=== PATIENT | male | born 1940 | race Caucasian/White ===

== ENCOUNTER → 2018-07-24 08:29 | Outpatient (CLI) | payer MEDICARE, OTHER, SELFPAY ==
--- NOTE | 2018-07-24 | DI.MRI.S_ITS ---
PROCEDURE: MR CERVICAL SPINE WO CON INDICATIONS: CERVICAL RADICULOPATHY TECHNIQUE: Noncontrast sagittal T1 spin echo and T2 fast spin echo, sagittal STIR, foraminal oblique sagittal T2 fast spin echo, and axial gradient echo or T2 fast spin echo through the cervical spine. COMPARISON: [facility], CR, XR CERVICAL SPINE WITH OBLIQUES, 08/06/2017, 14:21. FINDINGS: Image quality: Excellent. Alignment and Curvature: Postsurgical changes related to C5-C6 ACDF. Minimal anterolisthesis of C7 on T1 Bone Marrow: Scattered degenerative endplate signal changes Spinal Cord: Visualized spinal cord has normal size and signal. No cerebellar tonsillar herniation. Paraspinous Soft Tissues: No paravertebral masses. Prevertebral soft tissues are normal in thickness. T2 hyperintense focus seen involving the left lobe of the thyroid, nonspecific C2-C3: No definite canal stenosis. There is mild right foraminal narrowing. No definite left foraminal stenosis. C3-C4: Bilateral uncovertebral arthropathy and posterior intervening disc osteophyte complex, and bilateral facet disease. No definite canal stenosis. Mild to moderate bilateral foraminal narrowing. C4-C5: Bilateral uncovertebral arthropathy and posterior intervening disc osteophyte complex, and bilateral facet arthropathy. Moderate canal stenosis with effacement of the anterior and posterior thecal sac. Mild right and awqr-hl-bumawulj left foraminal stenosis. C5-C6: No definite canal narrowing is seen. Moderate left and mild right foraminal narrowing C6-C7: Bilateral uncovertebral arthropathy and posterior intervening disc osteophyte complex. Mild canal narrowing. Severe left and kjzl-ep-lsnmrvaq right foraminal narrowing. C7-T1: Normal appearance. IMPRESSION: Status post C5-C6 ACDF. Moderate disc degeneration at the adjacent unfused segments with moderate canal narrowing at C4-C5 and mild canal stenosis at C6-C7. Diffuse bilateral foraminal stenoses as detailed above most pronounced at C4-C5 (left), C5-C6 (left), and C6-C7 (left). Left thyroid lobe signal change, entirely nonspecific. Consider further evaluation with dedicated thyroid ultrasound as clinically warranted. Dictated by: Marcial Doyle M.D. on 07/24/2018 at 10:14 Approved by: Marcial Doyle M.D. on 07/24/2018 at 10:24
== END ==
PROVIDERS: Family Provider Physician Assistant; PCP Physician Assistant; Visit Provider Family Medicine
DX: M50.11 Cervical disc disorder with radiculopathy, high cervical region (principal); M48.02 Spinal stenosis, cervical region; Z98.1 Arthrodesis status
CPT/HCPCS: 72141

== ENCOUNTER 2018-08-07 10:32 | Emergency (ER) | payer MEDICARE, OTHER, SELFPAY ==
[2018-08-07 11:02] VITALS: BP 162/61; PULSE 62; RESP 20; TEMP 36.4; O2SAT 98
--- NOTE | 2018-08-07 11:07 | ED.BACK ---
HPI - Back Pain/Injury General Chief Complaint: Back Pain/Injury Stated Complaint: BURNING ON LEFT SIDE Time Seen by Provider: 08/07/18 10:51 Source: patient Mode of arrival: ambulatory Limitations: no limitations History of Present Illness HPI Narrative: Patient is a 77-year-old male with known lower lumbar spinal stenosis and also cervical spinal stenosis. He also has known lower lumbar arthritis. Here for evaluation because 1 week ago he was sitting in a chair and the cough seat of the chair broke and he fell through landing on his buttocks. He was able to get up and walk afterwards. No hip pain. He states that since then he has had lower abdominal pain and also a burning sensation radiating around to the front of his hips. Has not tried anything for this prior to arrival. Related Data Home Medications Medication Instructions Recorded Confirmed tiotropium bromide [Spiriva with 1 puff INH QDAY #0 ea 08/10/16 08/07/18 HandiHaler] albuterol sulfate 2 puff INHALATION BID 08/07/18 08/07/18 [id number]-vttuzmwudchps-uckf 1 tab PO QID PRN 08/07/18 08/07/18 [Fioricet] gabapentin 600 mg PO BID 08/07/18 08/07/18 losartan [Cozaar] 100 mg PO QPM 08/07/18 08/07/18 Previous Rx's Medication Instructions Recorded fluticasone-salmeterol [Advair 1 puff INH BID #3 pac 08/09/16 Diskus] atorvastatin [Lipitor] 40 mg PO Q DAY #90 tab 07/04/17 hydrochlorothiazide 12.5 mg PO QDAY #90 cap 07/04/17 meloxicam [Mobic] 15 mg PO Q DAY #90 tab 07/04/17 pantoprazole 20 mg PO QDAY #90 tab 10/30/17 Allergies Allergy/AdvReac Type Severity Reaction Status Date / Time Beta-Blockers Allergy Unknown Unverified 02/06/18 12:11 (Beta-Adrenergic Bloc codeine Allergy Unknown Unverified 02/06/18 12:11 Review of Systems Constitutional Denies fatigue, Denies fever(s) and Denies weakness Cardiovascular Denies chest pain and Denies dyspnea Respiratory Denies cough and Denies dyspnea Gastrointestinal Gastrointestinal: Denies abdominal pain, Denies nausea and Denies vomiting Genitourinary Denies dysuria, Denies urinary frequency and Denies urinary hesitancy Musculoskeletal Denies abnormal gait, Reports back pain, Denies myalgias, Denies arthralgias and Denies tingling Integumentary/Breasts Denies lesions and Denies rash Neurologic Denies abnormal gait, Denies sensory deficit, Denies tingling, Denies paresthesias and Denies weakness Endocrine Denies fatigue Hematologic/Lymphatic Denies easy bleeding and Denies easy bruising [facility] Medical History COPD (chronic obstructive pulmonary disease) (Acute) Gastroesophageal reflux disease (Acute) Hyperlipidemia (Acute) Hypertension (Acute) Surgical History Status post appendectomy Exam Initial Vital Signs Initial Vital Signs: Vital Signs Temperature 97.6 F 08/07/18 11:02 Pulse Rate 62 08/07/18 11:02 Respiratory Rate 20 08/07/18 11:02 Blood Pressure 162/61 H 08/07/18 11:02 Pulse Oximetry 98 08/07/18 11:02 Const General: cooperative, healthy appearing, comfortable, well developed, well groomed and No acute distress Orientation: alert, awake and oriented x3 HENMT Head: normal to inspection and normocephalic Resp Effort & Inspection: normal respiratory effort Auscultation: clear to auscultation bilaterally Cardio Rate: regular rate Rhythm: regular rhythm Pulses: radial pulses present GI Inspection: non-distended Palpation: soft, No firm and No tender Back/Spine/Pelvis Back: No CVA tenderness Thoracic/Lumbar Spine: other (Mild tender to palpation left-sided SI joint.) Skin Lesions: lesions noted Rashes: rash noted Neuro General: alert and oriented x3 Sensory Exam: no sensory deficits noted Extrem General: normal to inspection and capillary refill normal Psych Appearance: grossly normal and well kempt Course Orders Ordered: ED Orders 08/07/18 11:24 XR lumbar spine 2-3V Stat Vital Signs - 8 hr 08/07/18 11:02 Temperature 97.6 F Pulse Rate 62 Respiratory Rate 20 Blood Pressure 162/61 H Pulse Oximetry 98 MDM - Back Pain/Injury Imaging Data Lumbar spine x-ray: Radiologist's impression: [address] [address] XRay Report Signed Patient: Flavio Bowen LMR#: [id number] : 2Acct:[id number] Age/Sex: 77 / MDate of Service: 08/07/18 Loc: ED Accession Number: [id number] Procedure: XR lumbar spine 2-3V Ordering Provider: Ivan Renteria D.O. PROCEDURE: XR LUMBAR SPINE 2-3V INDICATIONS: fall and landed while sitting 1 week ago TECHNIQUE: 3 views of the lumbar spine were acquired. COMPARISON: None. FINDINGS: Bones: 5 cdo-ldn-wvypbhn vertebrae are present. There is normal bony alignment except at L2-L3 where mild retrolisthesis of L2 on L3 grade 1 is present, and there is moderately severe degenerative disc disease at L1-2 and L2-3 with associated facet osteoarthritis allowing ligamentous laxity. No definite vertebral body compression fractures. No suspicious bony lesions. Soft tissues: Overlying bowel gas pattern is normal. No suspicious soft tissue calcifications. IMPRESSION: Degenerative disc disease and facet osteoarthritis is moderate to moderately severe best seen at L1-2 and L2-3, where mild retrolisthesis of L2 on L3 is present. A definite compression fracture is not found. Dictated by: Valdez Rey M.D. on 08/07/2018 at 11:49 Approved by: Valdez Rey M.D. on 08/07/2018 at 11:51 MDM Narrative Medical decision making narrative: Not toxic appearing. Skin is normal. No signs of zoster. X-rays negative for fracture. He is neurovascularly intact. Will hold on further x-rays for now. We did discuss the use of anti-inflammatories. He states that he does use Mobic and Advil as needed. He also has gabapentin. Informed him he needed to contact his primary doctor and also his spine doctor to discuss further workup. He was given return precautions. He expressed understanding and agreement plan Discharge Plan Departure Patient Disposition: Home Clinical Impression: Strain of lumbar region Discharge Date/Time: 08/07/18 12:43 Interventions: ED Discharge Assessment Last Done: 08/07/18 12:43 Instructions: DI for Low Back Pain, Activity May Be Better then Rest for Low Back Pain Recovery Activity Restrictions/Additional Instructions: Recommend that you start the Aleve like we discussed. Continue with the ulcer medications. Contact your primary care doctor for a follow-up. Return to the emergency department for any new or worsening symptoms Prescriptions: No Action fluticasone-salmeterol [Advair Diskus] 250 MCG/50 MCG blister with device 1 puff INH BID Qty: 3 RF: 3 tiotropium bromide [Spiriva with HandiHaler] 18 MCG capsule, w/inhalation device 1 puff INH QDAY Qty: 0 RF: 0 atorvastatin [Lipitor] 40 MG tablet 40 mg PO Q DAY Qty: 90 RF: 3 meloxicam [Mobic] 15 MG tablet 15 mg PO Q DAY Qty: 90 RF: 3 hydrochlorothiazide 12.5 MG capsule 12.5 mg PO QDAY Qty: 90 RF: 1 pantoprazole 20 MG tablet,delayed release (DR/EC) 20 mg PO QDAY Qty: 90 RF: 3 albuterol sulfate 90 mcg/actuation Hfa Aerosol Inhaler 2 puff INHALATION BID RF: 0 pnuxqdffed-kqjlrqjdnjaiv-wukz [Fioricet] 50-300-40 mg Capsule 1 tab PO QID PRN (Reason: Migraine Headache) RF: 0 gabapentin 600 mg Tablet Extended Release 24 Hr 600 mg PO BID RF: 0 losartan [Cozaar] 100 MG tablet 100 mg PO QPM RF: 0
--- NOTE | 2018-08-07 11:24 | DI.RAD.S_ITS ---
PROCEDURE: XR LUMBAR SPINE 2-3V INDICATIONS: fall and landed while sitting 1 week ago TECHNIQUE: 3 views of the lumbar spine were acquired. COMPARISON: None. FINDINGS: Bones: 5 zxd-ifw-ptiqvbr vertebrae are present. There is normal bony alignment except at L2-L3 where mild retrolisthesis of L2 on L3 grade 1 is present, and there is moderately severe degenerative disc disease at L1-2 and L2-3 with associated facet osteoarthritis allowing ligamentous laxity. No definite vertebral body compression fractures. No suspicious bony lesions. Soft tissues: Overlying bowel gas pattern is normal. No suspicious soft tissue calcifications. IMPRESSION: Degenerative disc disease and facet osteoarthritis is moderate to moderately severe best seen at L1-2 and L2-3, where mild retrolisthesis of L2 on L3 is present. A definite compression fracture is not found. Dictated by: Valdez Rey M.D. on 08/07/2018 at 11:49 Approved by: Valdez Rey M.D. on 08/07/2018 at 11:51
[2018-08-07 12:00] VITALS: BP 151/68; PULSE 60; RESP 15; O2SAT 96
== END 2018-08-07 12:43 | disposition home or self-care (01) ==
PROVIDERS: Emergency Provider Emergency Medicine; PCP Family Medicine
DX: S39.012A Strain of muscle, fascia and tendon of lower back, initial encounter (principal); W07.XXXA Fall from chair, initial encounter
CPT/HCPCS: 72100; 99282; 99283

== ENCOUNTER 2018-09-10 11:36 | Emergency (ER) | payer MEDICARE, OTHER, SELFPAY ==
[2018-09-10 11:52] VITALS: BP 168/63; PULSE 68; RESP 15; TEMP 36.7; O2SAT 98
[2018-09-10 12:00] VITALS: BP 151/69; PULSE 68; RESP 15; TEMP 36.7; O2SAT 98
--- NOTE | 2018-09-10 12:24 | ED.ABDPAIN ---
HPI - Abdominal Pain General Chief Complaint: Abdominal Pain Stated Complaint: LEFT SIDED PAIN Time Seen by Provider: 09/10/18 11:58 Source: patient Mode of arrival: ambulatory Limitations: no limitations History of Present Illness HPI narrative: Patient is a 77-year-old male who presents with left upper quadrant pain. He fell out of a metal folding chair about 1 month ago at that time he was seen evaluated and had a negative x-ray. He has had progressive worsening pain in his extremely tender to the left upper quadrant. He is not on any anti-platelet or anticoagulation medication. He denies nausea or vomiting. He has not had any fever. MD complaint: abdominal pain Onset (ago): month(s) (1) Pain Consistency: constant Location: LUQ Severity: severe Quality: stabbing Radiation: none Migration to: no migration Relieving factors: nothing Exacerbating factors: nothing Related Data Home Medications Medication Instructions Recorded Confirmed tiotropium bromide [Spiriva with 1 puff INH DAILY #0 ea 08/10/16 09/10/18 HandiHaler] albuterol sulfate 2 puff INHALATION BID 08/07/18 09/10/18 chvdjassxy-jiaurqrjfshch-zkja 1 tab PO QID PRN 08/07/18 09/10/18 [Fioricet] atorvastatin [Lipitor] 40 mg PO DAILY 09/10/18 09/10/18 gabapentin 800 mg PO BID 09/10/18 09/10/18 losartan 100 mg PO QPM 09/10/18 09/10/18 meloxicam [Mobic] 15 mg PO DAILY 09/10/18 09/10/18 pantoprazole 20 mg PO DAILY 09/10/18 09/10/18 Previous Rx's Medication Instructions Recorded fluticasone-salmeterol [Advair 1 puff INH BID #3 pac 08/09/16 Diskus] hydrochlorothiazide 12.5 mg PO QDAY #90 cap 07/04/17 Allergies Allergy/AdvReac Type Severity Reaction Status Date / Time Beta-Blockers Allergy Unknown Verified 09/10/18 10:56 (Beta-Adrenergic Bloc codeine Allergy Unknown Verified 09/10/18 10:56 Review of Systems Review of Systems All systems reviewed & are unremarkable except as noted in HPI and below Constitutional Denies chills, Denies fever(s), Denies lethargy and Denies weakness Eyes Denies change in vision, Denies eye discharge, Denies irritation and Denies loss of vision ENT Ears, Nose, Mouth, and Throat: Denies dysphagia Cardiovascular Denies chest pain, Denies irregular heart rhythm, Denies lightheadedness, Denies palpitations, Denies dyspnea, Denies dyspnea on exertion and Denies orthopnea Respiratory Denies cough, Denies dyspnea, Denies dyspnea on exertion and Denies wheezing Gastrointestinal Gastrointestinal: Reports abdominal pain, Reports cramping, Denies dysphagia, Denies nausea and Denies vomiting Genitourinary Denies hematuria, Reports flank pain (Mild left), Denies urinary frequency, Denies urinary hesitancy and Denies urinary incontinence Musculoskeletal Denies back pain, Denies muscle weakness, Denies numbness and Denies tingling Integumentary/Breasts Denies pruritus, Denies erythema, Denies rash and Denies wounds Neurologic Denies loss of vision, Denies numbness, Denies tingling and Denies weakness Endocrine Denies palpitations Allergic/Immunologic Denies wheezing [facility] Medical History COPD (chronic obstructive pulmonary disease) (Acute) Gastroesophageal reflux disease (Acute) Hyperlipidemia (Acute) Hypertension (Acute) Surgical History Status post appendectomy Social History Smoking Status: Never smoker alcohol intake: never substance use type: does not use Exam Initial Vital Signs Initial Vital Signs: Vital Signs Temperature 98.0 F 09/10/18 11:52 Pulse Rate 68 09/10/18 11:52 Respiratory Rate 15 09/10/18 11:52 Blood Pressure 168/63 H 09/10/18 11:52 Pulse Oximetry 98 09/10/18 11:52 GENERAL: Alert well-appearing elderly male normal body habitus A&O x3 HEENT: Head atraumatic,EOMI, pupils reactive, face symmetric, CARDIOVASCULAR: Regular rate and rhythm without murmurs, rubs or gallops. RESPIRATORY: Breath sounds equal bilaterally, no wheezes rales or rhonchi. ABDOMEN: Soft, left upper quad pain tender to touch. No guarding no rebound no right upper quadrant pain : Mild left CVA tenderness EXTREMITIES: Normal range of motion, no clubbing or edema. Neurovascularly intact NEUROLOGICAL: Alert and oriented x4.Normal gait and speech. Cranial nerves II through XII grossly intact. SKIN: Warm, dry, no laceration, no petechiae, no rashes or lesions. Course Orders Ordered: ED Orders 09/10/18 12:22 Complete Blood Count AUTO DIFF Stat Comprehensive Metabolic Panel Stat Lipase Stat 09/10/18 13:08 CT abdomen pelvis w con Stat Vital Signs - 8 hr 09/10/18 11:52 09/10/18 12:00 09/10/18 13:30 Temperature 98.0 F 98.0 F Pulse Rate 68 68 60 Respiratory Rate 15 15 14 Blood Pressure 151/69 H Blood Pressure [Right Arm] 168/63 H 167/70 H Pulse Oximetry 98 98 97 MDM - Abdominal Pain Lab Data Attestation: I reviewed the patient's lab results. Result diagrams: 09/10/18 12:22 09/10/18 12:22 Lab Results 09/10/18 09/10/18 Range/Units 12:22 12:22 WBC 9.3 (4.5-11.0) X10^3/uL RBC 4.77 (4.5-5.9) X10^6/uL Hgb 14.2 (13.5-17.5) g/dL Hct 41.4 (41-53) % MCV 86.9 (80-100) fL MCH 29.8 (26-34) PG MCHC 34.3 (30-36) % RDW 14.1 (11.6-14.8) % Plt Count 177 (150-400) X10^3/uL Neut % (Auto) 74.1 (50-75) % Lymph % (Auto) 17.2 L (25-40) % Union % (Auto) 6.0 (3-14) % Eos % (Auto) 2.0 (2-4) % Baso % (Auto) 0.7 (0-2) % Neut # (Auto) 6900 H (7711-3735) /uL Sodium 141 (137-145) mmol/L Potassium 4.0 (3.4-5.1) mmol/L Chloride 99 (98-107) mmol/L Carbon Dioxide 31 (22-32) mmol/L BUN 11 (9-20) mg/dL Creatinine 1.00 (0.66-1.25) mg/dL Estimated GFR > 60.0 (>60) mL/min BUN/Creatinine Ratio 11.0 (6-22) Glucose 96 (80-110) mg/dL Calcium 9.9 (8.4-10.2) mg/dL Total Bilirubin 0.6 (0.2-1.3) mg/dL AST 33 (17-59) IU/L ALT 40 (21-72) IU/L Alkaline Phosphatase 72 (38-126) U/L Total Protein 7.3 (6.3-8.2) g/dL Albumin 4.7 (3.5-5.0) g/dL Globulin 2.6 (1.7-4.1) g/dL Albumin/Globulin Ratio 1.8 (1.0-2.8) Lipase 74 (23-300) U/L Imaging Data CT scan - abdomen: Radiologist's impression: PROCEDURE: CT ABDOMEN PELVIS W CON INDICATIONS: left lower quad pain after fall 1month ago getting worse TECHNIQUE: After the administration of intravenous contrast, 5 mm thick sections acquired from the diaphragm to the symphysis. 5 mm coronal and sagittal reformats were acquired. For radiation dose reduction, the following was used: automated exposure control, adjustment of mA and/or kV according to patient size. COMPARISON: [facility], CT, THORAX WITHOUT CONTRAST, 03/20/2014, 9:22. [facility], CT, ABDOMEN/PELVIS WITH CONTRAST, 01/06/2014, 8:53. [facility], CT, ABDOMEN/PELVIS WITH CONTRAST, 01/09/2012, 12:50. FINDINGS: Image quality: Excellent. ABDOMEN: Lung bases: Lung bases are clear except for a band of alveolar scarring inferior medial aspect of the right middle lobe present on prior chest CT scanning in 2013. Heart size is normal. Solid organs: Liver is normal in size and enhancement. Gallbladder appears normal. Biliary system is non dilated. Pancreas enhances normally. Spleen is normal in size and enhancement. No adrenal nodules. Kidneys demonstrate normal size and enhancement, without hydronephrosis. Peritoneum and bowel: Bowel loops demonstrate normal wall thickness and caliber. No free fluid or air. Nodes and vessels: No retroperitoneal or mesenteric adenopathy by size criteria. Aorta and inferior vena cava are normal in size. Miscellaneous: No ventral hernias. PELVIS: Genitourinary: Bladder wall thickness is normal. Miscellaneous: No inguinal hernias or adenopathy. Bones: No suspicious bony lesions. No vertebral body compression fractures. IMPRESSION: No trauma found, source of persistent left lower quadrant pain after fall approximately one month ago. Dictated by: Valdez Rey M.D. on 09/10/2018 at 13:37 MDM Narrative Medical decision making narrative: Patient overall is feeling better. He really just wanted to know if he broke anything. CT is negative no sign of internal bleeding or fractured ribs. He feels he feels ready and able to go home Discharge Plan Departure Patient Disposition: Home Clinical Impression: Abdominal pain Discharge Date/Time: 09/10/18 13:45 Interventions: ED Discharge Assessment Last Done: 09/10/18 13:45 Instructions: DI for Abdominal Muscle Strain Activity Restrictions/Additional Instructions: *You have been diagnosed with abdominal pain left upper quadrant *What to do: Blood working CT scan do not show any sign of trauma. Likely a muscle strain. May try ice or heat whichever works passed. *Continue to take medications as directed Tylenol 650 mg every 4 hr *Follow up with your primary care provider in 2-3 days *Return to ER if you should have any new, worsening or concerning symptoms Prescriptions: No Action fluticasone-salmeterol [Advair Diskus] 250 MCG/50 MCG blister with device 1 puff INH BID Qty: 3 RF: 3 tiotropium bromide [Spiriva with HandiHaler] 18 MCG capsule, w/inhalation device 1 puff INH DAILY Qty: 0 RF: 0 hydrochlorothiazide 12.5 MG capsule 12.5 mg PO QDAY Qty: 90 RF: 1 losartan 50 mg tablet 100 mg PO QPM RF: 0 gabapentin 800 mg tablet 800 mg PO BID RF: 0 atorvastatin [Lipitor] 40 MG tablet 40 mg PO DAILY RF: 0 meloxicam [Mobic] 15 MG tablet 15 mg PO DAILY RF: 0 pantoprazole 20 MG tablet,delayed release (DR/EC) 20 mg PO DAILY RF: 0 albuterol sulfate 90 mcg/actuation Hfa Aerosol Inhaler 2 puff INHALATION BID RF: 0 ueeffarfld-nfudsrayqedzs-aiaj [Fioricet] 50-300-40 mg Capsule 1 tab PO QID PRN (Reason: Migraine Headache) RF: 0 Referrals: Salazar Richards DO [Primary Care Provider] -
[2018-09-10 12:29] LABS: Add Manual Diff / Slide Review NO; Basophils Percent Auto 0.7 % (0-2); Hematocrit 41.4 % (41-53); Hemoglobin 14.2 g/dL (13.5-17.5); Lymphocytes Percent Auto 17.2 % (25-40); Mean Corpuscular HGB Conc 34.3 % (30-36); Mean Corpuscular Hemoglobin 29.8 PG (26-34); Mean Corpuscular Volume 86.9 fL (80-100); Neutrophils Absolute Auto 6900 /uL (3000-5900); Neutrophils Percent Auto 74.1 % (50-75); Platelet Count 177 X10^3/uL (150-400); Red Blood Cell Count 4.77 X10^6/uL (4.5-5.9); Red Cell Distribution Width 14.1 % (11.6-14.8); White Blood Cell Count 9.3 X10^3/uL (4.5-11.0)
--- NOTE | 2018-09-10 12:29 | ED_ITS ---
HPI - Abdominal Pain General Chief Complaint: Abdominal Pain Stated Complaint: LEFT SIDED PAIN Time Seen by Provider: 09/10/18 11:58 Source: patient Mode of arrival: ambulatory Limitations: no limitations History of Present Illness HPI narrative: Patient is a 77-year-old male who presents with left upper quadrant pain. He fell out of a metal folding chair about 1 month ago at that time he was seen evaluated and had a negative x-ray. He has had progressive worsening pain in his extremely tender to the left upper quadrant. He is not on any anti-platelet or anticoagulation medication. He denies nausea or vomiting. He has not had any fever. MD complaint: abdominal pain Onset (ago): month(s) (1) Pain Consistency: constant Location: LUQ Severity: severe Quality: stabbing Radiation: none Migration to: no migration Relieving factors: nothing Exacerbating factors: nothing Related Data Home Medications Medication Instructions Recorded Confirmed tiotropium bromide [Spiriva with 1 puff INH DAILY #0 ea 08/10/16 09/10/18 HandiHaler] albuterol sulfate 2 puff INHALATION BID 08/07/18 09/10/18 [id number]-sptcequswaxti-enmy 1 tab PO QID PRN 08/07/18 09/10/18 [Fioricet] atorvastatin [Lipitor] 40 mg PO DAILY 09/10/18 09/10/18 gabapentin 800 mg PO BID 09/10/18 09/10/18 losartan 100 mg PO QPM 09/10/18 09/10/18 meloxicam [Mobic] 15 mg PO DAILY 09/10/18 09/10/18 pantoprazole 20 mg PO DAILY 09/10/18 09/10/18 Previous Rx's Medication Instructions Recorded fluticasone-salmeterol [Advair 1 puff INH BID #3 pac 08/09/16 Diskus] hydrochlorothiazide 12.5 mg PO QDAY #90 cap 07/04/17 Allergies Allergy/AdvReac Type Severity Reaction Status Date / Time Beta-Blockers Allergy Unknown Verified 09/10/18 10:56 (Beta-Adrenergic Bloc codeine Allergy Unknown Verified 09/10/18 10:56 Review of Systems Review of Systems All systems reviewed & are unremarkable except as noted in HPI and below Constitutional Denies chills, Denies fever(s), Denies lethargy and Denies weakness Eyes Denies change in vision, Denies eye discharge, Denies irritation and Denies loss of vision ENT Ears, Nose, Mouth, and Throat: Denies dysphagia Cardiovascular Denies chest pain, Denies irregular heart rhythm, Denies lightheadedness, Denies palpitations, Denies dyspnea, Denies dyspnea on exertion and Denies orthopnea Respiratory Denies cough, Denies dyspnea, Denies dyspnea on exertion and Denies wheezing Gastrointestinal Gastrointestinal: Reports abdominal pain, Reports cramping, Denies dysphagia, Denies nausea and Denies vomiting Genitourinary Denies hematuria, Reports flank pain (Mild left), Denies urinary frequency, Denies urinary hesitancy and Denies urinary incontinence Musculoskeletal Denies back pain, Denies muscle weakness, Denies numbness and Denies tingling Integumentary/Breasts Denies pruritus, Denies erythema, Denies rash and Denies wounds Neurologic Denies loss of vision, Denies numbness, Denies tingling and Denies weakness Endocrine Denies palpitations Allergic/Immunologic Denies wheezing [facility] Medical History COPD (chronic obstructive pulmonary disease) (Acute) Gastroesophageal reflux disease (Acute) Hyperlipidemia (Acute) Hypertension (Acute) Surgical History Status post appendectomy Social History Smoking Status: Never smoker alcohol intake: never substance use type: does not use Exam Initial Vital Signs Initial Vital Signs: Vital Signs Temperature 98.0 F 09/10/18 11:52 Pulse Rate 68 09/10/18 11:52 Respiratory Rate 15 09/10/18 11:52 Blood Pressure 168/63 H 09/10/18 11:52 Pulse Oximetry 98 09/10/18 11:52 GENERAL: Alert well-appearing elderly male normal body habitus A&O x3 HEENT: Head atraumatic,EOMI, pupils reactive, face symmetric, CARDIOVASCULAR: Regular rate and rhythm without murmurs, rubs or gallops. RESPIRATORY: Breath sounds equal bilaterally, no wheezes rales or rhonchi. ABDOMEN: Soft, left upper quad pain tender to touch. No guarding no rebound no right upper quadrant pain : Mild left CVA tenderness EXTREMITIES: Normal range of motion, no clubbing or edema. Neurovascularly intact NEUROLOGICAL: Alert and oriented x4.Normal gait and speech. Cranial nerves II through XII grossly intact. SKIN: Warm, dry, no laceration, no petechiae, no rashes or lesions. Course Orders Ordered: ED Orders 09/10/18 12:22 Complete Blood Count AUTO DIFF Stat Comprehensive Metabolic Panel Stat Lipase Stat 09/10/18 13:08 CT abdomen pelvis w con Stat Vital Signs - 8 hr 09/10/18 11:52 09/10/18 12:00 09/10/18 13:30 Temperature 98.0 F 98.0 F Pulse Rate 68 68 60 Respiratory Rate 15 15 14 Blood Pressure 151/69 H Blood Pressure [Right Arm] 168/63 H 167/70 H Pulse Oximetry 98 98 97 MDM - Abdominal Pain Lab Data Attestation: I reviewed the patient's lab results. Result diagrams: 09/10/18 12:22 09/10/18 12:22 Lab Results 09/10/18 09/10/18 Range/Units 12:22 12:22 WBC 9.3 (4.5-11.0) X10^3/uL RBC 4.77 (4.5-5.9) X10^6/uL Hgb 14.2 (13.5-17.5) g/dL Hct 41.4 (41-53) % MCV 86.9 (80-100) fL MCH 29.8 (26-34) PG MCHC 34.3 (30-36) % RDW 14.1 (11.6-14.8) % Plt Count 177 (150-400) X10^3/uL Neut % (Auto) 74.1 (50-75) % Lymph % (Auto) 17.2 L (25-40) % Towns % (Auto) 6.0 (3-14) % Eos % (Auto) 2.0 (2-4) % Baso % (Auto) 0.7 (0-2) % Neut # (Auto) 6900 H (8120-6556) /uL Sodium 141 (137-145) mmol/L Potassium 4.0 (3.4-5.1) mmol/L Chloride 99 (98-107) mmol/L Carbon Dioxide 31 (22-32) mmol/L BUN 11 (9-20) mg/dL Creatinine 1.00 (0.66-1.25) mg/dL Estimated GFR > 60.0 (>60) mL/min BUN/Creatinine Ratio 11.0 (6-22) Glucose 96 (80-110) mg/dL Calcium 9.9 (8.4-10.2) mg/dL Total Bilirubin 0.6 (0.2-1.3) mg/dL AST 33 (17-59) IU/L ALT 40 (21-72) IU/L Alkaline Phosphatase 72 (38-126) U/L Total Protein 7.3 (6.3-8.2) g/dL Albumin 4.7 (3.5-5.0) g/dL Globulin 2.6 (1.7-4.1) g/dL Albumin/Globulin Ratio 1.8 (1.0-2.8) Lipase 74 (23-300) U/L Imaging Data CT scan - abdomen: Radiologist's impression: PROCEDURE: CT ABDOMEN PELVIS W CON INDICATIONS: left lower quad pain after fall 1month ago getting worse TECHNIQUE: After the administration of intravenous contrast, 5 mm thick sections acquired from the diaphragm to the symphysis. 5 mm coronal and sagittal reformats were acquired. For radiation dose reduction, the following was used: automated exposure control, adjustment of mA and/or kV according to patient size. COMPARISON: [facility], CT, THORAX WITHOUT CONTRAST, 03/20/2014, 9:22. [facility], CT, ABDOMEN/PELVIS WITH CONTRAST, 01/06/2014, 8:53. [facility], CT, ABDOMEN/PELVIS WITH CONTRAST, 01/09/2012, 12:50. FINDINGS: Image quality: Excellent. ABDOMEN: Lung bases: Lung bases are clear except for a band of alveolar scarring inferior medial aspect of the right middle lobe present on prior chest CT scanning in 2013. Heart size is normal. Solid organs: Liver is normal in size and enhancement. Gallbladder appears normal. Biliary system is non dilated. Pancreas enhances normally. Spleen is normal in size and enhancement. No adrenal nodules. Kidneys demonstrate normal size and enhancement, without hydronephrosis. Peritoneum and bowel: Bowel loops demonstrate normal wall thickness and caliber. No free fluid or air. Nodes and vessels: No retroperitoneal or mesenteric adenopathy by size criteria. Aorta and inferior vena cava are normal in size. Miscellaneous: No ventral hernias. PELVIS: Genitourinary: Bladder wall thickness is normal. Miscellaneous: No inguinal hernias or adenopathy. Bones: No suspicious bony lesions. No vertebral body compression fractures. IMPRESSION: No trauma found, source of persistent left lower quadrant pain after fall approximately one month ago. Dictated by: Valdez Rey M.D. on 09/10/2018 at 13:37 MDM Narrative Medical decision making narrative: Patient overall is feeling better. He really just wanted to know if he broke anything. CT is negative no sign of internal bleeding or fractured ribs. He feels he feels ready and able to go home Discharge Plan Departure Patient Disposition: Home Clinical Impression: Abdominal pain Discharge Date/Time: 09/10/18 13:45 Interventions: ED Discharge Assessment Last Done: 09/10/18 13:45 Instructions: DI for Abdominal Muscle Strain Activity Restrictions/Additional Instructions: *You have been diagnosed with abdominal pain left upper quadrant *What to do: Blood working CT scan do not show any sign of trauma. Likely a muscle strain. May try ice or heat whichever works passed. *Continue to take medications as directed Tylenol 650 mg every 4 hr *Follow up with your primary care provider in 2-3 days *Return to ER if you should have any new, worsening or concerning symptoms Prescriptions: No Action fluticasone-salmeterol [Advair Diskus] 250 MCG/50 MCG blister with device 1 puff INH BID Qty: 3 RF: 3 tiotropium bromide [Spiriva with HandiHaler] 18 MCG capsule, w/inhalation device 1 puff INH DAILY Qty: 0 RF: 0 hydrochlorothiazide 12.5 MG capsule 12.5 mg PO QDAY Qty: 90 RF: 1 losartan 50 mg tablet 100 mg PO QPM RF: 0 gabapentin 800 mg tablet 800 mg PO BID RF: 0 atorvastatin [Lipitor] 40 MG tablet 40 mg PO DAILY RF: 0 meloxicam [Mobic] 15 MG tablet 15 mg PO DAILY RF: 0 pantoprazole 20 MG tablet,delayed release (DR/EC) 20 mg PO DAILY RF: 0 albuterol sulfate 90 mcg/actuation Hfa Aerosol Inhaler 2 puff INHALATION BID RF: 0 hallduhfew-tbuhrbtjdkpbb-ycnv [Fioricet] 50-300-40 mg Capsule 1 tab PO QID PRN (Reason: Migraine Headache) RF: 0 Referrals: Salazar Richards DO [Primary Care Provider] -
[2018-09-10 12:43] LABS: Alanine Aminotransferase 40 IU/L (21-72); Albumin 4.7 g/dL (3.5-5.0); Albumin Globulin Ratio 1.8 (1.0-2.8); Alkaline Phosphatase 72 U/L (38-126); Aspartate Aminotransferase 33 IU/L (17-59); Bilirubin Total 0.6 mg/dL (0.2-1.3); Blood Urea Nitrogen 11 mg/dL (9-20); Calcium 9.9 mg/dL (8.4-10.2); Carbon Dioxide 31 mmol/L (22-32); Chloride 99 mmol/L (98-107); Estimated Glomerular Filt Rate > 60.0 mL/min (>60); Globulin 2.6 g/dL (1.7-4.1); Glucose 96 mg/dL (80-110); HEMOLYSIS < 15 (0-50); Lipase 74 U/L (23-300); Sodium 141 mmol/L (137-145); Total Protein 7.3 g/dL (6.3-8.2)
--- NOTE | 2018-09-10 13:08 | DI.CT.S_ITS ---
PROCEDURE: CT ABDOMEN PELVIS W CON INDICATIONS: left lower quad pain after fall 1month ago getting worse TECHNIQUE: After the administration of intravenous contrast, 5 mm thick sections acquired from the diaphragm to the symphysis. 5 mm coronal and sagittal reformats were acquired. For radiation dose reduction, the following was used: automated exposure control, adjustment of mA and/or kV according to patient size. COMPARISON: [facility], CT, THORAX WITHOUT CONTRAST, 03/20/2014, 9:22. [facility], CT, ABDOMEN/PELVIS WITH CONTRAST, 01/06/2014, 8:53. [facility], CT, ABDOMEN/PELVIS WITH CONTRAST, 01/09/2012, 12:50. FINDINGS: Image quality: Excellent. ABDOMEN: Lung bases: Lung bases are clear except for a band of alveolar scarring inferior medial aspect of the right middle lobe present on prior chest CT scanning in 2013. Heart size is normal. Solid organs: Liver is normal in size and enhancement. Gallbladder appears normal. Biliary system is non dilated. Pancreas enhances normally. Spleen is normal in size and enhancement. No adrenal nodules. Kidneys demonstrate normal size and enhancement, without hydronephrosis. Peritoneum and bowel: Bowel loops demonstrate normal wall thickness and caliber. No free fluid or air. Nodes and vessels: No retroperitoneal or mesenteric adenopathy by size criteria. Aorta and inferior vena cava are normal in size. Miscellaneous: No ventral hernias. PELVIS: Genitourinary: Bladder wall thickness is normal. Miscellaneous: No inguinal hernias or adenopathy. Bones: No suspicious bony lesions. No vertebral body compression fractures. IMPRESSION: No trauma found, source of persistent left lower quadrant pain after fall approximately one month ago. Dictated by: Valdez Rey M.D. on 09/10/2018 at 13:37 Approved by: Valdez Rey M.D. on 09/10/2018 at 13:39
[2018-09-10 13:30] VITALS: BP 167/70; PULSE 60; RESP 14; O2SAT 97
--- NOTE | 2018-09-14 15:15 | PC.NURSE ---
Pt states that he is feelin good,took tylenol and it is helping. Pt followed up with neurologist and has an appt for his back. Pt states that he really appreciated what we did for him.
== END 2018-09-10 13:45 | disposition home or self-care (01) ==
PROVIDERS: Emergency Provider Emergency Medicine; PCP Family Medicine
DX: R10.9 Unspecified abdominal pain (principal)
CPT/HCPCS: 36591; 74177; 80053; 83690; 85025; 99282; 99285; Q9967

== ENCOUNTER 2018-10-19 05:37 | Emergency (ER) | payer MEDICARE, OTHER, SELFPAY ==
[2018-10-19 06:00] VITALS: BP 149/73; PULSE 104; RESP 18; TEMP 36.7; O2SAT 94; BMI 26.6
--- NOTE | 2018-10-19 06:11 | ED.GENADULT ---
HPI - General Adult General Chief complaint: Neck Pain/Injury Stated complaint: recent neck surgery, pain meds not working Time Seen by Provider: 10/19/18 05:49 Source: patient Mode of arrival: ambulatory Limitations: no limitations History of Present Illness HPI narrative: Patient is a 77-year-old male who underwent an anterior cervical surgery at the end of last month. He states that approximately 1 week after the surgery he started noticing increased burning and tingling in his hands. He states that a couple days ago he saw all the physician's greenhouse assistant for his surgeon for the symptoms. He states that he was ?checked out? was given a prescription for cyclobenzaprine and oxycodone/acetaminophen. He states that he took 1 of his pain medications yesterday 0100 hr in the afternoon. He took his next 1 at 0800 hr at night. Has not taken this morning. He states that he has a ?burning sensation in his neck. Radiating down his arms. Cannot get comfortable. Cannot sleep. No fevers. No problems breathing. Related Data Home Medications Medication Instructions Recorded Confirmed tiotropium bromide [Spiriva with 1 puff INH DAILY #0 ea 08/10/16 10/19/18 HandiHaler] albuterol sulfate 2 puff INHALATION BID 08/07/18 10/19/18 [id number]-lgpjaamwiqkil-eixp 1 tab PO QID PRN 08/07/18 10/19/18 [Fioricet] atorvastatin [Lipitor] 40 mg PO DAILY 09/10/18 10/19/18 gabapentin 800 mg PO BID 09/10/18 10/19/18 losartan 100 mg PO QPM 09/10/18 10/19/18 meloxicam [Mobic] 15 mg PO DAILY 09/10/18 10/19/18 pantoprazole 20 mg PO DAILY 09/10/18 10/19/18 cyclobenzaprine 5 mg 10/19/18 oxycodone-acetaminophen 10/19/18 Previous Rx's Medication Instructions Recorded fluticasone-salmeterol [Advair 1 puff INH BID #3 pac 08/09/16 Diskus] hydrochlorothiazide 12.5 mg PO QDAY #90 cap 07/04/17 prednisone 60 mg PO DAILY 7 Days #21 tab 10/19/18 Allergies Allergy/AdvReac Type Severity Reaction Status Date / Time Beta-Blockers Allergy Unknown Verified 10/19/18 06:08 (Beta-Adrenergic Bloc codeine Allergy Unknown Verified 10/19/18 06:08 Review of Systems Constitutional Denies fever(s) and Denies headache(s) ENT Ears, Nose, Mouth, and Throat: Denies headache(s) and Reports neck pain Cardiovascular Denies chest pain and Denies dyspnea Respiratory Denies dyspnea Gastrointestinal Gastrointestinal: Denies abdominal pain, Denies nausea and Denies vomiting Musculoskeletal Reports neck pain, Reports numbness and Reports tingling Integumentary/Breasts Denies rash Neurologic Reports burning sensations, Denies headache(s), Reports numbness, Reports tingling and Reports paresthesias Hematologic/Lymphatic Comments: Not on anticoagulation PFSH Medical History Cervical vertebral fusion (Acute) COPD (chronic obstructive pulmonary disease) (Acute) Gastroesophageal reflux disease (Acute) Hyperlipidemia (Acute) Hypertension (Acute) Surgical History History of cervical discectomy (Acute) S/P cervical spinal fusion (Acute) Status post appendectomy Social History Smoking Status: Former smoker alcohol intake: never substance use type: does not use Exam Initial Vital Signs Initial Vital Signs: Vital Signs Temperature 98.0 F 10/19/18 06:00 Pulse Rate 104 H 10/19/18 06:00 Respiratory Rate 18 10/19/18 06:00 Blood Pressure 149/73 H 10/19/18 06:00 Pulse Oximetry 94 10/19/18 06:00 Const General: cooperative, well developed, well groomed and No acute distress Orientation: alert and oriented x3 HENMT Head: normal to inspection and normocephalic Neck Other: Surgical incision right anterior neck looks well. No surrounding erythema. No drainage. Resp Effort & Inspection: normal respiratory effort Cardio Rate: tachycardic Skin Other: Surgical incision right anterior neck looks well. Neuro General: alert and awake Cognition: normal cognition Gait: normal gait Extrem General: normal to inspection and capillary refill normal Psych Appearance: grossly normal and well kempt Course Orders Ordered: Discontinued Medications Ketorolac Tromethamine (Toradol) 30 mg IM NOW ONE Stop: 10/19/18 06:22 Last Admin: 10/19/18 06:29 Dose: 30 mg Prednisone (Deltasone) 60 mg PO NOW ONE Stop: 10/19/18 06:22 Last Admin: 10/19/18 06:29 Dose: 60 mg Vital Signs - 8 hr 10/19/18 06:00 Temperature 98.0 F Pulse Rate 104 H Respiratory Rate 18 Blood Pressure 149/73 H Pulse Oximetry 94 Medical Decision Making MDM Narrative Medical decision making narrative: Patient was just seen by his surgical office a couple days ago. It does appear that he is not taking his pain medications as often as he should. He is on Mobic. Is also on gabapentin. He was given a shot of Toradol here in the emergency department. Also start him on a short course of steroids. I do not feel that radiologic studies are warranted currently. Will change some of his medications around. He was instructed on how he should be taking his pain medication. He expressed understanding and agreement. Discharge Plan Departure Patient Disposition: Home Clinical Impression: Cervical radiculopathy Instructions: DI for Cervical Radiculopathy Activity Restrictions/Additional Instructions: I recommend that you take the oxycodone/acetaminophen 1 tablet every 4 hr. If this is not working you can increase it to 2 tablets every 6 hr. If this is not working you can do to 2 tablets every 4 hr. This medication can make it drowsy so you need to be careful to avoid falling. I would also recommend that you increase your gabapentin to 600 mg 3 times a day from 2 times a day. I would continue to take the Mobic as directed. Your were given your 1st dose of steroids here in the emergency department. Fill the prescription that you were given and start taking it tomorrow as directed. Call your operative provider for evaluation. Prescriptions: New prednisone 20 mg tablet 60 mg PO DAILY 7 Days Qty: 21 RF: 0 No Action fluticasone-salmeterol [Advair Diskus] 250 MCG/50 MCG blister with device 1 puff INH BID Qty: 3 RF: 3 tiotropium bromide [Spiriva with HandiHaler] 18 MCG capsule, w/inhalation device 1 puff INH DAILY Qty: 0 RF: 0 hydrochlorothiazide 12.5 MG capsule 12.5 mg PO QDAY Qty: 90 RF: 1 losartan 50 mg tablet 100 mg PO QPM RF: 0 gabapentin 800 mg tablet 800 mg PO BID RF: 0 atorvastatin [Lipitor] 40 MG tablet 40 mg PO DAILY RF: 0 meloxicam [Mobic] 15 MG tablet 15 mg PO DAILY RF: 0 pantoprazole 20 MG tablet,delayed release (DR/EC) 20 mg PO DAILY RF: 0 albuterol sulfate 90 mcg/actuation Hfa Aerosol Inhaler 2 puff INHALATION BID RF: 0 swoeydxpna-bxnddlthpuapi-cjth [Fioricet] 50-300-40 mg Capsule 1 tab PO QID PRN (Reason: Migraine Headache) RF: 0 oxycodone-acetaminophen RF: 0 cyclobenzaprine 5 mg RF: 0
[2018-10-19] MEDS: KETOROLAC 60 MG/2 ML VIAL 30 MG IM (06:29)
[2018-10-19] MEDS: predniSONE 20 MG TABLET 60 MG PO (06:29)
== END 2018-10-19 07:17 | disposition home or self-care (01) ==
PROVIDERS: Emergency Provider Emergency Medicine; PCP Family Medicine
DX: M54.2 Cervicalgia (principal)
CPT/HCPCS: 96372; 99282; 99283; J1885

== ENCOUNTER → 2018-10-31 14:09 | Outpatient (CLI) | payer MEDICARE, OTHER, SELFPAY ==
--- NOTE | 2018-10-31 | DI.RAD.S_ITS ---
PROCEDURE: XR CERVICAL SPINE 4V OR 5V INDICATIONS: SPINE PAIN TECHNIQUE: 5 views of the cervical spine were acquired. COMPARISON: [facility], CR, XR CERVICAL SPINE WITH OBLIQUES, 08/06/2017, 14:21. FINDINGS: Bones: No fractures or dislocations to the C7 level. Status post C4-C5 ACDF with interbody graft. Previous C5-C6 ACDF plate and screw removal. Chronic osseous fusion of the C5 and C6 vertebral bodies. Severe C6-C7 disc degeneration and diffuse facet arthropathy. Residual grade 1 retrolisthesis of C4 on C5. No suspicious bony lesions. No evidence of abnormal motion with flexion and extension lateral views. There is levocurvature Soft tissues: Prevertebral soft tissues are normal in thickness. IMPRESSION: Expected postoperative alignment of C4-C5 ACDF and interbody graft. Residual retrolisthesis of C4 on C5 however no definite abnormal motion. Mildly progressed C6-C7 disc degeneration. Levocurvature. Dictated by: Marcial Doyle M.D. on 10/31/2018 at 16:54 Approved by: Marcial Doyle M.D. on 10/31/2018 at 16:58
[2018-10-31 15:07] LABS: Estimated Glomerular Filt Rate > 60.0 mL/min (>60)
== END ==
PROVIDERS: PCP Family Medicine; Visit Provider Neurological Surgery
DX: M50.323 Other cervical disc degeneration at C6-C7 level (principal); M47.12 Other spondylosis with myelopathy, cervical region; Z98.1 Arthrodesis status
CPT/HCPCS: 36415; 72050; 82565

== ENCOUNTER → 2018-11-05 15:25 | Outpatient (CLI) | payer MEDICARE, OTHER, SELFPAY ==
--- NOTE | 2018-11-05 | DI.MRI.S_ITS ---
PROCEDURE: MR CERVICAL SPINE WO CON INDICATIONS: Discitis, unspecified, site unspecified TECHNIQUE: Noncontrast sagittal T1 spin echo and axial T2 sequences of the cervical spine. Patient was unable to complete the examination. COMPARISON: , CR, XR CERVICAL SPINE 4V OR 5V, 10/31/2018, 14:48. , MR, MR CERVICAL SPINE WO CON, 07/24/2018, 8:40. FINDINGS: Image quality: Degraded by metallic artifact. Alignment and Curvature: There is loss of normal cervical lordosis. Mild, grade 1 retrolisthesis of C4 on C5. Bone Marrow: Marrow demonstrates normal overall signal. Anterior fusion of C4-C6 has been performed. Spinal Cord: Visualized spinal cord has normal size and signal. No cerebellar tonsillar herniation. Paraspinous Soft Tissues: No paravertebral masses. Prevertebral soft tissues are normal in thickness. Diffuse congenital canal stenosis. C2-C3: Mild canal stenosis. Mild bilateral foraminal stenosis. No definite change. C3-C4: Moderate canal stenosis. Suboptimal valuation of the neural foramina. C4-C5: Status post fusion. Moderate to severe canal stenosis. Suboptimal valuation of the neural foramina. C5-C6: Status post fusion. Moderate to severe canal stenosis. Suboptimal valuation of the neural foramina. C6-C7: Disc height loss and desiccation. Mild diffuse disc bulge. Moderate to severe canal stenosis. Suboptimal evaluation of the neural foramina. C7-T1: Mild diffuse disc bulge. Mild to moderate canal stenosis. No definite foraminal stenosis. IMPRESSION: 1. Limited examination as described above. 2. 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 3. Multilevel canal stenoses as above. Suboptimal evaluation of the neural foramina. Dictated by: Anupama Gray M.D. on 11/05/2018 at 16:27 Approved by: Anpuama Gray M.D. on 11/05/2018 at 16:35
== END ==
PROVIDERS: PCP Family Medicine; Visit Provider Neurological Surgery
DX: M50.223 Other cervical disc displacement at C6-C7 level (principal); M48.02 Spinal stenosis, cervical region; Z98.1 Arthrodesis status
CPT/HCPCS: 72141

== ENCOUNTER → 2018-11-18 12:43 | Outpatient (CLI) | payer MEDICARE, OTHER, SELFPAY ==
[2018-11-18 13:00] LABS: Add Manual Diff / Slide Review NO; Basophils Absolute Auto 100 /uL (0-100); Basophils Percent Auto 0.8 % (0-2); Eosinophils Absolute Auto 200 /uL (0-450); Hematocrit 36.5 % (41-53); Hemoglobin 12.6 g/dL (13.5-17.5); Lymphocytes Absolute Auto 1400 /uL (1100-4500); Lymphocytes Percent Auto 17.8 % (25-40); Mean Corpuscular HGB Conc 34.4 % (30-36); Mean Corpuscular Hemoglobin 29.1 PG (26-34); Mean Corpuscular Volume 84.5 fL (80-100); Monocytes Absolute Auto 900 /uL (0-900); Monocytes Percent Auto 11.2 % (3-14); Neutrophils Absolute Auto 5300 /uL (1500-7000); Neutrophils Percent Auto 67.2 % (50-75); Platelet Count 332 X10^3/uL (150-400); Red Blood Cell Count 4.32 X10^6/uL (4.5-5.9); Red Cell Distribution Width 13.8 % (11.6-14.8); White Blood Cell Count 7.9 X10^3/uL (4.5-11.0)
== END ==
PROVIDERS: PCP Family Medicine; Visit Provider Neurological Surgery
DX: D72.819 Decreased white blood cell count, unspecified (principal)
CPT/HCPCS: 36415; 85025

== ENCOUNTER → 2019-06-09 11:55 | Outpatient (CLI) | payer MEDICARE, OTHER, SELFPAY ==
[2019-06-09 12:38] LABS: Alanine Aminotransferase 20 IU/L (21-72); Albumin 4.8 g/dL (3.5-5.0); Albumin Globulin Ratio 1.7 (1.0-2.8); Alkaline Phosphatase 97 U/L (38-126); Amylase 87 U/L (30-110); Aspartate Aminotransferase 32 IU/L (17-59); BUN Creatinine Ratio 14.5 (6-22); Bilirubin Total 0.8 mg/dL (0.2-1.3); Blood Urea Nitrogen 16 mg/dL (9-20); Calcium 10.8 mg/dL (8.4-10.2); Carbon Dioxide 29 mmol/L (22-32); Chloride 97 mmol/L (98-107); Estimated Glomerular Filt Rate > 60.0 mL/min (>60); Globulin 2.9 g/dL (1.7-4.1); Glucose 98 mg/dL (80-110); HEMOLYSIS < 15 (0-50); Lipase 89 U/L (23-300); Potassium 4.9 mmol/L (3.4-5.1); Sodium 139 mmol/L (137-145); Total Protein 7.7 g/dL (6.3-8.2)
[2019-06-09 12:47] LABS: Add Manual Diff / Slide Review NO; Basophils Absolute Auto 100 /uL (0-100); Basophils Percent Auto 0.6 % (0-2); Eosinophils Absolute Auto 200 /uL (0-450); Eosinophils Percent Auto 2.3 % (2-4); Hematocrit 41.5 % (41-53); Hemoglobin 14.1 g/dL (13.5-17.5); Lymphocytes Absolute Auto 2200 /uL (1100-4500); Lymphocytes Percent Auto 21.1 % (25-40); Mean Corpuscular HGB Conc 34.1 % (30-36); Mean Corpuscular Hemoglobin 29.9 PG (26-34); Mean Corpuscular Volume 87.9 fL (80-100); Monocytes Absolute Auto 700 /uL (0-900); Monocytes Percent Auto 6.7 % (3-14); Neutrophils Absolute Auto 7200 /uL (1500-7000); Neutrophils Percent Auto 69.3 % (50-75); Red Blood Cell Count 4.72 X10^6/uL (4.5-5.9); Red Cell Distribution Width 14.4 % (11.6-14.8); White Blood Cell Count 10.4 X10^3/uL (4.5-11.0)
== END ==
PROVIDERS: PCP Specialist; Visit Provider Specialist
DX: R10.9 Unspecified abdominal pain (principal)
CPT/HCPCS: 36415; 80053; 82150; 83690; 85025

== ENCOUNTER → 2019-06-13 10:06 | Outpatient (CLI) | payer MEDICARE, OTHER, SELFPAY ==
--- NOTE | 2019-06-13 10:11 | DI.CT.S_ITS ---
PROCEDURE: CT ABDOMEN PELVIS W CON INDICATIONS: ABDOMINAL PAIN TECHNIQUE: After the administration of oral and intravenous contrast, 5 mm thick sections acquired from the diaphragms to the symphysis. 5 mm thick coronal and sagittal reformats were performed. For radiation dose reduction, the following was used: automated exposure control, adjustment of mA and/or kV according to patient size. COMPARISON: [facility], CT, CT ABDOMEN PELVIS W CON, 09/10/2018, 13:00. [facility], CT, ABDOMEN/PELVIS WITH CONTRAST, 01/06/2014, 8:53. FINDINGS: Image quality: Excellent. ABDOMEN: Lung bases: Lung bases are clear. Heart size is normal. Solid organs: Liver is normal in size and enhancement. Gallbladder appears normal. Biliary system is non-dilated. Pancreas enhances normally. Spleen is normal in size and enhancement. No adrenal nodules. Kidneys are normal in size and enhancement, without hydronephrosis. Peritoneum and bowel: Stomach, small bowel, and colon loops are normal in caliber and wall thickness. No free fluid or air. Nodes and vessels: No retroperitoneal or mesenteric adenopathy. Aorta and inferior vena cava are normal in caliber. Miscellaneous: No ventral hernias. PELVIS: Genitourinary: Bladder wall thickness is normal. Miscellaneous: No inguinal hernias or adenopathy. There is a mild to moderate degree of sigmoid colon diverticulosis but no acute diverticulitis. Bones: No suspicious bony lesions. No vertebral body compression fractures. IMPRESSION: No sigmoid colon diverticulosis, no diverticulitis, and a definite source of generalized abdominal pain is not seen. Dictated by: Valdez Rey M.D. on 06/13/2019 at 13:35 Approved by: Valdez Rey M.D. on 06/13/2019 at 13:37
== END ==
PROVIDERS: PCP Specialist; Visit Provider Specialist
DX: R10.9 Unspecified abdominal pain (principal)
CPT/HCPCS: 74177; Q9967

== ENCOUNTER → 2019-12-22 10:11 | Outpatient (CLI) | payer MEDICARE, OTHER, SELFPAY ==
--- NOTE | 2019-12-22 | DI.RAD.S_ITS ---
PROCEDURE: XR THORACIC SPINE 2V INDICATIONS: Low back pain TECHNIQUE: 2 views of the thoracic spine were acquired. COMPARISON: None. FINDINGS: Bones: No fractures or dislocations. No suspicious bony lesions. Multilevel degenerative endplate sclerosis and spurring. Diffuse facet arthropathy. Prominent anterior spinal calcification Soft tissues: No paravertebral stripe thickening. IMPRESSION: No fracture Spondylitic changes as above. Prominent anterior spinal calcification raising possibility of DISH (diffuse idiopathic skeletal hyperostosis) Dictated by: Marcial Doyle M.D. on 12/22/2019 at 13:05 Approved by: Marcial Doyle M.D. on 12/22/2019 at 13:22
--- NOTE | 2019-12-22 | DI.RAD.S_ITS ---
PROCEDURE: XR LUMBAR SPINE 2-3V INDICATIONS: Low back pain TECHNIQUE: 2 views of the lumbar spine were acquired. COMPARISON: [facility], , XR LUMBAR SPINE 2-3V, 08/07/2018, 11:09. FINDINGS: Bones: No fracture or focal osseous destruction. Multilevel degenerative endplate sclerosis and spurring. Diffuse facet arthropathy. Grade I retrolisthesis of L2 on L3 and grade 1 retrolisthesis of L3 on L4. Scattered vascular calcifications seen in the aorta. Severe narrowing of the L2-L3 disc space. Mild-moderate narrowing of the remaining lumbar disc spaces. Partially visualized dextrocurvature of the lower thoracic spine. Soft tissues: Overlying bowel gas pattern is normal. No suspicious soft tissue calcifications. IMPRESSION: Multilevel lumbar spondylosis and spondylolisthesis as above, progressed at the L2-L3 level since the prior study dated 08/07/18. Dictated by: Marcial Doyle M.D. on 12/22/2019 at 13:03 Approved by: Marcial Doyle M.D. on 12/22/2019 at 13:04
== END ==
PROVIDERS: PCP Specialist; Referring Provider Physician Assistant Medical; Visit Provider Physician Assistant Medical
DX: M54.5 Low back pain (principal); M47.816 Spondylosis without myelopathy or radiculopathy, lumbar region; M43.16 Spondylolisthesis, lumbar region; M47.814 Spondylosis without myelopathy or radiculopathy, thoracic region
CPT/HCPCS: 72070; 72100

== ENCOUNTER → 2020-02-04 09:53 | Outpatient (CLI) | payer MEDICARE, OTHER, SELFPAY ==
--- NOTE | 2020-02-04 | DI.RAD.S_ITS ---
PROCEDURE: XR CERVICAL SPINE 2V OR 3V INDICATIONS: Other spondylosis with radiculopathy, cervical region. TECHNIQUE: 3 view(s) of the cervical spine were acquired. COMPARISON: [facility], MR, MR CERVICAL SPINE WO CON, 07/24/2018, 8:40. [facility], MR, MR CERVICAL SPINE WO CON, 11/05/2018, 15:43. [facility], CR, XR CERVICAL SPINE 4V OR 5V, 10/31/2018, 14:48. FINDINGS: Bones: Cervical spine postoperative changes are seen, which have been revised since the prior plain film dated 10/31/18. And anterior fusion plate is seen that spans from the superior aspect of C3 to the superior aspect of C5. Disc spacers are seen. There is vertebral body fusion seen at C5-C6. Moderate to severe disc space narrowing is seen at C6-C7, with associated endplate irregularity and sclerosis. Bridging anterior osteophytes are seen at this level. There is reversal of the normal cervical lordosis, with the apex at the C3-C4 level. No displaced fractures are seen. No suspicious lytic or blastic lesions are seen. Soft tissues: No prevertebral soft tissue swelling. Left-sided neck clips are seen. Atherosclerotic calcification of the aortic arch is noted. The visualized lung apices are unremarkable. IMPRESSION: Cervical spine postoperative changes are seen, which have been revised since the prior plain film. No significant postoperative abnormality is seen. Dictated by: Jon Pantoja M.D. on 02/04/2020 at 9:41 Approved by: Jon Pantoja M.D. on 02/04/2020 at 9:44
== END ==
PROVIDERS: PCP Specialist; Referring Provider Neurological Surgery; Visit Provider Neurological Surgery
DX: M47.22 Other spondylosis with radiculopathy, cervical region (principal); Z98.1 Arthrodesis status
CPT/HCPCS: 72040

== ENCOUNTER → 2020-04-19 10:02 | Outpatient (CLI) | payer MEDICARE, OTHER, SELFPAY ==
[2020-04-19 12:48] LABS: Prostate Specific Antigen 1.15 ng/mL (0.10-4.00)
== END ==
PROVIDERS: PCP Family Medicine; Referring Provider Physician Assistant; Visit Provider Physician Assistant
DX: Z12.5 Encounter for screening for malignant neoplasm of prostate (principal); R97.20 Elevated prostate specific antigen [PSA]
CPT/HCPCS: 36415; 84153

== ENCOUNTER 2020-11-11 08:14 | Observation (INO) | payer MEDICARE, OTHER, SELFPAY ==
[2020-11-11] VITALS (17 sets, daily range): BP systolic 139–188; BP diastolic 65–99; PULSE 61–85; RESP 14–42; TEMP 36–36.6; O2SAT 94–97; BMI 24.2
--- NOTE | 2020-11-11 08:14 | DI.CT.S_ITS ---
PROCEDURE: CT STROKE INDICATIONS: Left-sided weakness TECHNIQUE: Noncontrast 4.5 mm thick angled axial sections acquired from the foramen magnum to the vertex, with coronal reformats. For radiation dose reduction, the following was used: automated exposure control, adjustment of mA and/or kV according to patient size. COMPARISON: None. FINDINGS: Image quality: Excellent. CSF spaces: Basal cisterns are patent. No extra-axial fluid collections. The ventricles are symmetric in size and shape. Brain: No intracranial bleeds or masses. There is cerebral volume loss for age, with resultant ventricular and sulcal prominence. There are periventricular and deep white matter chronic small vessel ischemic changes. There is intracranial internal carotid artery and vertebral artery atherosclerosis. Skull and face: Calvarium and visualized facial bones appear intact, without suspicious lesions. Sinuses: Visualized sinuses and mastoids are clear. IMPRESSION: No acute intracranial disease process. Findings telephoned to Dr. Montano on November 11, 2020 at 8:29 a.m.. This study fulfills neurological imaging criteria for inclusion or exclusion of acute stroke therapies based on available published neurological guidelines. Dictated by: Jaqui Bañuelos MD, PhD on 11/11/2020 at 8:29 Approved by: Jaqui Bañuelos MD, PhD on 11/11/2020 at 8:32
--- NOTE | 2020-11-11 08:19 | DI.CT.S_ITS ---
PROCEDURE: CT ANGIO HEAD AND NECK INDICATIONS: left sided weakness TECHNIQUE: After the administration of intravenous contrast, 1 mm thick sections acquired from the aortic arch through the [place]. Post-contrast 4.5 mm thick sections then re-acquired from the foramen magnum to the vertex. 3-dimensional iyutrqp-uigbhoqpl-zijfxezscb (MIP) and/or volume rendering reformats were acquired of the central intracranial vasculature and neck separately. COMPARISON: [facility], CT, CT STROKE, 11/11/2020, 8:14. FINDINGS: Image quality: Excellent. BRAIN: CSF spaces: Ventricles are normal in size and shape. Basal cisterns are patent. No extra-axial fluid collections. Brain: No midline shift. No intracranial bleeds or masses. Marie-white matter interface appears intact. Skull and face: Calvarium and facial bones appear intact, without suspicious lesions. Orbits appear normal. Sinuses: Sinuses and mastoids are clear. HEAD CT ANGIOGRAPHY: Anterior circulation: Intracranial internal carotid arteries are normal in size and flow. The flow within the paired anterior cerebral arteries is normal and symmetric. The flow within the middle cerebral arteries is normal and symmetric. The anterior communicating artery is seen. No aneurysms are seen. Posterior circulation: Visualized portions of the vertebral arteries demonstrate normal caliber, and join to form a normal appearing basilar artery. Flow within the posterior cerebral arteries is normal and symmetric. No aneurysms are seen. NECK CT ANGIOGRAPHY: Carotid system: Moderate atherosclerotic calcification of the aortic arch. The great vessels demonstrate a conventional anatomy as they arise from the aortic arch. The origins of the common carotid arteries appear patent. The common carotid arteries demonstrate normal caliber and courses. Calcified plaques at carotid bifurcations bilaterally, right greater than left. There is abzybiga-hm-rrba grade stenosis (approximately 70%) of the proximal right internal carotid artery at its origin. The left internal carotid artery demonstrate normal caliber. Calcified plaques are also seen in cavernous internal carotid arteries bilaterally without significant focal grade stenosis. Posterior circulation: Calcified plaques at the origins of the vertebral arteries. The origins of the vertebral arteries both appear widely patent. The more superior extracranial portions of both vertebral arteries also demonstrate normal courses and calibers. They join to form a normal appearing basilar artery. Soft tissues: Visualized neck soft tissues demonstrate no suspicious abnormalities. Severe emphysema. Lung apices are clear. Bilateral thyroid nodules. There is a 0.9 x 1.7 cm left thyroid nodule which may be a cyst. Bones: Degenerative and postsurgical changes are noted in cervical spine. No suspicious bony lesions. Visualized cervical spine appears normally aligned. IMPRESSION: 1. No acute intracranial abnormalities. 2. No high-grade stenosis or occlusion in anterior or posterior circulations. 3. 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 4. No significant stenosis or occlusion in cervical vertebral arteries. Any quantitative measurements of stenosis were performed using NASCET criteria. Dictated by: Keturah Rhodes M.D. on 11/11/2020 at 9:24 Approved by: Keturah Rhodes M.D. on 11/11/2020 at 9:38
--- NOTE | 2020-11-11 08:25 | ED_ITS ---
HPI - Neuro Symptoms/Deficit General Chief Complaint: Neuro Symptoms/Deficit Stated Complaint: Code Stroke Time Seen by Provider: 11/11/20 08:14 Source: family and EMS Mode of arrival: EMS History of Present Illness HPI Narrative: Patient is 80-year-old male with history of hypertension hyperlipidemia presenting as code stroke. Last known well 7:15 a.m.. He was in the kitchen talking to his he walked across the kitchen to the counter recently got weak and was lower to the ground. He was having difficulty speaking and had left-sided weakness. EMS arrived they confirmed left-sided weakness and left facial droop however in route he had improvement in the left side however still remains confused. Timing confirmed by: spouse Location: speech, left face, left arm and left leg Severity: moderate Quality: weak On Anticoagulants: No Associated symptoms: confusion Related Data Home Medications Medication Instructions Recorded Confirmed Spiriva with HandiHaler 1 puff INH DAILY #0 ea 08/10/16 11/11/20 albuterol sulfate 2 puff INHALATION BID 08/07/18 11/11/20 sajqrvndrs-pskpfnplfdiyg-wpbj 1 tab PO QID PRN 08/07/18 11/11/20 [Fioricet] atorvastatin [Lipitor] 40 mg PO DAILY 09/10/18 11/11/20 gabapentin 600 mg PO BID 09/10/18 11/11/20 losartan 100 mg PO QPM 09/10/18 11/11/20 meloxicam [Mobic] 15 mg PO DAILY 09/10/18 11/11/20 pantoprazole 20 mg PO DAILY 09/10/18 11/11/20 cyclobenzaprine 5 mg PO PRN PRN 10/19/18 11/11/20 Previous Rx's Medication Instructions Recorded fluticasone propion-salmeterol 1 puff INH BID #3 pac 08/09/16 [Advair Diskus] hydrochlorothiazide 12.5 mg PO QDAY #90 cap 07/04/17 Allergies Allergy/AdvReac Type Severity Reaction Status Date / Time Beta-Blockers Allergy Unknown Verified 10/19/18 06:08 (Beta-Adrenergic Bloc codeine Allergy Unknown Verified 10/19/18 06:08 Review of Systems Hematologic/Lymphatic On Anticoagulants: No Patient History Medical History (Updated 11/11/20 @ 10:08 by Lucy Montano DO) Cervical vertebral fusion COPD (chronic obstructive pulmonary disease) Gastroesophageal reflux disease Hyperlipidemia Hypertension Surgical History (Updated 10/19/18 @ 06:14 by Case Reddy RN) History of cervical discectomy S/P cervical spinal fusion Status post appendectomy Social History (Updated 09/10/18 @ 12:28 by Lucy Montano DO) household members: spouse Smoking Status: Former smoker alcohol intake: never substance use type: does not use Smoking Status: Former smoker alcohol intake frequency: a few times a week Substance Use Type: does not use Exam Initial Vital Signs Initial Vital Signs: Vital Signs Temperature 97.5 F L 11/11/20 08:27 Pulse Rate 79 11/11/20 08:27 Respiratory Rate 16 11/11/20 08:27 Blood Pressure 183/99 H 11/11/20 08:27 Pulse Oximetry 95 11/11/20 08:27 GENERAL: Alert pleasant 80-year-old male and in no acute distress. HEENT: Head atraumatic,EOMI, pupils reactive, face symmetric, moist mucous membranes CARDIOVASCULAR: Regular rate and rhythm without murmurs, rubs or gallops. RESPIRATORY: Breath sounds equal bilaterally, no wheezes rales or rhonchi. ABDOMEN: Soft, nontender. Normoactive bowel sounds all 4 quadrants. No guarding or rebound. EXTREMITIES: Normal range of motion, no clubbing or edema. Neurovascularly intact NEUROLOGICAL: Alert and oriented to person, confused on year and month.Normal gait and speech. Cranial nerves II through XII grossly intact. Good sbxqtn-xu-apmj, good iczu-xj-agzl, strength equal bilaterally, no dysarthria or aphasia, sensation in tact to soft touch bilaterally, no visual changes, no facial droop, left arm drifts SKIN: Warm, dry, no laceration, no petechiae, no rashes or lesions. Scores NIH Stroke Scale Level of Conciousness: Alert, keenly responsive Ask month/age: Answers neither question correctly, aphasic, stuporous, coma Open/close eyes, close hand: Performs both tasks correctly Best gaze horizontal: Normal Visual keller: No visual loss Facial palsy: Normal symetrical movement Left arm drift: Drifts down, not to bed Right arm drift: No drift for full 10 sec Left leg drift: No drift for full 5 sec Right leg drift: No drift for full 5 sec Limb ataxia: Absent Sensory on face/arms/legs: Normal, no sensory loss Best language: No aphasia, normal Dysarthria: Normal Extinction or inattention: No abnormality Total NIH Stroke scale score: 3 Course Orders Ordered: ED Orders 11/11/20 08:14 CT Stroke Stat 11/11/20 08:19 CT angio head and neck Stat 11/11/20 08:23 Complete Blood Count AUTO DIFF Stat Comprehensive Metabolic Panel Stat Partial Thromboplastin Time Stat Prolactin Stat Prothrombin Time INR Stat Troponin & CK Cardiac Panel Stat 11/11/20 08:41 EKG-12 Lead Stat 11/11/20 09:21 COVID19 Stat 11/11/20 10:07 MR stroke Urgent 11/11/20 13:00 Urinalysis and Microscopic Stat Urine Drug Screen, Rapid Stat Acetaminophen (Acetaminophen 325 Mg Tablet) 650 mg PO Q6HR PRN PRN Reason: Fever/Mild Pain (1-3) Acetaminophen/Butalbital/Caffeine (Butalb/Apap/Caffeine 50/325/40 Tablet) 1 each PO QID PRN PRN Reason: Migraine Headache Albuterol (Albuterol Hfa Mdi 60 Puff/8 Gm Inhaler) 2 puff INH BID [facility] Atorvastatin Calcium (Atorvastatin 20 Mg Tablet) 40 mg PO DAILY [facility] Cyclobenzaprine HCl (Cyclobenzaprine 5 Mg Tablet) 5 mg PO Q8H PRN PRN Reason: Headache Gabapentin (Gabapentin 600 Mg Tablet) 600 mg PO BID [facility] Hydrochlorothiazide (Hydrochlorothiazide 12.5 Mg Capsule) 12.5 mg PO DAILY [facility] Losartan Potassium (Losartan 50 Mg Tablet) 100 mg PO BEDTIME [facility] Magnesium Hydroxide (Magnesium Hydroxide 30 Ml Udc) 30 ml PO DAILY PRN PRN Reason: Constipation Meloxicam (Meloxicam 7.5 Mg Tablet) 15 mg PO DAILY [facility] Naloxone HCl (Naloxone 0.4 Mg/Ml Vial) 0.2 mg IV Q2MIN PRN PRN Reason: Opiate Reversal Ondansetron HCl (Ondansetron 4 Mg/2 Ml Inj) 4 mg IV Q8HR PRN PRN Reason: Nausea And Vomiting Pantoprazole Sodium (Pantoprazole 20 Mg Tablet) 20 mg PO 0600 [facility] Fluticasone/Salmeterol (Fluticasone/Salmeterol 250/50 60 Puff Diskus) 1 puff INH BID [facility] Tiotropium [place] (Tiotropium [place] 18 Mcg Inhaler) 18 mcg INH DAILY [facility] Discontinued Medications Aspirin (Aspirin 81 Mg Chew Tab) 324 mg PO NOW ONE Stop: 11/11/20 09:51 Last Admin: 11/11/20 09:59 Dose: 324 mg Documented by: AVIS Sodium Chloride (Normal Saline 0.9%) 1,000 mls @ 150 mls/hr IV CONT [facility] Last Infusion: 11/11/20 11:29 Dose: 0 mls/hr Documented by: Infusion: 11/11/20 11:17 Dose: 150 mls/hr Documented by: Admin: 11/11/20 08:47 Dose: 150 mls/hr Documented by: SUSAN Vital Signs Vital signs: Vital Signs - 8 hr 11/11/20 08:27 11/11/20 08:35 11/11/20 08:37 Temperature 97.5 F L Pulse Rate 79 74 77 Respiratory Rate 16 16 Blood Pressure 183/99 H 183/99 H Pulse Oximetry 95 96 96 11/11/20 09:00 11/11/20 09:01 11/11/20 09:15 Temperature Pulse Rate 68 70 69 Respiratory Rate 14 17 14 Blood Pressure 158/70 H 158/68 H 158/70 H Pulse Oximetry 95 95 96 11/11/20 09:30 11/11/20 09:31 11/11/20 09:45 Temperature Pulse Rate 85 80 69 Respiratory Rate 42 H 30 H 27 H Blood Pressure 168/82 H 173/78 H Pulse Oximetry 95 94 96 11/11/20 10:00 Temperature Pulse Rate 74 Respiratory Rate 36 H Blood Pressure 188/81 H Pulse Oximetry 96 MDM - Neuro Symptoms/Deficit Lab Data Attestation: I reviewed the patient's lab results. Result diagrams: 11/11/20 08:23 11/11/20 08:23 Labs: Lab Results 11/11/20 11/11/20 11/11/20 Range/Units 08:23 08:23 08:23 WBC 7.2 (4.5-11.0) X10^3/uL RBC 4.63 (4.5-5.9) X10^6/uL Hgb 13.6 (13.5-17.5) g/dL Hct 40.0 L (41-53) % MCV 86.2 (80-100) fL MCH 29.3 (26-34) PG MCHC 33.9 (30-36) % RDW 14.1 (11.6-14.8) % Plt Count 188 (150-400) X10^3/uL Neut % (Auto) 62.1 (50-75) % Lymph % (Auto) 24.6 L (25-40) % [place] % (Auto) 10.4 (3-14) % Eos % (Auto) 2.2 (2-4) % Baso % (Auto) 0.7 (0-2) % Neut # (Auto) 4500 (7387-5236) /uL Lymph # (Auto) 1800 (9115-0934) /uL [place] # (Auto) 800 (0-900) /uL Eos # (Auto) 200 (0-450) /uL Baso # (Auto) 100 (0-100) /uL PT 12.1 (10.1-12.7) SECONDS INR 1.1 (0.9-1.3) APTT 31 (26.4-36.2) SECONDS Sodium 135 L (137-145) mmol/L Potassium 3.4 (3.4-5.1) mmol/L Chloride 101 (98-107) mmol/L Carbon Dioxide 32 (22-32) mmol/L BUN 18 (9-20) mg/dL Creatinine 1.09 (0.66-1.25) mg/dL Estimated GFR > 60.0 (>60) mL/min BUN/Creatinine Ratio 16.5 (6-22) Glucose 112 H (80-110) mg/dL Calcium 9.8 (8.4-10.2) mg/dL Total Bilirubin 0.6 (0.2-1.3) mg/dL AST 31 (17-59) IU/L ALT 20 (<50) IU/L Alkaline Phosphatase 78 (38-126) U/L Total Creatine Kinase 130 (55-170) U/L CK-MB (CK-2) 2.62 H (<2.37) ng/mL CK-MB (CK-2) Rel Index 2.0 (1.5-5.0) % Troponin I < 0.012 (0.01-0.034) ng/mL Total Protein 6.5 (6.3-8.2) g/dL Albumin 4.0 (3.5-5.0) g/dL Globulin 2.5 (1.7-4.1) g/dL Albumin/Globulin Ratio 1.6 (1.0-2.8) Prolactin (3.7-17.9) ng/mL SARS-CoV-2 (PCR) (Negative) 11/11/20 11/11/20 Range/Units 08:23 09:21 WBC (4.5-11.0) X10^3/uL RBC (4.5-5.9) X10^6/uL Hgb (13.5-17.5) g/dL Hct (41-53) % MCV (80-100) fL MCH (26-34) PG MCHC (30-36) % RDW (11.6-14.8) % Plt Count (150-400) X10^3/uL Neut % (Auto) (50-75) % Lymph % (Auto) (25-40) % [place] % (Auto) (3-14) % Eos % (Auto) (2-4) % Baso % (Auto) (0-2) % Neut # (Auto) (2553-5515) /uL Lymph # (Auto) (1174-9707) /uL [place] # (Auto) (0-900) /uL Eos # (Auto) (0-450) /uL Baso # (Auto) (0-100) /uL PT (10.1-12.7) SECONDS INR (0.9-1.3) APTT (26.4-36.2) SECONDS Sodium (137-145) mmol/L Potassium (3.4-5.1) mmol/L Chloride (98-107) mmol/L Carbon Dioxide (22-32) mmol/L BUN (9-20) mg/dL Creatinine (0.66-1.25) mg/dL Estimated GFR (>60) mL/min BUN/Creatinine Ratio (6-22) Glucose (80-110) mg/dL Calcium (8.4-10.2) mg/dL Total Bilirubin (0.2-1.3) mg/dL AST (17-59) IU/L ALT (<50) IU/L Alkaline Phosphatase (38-126) U/L Total Creatine Kinase (55-170) U/L CK-MB (CK-2) (<2.37) ng/mL CK-MB (CK-2) Rel Index (1.5-5.0) % Troponin I (0.01-0.034) ng/mL Total Protein (6.3-8.2) g/dL Albumin (3.5-5.0) g/dL Globulin (1.7-4.1) g/dL Albumin/Globulin Ratio (1.0-2.8) Prolactin 23.1 H (3.7-17.9) ng/mL SARS-CoV-2 (PCR) Negative (Negative) Point of Care Testing Glucose POC [address] scan - head: Radiologist's Impression: PROCEDURE: CT STROKE INDICATIONS: Left-sided weakness TECHNIQUE: Noncontrast 4.5 mm thick angled axial sections acquired from the foramen magnum to the vertex, with coronal reformats. For radiation dose reduction, the following was used: automated exposure control, adjustment of mA and/or kV according to patient size. COMPARISON: None. FINDINGS: Image quality: Excellent. CSF spaces: Basal cisterns are patent. No extra-axial fluid collections. The ventricles are symmetric in size and shape. Brain: No intracranial bleeds or masses. There is cerebral volume loss for age, with resultant ventricular and sulcal prominence. There are periventricular and deep white matter chronic small vessel ischemic changes. There is intracranial internal carotid artery and vertebral artery atherosclerosis. Skull and face: Calvarium and visualized facial bones appear intact, without suspicious lesions. Sinuses: Visualized sinuses and mastoids are clear. IMPRESSION: No acute intracranial disease process. Findings telephoned to Dr. Montano on November 11, 2020 at 8:29 a.m.. This study fulfills neurological imaging criteria for inclusion or exclusion of acute stroke therapies based on available published neurological guidelines. Dictated by: Jaqui Bañuelos MD, PhD on 11/11/2020 at 8:29 CTA - brain/neck: Radiologist's Impression: PROCEDURE: CT ANGIO HEAD AND NECK INDICATIONS: left sided weakness TECHNIQUE: After the administration of intravenous contrast, 1 mm thick sections acquired from the aortic arch through the [place]. Post-contrast 4.5 mm thick sections then re-acquired from the foramen magnum to the vertex. 3-dimensional pxxlvmr-jfofizxvt-tmjwwfvqkm (MIP) and/or volume rendering reformats were acquired of the central intracranial vasculature and neck separately. COMPARISON: [facility], CT, CT STROKE, 11/11/2020, 8:14. FINDINGS: Image quality: Excellent. BRAIN: CSF spaces: Ventricles are normal in size and shape. Basal cisterns are patent. No extra-axial fluid collections. Brain: No midline shift. No intracranial bleeds or masses. Marie-white matter interface appears intact. Skull and face: Calvarium and facial bones appear intact, without suspicious lesions. Orbits appear normal. Sinuses: Sinuses and mastoids are clear. HEAD CT ANGIOGRAPHY: Anterior circulation: Intracranial internal carotid arteries are normal in size and flow. The flow within the paired anterior cerebral arteries is normal and symmetric. The flow within the middle cerebral arteries is normal and symmetric. The anterior communicating artery is seen. No aneurysms are seen. Posterior circulation: Visualized portions of the vertebral arteries d emonstrate normal caliber, and join to form a normal appearing basilar artery. Flow within the posterior cerebral arteries is normal and symmetric. No aneurysms are seen. NECK CT ANGIOGRAPHY: Carotid system: Moderate atherosclerotic calcification of the aortic arch. The great vessels demonstrate a conventional anatomy as they arise from the aortic arch. The origins of the common carotid arteries appear patent. The common carotid arteries demonstrate normal caliber and courses. Calcified plaques at carotid bifurcations bilaterally, right greater than left. There is bezrlefd-xv-bobi grade stenosis (approximately 70%) of the proximal right internal carotid artery at its origin. The left internal carotid artery demonstrate normal caliber. Calcified plaques are also seen in cavernous internal carotid arteries bilaterally without significant focal grade stenosis. Posterior circulation: Calcified plaques at the origins of the vertebral arteries. The origins of the vertebral arteries both appear widely patent. The more superior extracranial portions of both vertebral arteries also demonstrate normal courses and calibers. They join to form a normal appearing basilar artery. Soft tissues: Visualized neck soft tissues demonstrate no suspicious abnormalities. Severe emphysema. Lung apices are clear. Bilateral thyroid nodules. There is a 0.9 x 1.7 cm left thyroid nodule which may be a cyst. Bones: Degenerative and postsurgical changes are noted in cervical spine. No suspicious bony lesions. Visualized cervical spine appears normally aligned. IMPRESSION: 1. No acute intracranial abnormalities. 2. No high-grade stenosis or occlusion in anterior or posterior circulations. 3. 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 4. No significant stenosis or occlusion in cervical vertebral arteries. Any quantitative measurements of stenosis were performed using NASCET criteria. Dictated by: Keturah Rhodes M.D. on 11/11/2020 at 9:24 Approved by: Keturah Rhodes M.D. on 11/11/2020 at 9:38 ECG Data Attestation: I personally reviewed and interpreted this ECG as follows: Prior ECG tracings: available for review Interpretation: Sinus rhythm with PVCs heart rate 70 p.r. interval 189 QRS [address] changes similar to previous EKG MDM Narrative Medical decision making narrative: Patient's symptoms seem to improve and continue to improve while in the emergency department. He therefore is not a candidate for tPA. I spoke with his Jojo on phone she states he would normally know what year it is. He is able to tell me that Trump is leaving office and the Biden will be taking over but thinks it is 2000. stated that he has shaking in both of his legs. And he quite confused. Possible seizure although he was alert the entire time. I doubt seizure prolactin and negative. Symptoms more consistent with TIA. Dr. Hernandez updated patient's symptoms and test results, agrees with observation for TIA Discharge Plan Departure Patient Disposition: Admitted as Observation Clinical Impression: Brain TIA Admit Date/Time: 11/11/20 10:09 Admit Provider: Jean Carlos Hernandez
[2020-11-11 08:40] LABS: Add Manual Diff / Slide Review NO; Basophils Absolute Auto 100 /uL (0-100); Basophils Percent Auto 0.7 % (0-2); Eosinophils Absolute Auto 200 /uL (0-450); Eosinophils Percent Auto 2.2 % (2-4); Hemoglobin 13.6 g/dL (13.5-17.5); Lymphocytes Absolute Auto 1800 /uL (1100-4500); Lymphocytes Percent Auto 24.6 % (25-40); Mean Corpuscular HGB Conc 33.9 % (30-36); Mean Corpuscular Hemoglobin 29.3 PG (26-34); Mean Corpuscular Volume 86.2 fL (80-100); Monocytes Absolute Auto 800 /uL (0-900); Monocytes Percent Auto 10.4 % (3-14); Neutrophils Absolute Auto 4500 /uL (1500-7000); Neutrophils Percent Auto 62.1 % (50-75); Platelet Count 188 X10^3/uL (150-400); Red Blood Cell Count 4.63 X10^6/uL (4.5-5.9); Red Cell Distribution Width 14.1 % (11.6-14.8); White Blood Cell Count 7.2 X10^3/uL (4.5-11.0)
[2020-11-11] MEDS: SODIUM CHLORIDE 0.9% 1,000 ML 150 ML IV (08:47)
[2020-11-11 08:54] LABS: INR 1.1 (0.9-1.3); PTT Partial Thromboplastin Tim 31 SECONDS (26.4-36.2); Prothrombin Time 12.1 SECONDS (10.1-12.7)
[2020-11-11 09:14] LABS: Alanine Aminotransferase 20 IU/L (<50); Albumin Globulin Ratio 1.6 (1.0-2.8); Alkaline Phosphatase 78 U/L (38-126); Aspartate Aminotransferase 31 IU/L (17-59); BUN Creatinine Ratio 16.5 (6-22); Bilirubin Total 0.6 mg/dL (0.2-1.3); Blood Urea Nitrogen 18 mg/dL (9-20); Calcium 9.8 mg/dL (8.4-10.2); Carbon Dioxide 32 mmol/L (22-32); Chloride 101 mmol/L (98-107); Creatine Kinase 130 U/L (55-170); Estimated Glomerular Filt Rate > 60.0 mL/min (>60); Globulin 2.5 g/dL (1.7-4.1); Glucose 112 mg/dL (80-110); HEMOLYSIS < 15 (0-50); Potassium 3.4 mmol/L (3.4-5.1); Sodium 135 mmol/L (137-145); Total Protein 6.5 g/dL (6.3-8.2)
[2020-11-11 09:24] LABS: Troponin I < 0.012 ng/mL (0.01-0.034)
[2020-11-11 09:30] LABS: Creatine Kinase MB 2.62 ng/mL (<2.37)
[2020-11-11 09:46] LABS: COVID19 -Nasal RAPID Negative (Negative)
[2020-11-11 09:57] LABS: Prolactin 23.1 ng/mL (3.7-17.9)
[2020-11-11] MEDS: ASPIRIN 81 MG CHEW TAB 324 MG PO (09:59)
--- NOTE | 2020-11-11 10:07 | DI.MRI.S_ITS ---
PROCEDURE: MR STROKE Pre- and post-contrast brain MRI, non-contrast brain MR angiogram, pre- and postcontrast neck MR angiogram INDICATIONS: tia TECHNIQUE: Brain: Noncontrast axial T1 spin echo, axial T2 fast spin echo, sagittal and axial FLAIR, coronal T2 fast spin echo, axial gradient echo, axial diffusion and ADC through the brain. After the administration of contrast, axial 3D VIBE of the cranial vasculature and brain. Brain MRA: Non-contrast 3-D time of flight MR angiogram, with multiple czyeqsf-jaofzpkjj-drnaqipscb (MIP) reformats performed. Neck MRA: Axial and sagittal TruFISP through the neck. Coronal dynamic MR angiogram during administration of contrast in the arterial and venous phases, with 3-dimenstional dspnlru-fybvuhubl-dbqnzsmtij (MIP) reformats constructed from subtraction images. COMPARISON: [facility], CT, CT ANGIO HEAD AND NECK, 11/11/2020, 8:23. [facility], CT, CT STROKE, 11/11/2020, 8:14. FINDINGS: Image quality: Excellent. BRAIN: CSF spaces: Ventricles are normal in size and shape. Basal cisterns are patent. No extra-axial fluid collections. Brain: No intracranial bleeds or mass effects. There is mild cerebral volume loss. There are multiple foci of periventricular white matter T2 hyperintensity. Diffusion weighted images show no acute ischemic insults. Brainstem appears normal. Normal intravascular flow voids are present. No abnormal intracranial enhancement. Skull and face: Calvarial marrow signal is normal. Orbits appear normal. Sinuses: Sinuses and mastoids are clear. BRAIN MR ANGIOGRAM: Anterior circulation: Intracranial internal carotid arteries are normal in size and enhancement. There is mild irregularity in cavernous segment of the internal carotid arteries bilaterally. The flow within the paired anterior cerebral arteries is normal and symmetric. The flow within the middle cerebral arteries is normal and symmetric. The anterior communicating artery is seen. No stenoses, occlusions, or aneurysms. Posterior circulation: The visualized portions of the vertebral arteries demonstrate normal caliber, and join to form a normal appearing basilar artery. There is origin of the left posterior cerebral artery. The flow within the posterior cerebral arteries is normal and symmetric. No stenoses, occlusions, or aneurysms. NECK MR ANGIOGRAM: Carotids: Great vessels demonstrate a conventional anatomy as they arise from the aortic arch. The origins of the common carotid arteries appear patent. The calibers and courses of both common carotid arteries are normal. There are mild irregularities at carotid bifurcation regions bilaterally but no high-grade stenosis. The internal carotid arteries demonstrate normal course and caliber. Posterior circulation: The origins of the vertebral arteries appear patent. More superior portions of both vertebral arteries demonstrate normal course and caliber, and join to form a normal appearing basilar artery. Miscellaneous: Subclavian arteries appear patent. Pre-contrast images through the neck show no soft tissue abnormalities. There is a 1.2 x 1.7 cm left thyroid nodule. IMPRESSION: BRAIN MRI: 1. No acute intracranial abnormalities. 2. There are multiple foci of T2 hyperintensity in periventricular white matter, most likely secondary to chronic small vessel ischemic changes. The morphology and distribution could also be compatible with multiple sclerosis. Recommend clinical correlation. 3. Mild cerebral volume loss. BRAIN MR ANGIOGRAM: 1. No significant stenosis or occlusion in anterior circulations. 2. No significant stenosis or occlusion in posterior circulations. NECK MR ANGIOGRAM: 1. No high-grade stenosis or occlusion in cervical carotid arteries bilaterally. 2. No high-grade stenosis or occlusion in cervical vertebral arteries bilaterally. 3. A left thyroid nodule, which may be a cyst. Recommend thyroid ultrasound for follow-up. Dictated by: Keturah Rhodes M.D. on 11/11/2020 at 11:10 Approved by: Keturah Rhodes M.D. on 11/11/2020 at 11:31
--- NOTE | 2020-11-11 12:10 | PC.NURSE ---
Pt to room 220 via stretcher from ER - able to pivot transfer to bed. Denies pain, nausea, dizziness, or shortness of breath. Pt oriented x 3. NIH 0. Spouse at the bedside. Pt oriented to room, call light, bed controls, and tv controls. Swallow screen passed while in ER. Bed alarm on for safety. Pt agrees to call for assistance as needed.
[2020-11-11 13:17] LABS: Ur Creatinine Normal (Normal); Ur Specific Gravity Normal (Normal); Urine Tetrahydrocannabinol Negative (Negative); Urine pH Normal (Normal)
[2020-11-11 13:18] LABS: UR Morphine/Opiate cutoff 300 Negative (Negative); Urine Amphetamines Negative (Negative); Urine Barbiturates Negative (Negative); Urine Benzodiazepines Negative (Negative); Urine Cocaine Negative (Negative); Urine MDMA Negative (Negative); Urine Methadone Negative (Negative); Urine Methamphetamines Negative (Negative); Urine Oxycodone Negative (Negative); Urine Phencyclidine Negative (Negative); Urine Tricyclic Antidepressant Negative (Negative)
[2020-11-11 14:06] LABS: Bacteria Urine None Seen; RBC Urine None Seen (0-5/HPF); WBC Urine None Seen (0-5/HPF)
[2020-11-11 14:08] LABS: Appearance Urine UA CLEAR; Bilirubin Urine UA NEGATIVE (NEGATIVE); Color Urine UA YELLOW; Glucose Urine UA NEGATIVE (Negative); Ketones Urine UA NEGATIVE (NEGATIVE); Leukocyte Esterase Urine UA NEGATIVE (NEGATIVE); Occult Blood Urine UA NEGATIVE (Negative); Protein Urine UA NEGATIVE (Negative); Specific Gravity Urine UA <=1.005 (1.000-1.035); Urobilinogen Urine UA 0.2 E.U./dL (0.2)
--- NOTE | 2020-11-11 14:16 | DI.US.S_ITS ---
PROCEDURE: US CAROTID DOPPLER BI INDICATIONS: TRANSIENT ISCHEMIC ATTACK TECHNIQUE: Color and pulse Doppler interrogation was performed of both carotid systems, with image documentation and velocity measurements. COMPARISON: [facility], CT, CT ANGIO HEAD AND NECK, 11/11/2020, 8:23. FINDINGS: Stenosis calculations are based on SRU (Society of Radiologists in Ultrasound) criteria. Right side: Brachial blood pressure: 145/73 mm Hg. Common carotid artery peak systolic velocity: 85 cm/sec. Internal carotid artery peak systolic velocity: 135 cm/sec. Internal carotid artery end diastolic velocity: 25 cm/sec. External carotid artery peak systolic velocity: 192 cm/sec. ICA/CCA peak systolic ratio: 1.6. Marie scale imaging description: Calcified plaque Percent internal carotid artery stenosis: 50-69%. Vertebral artery: Flow direction is antegrade. Left side: Brachial blood pressure: 139/64 mm Hg. Common carotid artery peak systolic velocity: 64 cm/sec. Internal carotid artery peak systolic velocity: 112 cm/sec. Internal carotid artery end diastolic velocity: 23 cm/sec. External carotid artery peak systolic velocity: 90 cm/sec. ICA/CCA peak systolic ratio: 1.8 Marie scale imaging description: Calcified plaque Percent internal carotid artery stenosis: Less than 50%. Vertebral artery: Flow direction is antegrade. IMPRESSION: 1. 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 2. Less than 50% stenosis of the origin left internal carotid artery. 3. 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 4. Hypertension at the time of imaging. Dictated by: Jaqui Bañuelos MD, PhD on 11/11/2020 at 16:25 Approved by: Jaqui Bañuelso MD, PhD on 11/11/2020 at 16:34
[2020-11-11 14:24] LABS: Culture Indicated Urine Cult Not Indicated; Nitrite Urine UA NEGATIVE (Negative); Urine Comments Microscopic Normal
--- NOTE | 2020-11-11 17:04 | PM.HP.1 ---
History of Present Illness History of Present Illness Date Patient Seen: 11/11/20 Time Patient Seen: 15:00 Date of Onset of Symptoms: 11/11/20 Chief complaint: Code Stroke Narrative: Patient is a 80-year-old male with history of hypertension, hyperlipidemia, left carotid end arterectomy who developed acute left-sided weakness and confusion at home this morning. Patient had felt fine when he woke up at 5:00 a.m. and went back to sleep. He woke up again and 7:00 a.m. and was feeling okay but became acutely weak as he was walking to the bathroom. He was able to hang onto the kitchen counter and lower himself to the ground. He appeared confused to his and was having difficulty speaking. When EMS arrived they noted left sided weakness and left facial droop. Patient had improvement in mentation, speech and left-sided weakness while in the ED. His NIHSS score was 3. Head CT negative for acute findings. CTA with 70% RCA stenosis. EKG with sinus rhythm and nonspecific ST changes. He has been compliant with his medications. He has no history of AFib. He had left carotid endarterectomy about 12 years ago which was picked up on exam. He does not have prior history of CAD, TIA or stroke. Patient History Medical History (Updated 11/11/20 @ 10:08 by Lucy Montano DO) Cervical vertebral fusion COPD (chronic obstructive pulmonary disease) Gastroesophageal reflux disease Hyperlipidemia Hypertension Surgical History (Updated 11/11/20 @ 17:11 by Jean Carlos Hernandez MD) History of cervical discectomy History of left-sided carotid endarterectomy S/P cervical spinal fusion Status post appendectomy Family & Social History Social History: household members spouse Prior Living Arrangements House Safety & Behavioral: Feels Safe in Current Yes Environment Been Physically Hurt or No Threatened By a Person Suicidal Ideation Description None Suicide Plan Description No Plan Tobacco & Substance use: Smoking Status Former smoker alcohol intake never alcohol intake frequency a few times a week Substance Use Type does not use Meds Home Medications and Allergies Home Medications Medication Instructions Recorded Confirmed Type fluticasone propion-salmeterol 1 puff INH BID #3 pac 08/09/16 11/11/20 Rx [Advair Diskus] Spiriva with HandiHaler 1 puff INH DAILY #0 ea 08/10/16 11/11/20 History hydrochlorothiazide 12.5 mg PO QDAY #90 cap 07/04/17 11/11/20 Rx albuterol sulfate 2 puff INHALATION BID 08/07/18 11/11/20 History osaatnggqm-snjkrbzobtksv-bxhp 1 tab PO QID PRN 08/07/18 11/11/20 History [Fioricet] atorvastatin [Lipitor] 40 mg PO DAILY 09/10/18 11/11/20 History gabapentin 600 mg PO BID 09/10/18 11/11/20 History losartan 100 mg PO QPM 09/10/18 11/11/20 History meloxicam [Mobic] 15 mg PO DAILY 09/10/18 11/11/20 History pantoprazole 20 mg PO DAILY 09/10/18 11/11/20 History cyclobenzaprine 5 mg PO PRN PRN 10/19/18 11/11/20 History Allergies Allergy/AdvReac Type Severity Reaction Status Date / Time Beta-Blockers Allergy Unknown Verified 10/19/18 06:08 (Beta-Adrenergic Bloc codeine Allergy Unknown Verified 10/19/18 06:08 Review of Systems Review of Systems ROS: Yes All systems reviewed with the patient and are negative except as otherwise documented Exam Vital Signs (past 8 hours): - 11/11/20 09:15 11/11/20 09:30 11/11/20 09:31 Temperature Pulse Rate 69 85 80 Respiratory Rate 14 42 H 30 H Blood Pressure 158/70 H 168/82 H Pulse Oximetry 96 95 94 11/11/20 09:45 11/11/20 10:00 11/11/20 11:23 Temperature 96.8 F L Pulse Rate 69 74 62 Respiratory Rate 27 H 36 H 15 Blood Pressure 173/78 H 188/81 H 165/74 H Pulse Oximetry 96 96 96 11/11/20 12:31 11/11/20 16:15 Temperature 96.8 F L 97.6 F Pulse Rate 62 79 Respiratory Rate 17 18 Blood Pressure 165/74 H 149/73 H Pulse Oximetry 96 96 Oxygen Delivery Method Room Air Oxygen Flow Rate 0 Narrative Exam Narrative: General: Alert and cooperative male in no acute distress HEENT: Nontraumatic, pupils equal 3 mm and reactive, EOMI, face symmetric, tongue midline, lower and upper facial strength intact Neck: Supple without lymphadenopathy, no carotid bruit Lungs: Clear to auscultation Heart: Normal S1 and S2, regular rate and rhythm, no murmur Abdomen: Soft and nontender, no HSM Extremities: Warm, dry without edema Neurologic: Oriented x3, speech fluent, no aphasia, right-sided strength intact, LUE strength 5/5, LLE strength 5/5, finger to nose and heel to scott intact bilaterally, light touch sensation intact throughout Objective Labs Result Diagrams: 11/11/20 08:23 11/11/20 08:23 Labs: Laboratory Results - last 24 hr 11/11/20 11/11/20 11/11/20 08:23 08:23 08:23 WBC 7.2 RBC 4.63 Hgb 13.6 Hct 40.0 L MCV 86.2 MCH 29.3 MCHC 33.9 RDW 14.1 Plt Count 188 Neut % (Auto) 62.1 Lymph % (Auto) 24.6 L [place] % (Auto) 10.4 Eos % (Auto) 2.2 Baso % (Auto) 0.7 Neut # (Auto) 4500 Lymph # (Auto) 1800 [place] # (Auto) 800 Eos # (Auto) 200 Baso # (Auto) 100 PT 12.1 INR 1.1 APTT 31 Sodium 135 L Potassium 3.4 Chloride 101 Carbon Dioxide 32 BUN 18 Creatinine 1.09 Estimated GFR > 60.0 BUN/Creatinine Ratio 16.5 Glucose 112 H Calcium 9.8 Total Bilirubin 0.6 AST 31 ALT 20 Alkaline Phosphatase 78 Total Creatine Kinase 130 CK-MB (CK-2) 2.62 H CK-MB (CK-2) Rel Index 2.0 Troponin I < 0.012 Total Protein 6.5 Albumin 4.0 Globulin 2.5 Albumin/Globulin Ratio 1.6 Prolactin Urine Color Urine Appearance Urine pH Ur Specific [place] Urine Protein Urine Glucose (UA) Urine Ketones Urine Occult Blood Urine Nitrate Urine Bilirubin Urine Urobilinogen Ur Leukocyte Esterase Urine RBC Urine WBC Urine Bacteria Ur Culture Indicated? Micro UA Comment U Opiates 300ng/mL cut Ur Oxycodone Screen Urine Methadone Screen Ur Barbiturates Screen U Tricyclic Antidepress Ur Phencyclidine Scrn Ur Amphetamines Screen U Methamphetamines Scrn Ur MDMA Scrn (Ecstasy) U Benzodiazepines Scrn Urine Cocaine Screen U Marijuana (THC) Screen SARS-CoV-2 (PCR) 01/14/21 01/14/21 01/14/21 08:23 09:21 13:00 WBC RBC Hgb Hct MCV MCH MCHC RDW Plt Count Neut % (Auto) Lymph % (Auto) [place] % (Auto) Eos % (Auto) Baso % (Auto) Neut # (Auto) Lymph # (Auto) [place] # (Auto) Eos # (Auto) Baso # (Auto) PT INR APTT Sodium Potassium Chloride Carbon Dioxide BUN Creatinine Estimated GFR BUN/Creatinine Ratio Glucose Calcium Total Bilirubin AST ALT Alkaline Phosphatase Total Creatine Kinase CK-MB (CK-2) CK-MB (CK-2) Rel Index Troponin I Total Protein Albumin Globulin Albumin/Globulin Ratio Prolactin 23.1 H Urine Color Urine Appearance Urine pH Ur Specific [place] Urine Protein Urine Glucose (UA) Urine Ketones Urine Occult Blood Urine Nitrate Urine Bilirubin Urine Urobilinogen Ur Leukocyte Esterase Urine RBC Urine WBC Urine Bacteria Ur Culture Indicated? Micro UA Comment U Opiates 300ng/mL cut Negative Ur Oxycodone Screen Negative Urine Methadone Screen Negative Ur Barbiturates Screen Negative U Tricyclic Antidepress Negative Ur Phencyclidine Scrn Negative Ur Amphetamines Screen Negative U Methamphetamines Scrn Negative Ur MDMA Scrn (Ecstasy) Negative U Benzodiazepines Scrn Negative Urine Cocaine Screen Negative U Marijuana (THC) Screen Negative SARS-CoV-2 (PCR) Negative 11/11/20 13:00 WBC RBC Hgb Hct MCV MCH MCHC RDW Plt Count Neut % (Auto) Lymph % (Auto) [place] % (Auto) Eos % (Auto) Baso % (Auto) Neut # (Auto) Lymph # (Auto) [place] # (Auto) Eos # (Auto) Baso # (Auto) PT INR APTT Sodium Potassium Chloride Carbon Dioxide BUN Creatinine Estimated GFR BUN/Creatinine Ratio Glucose Calcium Total Bilirubin AST ALT Alkaline Phosphatase Total Creatine Kinase CK-MB (CK-2) CK-MB (CK-2) Rel Index Troponin I Total Protein Albumin Globulin Albumin/Globulin Ratio Prolactin Urine Color Yellow Urine Appearance Clear Urine pH 7.0 Ur Specific [place] <=1.005 Urine Protein Negative Urine Glucose (UA) Negative Urine Ketones Negative Urine Occult Blood Negative Urine Nitrate Negative Urine Bilirubin Negative Urine Urobilinogen 0.2 Ur Leukocyte Esterase Negative Urine RBC None seen Urine WBC None seen Urine Bacteria None seen Ur Culture Indicated? Cult not indicated Micro UA Comment Microscopic normal U Opiates 300ng/mL cut Ur Oxycodone Screen Urine Methadone Screen Ur Barbiturates Screen U Tricyclic Antidepress Ur Phencyclidine Scrn Ur Amphetamines Screen U Methamphetamines Scrn Ur MDMA Scrn (Ecstasy) U Benzodiazepines Scrn Urine Cocaine Screen U Marijuana (THC) Screen SARS-CoV-2 (PCR) Assessment & Plan Assessment & Plan narrative: Patient is a 80-year-old male with history of hypertension, hyperlipidemia, history of left CEA who presents with symptoms of acute CVA. 1. Acute TIA, present on admission, active -ABCD2 score 6 -patient presented with acute confusion, aphasia and left hemiparesis with complete resolution since came in to ED -patient was previously on aspirin which she stopped a couple of years ago per his provider recommendation -head CT negative. CTA with reported 70% stenosis of proximal right internal carotid artery -brain MR: No acute CVA, brain MRA: No significant narrowing. Neck MRA: No significant narrowing. There is discrepancy between CTA and MRA findings. -admit to obs, neuro checks q.4 hours, allow permissive hypertension, received ASA in the ED -aspirin 81 mg q.d., discussed with patient going on three months of dual anti-platelet therapy with aspirin and clopidogrel, but he is concerned about his tendency to severe bruising and skin tears -desk monitor -carotid duplex -echo 2. Essential hypertension, chronic -continue HCTZ 12.5 mg q.d. and losartan 100 mg q.p.m. per home routine 3. Hyperlipidemia -continue atorvastatin 40 mg q.d. -check lipid panel 4. COPD, stable -continue routine inhalers 5. Chronic pain -history of C-spine fusion, continue patient's gabapentin -hold meloxicam in setting of acute cerebrovascular event DVT prophylaxis: SCDs Code status: Full code Surrogate decision maker: Spouse Scores ABCD2 Age >= 60 years: yes Initial BP. Either SBP >= 140 or DBP >= 90.: yes Clinical features of the TIA: unilateral weakness Duration of symptoms: >= 60 minutes History of diabetes: no ABCD2 Score: 6
[2020-11-11 17:24] LABS: Cholesterol 122 mg/dL (140-199); HDL Cholesterol 43 mg/dL (40-60); LDL Cholesterol Calculated 55 mg/dL (<100); Triglycerides 119 mg/dL (35-150)
[2020-11-11] MEDS: FLUTICASONE/SALMETEROL 250/50 60 PUFF DISKUS INH (20:45)
[2020-11-11] MEDS: LOSARTAN 50 MG TABLET 100 MG PO (20:54)
[2020-11-11] MEDS: GABAPENTIN 600 MG TABLET PO (20:54)
[2020-11-11] MEDS: ATORVASTATIN 20 MG TABLET 40 MG PO (20:54)
[2020-11-12 00:30] VITALS: O2SAT 94
[2020-11-12 04:00] VITALS: O2SAT 95
[2020-11-12 05:38] VITALS: BP 151/57; PULSE 57; RESP 14; TEMP 36.4; O2SAT 95
[2020-11-12] MEDS: PANTOPRAZOLE 20 MG TABLET PO (06:00)
[2020-11-12 08:00] VITALS: O2SAT 96
[2020-11-12] MEDS: ASPIRIN EC 81 MG TABLET PO (08:49)
[2020-11-12] MEDS: SODIUM CHLORIDE 0.9% FLUSH 10 ML IV (08:49)
[2020-11-12] MEDS: hydroCHLOROthiazide 12.5 MG CAPSULE PO (08:49)
[2020-11-12] MEDS: ATORVASTATIN 20 MG TABLET 40 MG PO (08:50)
[2020-11-12] MEDS: GABAPENTIN 600 MG TABLET PO (08:51)
[2020-11-12] MEDS: FLUTICASONE/SALMETEROL 250/50 60 PUFF DISKUS INH (08:54)
[2020-11-12 08:55] VITALS: PULSE 72; RESP 16; O2SAT 96
[2020-11-12] MEDS: TIOTROPIUM BROMIDE 18 MCG INHALER INH (08:55)
[2020-11-12 09:53] VITALS: BP 126/74; PULSE 66; RESP 18; TEMP 36.6; O2SAT 96
--- NOTE | 2020-11-12 11:28 | PC.NURSE ---
Addendum entered by Sultana Mathew R.N. 11/12/20 12:58: PATIENT CONFIRMS UNDERSTANDING OF ALL DC HOME INSTRUCTIONS. UNDERSTANDS HE WILL START TAKING AN 81MG ASA TABLET DAILY TO HELP PREVENT STROKE. STATES HE WILL CALL HIS PCP TO SCHEDULE A HOSPITAL FOLLOW UP VISIT. HIS ARRIVED TO TAKE HIM HOME. PATIENT LEFT BY WC WITH DIRECTOR BANKING ESCORT AND ALL BELONGINGS AND PAPERWORK WITHOUT S/SX'S OF DISTRESS. Original Note: PATIENT DENIES ANY DEFICITS, STATES FEELS AT BASELINE. DENIES PAIN. AMBULATED IN HALLS STEADY ON FEET WITH DIRECTOR BANKING SBA, TOLERATED WELL, NO ASSISTIVE DEVICE NEEDED. ECHO HAS NOW RESULTED, NOTIFIED. AWAITING DC HOME ORDERS.
--- NOTE | 2020-11-12 14:16 | DI.ECHO.S_ITS ---
[facility] +---------+ Hospital +---------+ : : [address] : : : : [phone] : : : : Phone: [phone] Echocardiogram Report + + :Name: RAVI JORDAN Study Date: 11/12/2020 Height: 68 in : :[facility] ReadingLocation: Weight: 159 lb : : Gender: Male BSA: 1.9 m2 : :: 1940 Age: 80 yrs BP: 151/57 mmHg: :Reason For Study: TIA : :Ordering Physician: Kathie : :Hospitalist Performed By: Rose Mary Solorio : :Referring: MARISSA BAUTISTA : + + Interpretation Summary The patient was in normal sinus rhythm during the exam. The left ventricle is normal in size. The ejection fraction is estimated to be 60-65%. No obvious LV clot seen. There has been no significant change in LVEF since the previous exam. The right ventricle is grossly normal size. The right ventricular systolic function is normal. The aortic valve is moderately calcified. There is moderately reduced leaflet mobility. The peak aortic velocity is 2.8 m/sec. The aortic valve mean gradient is 18 mmHg. The peak aortic velocity on the previous exam was 2.84 m/sec. The calculated aortic valve area is 1.0 cm2. Overall there is moderate aortic stenosis. The arch measured 5.0 cm on this echo. Aortic arch appears to be significantly enlarged. Please get CT aortogram for true assessment of ascending aorta and aortic arch size and rule out any significant aneurysm. Procedure: A two-dimensional transthoracic echocardiogram with color flow and Doppler was performed. The study quality was technically adequate. Comparison is made with the echocardiogram of 04/02/2020. The patient was in normal sinus rhythm during the exam. The patient had a bundle branch block rhythm during the exam. Left Ventricle: The left ventricle is normal in size. There is mild proximal septal thickening noted. There is no echo evidence for significant left ventricular outflow tract obstruction. There is no thrombus. The ejection fraction is estimated to be 60-65%. There has been no significant change since the previous exam. There are no focal wall motion abnormalities. Diastolic parameters suggest a relaxation abnormality of the left ventricle, consistent with probable normal filling pressures. Right Ventricle: The right ventricle is grossly normal size. The right ventricular systolic function is normal. Atria: Both atria are normal in size. Both atria have remained unchanged in size since the prior echo exam. There is no Doppler evidence for an interatrial shunt. Mitral Valve: There is mild mitral annular calcification. The mitral valve chordae are thickened and/or calcified. No significant mitral valve stenosis. There is trace mitral regurgitation. Aortic Valve: The aortic valve is moderately calcified. The aortic valve is trileaflet. There is moderately reduced leaflet mobility. The peak aortic velocity is 2.8 m/sec. The aortic valve mean gradient is 18 mmHg. The calculated aortic valve area is 1.0 cm2. The peak aortic velocity on the previous exam was 2.84 m/sec. There is moderate aortic stenosis. There is trace aortic regurgitation. Tricuspid Valve: The tricuspid valve is not well visualized, but is grossly normal. Pulmonary artery pressures cannot be estimated because of the lack of a measurable TR jet velocity but the IVC suggests a CVP of around 3 mmHg. Pulmonic Valve: The pulmonic valve is not well visualized. Great Vessels: The aortic root is normal size. The ascending aorta could not be visualized. The IVC is of normal diameter and collapses greater than 50% with a sniff. This suggests a low right atrial pressure of 3 mm Hg. Pericardium/ Pleura There is no pericardial effusion. MMode/2D Measurements & Calculations LVIDd: 4.4 cm LVOT diam: 2.1 cm LVIDs: 3.3 cm Ao root diam: 3.2 cm FS: 24.7 % Aortic Jxn: 2.3 cm IVSd: 1.2 cm LVPWd: 0.73 cm LV hernández. diameter/BSA (cm/m^2): 2.4 LV sys. diameter/BSA (cm/m^2): 1.8 LA A2 area: 18.1 cm2 RA long axis: 4.2 cm LA A4 area: 16.3 cm2 RA area: 12.2 cm2 LA length (vol): 4.5 cm RA vol: 30.3 ml LA vol: 55.3 ml RA : 16.3 ml/m2 LA vol index: 29.8 ml/m2 RVD1 (basal): 3.6 cm RVD2 (mid): 2.4 cm TAPSE: 2.5 cm Doppler Measurements & Calculations Ao V2 max: 281.3 cm/sec LVOT Max Mendoza: 80.6 cm/sec Ao V2 mean: 199.9 cm/sec LV V1 max P.6 mmHg Ao max P.6 mmHg LV V1 VTI: 19.9 cm Ao mean P.9 mmHg GILDA(I,D): 1.00 cm2 Ao V2 VTI: 70.8 cm GILDA(V,D): 1.0 cm2 sev ratio: 0.28 GILDA indexed to BSA (cm^2/m^2): 0.54 MV E max mendoza: 53.7 cm/sec PA V2 max: 79.9 cm/sec MV A max mendoza: 94.2 cm/sec PA V2 mean: 60.0 cm/sec MV E/A: 0.57 PA mean P.5 mmHg Med Peak E' Mendoza: 5.9 cm/sec PA Accel Time: 0.04 sec E/E' med: 9.2 Lat Peak E' Mendoza: 4.5 cm/sec E/E' lat: 11.9 E/e' average: 10.5 MV dec time: 0.24 sec MV P1/2t: 70.4 msec MV P1/2t max mendoza: 54.1 cm/sec SV(LVOT): 70.6 ml MVA(P1/2t): 3.1 cm2 Reading Physician:11:05 AM
--- NOTE | 2020-11-12 15:48 | CM.IDA ---
Initial Assessment / DC Note Patient is a 80 yo male, resident of [place]. Patient presented w/ left facial droop, left sided weakness, MRI and CT negative for stroke, echo done, according to Dr Salgado, new dx of right carotid narrowing PCP: Abdulkadir Mckenna Payer: [facility]/ [email or web address] Patient indp at baseline, lives w/spouse Jojo. DC order placed by Dr Salgado this morning, recommend close outpatient f/u... and patient very eager to return home. This BUCK SWAMPER saw very briefly, patient denies needs and states will place call to spouse for transport home. Plan: DC back home w/spouse to transport, indp. walking in hallway, close outpatient recommended JW
--- NOTE | 2020-11-15 17:49 | P.DS_ITS ---
History of Present Illness History of Present Illness Date Patient Seen: 11/15/20 Chief complaint: Code Stroke Narrative: Patient is a 80-year-old male with history of hypertension, hyperlip idemia, left carotid end arterectomy who developed acute left-sided weakness and confusion at home this morning. Patient had felt fine when he woke up at 5:00 a.m. and went back to sleep. He woke up again and 7:00 a.m. and was feeling okay but became acutely weak as he was walking to the bathroom. He was able to hang onto the kitchen counter and lower himself to the ground. He appeared confused to his and was having difficulty speaking. When EMS arrived they noted left sided weakness and left facial droop. Patient had improvement in mentation, speech and left-sided weakness while in the ED. His NIHSS score was 3. Head CT negative for acute findings. CTA with 70% RCA stenosis. EKG with sinus rhythm and nonspecific ST changes. He has been compliant with his medications. He has no history of AFib. He had left carotid endarterectomy about 12 years ago which was picked up on exam. He does not have prior history of CAD, TIA or stroke. Discharge Providers Provider Date of admission: 11/11/20 10:09 Discharge Date: 11/12/20 Primary care physician: Abdulkadir Mckenna MD Discharge provider: Elyse Salgado MD Summary Hospital Course Discharge Diagnosis: 1. Transient ischemic attack 2. History of left carotid endarterectomy 3. 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 Hyperlipidemia 5 hypertension 6. COPD 7. GERD Hospital Course: Patient is a pleasant 80-year-old male who was admitted to the hospital for probable stroke versus TIA. The patient underwent head MRI which showed no intracranial lesions. There was high-grade stenosis noted on the MR angio of the right external carotid, as well as a 50-69% stenosis involving the right internal carotid artery on carotid Dopplers. As this was on the contralateral side it was unlikely to be related to his left hand weakness. The patient also had a cardiac echo. His EF was 60 65%, there was no clot seen, the right ventricle was normal, and moderate aortic stenosis was noted. The patient had improvement in his left hand weakness. He had no further confusion. He was deemed to be back to his baseline. Given his underlying carotid disease the patient was referred back to his primary care provider for follow-up with vascular surgery determine if additional intervention is needed. Patient was deemed appropriate for discharge and discharged home. Status at Discharge Cognitive/behavioral status at discharge: oriented Functional status at discharge: independent ambulation Overall status at discharge: patient is back to baseline Time Spent with Patient Time spent: Less than 30 minutes Exam Vital Signs (past 8 hours): Oxygen Delivery Method Room Air Oxygen Flow Rate 0 Narrative Exam Narrative: Pleasant male in no acute distress Lungs: Clear to auscultation Cardiac exam: Regular rate and rhythm normal S1-S2 with a 2/6 systolic ejection murmur Abdomen: Soft and nontender Neuro exam: Nonfocal Objective Labs Result Diagrams: 11/11/20 08:23 11/11/20 08:23 [facility] Medical History (Updated 11/11/20 @ 10:08 by Lucy Montano DO) Cervical vertebral fusion COPD (chronic obstructive pulmonary disease) Gastroesophageal reflux disease Hyperlipidemia Hypertension Surgical History (Updated 11/11/20 @ 17:11 by Jean Carlos Hernandez MD) History of cervical discectomy History of left-sided carotid endarterectomy S/P cervical spinal fusion Status post appendectomy Social History (Updated 09/10/18 @ 12:28 by Lucy Montano DO) household members: spouse Smoking Status: Former smoker alcohol intake: never substance use type: does not use Discharge Assessment & Plan Assessment and Plan Assessment: 1. Transient ischemic attack 2. High-grade stenosis involving the right external carotid moderate to severe stenosis involving the right internal carotid artery 3. Hypertension 4. Hyperlipidemia 5. COPD Plan of Treatment: Discharge home on medications as prescribed Follow-up with PCP next week Discharge Plan Discharge Plan Patient Disposition: Home Discharge orders & Medications Prescriptions: New aspirin 81 mg Tablet,Delayed Release (Dr/Ec) 81 mg PO DAILY Qty: 90 RF: 0 Continued fluticasone propion-salmeterol [Advair Diskus] 250 MCG/50 MCG blister with device 1 puff INH BID Qty: 3 RF: 3 Spiriva with HandiHaler 18 MCG capsule, w/inhalation device 1 puff INH DAILY Qty: 0 RF: 0 hydrochlorothiazide 12.5 MG capsule 12.5 mg PO QDAY Qty: 90 RF: 1 losartan 50 mg tablet 100 mg PO QPM RF: 0 gabapentin 800 mg tablet 600 mg PO BID RF: 0 atorvastatin [Lipitor] 40 MG tablet 40 mg PO DAILY RF: 0 meloxicam [Mobic] 15 MG tablet 15 mg PO DAILY RF: 0 pantoprazole 20 MG tablet,delayed release (DR/EC) 20 mg PO DAILY RF: 0 albuterol sulfate 90 mcg/actuation Hfa Aerosol Inhaler 2 puff INHALATION BID RF: 0 nrnrafqiyp-pldbpbrqxmsld-xyly [Fioricet] 50-300-40 mg Capsule 1 tab PO QID PRN (Reason: Migraine Headache) RF: 0 cyclobenzaprine 5 mg PO PRN PRN (Reason: Headache) RF: 0 Follow up/Referrals: Abdulkadir Mckenna MD [Primary Care Provider] - (PLEASE CALL YOUR PRIMARY CARE DOCTOR TO SCHEDULE A HOSPITAL FOLLOW UP APPOINTMENT.) Discharge Health Status Multidrug resistant organism: No MDRO Diet/Activity/Treatments Diet: Diet as Tolerated, Low-fat and Low-sodium Visit Report/Discharge Packet Instructions: DI for Transient Ischemic Attack, How to Prevent Falls Discharge Data Primary Care Provider: Abdulkadir Mkcenna Attending Provider: Jean Carlos Hernandez
== END 2020-11-12 12:40 | disposition home or self-care (01) ==
LOC: ED 10:08 → AC 10:09
PROVIDERS: Admitting Provider Internal Medicine; Emergency Provider Emergency Medicine; PCP Family Medicine; Referring Provider Emergency Medicine; Visit Provider Internal Medicine
DX: G45.9 Transient cerebral ischemic attack, unspecified (principal); R41.0 Disorientation, unspecified; R53.1 Weakness; R29.810 Facial weakness; I10 Essential (primary) hypertension; E78.5 Hyperlipidemia, unspecified; J44.9 Chronic obstructive pulmonary disease, unspecified; K21.9 Gastro-esophageal reflux disease without esophagitis; G89.29 Other chronic pain; Z20.822 Contact with and (suspected) exposure to COVID-19
CPT/HCPCS: 36415; 70450; 70496; 70498; 70548; 70553; 80053; 80061; 80305; 81001; 82550; 82553; 82962; 84146; 84484; 85025; 85610; 85730; 87635; 93005; 93010; 93306; 93880; 94640; 94760; 96360; 96361; 99284; C9803; G0378; A9270; Q9967

== ENCOUNTER 2021-05-25 10:05 | Emergency (ER) | payer MEDICARE, OTHER, SELFPAY ==
[2020-11-11 11:53] VITALS: BMI 24.2
[2021-05-25 10:14] VITALS: BP 146/61; PULSE 80; RESP 18; TEMP 36.7; O2SAT 95; BMI 23.6
--- NOTE | 2021-05-25 12:27 | ED.SKABFB ---
HPI - Skin/Abscess/Foreign Bdy General Chief complaint: Skin/Abscess/Foreign Body Stated complaint: fever/itchy/rash on left shoulder x7 days Time Seen by Provider: 05/25/21 12:07 Source: patient Mode of arrival: Ambulatory Limitations: no limitations History of Present Illness HPI narrative: The patient is a 80-year-old male who presents with left shoulder rash that has been there for 7 days. He said initially started off with what looks like bug bites he did have some pruritus but it has since spread. It is over the left half of his chest and his left back. It is quite painful now. He was putting some cream on it which he said it burned maybe made it worse. It does not cross midline. He is has overall just intense. Related Data Home Medications Medication Instructions Recorded Confirmed tiotropium bromide 18 mcg capsule 1 puff INH DAILY #0 ea 08/10/16 11/11/20 with inhalation device (Spiriva with HandiHaler) albuterol sulfate 90 mcg/actuation 2 puff INHALATION BID 08/07/18 11/11/20 aerosol inhaler [id number]-vwpwrwvpbqqjb-tuxhsqzu 1 tab PO QID PRN 08/07/18 11/11/20 50 mg-300 mg-40 mg capsule (Fioricet) atorvastatin 40 mg tablet (Lipitor) 40 mg PO DAILY 09/10/18 11/11/20 gabapentin 800 mg tablet 600 mg PO BID 09/10/18 11/11/20 losartan 50 mg tablet 100 mg PO QPM 09/10/18 11/11/20 meloxicam 15 mg tablet (Mobic) 15 mg PO DAILY 09/10/18 11/11/20 pantoprazole 20 mg tablet,delayed 20 mg PO DAILY 09/10/18 11/11/20 release cyclobenzaprine 5 mg PO PRN PRN 10/19/18 11/11/20 Previous Rx's Medication Instructions Recorded fluticasone 250 mcg-salmeterol 50 1 puff INH BID #3 pac 08/09/16 mcg/dose blistr powdr for inhalation (Advair Diskus) hydrochlorothiazide 12.5 mg capsule 12.5 mg PO QDAY #90 cap 07/04/17 aspirin 81 mg tablet,delayed 81 mg PO DAILY #90 tab 11/12/20 release cephalexin 500 mg capsule 500 mg PO BID 7 Days #14 cap 05/25/21 hydrocodone 5 mg-acetaminophen 325 1 tab PO Q6H PRN #10 tab 05/25/21 mg tablet valacyclovir 1 gram tablet 1,000 mg PO Q8H #21 tab 05/25/21 Allergies Allergy/AdvReac Type Severity Reaction Status Date / Time Beta-Blockers Allergy Unknown Verified 05/25/21 10:14 (Beta-Adrenergic Bloc codeine Allergy Unknown Verified 05/25/21 10:14 Review of Systems Review of Systems Narrative: GENERAL: Denies chills, fatigue, malaise, fever, sweats, travel HEENT: Denies sinus pain, ear pain, sore throat, difficulty swallowing, neck pain RESPIRATORY: Denies dyspnea, cough, wheezing, hemoptysis, sputum. CARDIOVASCULAR: Denies chest pain, palpitations, orthopnea, edema GASTROINTESTINAL: Denies nausea, vomiting, abdominal pain, diarrhea, constipation, melena. : Denies dysuria, frequency, incontinence, hematuria, urinary retention, flank pain. MUSCULOSKELETAL: Denies weakness, joint pain, or bony pain SKIN: See HPI NEUROLOGIC: Denies weakness, dizziness, headache, numbness, change in speech, confusion PSYCHIATRIC: No concerning psychosocial issues. 12 point review of systems is negative except for those stated above and HPI Patient History Medical History (Updated 05/25/21 @ 12:32 by Lucy Montano DO) Cervical vertebral fusion COPD (chronic obstructive pulmonary disease) Gastroesophageal reflux disease Hyperlipidemia Hypertension Surgical History (Updated 11/11/20 @ 17:11 by Jean Carlos Hernandez MD) History of cervical discectomy History of left-sided carotid endarterectomy S/P cervical spinal fusion Status post appendectomy Social History (Updated 09/10/18 @ 12:28 by Lucy Montano DO) household members: spouse Smoking Status: Former smoker alcohol intake: never substance use type: does not use Smoking Status: Former smoker alcohol intake frequency: a few times a week Substance Use Type: does not use Exam Initial Vital Signs Initial Vital Signs: Vital Signs Temperature 98.1 F 05/25/21 10:14 Pulse Rate 80 05/25/21 10:14 Respiratory Rate 18 05/25/21 10:14 Blood Pressure 146/61 H 05/25/21 10:14 Pulse Oximetry 95 05/25/21 10:14 GENERAL: Alert 80-year-old male appears uncomfortable CARDIOVASCULAR: peripheral pulses in tact, cap refill <2 sec RESPIRATORY: No respiratory distress, speaks in full sentences without difficulty EXTREMITIES: Normal range of motion, no clubbing or edema. Neurovascularly intact NEUROLOGICAL: Cranial nerves II through XII grossly intact. Normal gait and speech. SKIN: Rash on left side of chest. It does not cross midline. Looks more like blisters certainly some have ruptured. It is diffusely red blanchable. Course Vital Signs Vital signs: Vital Signs - 8 hr 05/25/21 12:47 Pulse Rate 79 Respiratory Rate 16 Blood Pressure 140/76 Pulse Oximetry 96 MDM - Skin/Abscess/Foreign Bdy MDM Narrative Medical decision making narrative: Initially thought this was shingles it certainly does not cross midline and has not been spreading or getting worse over the last 7 days. However it does not follow the history of pain and then rash. He also complains of it being pruritic initially as well. Possible cellulitis although he has not had fever. I am actually going to treat him for both. Discharge Plan Departure Patient Disposition: Home Clinical Impression: Shingles rash Qualifiers: Herpes zoster complications: without complications Qualified Code(s): B02.9 - Zoster without complications Instructions: Shingles Activity Restrictions/Additional Instructions: *You have been diagnosed with shingles *What to do: At this time I do believe you have shingles. However I am treating you with antibiotics as well. *Continue to take medications as directed--> SENT TO [facility] Valacyclovir 1000 mg 3 times a day for 7 days Keflex 500 mg 3 times a day for 7 [place] 1 tablet every 6 hours if needed for severe pain *Follow up with your primary care provider in 2-3 days *Return to ER if you should have worsening rash, increased pain, or any new, worsening or concerning symptoms CONTROLLED SUBSTANCE DISCHARGE (Narcotoic/benzodiazepine/Flexeril/Phenergan) 1. You have been prescribed narcotic medications, it does have acetaminophen/Tylenol/paracetamol in it, DO NOT TAKE MORE THAN 4,00mg in 24 hours of Tylenol. TRAMADOL DOES NOT CONTAIN TYLENOL 2. Please understand that we cannot provide further refills of narcotics, benzodiazepines or controlled substances through the ED and her pain management will need to be through your provider. 3. While on these medications you cannot drive or operate heavy machinery. 4. You cannot sign legal documents or perform any duties such as this. 5. As long as you're taking opiate pain medications he should also be taking a stool softener such as Colace, Dulcolax, MiraLAX or prune juice, to help avoid constipation. Prescriptions: New hydrocodone-acetaminophen 5-325 mg tablet 1 tab PO Q6H PRN (Reason: pain) Qty: 10 RF: 0 cephalexin 500 mg capsule 500 mg PO BID 7 Days Qty: 14 RF: 0 valacyclovir 1 gram tablet 1,000 mg PO Q8H Qty: 21 RF: 0 No Action fluticasone propion-salmeterol [Advair Diskus] 250 MCG/50 MCG blister with device 1 puff INH BID Qty: 3 RF: 3 Spiriva with HandiHaler 18 MCG capsule, w/inhalation device 1 puff INH DAILY Qty: 0 RF: 0 hydrochlorothiazide 12.5 MG capsule 12.5 mg PO QDAY Qty: 90 RF: 1 losartan 50 mg tablet 100 mg PO QPM RF: 0 gabapentin 800 mg tablet 600 mg PO BID RF: 0 atorvastatin [Lipitor] 40 MG tablet 40 mg PO DAILY RF: 0 meloxicam [Mobic] 15 MG tablet 15 mg PO DAILY RF: 0 pantoprazole 20 MG tablet,delayed release (DR/EC) 20 mg PO DAILY RF: 0 aspirin 81 mg Tablet,Delayed Release (Dr/Ec) 81 mg PO DAILY Qty: 90 RF: 0 albuterol sulfate 90 mcg/actuation Hfa Aerosol Inhaler 2 puff INHALATION BID RF: 0 udoyriamnu-yulabaludsoct-kbmt [Fioricet] 50-300-40 mg Capsule 1 tab PO QID PRN (Reason: Migraine Headache) RF: 0 cyclobenzaprine 5 mg PO PRN PRN (Reason: Headache) RF: 0 Referrals: Glynn Stallworth MD [Primary Care Provider] -
[2021-05-25 12:47] VITALS: BP 140/76; PULSE 79; RESP 16; O2SAT 96
== END 2021-05-25 12:48 | disposition home or self-care (01) ==
PROVIDERS: Emergency Provider Emergency Medicine; PCP Internal Medicine
DX: B02.9 Zoster without complications (principal)
CPT/HCPCS: 99281

== ENCOUNTER 2021-09-10 00:50 | Inpatient (IN) | payer MEDICARE, OTHER, SELFPAY ==
[2020-11-11 11:53] VITALS: BMI 24.2
[2021-09-10] VITALS (58 sets, daily range): BP systolic 76–135; BP diastolic 51–88; PULSE 76–145; RESP 10–33; TEMP 30–36.5; O2SAT 86–98; BMI 28.1; BMI 25.0
--- NOTE | 2021-09-10 00:58 | ED_ITS ---
HPI - General Adult General Chief complaint: Chest Pain Stated complaint: Diff breathing/Irr HR /New onset Afib Time Seen by Provider: 09/10/21 00:51 History of Present Illness HPI narrative: 80-year-old gentleman with a history of hypertension, COPD, hyperlipidemia and chronic back pain called 911 after 2 days of difficulty breathing, describes a productive cough. When medics arrived on scene they found him to be at 78% on room air and came up nicely with 4 L of nasal cannula oxygen. He is vaccinated against COVID. He was found to be in atrial fibrillation with rates ranging from 140-180 which is seemingly a new diagnosis for him. Medics initially gave him 14 mg of diltiazem and had his right come down into the 120s as they drifted back up again he was given another 20 mg of diltiazem. Blood pressure is had started at 144/80 dip to to 90/64 and after the 20 mg of diltiazem or at 88 systolic. He describes left-sided chest pain and apparently is getting over a zoster outbreak in the left upper chest wall. (suspect initial outbreak was in April knee is having some post herpetic neuralgia issues to explain the gabapentin meloxicam he currently is taking) there is some mild scarring/skin changes but certainly not dramatic and no current vesicles or scabs. He describes orthopnea but no lower extremity edema. He states that he has cough is been more productive over the last 2 days. He does not notice any palpitations describes no nausea, vomiting, headaches, abd ominal pain. Related Data Home Medications Medication Instructions Recorded Confirmed tiotropium bromide 18 mcg capsule 1 puff INH DAILY #0 ea 08/10/16 11/11/20 with inhalation device (Spiriva with HandiHaler) albuterol sulfate 90 mcg/actuation 2 puff INHALATION BID 08/07/18 11/11/20 aerosol inhaler [id number] 1 tab PO QID PRN 08/07/18 11/11/20 50 mg-300 mg-40 mg capsule (Fioricet) atorvastatin 40 mg tablet (Lipitor) 40 mg PO DAILY 09/10/18 11/11/20 gabapentin 800 mg tablet 600 mg PO BID 09/10/18 11/11/20 losartan 50 mg tablet 100 mg PO QPM 09/10/18 11/11/20 meloxicam 15 mg tablet (Mobic) 15 mg PO DAILY 09/10/18 11/11/20 pantoprazole 20 mg tablet,delayed 20 mg PO DAILY 09/10/18 11/11/20 release cyclobenzaprine 5 mg PO PRN PRN 10/19/18 11/11/20 Previous Rx's Medication Instructions Recorded fluticasone 250 mcg-salmeterol 50 1 puff INH BID #3 pac 08/09/16 mcg/dose blistr powdr for inhalation (Advair Diskus) hydrochlorothiazide 12.5 mg capsule 12.5 mg PO QDAY #90 cap 07/04/17 aspirin 81 mg tablet,delayed 81 mg PO DAILY #90 tab 11/12/20 release hydrocodone 5 mg-acetaminophen 325 1 tab PO Q6H PRN #10 tab 05/25/21 mg tablet valacyclovir 1 gram tablet 1,000 mg PO Q8H #21 tab 05/25/21 Allergies Allergy/AdvReac Type Severity Reaction Status Date / Time Beta-Blockers Allergy Unknown Verified 05/25/21 10:14 (Beta-Adrenergic Bloc codeine Allergy Unknown Verified 05/25/21 10:14 Review of Systems Review of Systems Narrative: Remainder of complete review of systems is otherwise unremarkable except for that included in the HPI. Patient History Medical History Cervical vertebral fusion COPD (chronic obstructive pulmonary disease) Gastroesophageal reflux disease Hyperlipidemia Hypertension Surgical History History of cervical discectomy History of left-sided carotid endarterectomy S/P cervical spinal fusion Status post appendectomy Social History household members: spouse Smoking Status: Former smoker alcohol intake: never substance use type: does not use Smoking Status: Former smoker alcohol intake frequency: a few times a week Substance Use Type: does not use Exam Narrative Exam Narrative: General: Acutely ill-appearing, pale, using abdominal muscles to assist with respiratory rate, 3-4 words at a time HEENT: Dry mucous membranes, normal sclera with reactive pupils, Neck: No JVD, supple Respiratory: Lungs with crackles to mid lung keller, rhonchi in both bases scattered wheezes in all lung keller Cardiac: Tachycardic but otherwise Regular rate and rhythm no murmurs no bruits Abdomen: Soft, nontender, good bowel tones, no flank pain Skin: Pale but Warm and dry, no rashes Neurologic: Globally weak butGrossly neurologically intact with no obvious asymmetries or abnormalities Extremities: No trauma, well perfused, no lower extremity edema Psych: Cooperative, fluent speech patterns Initial Vital Signs Initial Vital Signs: Vital Signs Temperature 97.2 F L 09/10/21 00:55 Pulse Rate 118 H 09/10/21 00:55 Respiratory Rate 22 09/10/21 00:55 Blood Pressure 93/51 L 09/10/21 00:55 Pulse Oximetry 86 L 09/10/21 00:55 Course Orders Ordered: ED Orders 09/10/21 EKG-12 Lead Stat EKG-12 Lead Stat 09/10/21 01:00 COVID19 -Nasal swab/Pre-Proc Stat 09/10/21 01:07 XR chest 1V Stat 09/10/21 01:10 Complete Blood Count AUTO DIFF Stat Comprehensive Metabolic Panel Stat D Dimer Stat Lactate (Lactic Acid) Stat Lipase Stat Magnesium Stat NT-proBNP (BNP-Adult 18+) Stat Partial Thromboplastin Time Stat Troponin I Stat 09/10/21 01:40 Blood Culture Stat 09/10/21 01:47 BiPAP Ventilatory Support RT PROTOCOL 09/10/21 02:00 Ictotest Urine Stat Urinalysis and Microscopic Stat Urine Culture Stat 09/10/21 04:19 COVID19 - ADMIT (ETCHER MACHINE swab/PCR) Stat 09/10/21 05:00 Hemoglobin and Hematocrit DAILY 09/10/21 09:00 PTT [Partial Thromboplastin Time] Q6H 09/10/21 15:00 PTT [Partial Thromboplastin Time] Q6H 09/10/21 21:00 PTT [Partial Thromboplastin Time] Q6H 09/11/21 03:00 PTT [Partial Thromboplastin Time] Q6H 09/11/21 05:00 Hemoglobin and Hematocrit DAILY Acetaminophen (Acetaminophen 325 Mg Tablet) 650 mg PO Q6HR PRN PRN Reason: Fever Albuterol/Ipratropium (Albuterol/Ipratropium 3 Ml Ampul) 3 ml INH [id number] JUAN FRANCISCO Aspirin (Aspirin Ec 81 Mg Tablet) 81 mg PO DAILY JUAN FRANCISCO Atorvastatin Calcium (Atorvastatin 20 Mg Tablet) 40 mg PO BEDTIME JUAN FRANCISCO Bisacodyl (Bisacodyl 10 Mg Supp) 10 mg [place] DAILY PRN PRN Reason: Constipation Docusate Sodium (Docusate 100 Mg Capsule) 100 mg PO BID [facility] Gabapentin (Gabapentin 600 Mg Tablet) 600 mg PO BID JUAN FRANCISCO Norepinephrine Bitartrate 4 mg (/ Dextrose) 254 mls @ 30.48 mls/hr IV TITRATE JUAN FRANCISCO; Protocol Last Titration: 09/10/21 05:05 Dose: 4 mcg/min, 15.24 mls/hr Documented by: Titration: 09/10/21 03:47 Dose: 4 mcg/min, 15.24 mls/hr Documented by: Admin: 09/10/21 02:02 Dose: 8 mcg/min, 30.48 mls/hr Documented by: ELMO Heparin Sodium/Dextrose (Heparin Drip) 25,000 unit in 500 mls @ 19.595 mls/hr IV CONT JUAN FRANCISCO; Protocol Last Titration: 09/10/21 05:03 Dose: 12 units/kg/hr, 19.595 mls/hr Documented by: Admin: 09/10/21 03:48 Dose: 12 units/kg/hr, 19.595 mls/hr Documented by: SAEED Metoclopramide HCl (Metoclopramide 10 Mg/2 Ml Inj) 10 mg IV Q6HR PRN PRN Reason: Nausea And Vomiting Morphine Sulfate (Morphine 4 Mg/Ml Inj) 4 mg IV Q4HR PRN PRN Reason: Pain, Severe (7-10) Naloxone HCl (Naloxone 0.4 Mg/Ml Vial) 0.2 mg IV Q2MIN PRN PRN Reason: Opiate Reversal Non-Formulary Medication (Advair) 1 puff INH BID [facility] Non-Formulary Medication (Spiriva) 1 puff INH DAILY [facility] Pantoprazole Sodium (Pantoprazole 40 Mg Packet) 20 mg PO DAILY@0700 [facility] Discontinued Medications Digoxin (Digoxin 500 Mcg/2 Ml Ampul) 250 mcg IV NOW ONE Stop: 09/10/21 01:10 Last Admin: 09/10/21 01:24 Dose: 250 mcg Documented by: SAEED Heparin Sodium (Porcine) (Heparin 5,000 Unit/Ml Vial) 4,000 unit IV NOW ONE Stop: 09/10/21 02:59 Last Admin: 09/10/21 03:37 Dose: 4,000 unit Documented by: SAEED Sodium Chloride (Normal Saline 0.9%) 500 mls @ 1,000 mls/hr IV BOLUS ONE Stop: 09/10/21 02:21 Last Infusion: 09/10/21 02:42 Dose: 0 mls/hr Documented by: Admin: 09/10/21 02:05 Dose: 1,000 mls/hr Documented by: SAEED Piperacillin Sod/Tazobactam (Sod 4.5 gm/ Sodium Chloride) 100 mls @ 200 mls/hr IV NOW ONE Stop: 09/10/21 01:53 Last Infusion: 09/10/21 02:41 Dose: 0 mls/hr Documented by: Admin: 09/10/21 02:03 Dose: 200 mls/hr Documented by: ELMO Sodium Chloride (Normal Saline 0.9%) 1,983 mls @ 661 mls/hr 30 ml/kg infuse over 3 hr (1983 ml) IV NOW ONE Stop: 09/10/21 05:00 Last Infusion: 09/10/21 05:03 Dose: 661 mls/hr Documented by: Admin: 09/10/21 02:25 Dose: 661 mls/hr Documented by: SAEED Vital Signs Vital signs: Vital Signs - 8 hr 09/10/21 00:55 09/10/21 01:15 09/10/21 01:24 Temperature 97.2 F L Pulse Rate 118 H 132 H 145 H Respiratory Rate 22 30 H Blood Pressure 93/51 L 93/51 L Pulse Oximetry 86 L 95 09/10/21 01:30 09/10/21 01:35 09/10/21 01:40 Temperature Pulse Rate 136 H 139 H 138 H Respiratory Rate 20 20 24 Blood Pressure 100/58 L 95/52 L 82/56 L Pulse Oximetry 97 93 93 09/10/21 01:41 09/10/21 01:45 09/10/21 01:50 Temperature Pulse Rate 137 H 134 H Respiratory Rate 16 19 Blood Pressure 82/56 L 87/55 L 83/51 L Pulse Oximetry 96 95 09/10/21 01:55 09/10/21 02:00 09/10/21 02:05 Temperature Pulse Rate 131 H 136 H 134 H Respiratory Rate 17 19 17 Blood Pressure 76/57 L 83/56 L 81/60 L Pulse Oximetry 95 96 96 09/10/21 02:10 09/10/21 02:15 09/10/21 02:20 Temperature Pulse Rate 124 H 116 H 116 H Respiratory Rate 15 14 15 Blood Pressure 108/67 111/57 L 109/62 Pulse Oximetry 97 97 98 09/10/21 02:25 09/10/21 02:30 09/10/21 02:35 Temperature Pulse Rate 123 H 114 H 109 H Respiratory Rate 13 15 15 Blood Pressure 124/59 L 122/59 L 124/59 L Pulse Oximetry 98 98 98 09/10/21 02:40 09/10/21 02:45 09/10/21 02:50 Temperature Pulse Rate 112 H 110 H 113 H Respiratory Rate 17 23 17 Blood Pressure 108/53 L 117/55 L 110/51 L Pulse Oximetry 98 97 97 09/10/21 02:55 09/10/21 03:00 09/10/21 03:06 Temperature Pulse Rate 76 78 79 Respiratory Rate 17 16 16 Blood Pressure 115/56 L 113/55 L 111/55 L Pulse Oximetry 97 97 97 09/10/21 03:10 09/10/21 03:15 09/10/21 03:20 Temperature Pulse Rate 79 79 80 Respiratory Rate 21 23 15 Blood Pressure 110/55 L 111/57 L 116/55 L Pulse Oximetry 97 97 97 09/10/21 03:25 09/10/21 03:30 09/10/21 03:35 Temperature Pulse Rate 79 81 80 Respiratory Rate 22 19 17 Blood Pressure 114/59 L 122/59 L 119/56 L Pulse Oximetry 94 94 09/10/21 03:40 09/10/21 03:45 09/10/21 03:50 Temperature Pulse Rate 80 83 80 Respiratory Rate 16 17 19 Blood Pressure 111/57 L 135/60 102/52 L Pulse Oximetry 94 95 94 09/10/21 03:56 09/10/21 04:00 09/10/21 04:05 Temperature Pulse Rate 80 80 83 Respiratory Rate 29 H 26 H 23 Blood Pressure 110/53 L 114/56 L 101/55 L Pulse Oximetry 93 94 93 09/10/21 04:10 09/10/21 04:15 09/10/21 04:20 Temperature Pulse Rate 81 80 80 Respiratory Rate 16 21 17 Blood Pressure 103/55 L 108/55 L 116/56 L Pulse Oximetry 94 94 95 09/10/21 04:25 09/10/21 04:30 09/10/21 04:35 Temperature Pulse Rate 79 80 79 Respiratory Rate 15 16 16 Blood Pressure 109/55 L 117/56 L 116/59 L Pulse Oximetry 95 95 95 Medical Decision Making Lab Data Result diagrams: 09/10/21 01:10 09/10/21 01:10 Labs: Lab Results 09/10/21 09/10/21 09/10/21 Range/Units 01:00 01:10 01:10 WBC 11.2 H (4.5-11.0) X10^3/uL RBC 4.90 (4.5-5.9) X10^6/uL Hgb 14.1 (13.5-17.5) g/dL Hct 42.9 (41-53) % MCV 87.6 (80-100) fL MCH 28.9 (26-34) PG MCHC 33.0 (30-36) % RDW 14.2 (11.6-14.8) % Plt Count 253 (150-400) X10^3/uL Neut % (Auto) 89.0 H (50-75) % Lymph % (Auto) 6.6 L (25-40) % [place] % (Auto) 4.0 (3-14) % Eos % (Auto) 0.1 L (2-4) % Baso % (Auto) 0.3 (0-2) % Neut # (Auto) 56507 H (6067-3702) /uL Lymph # (Auto) 700 L (8910-4509) /uL [place] # (Auto) 400 (0-900) /uL Eos # (Auto) 0 (0-450) /uL Baso # (Auto) 0 (0-100) /uL APTT (26.4-36.2) SECONDS D-Dimer (<230) ng/mL Sodium 138 (137-145) mmol/L Potassium 3.7 (3.4-5.1) mmol/L Chloride 99 (98-107) mmol/L Carbon Dioxide 25 (22-32) mmol/L BUN 45 H (9-20) mg/dL Creatinine 2.07 H (0.66-1.25) mg/dL Estimated GFR 31.1 L (>60) mL/min BUN/Creatinine Ratio 21.7 (6-22) Glucose 140 H (80-110) mg/dL Lactate (0.7-2.1) mmol/L Calcium 10.3 H (8.4-10.2) mg/dL Magnesium 1.7 (1.6-2.3) mg/dL Total Bilirubin 1.4 H (0.2-1.3) mg/dL AST 40 (17-59) IU/L ALT 19 (<50) IU/L Alkaline Phosphatase 77 (38-126) U/L Troponin I 2.650 H* (0.01-0.034) ng/mL NT-Pro-B Natriuret Pep 2540 H (<450) pg/mL Total Protein 8.0 (6.3-8.2) g/dL Albumin 4.7 (3.5-5.0) g/dL Globulin 3.3 (1.7-4.1) g/dL Albumin/Globulin Ratio 1.4 (1.0-2.8) Lipase 29 (23-300) U/L Urine Color Urine Appearance Urine pH (4.5-8.0) Ur Specific [place] (1.000-1.035) Urine Protein (Negative) Urine Glucose (UA) (Negative) g/dL Urine Ketones (NEGATIVE) Urine Occult Blood (Negative) Urine Nitrate (Negative) Urine Bilirubin (NEGATIVE) Ur Bilirubin Confirm (Negative) Urine Urobilinogen (0.2) E.U./dL Ur Leukocyte Esterase (NEGATIVE) Urine RBC (0-5/HPF) Urine WBC (0-5/HPF) Ur Squamous Epith Cells (0-5/HPF) Ur Transition Epith Cell (0-5/HPF) Urine Bacteria (None) Hyaline Casts (None) Urine Sperm Ur Culture Indicated? SARS-CoV-2 (PCR) Negative (Negative) 09/10/21 09/10/21 09/10/21 Range/Units 01:10 01:10 01:10 WBC (4.5-11.0) X10^3/uL RBC (4.5-5.9) X10^6/uL Hgb (13.5-17.5) g/dL Hct (41-53) % MCV (80-100) fL MCH (26-34) PG MCHC (30-36) % RDW (11.6-14.8) % Plt Count (150-400) X10^3/uL Neut % (Auto) (50-75) % Lymph % (Auto) (25-40) % [place] % (Auto) (3-14) % Eos % (Auto) (2-4) % Baso % (Auto) (0-2) % Neut # (Auto) (5989-4637) /uL Lymph # (Auto) (1860-1059) /uL [place] # (Auto) (0-900) /uL Eos # (Auto) (0-450) /uL Baso # (Auto) (0-100) /uL APTT 32 (26.4-36.2) SECONDS D-Dimer 752 H (<230) ng/mL Sodium (137-145) mmol/L Potassium (3.4-5.1) mmol/L Chloride (98-107) mmol/L Carbon Dioxide (22-32) mmol/L BUN (9-20) mg/dL Creatinine (0.66-1.25) mg/dL Estimated GFR (>60) mL/min BUN/Creatinine Ratio (6-22) Glucose (80-110) mg/dL Lactate 3.2 H (0.7-2.1) mmol/L Calcium (8.4-10.2) mg/dL Magnesium (1.6-2.3) mg/dL Total Bilirubin (0.2-1.3) mg/dL AST (17-59) IU/L ALT (<50) IU/L Alkaline Phosphatase (38-126) U/L Troponin I (0.01-0.034) ng/mL NT-Pro-B Natriuret Pep (<450) pg/mL Total Protein (6.3-8.2) g/dL Albumin (3.5-5.0) g/dL Globulin (1.7-4.1) g/dL Albumin/Globulin Ratio (1.0-2.8) Lipase (23-300) U/L Urine Color Urine Appearance Urine pH (4.5-8.0) Ur Specific Barre (1.000-1.035) Urine Protein (Negative) Urine Glucose (UA) (Negative) g/dL Urine Ketones (NEGATIVE) Urine Occult Blood (Negative) Urine Nitrate (Negative) Urine Bilirubin (NEGATIVE) Ur Bilirubin Confirm (Negative) Urine Urobilinogen (0.2) E.U./dL Ur Leukocyte Esterase (NEGATIVE) Urine RBC (0-5/HPF) Urine WBC (0-5/HPF) Ur Squamous Epith Cells (0-5/HPF) Ur Transition Epith Cell (0-5/HPF) Urine Bacteria (None) Hyaline Casts (None) Urine Sperm Ur Culture Indicated? SARS-CoV-2 (PCR) (Negative) 09/10/21 09/10/21 09/10/21 Range/Units 02:00 03:23 04:19 WBC (4.5-11.0) X10^3/uL RBC (4.5-5.9) X10^6/uL Hgb (13.5-17.5) g/dL Hct (41-53) % MCV (80-100) fL MCH (26-34) PG MCHC (30-36) % RDW (11.6-14.8) % Plt Count (150-400) X10^3/uL Neut % (Auto) (50-75) % Lymph % (Auto) (25-40) % [place] % (Auto) (3-14) % Eos % (Auto) (2-4) % Baso % (Auto) (0-2) % Neut # (Auto) (4691-5526) /uL Lymph # (Auto) (4608-6202) /uL [place] # (Auto) (0-900) /uL Eos # (Auto) (0-450) /uL Baso # (Auto) (0-100) /uL APTT (26.4-36.2) SECONDS D-Dimer (<230) ng/mL Sodium (137-145) mmol/L Potassium (3.4-5.1) mmol/L Chloride (98-107) mmol/L Carbon Dioxide (22-32) mmol/L BUN (9-20) mg/dL Creatinine (0.66-1.25) mg/dL Estimated GFR (>60) mL/min BUN/Creatinine Ratio (6-22) Glucose (80-110) mg/dL Lactate 1.6 (0.7-2.1) mmol/L Calcium (8.4-10.2) mg/dL Magnesium (1.6-2.3) mg/dL Total Bilirubin (0.2-1.3) mg/dL AST (17-59) IU/L ALT (<50) IU/L Alkaline Phosphatase (38-126) U/L Troponin I (0.01-0.034) ng/mL NT-Pro-B Natriuret Pep (<450) pg/mL Total Protein (6.3-8.2) g/dL Albumin (3.5-5.0) g/dL Globulin (1.7-4.1) g/dL Albumin/Globulin Ratio (1.0-2.8) Lipase (23-300) U/L Urine Color [place] Urine Appearance Clear Urine pH 5.0 (4.5-8.0) Ur Specific Barre 1.025 (1.000-1.035) Urine Protein 2+ H (Negative) Urine Glucose (UA) Trace H (Negative) g/dL Urine Ketones Trace H (NEGATIVE) Urine Occult Blood Negative (Negative) Urine Nitrate Negative (Negative) Urine Bilirubin 1+ H (NEGATIVE) Ur Bilirubin Confirm Positive H (Negative) Urine Urobilinogen 1.0 (0.2) E.U./dL Ur Leukocyte Esterase Trace H (NEGATIVE) Urine RBC 0-1/hpf (0-5/HPF) Urine WBC 0-1/hpf (0-5/HPF) Ur Squamous Epith Cells 0-1 /hpf (0-5/HPF) Ur Transition Epith Cell 0-1/hpf (0-5/HPF) Urine Bacteria Moderate (10-30) H (None) Hyaline Casts 1-5/lpf (None) Urine Sperm 0-1/hpf Ur Culture Indicated? Specimen cultured SARS-CoV-2 (PCR) Negative (Negative) Imaging Data Chest x-ray: Radiologist's Impression: FINDINGS:? ? Surgical changes and devices:? Clips in the neck. ? Lungs and pleura:? Lungs appear clear.? No pleural effusions or pneumothorax.? ? Mediastinum:? Mediastinal contours is unchanged.? Heart size is normal.? ? Bones and chest wall:? No suspicious bony lesions.? Overlying soft tissues appear unremarkable.? ? IMPRESSION:? No acute cardiopulmonary abnormality. ? ? ? Dictated by: Onofre White M.D. on 09/10/2021 at 1:32 ? ? ECG Data Interpretation: Atrial fibrillation with rapid ventricular response at 120 beats per minute No acute ischemic changes Spontaneous conversion at 2:56 a.m. For sinus rhythm At a rate of 80 occasional premature ventricular complexes No acute ST T wave elevation MDM Narrative Medical decision making narrative: 80-year-old gentleman with 2 days of worsening respiratory symptoms and chest pain. Multiple issues on arrival, decreasing oxygen saturations, clinical congestive heart failure, atrial fibrillation with rapid ventricular response that seems to be new, relative hypotension that may be a result of IV diltiazem given diabetics. He is afebrile but does report productive cough I suspect that this is probably more congestive heart failure related. Rapid COVID test returns negative and he started on BiPAP with improved c rackles. Oxygenation is improved as well. Remains in atrial fibrillation at a rate in the 120s, with his blood pressure slightly low he is initially given IV diltiazem possibility of needing cardiov ersion is considered but will wait until remainder of blood work returns, he is adequately perfusing at this time. It is unclear how long he has been in atrial fibrillation and he does have a history of stroke, TIA and internal carotid artery stenosis. Possibility of sepsis is entertained given the complaints of productive cough. Lactic acid returns elevated at 3.2 with slightly elevated white blood cell count. Urine has not yet been obtained and Pressley catheter is currently being placed. He states that he has had significant decrease in urine output over the last couple of days. Antibiotics in the form of Zosyn with presumption for pulmonary or urinary source for infection. With BiPAP in place, will begin 30 per kilos ideal body weight bolus and closely evaluate. With initial reassessment regarding BiPAP, he is tolerating this well had been at 50% FiO2 and within 30 minutes is down to 40% FiO2 with oxygen saturations in the upper 90s. 2:19am Trop returns + 2.650 Will need central line access and begin heparin. Review of records and recent hospitalizations show no POLST form and no discussion of advanced directives. Discussion at bedside indicates that he would like to at least try CPR and proceed with intubation if required but would clearly prefer to not get so sick that interventions such as those are required. 2:56 spontaneous conversion to sinus rhythm 345 Bipap 12/5 30% FIO2 with sats 94%. tolerating this nicely and feeling better. Improved overall color. Levophed at 8mcg 135/60, will begin to wean lactic acid is coming down. Urine may still be infected, Zosyn was started. In piecing this entire clinical picture together I suspect that this gentleman went into atrial fibrillation 2 days ago has been developing heart failure related to elevated rate, elevated troponin again secondary to the atrial fibrillation and rate(there is no evidence of STEMI), with a high rate he was perfusing poorly causing decreased urine output and exacerbating his heart failure. The of overall poor perfusion explains the elevated lactic acid. He is clinically intravascularly dry with interstitial lung fluid. He responded beautifully to BiPAP and oxygen saturations are beginning to be able to wean down. Beginning to wean down pressors as volume status improves. Suspect that his acute kidney injury is secondary to overall poor perfusion as well. E verything is improving nicely is he has converted back to sinus rhythm. Unclear if infection truly is part of the underlying etiology, will add procalcitonin to blood work. [address] Salgado. Will admit to the ICU service. As he has spontaneously converted and all of his issues do seem to be rapidly improving will hold off on central line placement for the time being. We are continuing to wean down oxygen as well as Levophed. Critical Care Time Critical Care Time Critical Care Time: Yes Total Critical Care Time: 36 Attestation: Critical care time is separate from other billable procedures. There is a high probability of a significant, sudden or life-threatening deterioration that requires my full and direct attention, intervention and personal management. This critical care time includes consultation with family and other consulting doctors, review of records, and interpretation of data from labs, EKGs and imaging as well as managements of heart failure, hypoxic respiratory failure concerns for sepsis, NSTEMI and acute kidney injury. Discharge Plan Departure Patient Disposition: Admitted As Inpatient Clinical Impression: Atrial fibrillation with rapid ventricular response, Non-STEMI (non-ST elevated myocardial infarction), Acute kidney injury Congestive heart failure Qualifiers: Heart failure type: unspecified Heart failure chronicity: acute Qualified Code(s): I50.9 - Heart failure, unspecified Urinary tract infection Qualifiers: Urinary tract infection type: acute cystitis Hematuria presence: without hematuria Qualified Code(s): N30.00 - Acute cystitis without hematuria Admit Date/Time: 09/10/21 04:35 Admit Provider: Elyse Salgado
--- NOTE | 2021-09-10 01:07 | DI.RAD.S_ITS ---
PROCEDURE: XR CHEST 1V INDICATIONS: cough TECHNIQUE: One view of the chest was acquired. COMPARISON: [facility], CHEST 2 VIEW, 12/14/2015, 11:26. [facility], CHEST 2 VIEW, 10/12/2014, 12:37. FINDINGS: Surgical changes and devices: Clips in the neck. Lungs and pleura: Lungs appear clear. No pleural effusions or pneumothorax. Mediastinum: Mediastinal contours is unchanged. Heart size is normal. Bones and chest wall: No suspicious bony lesions. Overlying soft tissues appear unremarkable. IMPRESSION: No acute cardiopulmonary abnormality. Dictated by: Onofre White M.D. on 09/10/2021 at 1:32 Approved by: Onofre White M.D. on 09/10/2021 at 1:32
[2021-09-10 01:19] LABS: Add Manual Diff / Slide Review NO; Basophils Absolute Auto 0 /uL (0-100); Basophils Percent Auto 0.3 % (0-2); Eosinophils Absolute Auto 0 /uL (0-450); Eosinophils Percent Auto 0.1 % (2-4); Hematocrit 42.9 % (41-53); Hemoglobin 14.1 g/dL (13.5-17.5); Lymphocytes Absolute Auto 700 /uL (1100-4500); Lymphocytes Percent Auto 6.6 % (25-40); Mean Corpuscular Hemoglobin 28.9 PG (26-34); Mean Corpuscular Volume 87.6 fL (80-100); Monocytes Absolute Auto 400 /uL (0-900); Neutrophils Absolute Auto 10000 /uL (1500-7000); Platelet Count 253 X10^3/uL (150-400); Red Cell Distribution Width 14.2 % (11.6-14.8); White Blood Cell Count 11.2 X10^3/uL (4.5-11.0)
[2021-09-10 01:24] LABS: COVID19 -Nasal RAPID Negative (Negative)
[2021-09-10] MEDS: DIGOXIN 500 MCG/2 ML AMPUL 250 MCG IV (01:24)
[2021-09-10 01:28] LABS: D Dimer 752 ng/mL (<230)
[2021-09-10 01:29] LABS: Alanine Aminotransferase 19 IU/L (<50); Albumin 4.7 g/dL (3.5-5.0); Albumin Globulin Ratio 1.4 (1.0-2.8); Alkaline Phosphatase 77 U/L (38-126); Aspartate Aminotransferase 40 IU/L (17-59); BUN Creatinine Ratio 21.7 (6-22); Bilirubin Total 1.4 mg/dL (0.2-1.3); Blood Urea Nitrogen 45 mg/dL (9-20); Calcium 10.3 mg/dL (8.4-10.2); Carbon Dioxide 25 mmol/L (22-32); Chloride 99 mmol/L (98-107); Estimated Glomerular Filt Rate 31.1 mL/min (>60); Globulin 3.3 g/dL (1.7-4.1); Glucose 140 mg/dL (80-110); HEMOLYSIS < 15 (0-50); Lipase 29 U/L (23-300); Magnesium 1.7 mg/dL (1.6-2.3); Potassium 3.7 mmol/L (3.4-5.1); Sodium 138 mmol/L (137-145)
[2021-09-10 01:30] LABS: Lactate (Lactic Acid) 3.2 mmol/L (0.7-2.1)
[2021-09-10 01:41] LABS: NT-proBNP (BNP-Adult 18+) 2540 pg/mL (<450)
--- NOTE | 2021-09-10 01:48 | PC.NURSE ---
Patient presents with new onset afib with chest pain and rhonchi, shortness of breath. Patient's labs were sent; Covid negative, bipap initiated, soft blood pressures.
--- NOTE | 2021-09-10 01:50 | RT ---
Pt presents with SOB, RR 25, coarse BS, 4 LPM NC with SpO2 in low 90s. Placed pt on BiPAP at 0141. BiPAP settings 12/5, RR 10, 50% FiO2. Pt's WOB decreased significantly, BS improved to clear with diminished RUL, SpO2 93%. Pt has hx of COPD and takes Advair BID, albuterol MDI daily, and Spiriva daily. RN and MD aware of BiPAP settings and pt's tolerance of it.
[2021-09-10] MEDS: NOREPINEPHRINE 4 MG in DEXTROSE 5% IN WATER 250 ML 30.48 ML IV (02:02)
[2021-09-10] MEDS: PIPERACILLIN/TAZO 4.5 GM in SODIUM CHLORIDE 0.9% 100 ML 200 ML IV (02:03)
[2021-09-10] MEDS: SODIUM CHLORIDE 0.9% 500 ML 1000 ML IV (02:05)
[2021-09-10 02:17] LABS: Appearance Urine UA CLEAR; Bilirubin Urine UA 1+ (NEGATIVE); Glucose Urine UA TRACE g/dL (Negative); Ketones Urine UA TRACE (NEGATIVE); Leukocyte Esterase Urine UA TRACE (NEGATIVE); Nitrite Urine UA NEGATIVE (Negative); Occult Blood Urine UA NEGATIVE (Negative); Protein Urine UA 2+ (Negative); Specific Gravity Urine UA 1.025 (1.000-1.035)
[2021-09-10 02:22] LABS: Color Urine UA Orange
[2021-09-10 02:24] LABS: Ictotest Urine Positive (Negative); RBC Urine 0-1/HPF (0-5/HPF); WBC Urine 0-1/HPF (0-5/HPF)
[2021-09-10 02:25] LABS: Bacteria Urine Moderate (10-30); Hyaline Casts Urine 1-5/LPF; Squamous Epithelial Cell Urine 0-1 /HPF (0-5/HPF); Transitional Epi Cells Urine 0-1/HPF (0-5/HPF)
[2021-09-10] MEDS: SODIUM CHLORIDE 0.9% 1,983 ML 661 ML IV (02:25)
[2021-09-10 02:27] LABS: Sperm Urine 0-1/HPF
[2021-09-10 02:28] LABS: Culture Indicated Urine Specimen Cultured
[2021-09-10 03:14] LABS: Reflexed Lactate in 2 Hours Y
[2021-09-10 03:22] LABS: PTT Partial Thromboplastin Tim 32 SECONDS (26.4-36.2)
[2021-09-10] MEDS: HEPARIN 5,000 UNIT/ML VIAL 4000 UNIT IV (03:37)
--- NOTE | 2021-09-10 03:42 | RT ---
Addendum entered by Jennifer Boyce, RT 09/10/21 03:43: Titrated to 40% at 0202. Original Note: Titrated FiO2 to 40% per SpO2 of 97%. RN and Dr. Lara aware.
[2021-09-10 03:43] LABS: Lactate 2HR (Lactic Acid Rflx) 1.6 mmol/L (0.7-2.1)
--- NOTE | 2021-09-10 03:43 | RT ---
Titrated FiO2 to 30% at 0325. SpO2 94%. RN and Dr. Lara aware.
[2021-09-10] MEDS: HEPARIN DRIP 25,000 UNIT/500 ML IV.SOLN 19.595 UNIT IV (03:48)
[2021-09-10 05:25] LABS: COVID19 - ADMIT (NP swab/PCR) Negative (Negative)
--- NOTE | 2021-09-10 05:37 | RT ---
Addendum entered by Jennifer Boyce, RT 09/10/21 05:38: BiPAP on standby in room. Original Note: At 0531, transitioned pt to 6 LPM HFNC, SpO2 97%. Pt tolerating well.
--- NOTE | 2021-09-10 05:57 | P.TELICUCN_ITS ---
History of Present Illness Consult details Chief complaint: Diff breathing/Irr HR /New onset Afib :: This patient was seen via real time interactive two-way audiovisual telecommunication. Narrative: Patient is a 80 year old male with history of HTM, COPD, chronic back pain, and hyperlipidemia presents with shortness of breath and cough. His symptoms started two days ago. No reported fever/chills. Per ER report, EMS found patient to be in A fib w HR ~14-s which he was given diltiazem 14 mg follow by 20 mg. He then became hypotensive which he was started on levophed. On arrival to ER he was placed on BiPAP and transitioned to 6 liters. Labs notable for BUN 45, 2.07, troponin 2.65, and NT-BNP 2540. CXR showed no dense consolidation. Tele- pv design and installation technician consulted for further management. [facility] Medical History Cervical vertebral fusion COPD (chronic obstructive pulmonary disease) Gastroesophageal reflux disease Hyperlipidemia Hypertension Surgical History History of cervical discectomy History of left-sided carotid endarterectomy S/P cervical spinal fusion Status post appendectomy Social History household members: spouse Smoking Status: Former smoker alcohol intake: never substance use type: does not use Current Medications Current Medications Medications: Home Medications fluticasone 250 mcg-salmeterol 50 mcg/dose blistr powdr for inhalation (Advair Diskus) 1 puff INH BID #3 pac 08/09/16 [Rx Confirmed 11/11/20] tiotropium bromide 18 mcg capsule with inhalation device (Spiriva with HandiHale r) 1 puff INH DAILY #0 ea 08/10/16 [History Confirmed 11/11/20] hydrochlorothiazide 12.5 mg capsule 12.5 mg PO QDAY #90 cap 07/04/17 [Rx Confirmed 11/11/20] albuterol sulfate 90 mcg/actuation aerosol inhaler 2 puff INHALATION BID 08/07/18 [History Confirmed 11/11/20] ayvcwkilln-rkrjqjvnflqna-rjfbyhce 50 mg-300 mg-40 mg capsule (Fioricet) 1 tab PO QID PRN 08/07/18 [History Confirmed 11/11/20] atorvastatin 40 mg tablet (Lipitor) 40 mg PO DAILY 09/10/18 [History Confirmed 11/11/20] gabapentin 800 mg tablet 600 mg PO BID 09/10/18 [History Confirmed 11/11/20] losartan 50 mg tablet 100 mg PO QPM 09/10/18 [History Confirmed 11/11/20] meloxicam 15 mg tablet (Mobic) 15 mg PO DAILY 09/10/18 [History Confirmed 11/11/20] pantoprazole 20 mg tablet,delayed release 20 mg PO DAILY 09/10/18 [History Confirmed 11/11/20] cyclobenzaprine 5 mg PO PRN PRN 10/19/18 [History Confirmed 11/11/20] aspirin 81 mg tablet,delayed release 81 mg PO DAILY #90 tab 11/12/20 [Rx] hydrocodone 5 mg-acetaminophen 325 mg tablet 1 tab PO Q6H PRN #10 tab 05/25/21 [Rx] valacyclovir 1 gram tablet 1,000 mg PO Q8H #21 tab 05/25/21 [Rx] Visit Medications (administered) Generic Name Dose Route Start Last Admin Trade Name Freq PRN Reason Stop Dose Admin Norepinephrine Bitartrate 4 mg 254 mls @ 30.48 mls/hr 09/10/21 02:00 09/10/21 05:05 / Dextrose IV 4 mcg/min TITRATE JUAN FRANCISCO 15.24 mls/hr Titration Protocol 8 MCG/MIN Heparin Sodium/Dextrose 25,000 unit in 500 mls @ 19.595 mls/hr 09/10/21 03:00 09/10/21 05:03 Heparin Drip IV 12 units/kg/hr CONT JUAN FRANCISCO 19.595 mls/hr Titration Protocol 12 UNITS/KG/HR Exam Vital Signs (past 8 hours): - 09/10/21 00:55 09/10/21 01:15 09/10/21 01:24 Temperature 97.2 F L Pulse Rate 118 H 132 H 145 H Respiratory Rate 22 30 H Blood Pressure 93/51 L 93/51 L Pulse Oximetry 86 L 95 09/10/21 01:30 09/10/21 01:35 09/10/21 01:40 Temperature Pulse Rate 136 H 139 H 138 H Respiratory Rate 20 20 24 Blood Pressure 100/58 L 95/52 L 82/56 L Pulse Oximetry 97 93 93 09/10/21 01:41 09/10/21 01:45 09/10/21 01:50 Temperature Pulse Rate 137 H 134 H Respiratory Rate 16 19 Blood Pressure 82/56 L 87/55 L 83/51 L Pulse Oximetry 96 95 09/10/21 01:55 09/10/21 02:00 09/10/21 02:05 Temperature Pulse Rate 131 H 136 H 134 H Respiratory Rate 17 19 17 Blood Pressure 76/57 L 83/56 L 81/60 L Pulse Oximetry 95 96 96 09/10/21 02:10 09/10/21 02:15 09/10/21 02:20 Temperature Pulse Rate 124 H 116 H 116 H Respiratory Rate 15 14 15 Blood Pressure 108/67 111/57 L 109/62 Pulse Oximetry 97 97 98 09/10/21 02:25 09/10/21 02:30 09/10/21 02:35 Temperature Pulse Rate 123 H 114 H 109 H Respiratory Rate 13 15 15 Blood Pressure 124/59 L 122/59 L 124/59 L Pulse Oximetry 98 98 98 09/10/21 02:40 09/10/21 02:45 09/10/21 02:50 Temperature Pulse Rate 112 H 110 H 113 H Respiratory Rate 17 23 17 Blood Pressure 108/53 L 117/55 L 110/51 L Pulse Oximetry 98 97 97 09/10/21 02:55 09/10/21 03:00 09/10/21 03:06 Temperature Pulse Rate 76 78 79 Respiratory Rate 17 16 16 Blood Pressure 115/56 L 113/55 L 111/55 L Pulse Oximetry 97 97 97 09/10/21 03:10 09/10/21 03:15 09/10/21 03:20 Temperature Pulse Rate 79 79 80 Respiratory Rate 21 23 15 Blood Pressure 110/55 L 111/57 L 116/55 L Pulse Oximetry 97 97 97 09/10/21 03:25 09/10/21 03:30 09/10/21 03:35 Temperature Pulse Rate 79 81 80 Respiratory Rate 22 19 17 Blood Pressure 114/59 L 122/59 L 119/56 L Pulse Oximetry 94 94 09/10/21 03:40 09/10/21 03:45 09/10/21 03:50 Temperature Pulse Rate 80 83 80 Respiratory Rate 16 17 19 Blood Pressure 111/57 L 135/60 102/52 L Pulse Oximetry 94 95 94 09/10/21 03:56 09/10/21 04:00 09/10/21 04:05 Temperature Pulse Rate 80 80 83 Respiratory Rate 29 H 26 H 23 Blood Pressure 110/53 L 114/56 L 101/55 L Pulse Oximetry 93 94 93 09/10/21 04:10 09/10/21 04:15 09/10/21 04:20 Temperature Pulse Rate 81 80 80 Respiratory Rate 16 21 17 Blood Pressure 103/55 L 108/55 L 116/56 L Pulse Oximetry 94 94 95 09/10/21 04:25 09/10/21 04:30 09/10/21 04:35 Temperature Pulse Rate 79 80 79 Respiratory Rate 15 16 16 Blood Pressure 109/55 L 117/56 L 116/59 L Pulse Oximetry 95 95 95 09/10/21 04:40 09/10/21 04:45 09/10/21 04:50 Temperature Pulse Rate 78 79 79 Respiratory Rate 17 23 18 Blood Pressure 111/58 L 102/51 L 108/57 L Pulse Oximetry 95 95 94 09/10/21 05:31 Temperature Pulse Rate Respiratory Rate Blood Pressure Pulse Oximetry 97 Fraction of Inspired Oxygen 30 Oxygen Delivery Method High Flow Nasal Cannula Oxygen Flow Rate 6 Objective Labs Result Diagrams: 09/10/21 01:10 09/10/21 01:10 Labs: Laboratory Results - last 24 hr 09/10/21 09/10/21 09/10/21 01:00 01:10 01:10 WBC 11.2 H RBC 4.90 Hgb 14.1 Hct 42.9 MCV 87.6 MCH 28.9 MCHC 33.0 RDW 14.2 Plt Count 253 Neut % (Auto) 89.0 H Lymph % (Auto) 6.6 L Mcpherson % (Auto) 4.0 Eos % (Auto) 0.1 L Baso % (Auto) 0.3 Neut # (Auto) 57206 H Lymph # (Auto) 700 L Mcpherson # (Auto) 400 Eos # (Auto) 0 Baso # (Auto) 0 APTT D-Dimer Sodium 138 Potassium 3.7 Chloride 99 Carbon Dioxide 25 BUN 45 H Creatinine 2.07 H Estimated GFR 31.1 L BUN/Creatinine Ratio 21.7 Glucose 140 H Lactate Calcium 10.3 H Magnesium 1.7 Total Bilirubin 1.4 H AST 40 ALT 19 Alkaline Phosphatase 77 Troponin I 2.650 H* NT-Pro-B Natriuret Pep 2540 H Total Protein 8.0 Albumin 4.7 Globulin 3.3 Albumin/Globulin Ratio 1.4 Lipase 29 Urine Color Urine Appearance Urine pH Ur Specific [place] Urine Protein Urine Glucose (UA) Urine Ketones Urine Occult Blood Urine Nitrate Urine Bilirubin Ur Bilirubin Confirm Urine Urobilinogen Ur Leukocyte Esterase Urine RBC Urine WBC Ur Squamous Epith Cells Ur Transition Epith Cell Urine Bacteria Hyaline Casts Urine Sperm Ur Culture Indicated? SARS-CoV-2 (PCR) Negative 09/10/21 09/10/21 09/10/21 01:10 01:10 01:10 WBC RBC Hgb Hct MCV MCH MCHC RDW Plt Count Neut % (Auto) Lymph % (Auto) Mcpherson % (Auto) Eos % (Auto) Baso % (Auto) Neut # (Auto) Lymph # (Auto) Mcpherson # (Auto) Eos # (Auto) Baso # (Auto) APTT 32 D-Dimer 752 H Sodium Potassium Chloride Carbon Dioxide BUN Creatinine Estimated GFR BUN/Creatinine Ratio Glucose Lactate 3.2 H Calcium Magnesium Total Bilirubin AST ALT Alkaline Phosphatase Troponin I NT-Pro-B Natriuret Pep Total Protein Albumin Globulin Albumin/Globulin Ratio Lipase Urine Color Urine Appearance Urine pH Ur Specific [place] Urine Protein Urine Glucose (UA) Urine Ketones Urine Occult Blood Urine Nitrate Urine Bilirubin Ur Bilirubin Confirm Urine Urobilinogen Ur Leukocyte Esterase Urine RBC Urine WBC Ur Squamous Epith Cells Ur Transition Epith Cell Urine Bacteria Hyaline Casts Urine Sperm Ur Culture Indicated? SARS-CoV-2 (PCR) 09/10/21 09/10/21 09/10/21 02:00 03:23 04:19 WBC RBC Hgb Hct MCV MCH MCHC RDW Plt Count Neut % (Auto) Lymph % (Auto) Mcpherson % (Auto) Eos % (Auto) Baso % (Auto) Neut # (Auto) Lymph # (Auto) Mcpherson # (Auto) Eos # (Auto) Baso # (Auto) APTT D-Dimer Sodium Potassium Chloride Carbon Dioxide BUN Creatinine Estimated GFR BUN/Creatinine Ratio Glucose Lactate 1.6 Calcium Magnesium Total Bilirubin AST ALT Alkaline Phosphatase Troponin I NT-Pro-B Natriuret Pep Total Protein Albumin Globulin Albumin/Globulin Ratio Lipase Urine Color [place] Urine Appearance Clear Urine pH 5.0 Ur Specific [place] 1.025 Urine Protein 2+ H Urine Glucose (UA) Trace H Urine Ketones Trace H Urine Occult Blood Negative Urine Nitrate Negative Urine Bilirubin 1+ H Ur Bilirubin Confirm Positive H Urine Urobilinogen 1.0 Ur Leukocyte Esterase Trace H Urine RBC 0-1/hpf Urine WBC 0-1/hpf Ur Squamous Epith Cells 0-1 /hpf Ur Transition Epith Cell 0-1/hpf Urine Bacteria Moderate (10-30) H Hyaline Casts 1-5/lpf Urine Sperm 0-1/hpf Ur Culture Indicated? Specimen cultured SARS-CoV-2 (PCR) Negative Assessment & Plan Assessment & Plan narrative: NEURO: -- PT/OT consultation -- OOB as tolerated RESP: # Acute on chronic hypoxemia respiratory failure -- Ddx includes pulmonary edema vs pulmonary vascular disorder -- CXR showed mild cephalization and BNP elevated -- Recommend gentel diuresis -- Check TTE, V/Q scan, and venous duplex -- HOB elevation -- ASpiration precaution -- Goal SpO2 > 88% CVS: # A fib w/ RVR -- Secondary to pulmonary embolism vs volume overload -- Check TTE, V/Q scan, and venous duplex LE -- Currently in SR -- Patient is allergic to beta trev with a soft BP; may consider digoxin vs amidoarone if goes back into rapid A fib -- Cardiology consultation -- HIgh lytes goal (K>4, Mg >2, and Phos>3) # NSTEMI -- Concern for plaque rupture vs demand ischemia -- Cont trending troponin -- Check TTE -- Start ASA, lipitor -- Not a candidate for beta trev due to allergy -- Cardiology consultation -- May benefit from transferring to facility with coronary angiogram capability # Shock -- SEcondary to diltiazem -- Currently off of levophed -- Monitor closely to seek MAP goal > 65 : # MOLLY vs CKD -- Secondary to renal venous congestion -- Start gentle diuresis -- Avoid nephrotoxin agents -- Daily BMP ENDO: -- Goal BS < 180 Time Spent With Patient Critical Care time: I spent a total of [] minutes of critical care time on this patient's care today; this time is exclusive of procedural time.
--- NOTE | 2021-09-10 06:05 | P.HP_ITS ---
History of Present Illness History of Present Illness Date Patient Seen: 09/10/21 Time Patient Seen: 06:06 Chief complaint: Diff breathing/Irr HR /New onset Afib Narrative: The patient is a 80-year-old male with a history of COPD, hypertension, hyperlipidemia, GERD, who reports he was in his usual state of health until 2-3 days prior to admission. Patient states at that time he became short of breath. He was so short of breath that he became weak and was unable to stand. He had no associated chest pain. He had no associated palpitations. The patient denies a history of prior cardiac disease, or prior palpitations. Patient request reports a productive cough, but no fever chills. He is vaccinated against COVID. The patient was brought in by medics and he was found to have O2 sat of 70% on room air. He was placed on 4 L nasal cannula with improvement of his oxygenation. Upon admission the patient was in atrial fibrillation with a heart rate of 141 80. He was given 14 mg of diltiazem by medics, subsequently he was given an additional 20 mg. His blood pressure initially was 144/80, he became hypotensive with a blood pressure of 88 systolic. The patient is currently recovering for an outbreak of herpes zoster and has some chest pain associated with that. He is chronically on meloxicam, and losartan for hypertension. The patient reports shortness of breath with lying flat. He also notes occasional lower extremity edema. He denies any nausea vomiting or diarrhea. He has had no hematemesis melena or bright red blood per rectum. He denies any dysuria urinary symptoms, headache blurred vision or double vision. In the emergency department the patient became more hypoxic. He was placed on BiPAP with improvement of his oxygenation. In addition he became significantly hypotensive and required Levophed up to 8 mics. He converted from atrial fibrillation to sinus rhythm. He ultimately was able to have his Levophed tapered down to 4 micrograms/kilogram. In addition he was able to come off BiPAP and was placed on high-flow oxygen. Chest x-ray was negative for infiltrate. His white count was elevated at 11.2, hemoglobin 14.1, hematocrit 42.9 in addition the patient had an elevated D-dimer 752, sodium 138, potassium 3.7, BUN of 45 with a creatinine of 2.07, glucose is elevated at 140. Calcium was elevated at 10.3, and total bili 1.4. His initial troponin was 2.650, proBNP was elevated at 2 540. Urinalysis showed 2+ protein trace glucose negative ketones positive bilirubin trace leukocyte esterase with moderate b acteria. As the patient was hypotensive and tachycardic he initially was treated for possible sepsis with 30 cc/kilogram, in addition to antibiotics to include Zosyn. Given his elevated troponin the patient was also started on a heparin drip. He was given 1 dose of digoxin in the emergency department as well. Upon arrival to the ICU the patient was tapered off the Levophed, he remains on IV heparin, he was taken off BiPAP and placed on 6 L high-flow oxygen. He currently denies any chest pain. Patient is admitted to the hospital for further evaluation. Patient History Medical History Cervical vertebral fusion COPD (chronic obstructive pulmonary disease) Gastroesophageal reflux disease Hyperlipidemia Hypertension Surgical History History of cervical discectomy History of left-sided carotid endarterectomy S/P cervical spinal fusion Status post appendectomy Family & Social History Family History (Updated 09/10/21 @ 06:18 by Elyse Salgado MD) Father Gunshot injury Social History: household members spouse Safety & Behavioral: Feels Safe in Current Yes Environment Tobacco & Substance use: Smoking Status Former smoker alcohol intake never alcohol intake frequency a few times a week Substance Use Type does not use Meds Home Medications and Allergies Home Medications Medication Instructions Recorded Confirmed Type fluticasone 250 mcg-salmeterol 50 1 puff INH BID #3 pac 08/09/16 11/11/20 Rx mcg/dose blistr powdr for inhalation (Advair Diskus) tiotropium bromide 18 mcg capsule 1 puff INH DAILY #0 ea 08/10/16 11/11/20 History with inhalation device (Spiriva with HandiHaler) hydrochlorothiazide 12.5 mg capsule 12.5 mg PO QDAY #90 cap 07/04/17 11/11/20 Rx albuterol sulfate 90 mcg/actuation 2 puff INHALATION BID 08/07/18 11/11/20 History aerosol inhaler [id number] 1 tab PO QID PRN 08/07/18 11/11/20 History 50 mg-300 mg-40 mg capsule (Fioricet) atorvastatin 40 mg tablet (Lipitor) 40 mg PO DAILY 09/10/18 11/11/20 History gabapentin 800 mg tablet 600 mg PO BID 09/10/18 11/11/20 History losartan 50 mg tablet 100 mg PO QPM 09/10/18 11/11/20 History meloxicam 15 mg tablet (Mobic) 15 mg PO DAILY 09/10/18 11/11/20 History pantoprazole 20 mg tablet,delayed 20 mg PO DAILY 09/10/18 11/11/20 History release cyclobenzaprine 5 mg PO PRN PRN 10/19/18 11/11/20 History aspirin 81 mg tablet,delayed 81 mg PO DAILY #90 tab 11/12/20 Rx release hydrocodone 5 mg-acetaminophen 325 1 tab PO Q6H PRN #10 tab 05/25/21 Rx mg tablet valacyclovir 1 gram tablet 1,000 mg PO Q8H #21 tab 05/25/21 Rx Allergies Allergy/AdvReac Type Severity Reaction Status Date / Time Beta-Blockers Allergy Unknown Verified 05/25/21 10:14 (Beta-Adrenergic Bloc codeine Allergy Unknown Verified 05/25/21 10:14 Review of Systems Review of Systems Narrative: Ten point review of system negative except as above Exam Vital Signs (past 8 hours): - 09/10/21 00:55 09/10/21 01:15 09/10/21 01:24 Temperature 97.2 F L Pulse Rate 118 H 132 H 145 H Respiratory Rate 22 30 H Blood Pressure 93/51 L 93/51 L Pulse Oximetry 86 L 95 09/10/21 01:30 09/10/21 01:35 09/10/21 01:40 Temperature Pulse Rate 136 H 139 H 138 H Respiratory Rate 20 20 24 Blood Pressure 100/58 L 95/52 L 82/56 L Pulse Oximetry 97 93 93 09/10/21 01:41 09/10/21 01:45 09/10/21 01:50 Temperature Pulse Rate 137 H 134 H Respiratory Rate 16 19 Blood Pressure 82/56 L 87/55 L 83/51 L Pulse Oximetry 96 95 09/10/21 01:55 09/10/21 02:00 09/10/21 02:05 Temperature Pulse Rate 131 H 136 H 134 H Respiratory Rate 17 19 17 Blood Pressure 76/57 L 83/56 L 81/60 L Pulse Oximetry 95 96 96 09/10/21 02:10 09/10/21 02:15 09/10/21 02:20 Temperature Pulse Rate 124 H 116 H 116 H Respiratory Rate 15 14 15 Blood Pressure 108/67 111/57 L 109/62 Pulse Oximetry 97 97 98 09/10/21 02:25 09/10/21 02:30 09/10/21 02:35 Temperature Pulse Rate 123 H 114 H 109 H Respiratory Rate 13 15 15 Blood Pressure 124/59 L 122/59 L 124/59 L Pulse Oximetry 98 98 98 09/10/21 02:40 09/10/21 02:45 09/10/21 02:50 Temperature Pulse Rate 112 H 110 H 113 H Respiratory Rate 17 23 17 Blood Pressure 108/53 L 117/55 L 110/51 L Pulse Oximetry 98 97 97 09/10/21 02:55 09/10/21 03:00 09/10/21 03:06 Temperature Pulse Rate 76 78 79 Respiratory Rate 17 16 16 Blood Pressure 115/56 L 113/55 L 111/55 L Pulse Oximetry 97 97 97 09/10/21 03:10 09/10/21 03:15 09/10/21 03:20 Temperature Pulse Rate 79 79 80 Respiratory Rate 21 23 15 Blood Pressure 110/55 L 111/57 L 116/55 L Pulse Oximetry 97 97 97 09/10/21 03:25 09/10/21 03:30 09/10/21 03:35 Temperature Pulse Rate 79 81 80 Respiratory Rate 22 19 17 Blood Pressure 114/59 L 122/59 L 119/56 L Pulse Oximetry 94 94 09/10/21 03:40 09/10/21 03:45 09/10/21 03:50 Temperature Pulse Rate 80 83 80 Respiratory Rate 16 17 19 Blood Pressure 111/57 L 135/60 102/52 L Pulse Oximetry 94 95 94 09/10/21 03:56 09/10/21 04:00 09/10/21 04:05 Temperature Pulse Rate 80 80 83 Respiratory Rate 29 H 26 H 23 Blood Pressure 110/53 L 114/56 L 101/55 L Pulse Oximetry 93 94 93 09/10/21 04:10 09/10/21 04:15 09/10/21 04:20 Temperature Pulse Rate 81 80 80 Respiratory Rate 16 21 17 Blood Pressure 103/55 L 108/55 L 116/56 L Pulse Oximetry 94 94 95 09/10/21 04:25 09/10/21 04:30 09/10/21 04:35 Temperature Pulse Rate 79 80 79 Respiratory Rate 15 16 16 Blood Pressure 109/55 L 117/56 L 116/59 L Pulse Oximetry 95 95 95 09/10/21 04:40 09/10/21 04:45 09/10/21 04:50 Temperature Pulse Rate 78 79 79 Respiratory Rate 17 23 18 Blood Pressure 111/58 L 102/51 L 108/57 L Pulse Oximetry 95 95 94 09/10/21 05:31 Temperature Pulse Rate Respiratory Rate Blood Pressure Pulse Oximetry 97 Fraction of Inspired Oxygen 30 Oxygen Delivery Method High Flow Nasal Cannula Oxygen Flow Rate 6 Narrative Exam Narrative: Ill-appearing elderly male lying in bed HENNM Other: Normocephalic atraumatic, Eyes Other: Extraocular muscles are intact, sclerae anicteric, oropharynx reveals dry mucous membranes Neck Other: Neck is supple without adenopathy or thyromegaly no appreciable JVD Chest Other: Chest no vesicular eruption or lesion Resp Other: Lungs: Diffuse scattered rhonchi bilaterally Cardio Other: Cardiac exam: Regular rate and rhythm normal S1-S2 GI Other: Abdomen: Soft nontender nondistended no appreciable hepatosplenomegaly Other: Pressley catheter in place Skin Other: Spider angiomata of the chest Neuro Other: Cranial nerves 2-12 are intact, strength is symmetric and equal, reflexes are equal, gait is not assessed Extrem Other: No edema Psych Other: Patient is awake alert answers questions appropriately, his normal mentation, normal mood and affect, no hallucinations, normal judgment Objective ECG Impression: EKG reveals sinus rhythm, nonspecific ST T wave abnormalities, no ST elevations, no T-wave inversion Labs Result Diagrams: 09/10/21 01:10 09/10/21 01:10 Labs: Laboratory Results - last 24 hr 09/10/21 09/10/21 09/10/21 01:00 01:10 01:10 WBC 11.2 H RBC 4.90 Hgb 14.1 Hct 42.9 MCV 87.6 MCH 28.9 MCHC 33.0 RDW 14.2 Plt Count 253 Neut % (Auto) 89.0 H Lymph % (Auto) 6.6 L [place] % (Auto) 4.0 Eos % (Auto) 0.1 L Baso % (Auto) 0.3 Neut # (Auto) 44407 H Lymph # (Auto) 700 L [place] # (Auto) 400 Eos # (Auto) 0 Baso # (Auto) 0 APTT D-Dimer Sodium 138 Potassium 3.7 Chloride 99 Carbon Dioxide 25 BUN 45 H Creatinine 2.07 H Estimated GFR 31.1 L BUN/Creatinine Ratio 21.7 Glucose 140 H Lactate Calcium 10.3 H Magnesium 1.7 Total Bilirubin 1.4 H AST 40 ALT 19 Alkaline Phosphatase 77 Troponin I 2.650 H* NT-Pro-B Natriuret Pep 2540 H Total Protein 8.0 Albumin 4.7 Globulin 3.3 Albumin/Globulin Ratio 1.4 Lipase 29 Urine Color Urine Appearance Urine pH Ur Specific [place] Urine Protein Urine Glucose (UA) Urine Ketones Urine Occult Blood Urine Nitrate Urine Bilirubin Ur Bilirubin Confirm Urine Urobilinogen Ur Leukocyte Esterase Urine RBC Urine WBC Ur Squamous Epith Cells Ur Transition Epith Cell Urine Bacteria Hyaline Casts Urine Sperm Ur Culture Indicated? SARS-CoV-2 (PCR) Negative 09/10/21 09/10/21 09/10/21 01:10 01:10 01:10 WBC RBC Hgb Hct MCV MCH MCHC RDW Plt Count Neut % (Auto) Lymph % (Auto) [place] % (Auto) Eos % (Auto) Baso % (Auto) Neut # (Auto) Lymph # (Auto) [place] # (Auto) Eos # (Auto) Baso # (Auto) APTT 32 D-Dimer 752 H Sodium Potassium Chloride Carbon Dioxide BUN Creatinine Estimated GFR BUN/Creatinine Ratio Glucose Lactate 3.2 H Calcium Magnesium Total Bilirubin AST ALT Alkaline Phosphatase Troponin I NT-Pro-B Natriuret Pep Total Protein Albumin Globulin Albumin/Globulin Ratio Lipase Urine Color Urine Appearance Urine pH Ur Specific [place] Urine Protein Urine Glucose (UA) Urine Ketones Urine Occult Blood Urine Nitrate Urine Bilirubin Ur Bilirubin Confirm Urine Urobilinogen Ur Leukocyte Esterase Urine RBC Urine WBC Ur Squamous Epith Cells Ur Transition Epith Cell Urine Bacteria Hyaline Casts Urine Sperm Ur Culture Indicated? SARS-CoV-2 (PCR) 09/10/21 09/10/21 09/10/21 02:00 03:23 04:19 WBC RBC Hgb Hct MCV MCH MCHC RDW Plt Count Neut % (Auto) Lymph % (Auto) [place] % (Auto) Eos % (Auto) Baso % (Auto) Neut # (Auto) Lymph # (Auto) [place] # (Auto) Eos # (Auto) Baso # (Auto) APTT D-Dimer Sodium Potassium Chloride Carbon Dioxide BUN Creatinine Estimated GFR BUN/Creatinine Ratio Glucose Lactate 1.6 Calcium Magnesium Total Bilirubin AST ALT Alkaline Phosphatase Troponin I NT-Pro-B Natriuret Pep Total Protein Albumin Globulin Albumin/Globulin Ratio Lipase Urine Color [place] Urine Appearance Clear Urine pH 5.0 Ur Specific [place] 1.025 Urine Protein 2+ H Urine Glucose (UA) Trace H Urine Ketones Trace H Urine Occult Blood Negative Urine Nitrate Negative Urine Bilirubin 1+ H Ur Bilirubin Confirm Positive H Urine Urobilinogen 1.0 Ur Leukocyte Esterase Trace H Urine RBC 0-1/hpf Urine WBC 0-1/hpf Ur Squamous Epith Cells 0-1 /hpf Ur Transition Epith Cell 0-1/hpf Urine Bacteria Moderate (10-30) H Hyaline Casts 1-5/lpf Urine Sperm 0-1/hpf Ur Culture Indicated? Specimen cultured SARS-CoV-2 (PCR) Negative Assessment & Plan Assessment & Plan narrative: 80-year-old male with a history of COPD, hypertension, hyperlipidemia, admitted to the hospital with shortness of breath and cough, patient was found to be in rapid atrial fibrillation. Treatment resulted in hypotension, there was concern initially regarding the severe sepsis and the patient was started on sepsis protocol including 30 cc/kilogram of IV fluids in addition to Zosyn, patient converted to sinus rhythm, is found to have an elevated troponin of 2.65, he is also found to be in acute renal failure with a creatinine of 2.0. * Acute hypoxic respiratory failure * Likely multifactorial, suspect secondary to atrial fibrillation, acute pulmonary edema, and baseline COPD * Will discontinue IV hydration, continue albuterol Atrovent nebulizers, continue oxygen to maintain O2 sat of 92% * Agree with plan to start gentle diuresis as blood pressure has improved * Elevated troponin suggest possible acute coronary event, NSTEMI * Will obtain cardiac echo to evaluate LV function * Patient with elevated D-dimer, will rule out pulmonary embolus, will attempt V/Q scan, NSTEMI * Patient denies any chest pain, however with rapid atrial fibrillation and elevated troponin of 2.650 and history of COPD ongoing concern regarding underlying ischemia * Prior Echo revealed EF 60-65%, Moderate Aortic Stenosis * Continue IV heparin, aspirin, and statin * No beta-blockers the patient is allergic * Will repeat EKG and trend troponin * Cardiac echo to evaluate LV function * Cardiology consultation regarding need for left heart catheterization * Recommend transfer to [facility] for Left heart Cath Atrial Fibrillation with RVR * Patient converted in the ED * He recieved Cardizem, digoxin * no longer hypotensive * On IV heparin Moderate Aortic Stenosis * Likely worse, precipitating symptoms above * Repeat Echo * Transfer for Left heart Cath and evaluation of aortic valve Hypovolemic shock * Likely secondary to diltiazem * The Levophed discontinued * Discontinue IV hydration * No evidence of septic shock * However patient may have urinary tract infection * Will trend lactate, procalcitonin, and continue antibiotic Acute kidney injury * Suspect ATN secondary to hypotension * Baseline creatinine 1.0 * Current creatinine 2.0 * Will avoid nephrotoxic agent * Will hold losartan and meloxicam at this time GERD * Continue PPI Post herpetic neuralgia * Continue gabapentin Patient reports he is a full code will note that his record accordingly I have utilized all available resources to review update and confirm the patient's current medications Patient will be admitted as an inpatient, 60 minutes critical care time has been spent with this patient, given probable NSTEMI patient will be transferred to an outside facility for left heart catheterization COVID-19 COVID-19 status: Negative Result date/Date tested (Pos, Neg/Pending): 09/10/21 Time Spent With Patient Critical Care time: I spent a total of [] minutes of critical care time on this patient's care today; this time is exclusive of procedural time.
[2021-09-10 06:43] LABS: Hematocrit 33.6 % (41-53); Hemoglobin 11.4 g/dL (13.5-17.5)
[2021-09-10] MEDS: cefTRIAXone 1,000 MG in SODIUM CHLORIDE 0.9% 100 ML 200 ML IV (07:33)
[2021-09-10] MEDS: PANTOPRAZOLE DR 20 MG TABLET PO (07:34)
[2021-09-10] MEDS: ALBUTEROL/IPRATROPIUM 3 ML AMPUL INH (07:38)
[2021-09-10] MEDS: FUROSEMIDE 20 MG/2 ML VIAL IV (07:50)
[2021-09-10] MEDS: BUDESONIDE 0.5 MG/2 ML NEB INH (07:51)
--- NOTE | 2021-09-10 09:16 | PC.NURSE ---
Addendum entered by Cathy Gayle R.N. 09/10/21 10:04: calculations plugged into IV pump; ending units/kg/hr is 13,4 which is 19.5ml/hr. PTT 48; Heparin gtt increased to 14.4units/kg/hr. Addendum entered by Cathy Gayle R.N. 09/10/21 09:53: Rounds with Dr. Solano in pt's room. pt report left chest pressure 1-2. Dr. Solano ordered Troponin and EKG now. [facility] calling hospitals for open bed to transfer pt. Dr. Melgoza stopped now Troponin since last resulted about 0900. EKG done. Plans for transfer explained to pt. HOB elevated. Original Note: 0800 pt alert and oriented; forgetful. audible coarse crackles. EKG done. lasix 20mg IV given early. called and will be bringing in pt's glasses. Troponin 8.9; Dr. Melgoza notifed of increasing level. Heparin at 19.5ml/hr
--- NOTE | 2021-09-10 09:39 | P.TELICUPN_ITS ---
Subjective Subjective :: This patient was seen via real time interactive two-way audiovisual telecommunication. Current Medications Current Medications Medications: Home Medications fluticasone 250 mcg-salmeterol 50 mcg/dose blistr powdr for inhalation (Advair Diskus) 1 puff INH BID #3 pac 08/09/16 [Rx Confirmed 11/11/20] tiotropium bromide 18 mcg capsule with inhalation device (Spiriva with Hand iHaler) 1 puff INH DAILY #0 ea 08/10/16 [History Confirmed 11/11/20] hydrochlorothiazide 12.5 mg capsule 12.5 mg PO QDAY #90 cap 07/04/17 [Rx Confirmed 09/10/21] albuterol sulfate 90 mcg/actuation aerosol inhaler 2 puff INHALATION BID 08/07/18 [History Confirmed 11/11/20] rdtnflqyod-nyjumebxglqkv-tfyymrlx 50 mg-300 mg-40 mg capsule (Fioricet) 1 tab PO QID PRN 08/07/18 [History Confirmed 11/11/20] atorvastatin 40 mg tablet (Lipitor) 40 mg PO DAILY 09/10/18 [History Confirmed 09/10/21] gabapentin 800 mg tablet 600 mg PO TID 09/10/18 [History Confirmed 09/10/21] losartan 50 mg tablet 100 mg PO QPM 09/10/18 [History Confirmed 09/10/21] meloxicam 15 mg tablet (Mobic) 15 mg PO DAILY 09/10/18 [History Confirmed 09/10/21] pantoprazole 20 mg tablet,delayed release 20 mg PO DAILY 09/10/18 [History C onfirmed 09/10/21] cyclobenzaprine 5 mg PO PRN PRN 10/19/18 [History Confirmed 11/11/20] aspirin 81 mg tablet,delayed release 81 mg PO DAILY #90 tab 11/12/20 [Rx] hydrocodone 5 mg-acetaminophen 325 mg tablet 1 tab PO Q6H PRN #10 tab 05/25/21 [Rx] valacyclovir 1 gram tablet 1,000 mg PO Q8H #21 tab 05/25/21 [Rx] Visit Medications (administered) Generic Name Dose Route Start Last Admin Trade Name Freq PRN Reason Stop Dose Admin Albuterol/Ipratropium 3 ml 09/10/21 07:00 09/10/21 07:38 Albuterol/Ipratropium 3 Ml Ampul INH 3 ml [id number] JUAN FRANCISCO Administration Budesonide 0.5 mg 09/10/21 08:00 09/10/21 07:51 Budesonide 0.5 Mg/2 Ml Neb INH 0.5 mg RTBID JUAN FRANCISCO Administration Furosemide 20 mg 09/10/21 08:00 09/10/21 09:22 Furosemide 20 Mg/2 Ml Vial IV Not Given DAILY [facility] Norepinephrine Bitartrate 4 mg 254 mls @ 30.48 mls/hr 09/10/21 02:00 09/10/21 05:05 / Dextrose IV 4 mcg/min TITRATE JUAN FRANCISCO 15.24 mls/hr Titration Protocol 8 MCG/MIN Heparin Sodium/Dextrose 25,000 unit in 500 mls @ 19.595 mls/hr 09/10/21 03:00 09/10/21 05:03 Heparin Drip IV 12 units/kg/hr CONT JUAN FRANCISCO 19.595 mls/hr Titration Protocol 12 UNITS/KG/HR Ceftriaxone Sodium 1,000 mg/ 100 mls @ 200 mls/hr 09/10/21 06:45 09/10/21 07:33 Sodium Chloride IV 200 mls/hr Q24H JUAN FRANCISCO Administration Pantoprazole Sodium 20 mg 09/10/21 07:00 09/10/21 07:[address] 20 Mg Tablet PO 20 mg DAILY@0700 JUAN FRANCISCO Administration Objective Labs Result Diagrams: 09/10/21 06:25 09/10/21 01:10 Labs: Laboratory Results - last 24 hr 09/10/21 09/10/21 09/10/21 01:00 01:10 01:10 WBC 11.2 H RBC 4.90 Hgb 14.1 Hct 42.9 MCV 87.6 MCH 28.9 MCHC 33.0 RDW 14.2 Plt Count 253 Neut % (Auto) 89.0 H Lymph % (Auto) 6.6 L [place] % (Auto) 4.0 Eos % (Auto) 0.1 L Baso % (Auto) 0.3 Neut # (Auto) 57569 H Lymph # (Auto) 700 L [place] # (Auto) 400 Eos # (Auto) 0 Baso # (Auto) 0 APTT D-Dimer Sodium 138 Potassium 3.7 Chloride 99 Carbon Dioxide 25 BUN 45 H Creatinine 2.07 H Estimated GFR 31.1 L BUN/Creatinine Ratio 21.7 Glucose 140 H Lactate Calcium 10.3 H Magnesium 1.7 Total Bilirubin 1.4 H AST 40 ALT 19 Alkaline Phosphatase 77 Troponin I 2.650 H* NT-Pro-B Natriuret Pep 2540 H Total Protein 8.0 Albumin 4.7 Globulin 3.3 Albumin/Globulin Ratio 1.4 Lipase 29 Urine Color Urine Appearance Urine pH Ur Specific [place] Urine Protein Urine Glucose (UA) Urine Ketones Urine Occult Blood Urine Nitrate Urine Bilirubin Ur Bilirubin Confirm Urine Urobilinogen Ur Leukocyte Esterase Urine RBC Urine WBC Ur Squamous Epith Cells Ur Transition Epith Cell Urine Bacteria Hyaline Casts Urine Sperm Ur Culture Indicated? Nasal Screen MRSA (PCR) SARS-CoV-2 (PCR) Negative 09/10/21 09/10/21 09/10/21 01:10 01:10 01:10 WBC RBC Hgb Hct MCV MCH MCHC RDW Plt Count Neut % (Auto) Lymph % (Auto) [place] % (Auto) Eos % (Auto) Baso % (Auto) Neut # (Auto) Lymph # (Auto) [place] # (Auto) Eos # (Auto) Baso # (Auto) APTT 32 D-Dimer 752 H Sodium Potassium Chloride Carbon Dioxide BUN Creatinine Estimated GFR BUN/Creatinine Ratio Glucose Lactate 3.2 H Calcium Magnesium Total Bilirubin AST ALT Alkaline Phosphatase Troponin I NT-Pro-B Natriuret Pep Total Protein Albumin Globulin Albumin/Globulin Ratio Lipase Urine Color Urine Appearance Urine pH Ur Specific [place] Urine Protein Urine Glucose (UA) Urine Ketones Urine Occult Blood Urine Nitrate Urine Bilirubin Ur Bilirubin Confirm Urine Urobilinogen Ur Leukocyte Esterase Urine RBC Urine WBC Ur Squamous Epith Cells Ur Transition Epith Cell Urine Bacteria Hyaline Casts Urine Sperm Ur Culture Indicated? Nasal Screen MRSA (PCR) SARS-CoV-2 (PCR) 09/10/21 09/10/21 09/10/21 02:00 03:23 04:19 WBC RBC Hgb Hct MCV MCH MCHC RDW Plt Count Neut % (Auto) Lymph % (Auto) [place] % (Auto) Eos % (Auto) Baso % (Auto) Neut # (Auto) Lymph # (Auto) [place] # (Auto) Eos # (Auto) Baso # (Auto) APTT D-Dimer Sodium Potassium Chloride Carbon Dioxide BUN Creatinine Estimated GFR BUN/Creatinine Ratio Glucose Lactate 1.6 Calcium Magnesium Total Bilirubin AST ALT Alkaline Phosphatase Troponin I NT-Pro-B Natriuret Pep Total Protein Albumin Globulin Albumin/Globulin Ratio Lipase Urine Color [place] Urine Appearance Clear Urine pH 5.0 Ur Specific [place] 1.025 Urine Protein 2+ H Urine Glucose (UA) Trace H Urine Ketones Trace H Urine Occult Blood Negative Urine Nitrate Negative Urine Bilirubin 1+ H Ur Bilirubin Confirm Positive H Urine Urobilinogen 1.0 Ur Leukocyte Esterase Trace H Urine RBC 0-1/hpf Urine WBC 0-1/hpf Ur Squamous Epith Cells 0-1 /hpf Ur Transition Epith Cell 0-1/hpf Urine Bacteria Moderate (10-30) H Hyaline Casts 1-5/lpf Urine Sperm 0-1/hpf Ur Culture Indicated? Specimen cultured Nasal Screen MRSA (PCR) SARS-CoV-2 (PCR) Negative 09/10/21 09/10/21 09/10/21 05:40 06:25 06:25 WBC RBC Hgb 11.4 L Hct 33.6 L MCV MCH MCHC RDW Plt Count Neut % (Auto) Lymph % (Auto) [place] % (Auto) Eos % (Auto) Baso % (Auto) Neut # (Auto) Lymph # (Auto) [place] # (Auto) Eos # (Auto) Baso # (Auto) APTT D-Dimer Sodium Potassium Chloride Carbon Dioxide BUN Creatinine Estimated GFR BUN/Creatinine Ratio Glucose Lactate Calcium Magnesium Total Bilirubin AST ALT Alkaline Phosphatase Troponin I 8.910 H* NT-Pro-B Natriuret Pep Total Protein Albumin Globulin Albumin/Globulin Ratio Lipase Urine Color Urine Appearance Urine pH Ur Specific [place] Urine Protein Urine Glucose (UA) Urine Ketones Urine Occult Blood Urine Nitrate Urine Bilirubin Ur Bilirubin Confirm Urine Urobilinogen Ur Leukocyte Esterase Urine RBC Urine WBC Ur Squamous Epith Cells Ur Transition Epith Cell Urine Bacteria Hyaline Casts Urine Sperm Ur Culture Indicated? Nasal Screen MRSA (PCR) Negative for mrsa SARS-CoV-2 (PCR) Exam Vital Signs (past 8 hours): - 09/10/21 01:40 09/10/21 01:41 09/10/21 01:45 Temperature Pulse Rate 138 H 137 H Respiratory Rate 24 16 Blood Pressure 82/56 L 82/56 L 87/55 L Pulse Oximetry 93 96 09/10/21 01:50 09/10/21 01:55 09/10/21 02:00 Temperature Pulse Rate 134 H 131 H 136 H Respiratory Rate 19 17 19 Blood Pressure 83/51 L 76/57 L 83/56 L Pulse Oximetry 95 95 96 09/10/21 02:05 09/10/21 02:10 09/10/21 02:15 Temperature Pulse Rate 134 H 124 H 116 H Respiratory Rate 17 15 14 Blood Pressure 81/60 L 108/67 111/57 L Pulse Oximetry 96 97 97 09/10/21 02:20 09/10/21 02:25 09/10/21 02:30 Temperature Pulse Rate 116 H 123 H 114 H Respiratory Rate 15 13 15 Blood Pressure 109/62 124/59 L 122/59 L Pulse Oximetry 98 98 98 09/10/21 02:35 09/10/21 02:40 09/10/21 02:45 Temperature Pulse Rate 109 H 112 H 110 H Respiratory Rate 15 17 23 Blood Pressure 124/59 L 108/53 L 117/55 L Pulse Oximetry 98 98 97 09/10/21 02:50 09/10/21 02:55 09/10/21 03:00 Temperature Pulse Rate 113 H 76 78 Respiratory Rate 17 17 16 Blood Pressure 110/51 L 115/56 L 113/55 L Pulse Oximetry 97 97 97 09/10/21 03:06 09/10/21 03:10 09/10/21 03:15 Temperature Pulse Rate 79 79 79 Respiratory Rate 16 21 23 Blood Pressure 111/55 L 110/55 L 111/57 L Pulse Oximetry 97 97 97 09/10/21 03:20 09/10/21 03:25 09/10/21 03:30 Temperature Pulse Rate 80 79 81 Respiratory Rate 15 22 19 Blood Pressure 116/55 L 114/59 L 122/59 L Pulse Oximetry 97 94 09/10/21 03:35 09/10/21 03:40 09/10/21 03:45 Temperature Pulse Rate 80 80 83 Respiratory Rate 17 16 17 Blood Pressure 119/56 L 111/57 L 135/60 Pulse Oximetry 94 94 95 09/10/21 03:50 09/10/21 03:56 09/10/21 04:00 Temperature Pulse Rate 80 80 80 Respiratory Rate 19 29 H 26 H Blood Pressure 102/52 L 110/53 L 114/56 L Pulse Oximetry 94 93 94 09/10/21 04:05 09/10/21 04:10 09/10/21 04:15 Temperature Pulse Rate 83 81 80 Respiratory Rate 23 16 21 Blood Pressure 101/55 L 103/55 L 108/55 L Pulse Oximetry 93 94 94 09/10/21 04:20 09/10/21 04:25 09/10/21 04:30 Temperature Pulse Rate 80 79 80 Respiratory Rate 17 15 16 Blood Pressure 116/56 L 109/55 L 117/56 L Pulse Oximetry 95 95 95 09/10/21 04:35 09/10/21 04:40 09/10/21 04:45 Temperature Pulse Rate 79 78 79 Respiratory Rate 16 17 23 Blood Pressure 116/59 L 111/58 L 102/51 L Pulse Oximetry 95 95 95 09/10/21 04:50 09/10/21 05:00 09/10/21 05:19 Temperature Pulse Rate 79 80 81 Respiratory Rate 18 19 26 H Blood Pressure 108/57 L 123/60 Pulse Oximetry 94 95 98 09/10/21 05:29 09/10/21 05:30 09/10/21 05:31 Temperature Pulse Rate 84 83 Respiratory Rate 25 H 27 H Blood Pressure 124/58 L Pulse Oximetry 97 97 97 09/10/21 05:39 09/10/21 06:00 09/10/21 06:30 Temperature Pulse Rate 85 84 82 Respiratory Rate 26 H 24 33 H Blood Pressure 121/59 L Pulse Oximetry 96 96 97 09/10/21 07:00 09/10/21 07:39 09/10/21 07:51 Temperature Pulse Rate 80 92 H 89 Respiratory Rate 27 H 28 H 24 Blood Pressure Pulse Oximetry 97 95 96 09/10/21 07:57 09/10/21 09:14 Temperature 97.7 F Pulse Rate 86 85 Respiratory Rate 19 20 Blood Pressure 124/58 L 124/88 Pulse Oximetry 94 95 Fraction of Inspired Oxygen 30 Oxygen Delivery Method High Flow Nasal Cannula Oxygen Flow Rate 6 Assessment & Plan Assessment & Plan narrative: Assessment & Plan narrative: patient seen via video an examined with nursing staff and bedside provider chart/labs/imaging reviewed acute respiratory failure 2/2 to pulmonary edema NSTEMI acute hear failure 2/2 to volume overload shock plan -avoid any more ivf -diuretics prn -pt off pressors, keep map above 65 -check trop/ekg now -echo/venoux duplex pending -asa/statin/hep drip, suggest DAPT with brilinta or plavix -cardio eval pending, pending transfer for cath -amio or dig if afib returns -check urine lytes, check renal sono -repeat bmp, monitor ins/outs -keep glucose 140-180 -please call Tele ICU prn if condition changes Time Spent With Patient Critical Care time: I spent a total of [] minutes of critical care time on this patient's care today; this time is exclusive of procedural time.
[2021-09-10] MEDS: ASPIRIN EC 81 MG TABLET PO (09:47)
[2021-09-10] MEDS: GABAPENTIN 600 MG TABLET PO (09:47)
[2021-09-10] MEDS: DOCUSATE 100 MG CAPSULE PO (09:47)
[2021-09-10 09:50] LABS: PTT Partial Thromboplastin Tim 48 SECONDS (26.4-36.2)
--- NOTE | 2021-09-10 10:45 | PM.DS.1 ---
History of Present Illness History of Present Illness Date Patient Seen: 09/10/21 Time Patient Seen: 10:45 Chief complaint: Diff breathing/Irr HR /New onset Afib Narrative: Per Dr. Salgado, The patient is a 80-year-old male with a history of COPD, hypertension, hyperlipidemia, GERD, who reports he was in his usual state of health until 2-3 days prior to admission.? Patient states at that time he became short of breath.? He was so short of breath that he became weak and was unable to stand.? He had no associated chest pain.? He had no associated palpitations.? The patient denies a history of prior cardiac disease, or prior palpitations.? Patient request reports a productive cough, but no fever chills.? He is vaccinated against COVID.? The patient was brought in by medics and he was found to have O2 sat of 70% on room air.? He was placed on 4 L nasal cannula with improvement of his oxygenation.? Upon admission the patient was in atrial fibrillation with a heart rate of 141 80.? He was given 14 mg of diltiazem by medics, subsequently he was given an additional 20 mg.? His blood pressure initially was 144/80, he became hypotensive with a blood pressure of 88 systolic.? The patient is currently recovering for an outbreak of herpes zoster and has some chest pain associated with that.? He is chronically on meloxicam, and losartan for hypertension.? The patient reports shortness of breath with lying flat.? He also notes occasional lower extremity edema.? He denies any nausea vomiting or diarrhea.? He has had no hematemesis melena or bright red blood per rectum.? He denies any dysuria urinary symptoms, headache blurred vision or double vision.? In the emergency department the patient became more hypoxic.? He was placed on BiPAP with improvement of his oxygenation.? In addition he became significantly hypotensive and required Levophed up to 8 mics.? He converted from atrial fibrillation to sinus rhythm.? He ultimately was able to have his Levophed tapered down to 4 micrograms/kilogram.? In addition he was able to come off BiPAP and was placed on high-flow oxygen.? Chest x-ray was negative for infiltrate.? His white count was elevated at 11.2, hemoglobin 14.1, hematocrit 42.9 in addition the patient had an elevated D-dimer 752, sodium 138, potassium 3.7, BUN of 45 with a creatinine of 2.07, glucose is elevated at 140.? Calcium was elevated at 10.3, and total bili 1.4.? His initial troponin was 2.650, proBNP was elevated at 2 540.? Urinalysis showed 2+ protein trace glucose negative ketones positive bilirubin trace leukocyte esterase with moderate bacteria.? As the patient was hypotensive and tachycardic he initially was treated for possible sepsis with 30 cc/kilogram, in addition to antibiotics to include Zosyn.? Given his elevated troponin the patient was also started on a heparin drip.? He was given 1 dose of digoxin in the emergency department as well.? Upon arrival to the ICU the patient was tapered off the Levophed, he remains on IV heparin, he was taken off BiPAP and placed on 6 L high-flow oxygen.? He currently denies any chest pain.? Patient is admitted to the hospital for further evaluation. Discharge Providers Provider Date of admission: 09/10/21 04:35 Discharge Date: 09/10/21 Primary care physician: Glynn Stallworth MD Consults: 09/10/21 05:57 Consult to Tele-fashion patternmaker Routine Comment: Consulting Provider: [employer] Reason for consultation: [employer] Set Up Operator services Has provider been notified: Yes Discharge provider: Gokul Melgoza DO Summary Hospital Course Discharge Diagnosis: Acute hypoxic respiratory failure, resolved NSTEMI Hypovolemic shock, resolved Moderate Aortic Stenosis Acute kidney injury Paroxysmal atrial fibrillation. GERD Post herpetic neuralgia COPD without acute exacerbation Acute cystitis. Hospital Course: 80-year-old male with a history of COPD, hypertension, hyperlipidemia, admitted to the hospital with shortness of breath and cough, patient was found to be in rapid atrial fibrillation.? Treatment resulted in hypotension, there was concern initially regarding the severe sepsis and the patient was started on sepsis protocol including 30 cc/kilogram of IV fluids in addition to Zosyn, patient converted to sinus rhythm, is found to have an elevated troponin of 2.65, he is also found to be in acute renal failure with a creatinine of 2.0 and acute respiratory failure with hypoxia requiring BiPAP therapy. He was admitted to the ICU for further evaluation. Upon arrival, he had been given a single dose of digoxin by the ER and he had coverted to sinus rhythm as previously mentioned. He required levophed infusion for a short period of time due to hypotension (likely from hypovolemia and diltiazem) but this is now stopped. Tele-fashion patternmaker service also recommended V/Q scan to rule out PE but this is unavailable on the weekends at [facility]. CT angio not recommended currently given his acute MOLLY, and he is on a heparin infusion so management would not likely change acutely. EKG revealed borderline minimal ST depressions in V3 through V5, but there were no over changes over 3 studies performed while he was here. Telemetry had no acute events during his short stay. Repeat troponin went from 2.65 on admission to 8.9 early this morning. He also started to develop some chest pressure (different than his herpetic neuralgia which has been unchanged). The patient has been on a heparin drip since arrival. He received enteric coated 81 mg dose of aspirin and 243 mg of chewable aspirin during admission. Dr. Broussard of [facility] recommended transfer for [facility] initially. [facility] did not have any beds available. Now accepted to [facility] by Dr. Duran for further management of his NSTEMI. Prior Echo in 2020 revealed EF 60-65%, Moderate Aortic Stenosis. Repeat study ordered but unable to be performed prior to transfer. UA showed trace LE, but 0-1 WBC and 0-1 RBC, but moderate bacteria. A single dose of ceftriaxone was given. Consider stopping antibiotics at accepting facility but urine culture is pending. Time Spent with Patient Time spent: Greater than 30 minutes Exam Vital Signs (past 8 hours): - 09/10/21 02:50 09/10/21 02:55 09/10/21 03:00 Temperature Pulse Rate 113 H 76 78 Respiratory Rate 17 17 16 Blood Pressure 110/51 L 115/56 L 113/55 L Pulse Oximetry 97 97 97 09/10/21 03:06 09/10/21 03:10 09/10/21 03:15 Temperature Pulse Rate 79 79 79 Respiratory Rate 16 21 23 Blood Pressure 111/55 L 110/55 L 111/57 L Pulse Oximetry 97 97 97 09/10/21 03:20 09/10/21 03:25 09/10/21 03:30 Temperature Pulse Rate 80 79 81 Respiratory Rate 15 22 19 Blood Pressure 116/55 L 114/59 L 122/59 L Pulse Oximetry 97 94 09/10/21 03:35 09/10/21 03:40 09/10/21 03:45 Temperature Pulse Rate 80 80 83 Respiratory Rate 17 16 17 Blood Pressure 119/56 L 111/57 L 135/60 Pulse Oximetry 94 94 95 09/10/21 03:50 09/10/21 03:56 09/10/21 04:00 Temperature Pulse Rate 80 80 80 Respiratory Rate 19 29 H 26 H Blood Pressure 102/52 L 110/53 L 114/56 L Pulse Oximetry 94 93 94 09/10/21 04:05 09/10/21 04:10 09/10/21 04:15 Temperature Pulse Rate 83 81 80 Respiratory Rate 23 16 21 Blood Pressure 101/55 L 103/55 L 108/55 L Pulse Oximetry 93 94 94 09/10/21 04:20 09/10/21 04:25 09/10/21 04:30 Temperature Pulse Rate 80 79 80 Respiratory Rate 17 15 16 Blood Pressure 116/56 L 109/55 L 117/56 L Pulse Oximetry 95 95 95 09/10/21 04:35 09/10/21 04:40 09/10/21 04:45 Temperature Pulse Rate 79 78 79 Respiratory Rate 16 17 23 Blood Pressure 116/59 L 111/58 L 102/51 L Pulse Oximetry 95 95 95 09/10/21 04:50 09/10/21 05:00 09/10/21 05:19 Temperature Pulse Rate 79 80 81 Respiratory Rate 18 19 26 H Blood Pressure 108/57 L 123/60 Pulse Oximetry 94 95 98 09/10/21 05:29 09/10/21 05:30 09/10/21 05:31 Temperature Pulse Rate 84 83 Respiratory Rate 25 H 27 H Blood Pressure 124/58 L Pulse Oximetry 97 97 97 09/10/21 05:39 09/10/21 06:00 09/10/21 06:30 Temperature Pulse Rate 85 84 82 Respiratory Rate 26 H 24 33 H Blood Pressure 121/59 L Pulse Oximetry 96 96 97 09/10/21 07:00 09/10/21 07:39 09/10/21 07:51 Temperature Pulse Rate 80 92 H 89 Respiratory Rate 27 H 28 H 24 Blood Pressure Pulse Oximetry 97 95 96 09/10/21 07:57 09/10/21 09:14 Temperature 97.7 F Pulse Rate 86 85 Respiratory Rate 19 20 Blood Pressure 124/58 L 124/88 Pulse Oximetry 94 95 Fraction of Inspired Oxygen 30 Oxygen Delivery Method High Flow Nasal Cannula Oxygen Flow Rate 6 Narrative Exam Narrative: Gen: Ill-appearing elderly male lying in bed, hoarse sounding voice HENND Other:?Normocephalic atraumatic, no JVD Eyes Other:?Extraocular muscles are intact, sclerae anicteric, oropharynx reveals dry mucous membranes Neck Other:?Neck is supple without adenopathy or thyromegaly no appreciable JVD Chest Other:?Chest no vesicular eruption or lesion, mildly tender Resp Other:?Lungs:? mild bibasilar rhonchi, slight wheezing bilaterally, Cardio Other:?Cardiac exam:? Regular rate and rhythm normal S1-S2 GI Other:?Abdomen:? Soft nontender nondistended no appreciable hepatosplenomegaly Other:?Pressley catheter in place Skin Other:?Spider angiomata of the chest Neuro Other:?Cranial nerves 2-12 are intact, strength is symmetric and equal, reflexes are equal, gait is not assessed Extrem Other:?No edema Psych Other:?Patient is awake alert answers questions appropriately, his normal mentation, normal mood and affect, no hallucinations, normal judgment Objective Labs Result Diagrams: 09/10/21 06:25 09/10/21 01:10 Labs: Laboratory Results - last 24 hr 09/10/21 09/10/21 09/10/21 01:00 01:10 01:10 WBC 11.2 H RBC 4.90 Hgb 14.1 Hct 42.9 MCV 87.6 MCH 28.9 MCHC 33.0 RDW 14.2 Plt Count 253 Neut % (Auto) 89.0 H Lymph % (Auto) 6.6 L [place] % (Auto) 4.0 Eos % (Auto) 0.1 L Baso % (Auto) 0.3 Neut # (Auto) 09324 H Lymph # (Auto) 700 L [place] # (Auto) 400 Eos # (Auto) 0 Baso # (Auto) 0 APTT D-Dimer Sodium 138 Potassium 3.7 Chloride 99 Carbon Dioxide 25 BUN 45 H Creatinine 2.07 H Estimated GFR 31.1 L BUN/Creatinine Ratio 21.7 Glucose 140 H Lactate Calcium 10.3 H Magnesium 1.7 Total Bilirubin 1.4 H AST 40 ALT 19 Alkaline Phosphatase 77 Troponin I 2.650 H* NT-Pro-B Natriuret Pep 2540 H Total Protein 8.0 Albumin 4.7 Globulin 3.3 Albumin/Globulin Ratio 1.4 Lipase 29 Urine Color Urine Appearance Urine pH Ur Specific [place] Urine Protein Urine Glucose (UA) Urine Ketones Urine Occult Blood Urine Nitrate Urine Bilirubin Ur Bilirubin Confirm Urine Urobilinogen Ur Leukocyte Esterase Urine RBC Urine WBC Ur Squamous Epith Cells Ur Transition Epith Cell Urine Bacteria Hyaline Casts Urine Sperm Ur Culture Indicated? Nasal Screen MRSA (PCR) SARS-CoV-2 (PCR) Negative 09/10/21 09/10/21 09/10/21 01:10 01:10 01:10 WBC RBC Hgb Hct MCV MCH MCHC RDW Plt Count Neut % (Auto) Lymph % (Auto) [place] % (Auto) Eos % (Auto) Baso % (Auto) Neut # (Auto) Lymph # (Auto) [place] # (Auto) Eos # (Auto) Baso # (Auto) APTT 32 D-Dimer 752 H Sodium Potassium Chloride Carbon Dioxide BUN Creatinine Estimated GFR BUN/Creatinine Ratio Glucose Lactate 3.2 H Calcium Magnesium Total Bilirubin AST ALT Alkaline Phosphatase Troponin I NT-Pro-B Natriuret Pep Total Protein Albumin Globulin Albumin/Globulin Ratio Lipase Urine Color Urine Appearance Urine pH Ur Specific [place] Urine Protein Urine Glucose (UA) Urine Ketones Urine Occult Blood Urine Nitrate Urine Bilirubin Ur Bilirubin Confirm Urine Urobilinogen Ur Leukocyte Esterase Urine RBC Urine WBC Ur Squamous Epith Cells Ur Transition Epith Cell Urine Bacteria Hyaline Casts Urine Sperm Ur Culture Indicated? Nasal Screen MRSA (PCR) SARS-CoV-2 (PCR) 09/10/21 09/10/21 09/10/21 02:00 03:23 04:19 WBC RBC Hgb Hct MCV MCH MCHC RDW Plt Count Neut % (Auto) Lymph % (Auto) [place] % (Auto) Eos % (Auto) Baso % (Auto) Neut # (Auto) Lymph # (Auto) [place] # (Auto) Eos # (Auto) Baso # (Auto) APTT D-Dimer Sodium Potassium Chloride Carbon Dioxide BUN Creatinine Estimated GFR BUN/Creatinine Ratio Glucose Lactate 1.6 Calcium Magnesium Total Bilirubin AST ALT Alkaline Phosphatase Troponin I NT-Pro-B Natriuret Pep Total Protein Albumin Globulin Albumin/Globulin Ratio Lipase Urine Color [place] Urine Appearance Clear Urine pH 5.0 Ur Specific [place] 1.025 Urine Protein 2+ H Urine Glucose (UA) Trace H Urine Ketones Trace H Urine Occult Blood Negative Urine Nitrate Negative Urine Bilirubin 1+ H Ur Bilirubin Confirm Positive H Urine Urobilinogen 1.0 Ur Leukocyte Esterase Trace H Urine RBC 0-1/hpf Urine WBC 0-1/hpf Ur Squamous Epith Cells 0-1 /hpf Ur Transition Epith Cell 0-1/hpf Urine Bacteria Moderate (10-30) H Hyaline Casts 1-5/lpf Urine Sperm 0-1/hpf Ur Culture Indicated? Specimen cultured Nasal Screen MRSA (PCR) SARS-CoV-2 (PCR) Negative 09/10/21 09/10/21 09/10/21 05:40 06:25 06:25 WBC RBC Hgb 11.4 L Hct 33.6 L MCV MCH MCHC RDW Plt Count Neut % (Auto) Lymph % (Auto) [place] % (Auto) Eos % (Auto) Baso % (Auto) Neut # (Auto) Lymph # (Auto) [place] # (Auto) Eos # (Auto) Baso # (Auto) APTT D-Dimer Sodium Potassium Chloride Carbon Dioxide BUN Creatinine Estimated GFR BUN/Creatinine Ratio Glucose Lactate Calcium Magnesium Total Bilirubin AST ALT Alkaline Phosphatase Troponin I 8.910 H* NT-Pro-B Natriuret Pep Total Protein Albumin Globulin Albumin/Globulin Ratio Lipase Urine Color Urine Appearance Urine pH Ur Specific [place] Urine Protein Urine Glucose (UA) Urine Ketones Urine Occult Blood Urine Nitrate Urine Bilirubin Ur Bilirubin Confirm Urine Urobilinogen Ur Leukocyte Esterase Urine RBC Urine WBC Ur Squamous Epith Cells Ur Transition Epith Cell Urine Bacteria Hyaline Casts Urine Sperm Ur Culture Indicated? Nasal Screen MRSA (PCR) Negative for mrsa SARS-CoV-2 (PCR) 09/10/21 09:25 WBC RBC Hgb Hct MCV MCH MCHC RDW Plt Count Neut % (Auto) Lymph % (Auto) [place] % (Auto) Eos % (Auto) Baso % (Auto) Neut # (Auto) Lymph # (Auto) [place] # (Auto) Eos # (Auto) Baso # (Auto) APTT 48 H D D-Dimer Sodium Potassium Chloride Carbon Dioxide BUN Creatinine Estimated GFR BUN/Creatinine Ratio Glucose Lactate Calcium Magnesium Total Bilirubin AST ALT Alkaline Phosphatase Troponin I NT-Pro-B Natriuret Pep Total Protein Albumin Globulin Albumin/Globulin Ratio Lipase Urine Color Urine Appearance Urine pH Ur Specific [place] Urine Protein Urine Glucose (UA) Urine Ketones Urine Occult Blood Urine Nitrate Urine Bilirubin Ur Bilirubin Confirm Urine Urobilinogen Ur Leukocyte Esterase Urine RBC Urine WBC Ur Squamous Epith Cells Ur Transition Epith Cell Urine Bacteria Hyaline Casts Urine Sperm Ur Culture Indicated? Nasal Screen MRSA (PCR) SARS-CoV-2 (PCR) PFSH Medical History Cervical vertebral fusion COPD (chronic obstructive pulmonary disease) Gastroesophageal reflux disease Hyperlipidemia Hypertension Surgical History History of cervical discectomy History of left-sided carotid endarterectomy S/P cervical spinal fusion Status post appendectomy Family History (Updated 09/10/21 @ 06:18 by Elyse Salgado MD) Father Gunshot injury Social History household members: spouse Smoking Status: Former smoker alcohol intake: current substance use type: does not use Discharge Plan Discharge Plan Disposition: Xfer Acute Care Hospital Discharge orders & Medications Follow up/Referrals: Glynn Stallworth MD [Primary Care Provider] - Discharge Data Primary Care Provider: Glynn Stallworth
[2021-09-10] MEDS: ASPIRIN 81 MG CHEW TAB 243 MG PO (11:14)
--- NOTE | 2021-09-10 11:46 | PC.NURSE ---
Addendum entered by Cathy Gayle R.N. 09/10/21 12:27: [facility] staff here for transfer. Heparin gtt continues. ETA given to Adrian SOARES at [facility]. Original Note: Pt will be transfered to [facility]. Report given to Adrian SOARES at E4. pt's here at bedside. ASA 243mg given to pt to naz.
== END 2021-09-10 12:34 | disposition short-term general hospital (02) | DRG 280 ==
LOC: ED 03:31 → AC 04:36 → ICU 11:04
PROVIDERS: Internal Medicine; Admitting Provider Internal Medicine; Emergency Provider Emergency Medicine; PCP Internal Medicine; Referring Provider Emergency Medicine; Visit Provider Internal Medicine
DX: I21.4 Non-ST elevation (NSTEMI) myocardial infarction (principal); R57.1 Hypovolemic shock; J96.01 Acute respiratory failure with hypoxia; N17.9 Acute kidney failure, unspecified; N30.00 Acute cystitis without hematuria; B02.29 Other postherpetic nervous system involvement; I48.0 Paroxysmal atrial fibrillation; K21.9 Gastro-esophageal reflux disease without esophagitis; I35.0 Nonrheumatic aortic (valve) stenosis; J44.9 Chronic obstructive pulmonary disease, unspecified; I10 Essential (primary) hypertension; Z20.822 Contact with and (suspected) exposure to COVID-19; Z87.891 Personal history of nicotine dependence
CPT/HCPCS: 36415; 71045; 80053; 81001; 83605; 83690; 83735; 83880; 84484; 85014; 85018; 85025; 85379; 85730; 87040; 87086; 87635; 87797; 93005; 93010; 94640; 94660; 96365; 96366; 96367; 96368; 96375; 99284; 99291; C9803; J0696; J1160; J1644; J1940; J2543

== ENCOUNTER 2021-10-23 08:39 | Inpatient (IN) | payer MEDICARE, OTHER, SELFPAY ==
[2021-09-10 03:25] VITALS: PULSE 79; RESP 15; O2SAT 94
[2021-09-10 07:01] VITALS: BMI 25.0
[2021-10-23] VITALS (32 sets, daily range): BP systolic 92–153; BP diastolic 38–82; PULSE 88–125; RESP 12–32; TEMP 35.6–37.9; O2SAT 91–100; BMI 24.1
--- NOTE | 2021-10-23 08:44 | DI.CT.S_ITS ---
PROCEDURE: CT HEAD/BRAIN WO CON INDICATIONS: fall, syncope, head/neck injury TECHNIQUE: Noncontrast 4.5 mm thick angled axial sections acquired from the foramen magnum to the vertex, with coronal and sagittal reformats. For radiation dose reduction, the following was used: automated exposure control, adjustment of mA and/or kV according to patient size. COMPARISON: None. FINDINGS: Image quality: Excellent. CSF spaces: Basal cisterns are patent. No extra-axial fluid collections. Ventricles are normal in size and shape. Brain: No midline shift. No intracranial masses or hemorrhage. Marie-white matter interface is normal. Subcortical and periventricular white matter hypodensities are consistent with microvascular ischemic disease. Skull and face: Calvarium and visualized facial bones are intact, without suspicious lesions. Sinuses: Visualized sinuses and mastoids are clear. IMPRESSION: No acute intracranial abnormality. Dictated by: Levon Mae M.D. on 10/23/2021 at 8:53 Approved by: Levon Mae M.D. on 10/23/2021 at 8:55
--- NOTE | 2021-10-23 08:44 | DI.CT.S_ITS ---
PROCEDURE: CT CHEST ABD PEL W CON INDICATIONS: fall, trauma, on thinners TECHNIQUE: After the administration of intravenous contrast, 5 mm thick sections acquired from the lung apices to the symphysis. 2.5 mm thick coronal and sagittal reformats were acquired. Additional 7 mm thick coronal maximum intensity projection (MIP) reformats acquired through the lungs. Optional 10-minute delayed imaging may be performed from the kidneys to the bladder. For radiation dose reduction, the following was used: automated exposure control, adjustment of mA and/or kV according to patient size. COMPARISON: [facility], , XR CHEST 1V, 09/10/2021, 1:23. FINDINGS: Image quality: Excellent. CHEST: Lungs: N the lungs have centrilobular emphysematous changes. There are patchy opacities in the posterior lung bases which appear similar to a prior x-ray on 09/10/2021. No pulmonary contusions or lacerations. No acute airspace opacities. No pneumothorax or hemothorax. Central and peripheral airways appear patent and normal in caliber. Mediastinum: No mediastinal hematomas. Heart size is normal. No pericardial effusion. Thoracic aorta and pulmonary arteries demonstrate normal size and enhancement. No mediastinal or hilar adenopathy. Esophagus is normal in caliber. No hiatal hernia. Chest wall: No rib fractures. No subcutaneous emphysema. No axillary or supraclavicular adenopathy. Thyroid gland is normal. ABDOMEN: Solid organs: Liver is normal in size and enhancement, without lacerations. Gallbladder is normal. Biliary system is non-dilated. Pancreas enhances normally, without transection. Spleen is normal in size and enhancement, without lacerations. No adrenal hematomas. Both kidneys enhance normally, without hydronephrosis or lacerations. Peritoneum and bowel: No free fluid or air. Unenhanced bowel loops demonstrate normal wall thickness and caliber. Nodes and vessels: No retroperitoneal or mesenteric adenopathy. Aorta and inferior vena cava are normal in size and enhancement. Miscellaneous: No ventral hernias. PELVIS: Genitourinary: Bladder wall thickness is normal. Miscellaneous: No inguinal hernias or adenopathy. Bones: Multilevel degenerative changes. Pelvic ring and hip joints appear intact. No vertebral compression fractures. IMPRESSION: 1. No acute traumatic abnormality of the chest, abdomen, or pelvis. 2. Patchy peripheral opacities in the posterior lung bases, similar to prior x-ray on 09/10/2021, possibly chronic versus a diffuse infectious pneumonia. Dictated by: Levon Mae M.D. on 10/23/2021 at 8:59 Approved by: Levon Mae M.D. on 10/23/2021 at 9:08
--- NOTE | 2021-10-23 08:44 | DI.CT.S_ITS ---
PROCEDURE: CT CERVICAL SPINE WO CON INDICATIONS: fall with head/neck/back pain TECHNIQUE: Noncontrast 3 mm thick sections acquired from the skull base to the T4 level. Sagittal and coronal reformats were then constructed. For radiation dose reduction, the following was used: automated exposure control, adjustment of mA and/or kV according to patient size. COMPARISON: None. FINDINGS: Image quality: Excellent. Bones: There are postoperative changes of ACDF at C3, C4, and C5. Severe degenerative changes are noted. C5 and 6 are also fused. Severe disc disease at C6-7. Soft tissues: Prevertebral soft tissues are normal in thickness. No paravertebral hematomas. No apical pneumothoraces. IMPRESSION: 1. No acute abnormality of the cervical spine. 2. Multilevel postoperative changes and multilevel degenerative changes. Dictated by: Levon Mae M.D. on 10/23/2021 at 8:56 Approved by: Levon Mae M.D. on 10/23/2021 at 8:58
--- NOTE | 2021-10-23 08:44 | ED.GIBLEED ---
HPI - GI Bleed General Chief complaint: Trauma Stated complaint: Dizzy/GLF Time Seen by Provider: 10/23/21 08:47 History of Present Illness HPI Narrative: 80M with a history of COPD, hypertension, hyperlipidemia, AFib on eliquis presents by EMS for evaluation of a syncopal episode this morning with injury. It sounds like he had been in his normal state of health until this morning when he was sitting on the toilet and passed bright red blood into the toilet. Upon standing he reports being dizzy and lightheaded and collapsed to the floor. In doing so he may have struck his head, it is unclear, but definitely has neck and back pain. He is profoundly weak and EMS was activated. On their arrival they found him to be dizzy, weak and lightheaded complaining of pain as noted. They state they saw about 500 cc of bright red blood in the toilet. Blood pressures have been in the 90s prior to his arrival. He denies any chest pain or shortness of breath. He denies any history of GI bleed. He was admitted here about a month ago with AFib/RVR, NSTEMI, and acute kidney injury, he was eventually transferred to [facility]. We are working on records. Related Data Home Medications Medication Instructions Recorded Confirmed albuterol sulfate 90 mcg/actuation 2 puff INHALATION BID PRN 08/07/18 10/23/21 aerosol inhaler [id number] 1 tab PO QID PRN 08/07/18 10/23/21 50 mg-300 mg-40 mg capsule (Fioricet) atorvastatin 40 mg tablet (Lipitor) 40 mg PO DAILY 09/10/18 10/23/21 meloxicam 15 mg tablet (Mobic) 15 mg PO DAILY 09/10/18 10/23/21 pantoprazole 20 mg tablet,delayed 20 mg PO DAILY 09/10/18 10/23/21 release apixaban 5 mg tablet (Eliquis) 5 mg PO BID 10/23/21 10/23/21 azithromycin 250 mg tablet See Rx Instructions .ROUTE .COMPLEX 10/23/21 10/23/21 cholecalciferol (vitamin D3) 25 1,000 unit PO DAILY 10/23/21 10/23/21 mcg (1,000 unit) capsule (Vitamin D3) diltiazem HCl 120 mg 120 mg PO DAILY 10/23/21 10/23/21 capsule,extended release 24 hr fluticasone 250 mcg-salmeterol 50 1 inh INHALATION BID 10/23/21 10/23/21 mcg/dose blistr powdr for inhalation gabapentin 600 mg tablet 600 mg PO TID 10/23/21 10/23/21 lisinopril 20 mg tablet 20 mg PO BID 10/23/21 10/23/21 losartan 100 mg tablet 100 mg PO DAILY 10/23/21 10/23/21 ticagrelor 90 mg tablet (Brilinta) 90 mg PO BID 10/23/21 10/23/21 Previous Rx's Medication Instructions Recorded hydrochlorothiazide 12.5 mg capsule 12.5 mg PO QDAY #90 cap 07/04/17 Allergies Allergy/AdvReac Type Severity Reaction Status Date / Time Beta-Blockers Allergy Unknown Verified 10/23/21 10:41 (Beta-Adrenergic Bloc codeine Allergy Unknown Verified 10/23/21 10:41 Review of Systems Review of Systems Narrative: GENERAL: See HPI HEENT: Denies sinus pain, ear pain, sore throat, difficulty swallowing, dizziness. RESPIRATORY: Denies dyspnea, cough, wheezing, hemoptysis, sputum. CARDIOVASCULAR: Denies chest pain, palpitations, orthopnea, edema, GASTROINTESTINAL: See HPI : Denies dysuria, frequency, incontinence, hematuria, urinary retention. MUSCULOSKELETAL: See HPI SKIN: Denies rash, skin lesions, or other NEUROLOGIC: Denies weakness, headache, numbness, change in speech, confusion, seizures, incoordination. PSYCHIATRIC: No concerning psychosocial issues. 12 point review of systems is negative except for those stated above Patient History Medical History Cervical vertebral fusion COPD (chronic obstructive pulmonary disease) Gastroesophageal reflux disease Hyperlipidemia Hypertension Surgical History History of cervical discectomy History of left-sided carotid endarterectomy S/P cervical spinal fusion Status post appendectomy Family History Father Gunshot injury Social History household members: spouse Smoking Status: Former smoker alcohol intake: current substance use type: does not use Smoking Status: Former smoker alcohol intake frequency: a few times a month Substance Use Type: does not use Exam Narrative Exam Narrative: GENERAL: [80] year old patient appears stated age. Ill-appearing, pale, GCS 15. HEAD: Atraumatic. Normocephalic. EYES: Pale conjunctiva Pupils equal round and reactive. Extraocular motions intact. No scleral icterus. No injection or drainage. ENT: Dry mucous membrane Nose without bleeding, purulent drainage. Throat without erythema, tonsillar hypertrophy or exudate. Airway patent. NECK: Tender in the midline of lower cervical spine, no step-offs or crepitance CARDIOVASCULAR: Regular rate and rhythm without murmurs, gallops, or rubs. RESPIRATORY: Clear to auscultation. Breath sounds equal bilaterally. No wheezes, rales, or rhonchi. GASTROINTESTINAL: Abdomen soft, non-tender, nondistended. RECTAL: Heme +, painful EXTREMITIES: No edema or joint tenderness. Sueerficial skin tears on each elbow BACK: Nontender without deformity or crepitance. No flank tenderness. NEURO: AOx3. SKIN: No rash or erythema of visible areas Initial Vital Signs Initial Vital Signs: Vital Signs Temperature 96.3 F L 10/23/21 08:48 Pulse Rate 97 H 10/23/21 08:48 Respiratory Rate 18 10/23/21 08:48 Blood Pressure 115/55 L 10/23/21 08:48 Pulse Oximetry 100 10/23/21 08:48 Course Orders Ordered: ED Orders 10/23/21 08:44 CT cervical spine wo con Stat CT chest abd pel w con Stat CT head/brain wo con Stat 10/23/21 08:45 EKG-12 Lead Stat 10/23/21 09:35 COVID19 - ADMIT ([employer] swab/PCR) Stat 10/23/21 10:00 BNP [NT-proBNP (BNP-Adult 18+)] Stat Blood Culture Stat Complete Blood Count AUTO DIFF Stat Comprehensive Metabolic Panel Stat Lactate (Lactic Acid) Stat Lipase Stat Magnesium Stat Packed Cells Stat Troponin & CK Cardiac Panel Stat Type and Screen Stat 10/23/21 10:36 Urinalysis and Microscopic Stat Magnesium Sulfate (Magnesium Sulfate) 2 gm in 50 mls @ 25 mls/hr IV NOW ONE Stop: 10/23/21 14:07 Ondansetron HCl (Ondansetron 4 Mg/2 Ml Inj) 4 mg IV Q8HR PRN PRN Reason: Nausea And Vomiting Pantoprazole Sodium (Pantoprazole 40 Mg Vial) 40 mg IV BID JUAN FRANCISCO Discontinued Medications Lidocaine HCl (Lidocaine 2% (Glydo) 6 Ml Gel) 6 ml TOP NOW ONE Stop: 10/23/21 10:17 Last Admin: 10/23/21 10:19 Dose: 6 ml Documented by: MINI Pantoprazole Sodium (Pantoprazole 40 Mg Vial) 40 mg IV NOW ONE Stop: 10/23/21 08:45 Last Admin: 10/23/21 10:12 Dose: 40 mg Documented by: MINI Vital Signs Vital signs: Vital Signs - 8 hr 10/23/21 08:48 10/23/21 09:00 10/23/21 09:20 Temperature 96.3 F L Pulse Rate 97 H 102 H 94 H Respiratory Rate 18 32 H 17 Blood Pressure 115/55 L 92/60 107/55 L Pulse Oximetry 100 95 100 10/23/21 09:34 10/23/21 09:37 10/23/21 09:45 Temperature Pulse Rate 96 H 93 H 95 H Respiratory Rate 18 24 Blood Pressure 115/54 L Pulse Oximetry 91 95 92 10/23/21 10:00 10/23/21 10:15 10/23/21 10:30 Temperature 96.1 F L Pulse Rate 93 H 125 H 94 H Respiratory Rate 17 24 21 Blood Pressure 104/62 102/62 Pulse Oximetry 96 92 93 10/23/21 10:45 10/23/21 11:00 10/23/21 11:15 Temperature 96.6 F L 96.8 F L 97.0 F L Pulse Rate 93 H 96 H 109 H Respiratory Rate 19 20 22 Blood Pressure 101/68 Pulse Oximetry 94 93 94 10/23/21 11:30 10/23/21 11:31 Temperature 97.2 F L 97.2 F L Pulse Rate 93 H 93 H Respiratory Rate 22 24 Blood Pressure 130/53 L Pulse Oximetry 94 94 MDM - GI Bleed Lab Data Result diagrams: 10/23/21 10:00 10/23/21 10:00 Labs: Lab Results 10/23/21 10/23/21 10/23/21 Range/Units 09:35 10:00 10:00 WBC 13.4 H (4.5-11.0) X10^3/uL RBC 2.43 L (4.5-5.9) X10^6/uL Hgb 6.7 L* (13.5-17.5) g/dL Hct 20.6 L* (41-53) % MCV 84.6 (80-100) fL MCH 27.7 (26-34) PG MCHC 32.8 (30-36) % RDW 15.7 H (11.6-14.8) % Plt Count 397 (150-400) X10^3/uL Neut % (Auto) 84.8 H (50-75) % Lymph % (Auto) 8.1 L (25-40) % [place] % (Auto) 6.3 (3-14) % Eos % (Auto) 0.1 L (2-4) % Baso % (Auto) 0.7 (0-2) % Neut # (Auto) 21352 H (0414-5032) /uL Lymph # (Auto) 1100 (3985-5937) /uL [place] # (Auto) 800 (0-900) /uL Eos # (Auto) 0 (0-450) /uL Baso # (Auto) 100 (0-100) /uL RBC Morphology See below Polychromasia 2+ H Poikilocytosis 1+ H Anisocytosis 3+ H Ovalocytes 1+ H PT (10.1-12.7) SECONDS INR (0.9-1.3) APTT (26.4-36.2) SECONDS Sodium 142 (137-145) mmol/L Potassium 3.6 (3.4-5.1) mmol/L Chloride 111 H (98-107) mmol/L Carbon Dioxide 23 (22-32) mmol/L BUN 32 H (9-20) mg/dL Creatinine 1.82 H (0.66-1.25) mg/dL Estimated GFR 36.1 L (>60) mL/min BUN/Creatinine Ratio 17.6 (6-22) Glucose 96 (80-110) mg/dL Lactate (0.7-2.1) mmol/L Calcium 9.0 (8.4-10.2) mg/dL Magnesium 1.5 L (1.6-2.3) mg/dL Total Bilirubin 0.6 (0.2-1.3) mg/dL AST 24 (17-59) IU/L ALT 11 (<50) IU/L Alkaline Phosphatase 74 (38-126) U/L Total Creatine Kinase (55-170) U/L CK-MB (CK-2) CK-MB (CK-2) Rel Index Troponin I (0.01-0.034) ng/mL NT-Pro-B Natriuret Pep (<450) pg/mL Total Protein 5.5 L (6.3-8.2) g/dL Albumin 2.9 L (3.5-5.0) g/dL Globulin 2.6 (1.7-4.1) g/dL Albumin/Globulin Ratio 1.1 (1.0-2.8) Lipase (23-300) U/L Urine Color Urine Appearance Urine pH (4.5-8.0) Ur Specific [place] (1.000-1.035) Urine Protein (Negative) Urine Glucose (UA) (Negative) g/dL Urine Ketones (NEGATIVE) Urine Occult Blood (Negative) Urine Nitrate (Negative) Urine Bilirubin (NEGATIVE) Urine Urobilinogen (0.2) E.U./dL Ur Leukocyte Esterase (NEGATIVE) Urine RBC (0-5/HPF) Urine WBC (0-5/HPF) Ur Squamous Epith Cells (0-5/HPF) Urine Bacteria (None) Ur Culture Indicated? SARS-CoV-2 (PCR) Negative (Negative) Blood Type Antibody Screen Crossmatch 10/23/21 10/23/21 10/23/21 Range/Units 10:00 10:00 10:00 WBC (4.5-11.0) X10^3/uL RBC (4.5-5.9) X10^6/uL Hgb (13.5-17.5) g/dL Hct (41-53) % MCV (80-100) fL MCH (26-34) PG MCHC (30-36) % RDW (11.6-14.8) % Plt Count (150-400) X10^3/uL Neut % (Auto) (50-75) % Lymph % (Auto) (25-40) % [place] % (Auto) (3-14) % Eos % (Auto) (2-4) % Baso % (Auto) (0-2) % Neut # (Auto) (0907-6842) /uL Lymph # (Auto) (3716-6250) /uL [place] # (Auto) (0-900) /uL Eos # (Auto) (0-450) /uL Baso # (Auto) (0-100) /uL RBC Morphology Polychromasia Poikilocytosis Anisocytosis Ovalocytes PT (10.1-12.7) SECONDS INR (0.9-1.3) APTT (26.4-36.2) SECONDS Sodium (137-145) mmol/L Potassium (3.4-5.1) mmol/L Chloride (98-107) mmol/L Carbon Dioxide (22-32) mmol/L BUN (9-20) mg/dL Creatinine (0.66-1.25) mg/dL Estimated GFR (>60) mL/min BUN/Creatinine Ratio (6-22) Glucose (80-110) mg/dL Lactate 0.9 (0.7-2.1) mmol/L Calcium (8.4-10.2) mg/dL Magnesium (1.6-2.3) mg/dL Total Bilirubin (0.2-1.3) mg/dL AST (17-59) IU/L ALT (<50) IU/L Alkaline Phosphatase (38-126) U/L Total Creatine Kinase 44 L (55-170) U/L CK-MB (CK-2) TNP CK-MB (CK-2) Rel Index TNP Troponin I 0.034 (0.01-0.034) ng/mL NT-Pro-B Natriuret Pep (<450) pg/mL Total Protein (6.3-8.2) g/dL Albumin (3.5-5.0) g/dL Globulin (1.7-4.1) g/dL Albumin/Globulin Ratio (1.0-2.8) Lipase 135 (23-300) U/L Urine Color Urine Appearance Urine pH (4.5-8.0) Ur Specific [place] (1.000-1.035) Urine Protein (Negative) Urine Glucose (UA) (Negative) g/dL Urine Ketones (NEGATIVE) Urine Occult Blood (Negative) Urine Nitrate (Negative) Urine Bilirubin (NEGATIVE) Urine Urobilinogen (0.2) E.U./dL Ur Leukocyte Esterase (NEGATIVE) Urine RBC (0-5/HPF) Urine WBC (0-5/HPF) Ur Squamous Epith Cells (0-5/HPF) Urine Bacteria (None) Ur Culture Indicated? SARS-CoV-2 (PCR) (Negative) Blood Type O Positive Antibody Screen Negative Crossmatch See Detail 10/23/21 10/23/21 10/23/21 Range/Units 10:00 10:00 10:36 WBC (4.5-11.0) X10^3/uL RBC (4.5-5.9) X10^6/uL Hgb (13.5-17.5) g/dL Hct (41-53) % MCV (80-100) fL MCH (26-34) PG MCHC (30-36) % RDW (11.6-14.8) % Plt Count (150-400) X10^3/uL Neut % (Auto) (50-75) % Lymph % (Auto) (25-40) % [place] % (Auto) (3-14) % Eos % (Auto) (2-4) % Baso % (Auto) (0-2) % Neut # (Auto) (6978-0073) /uL Lymph # (Auto) (0401-3176) /uL [place] # (Auto) (0-900) /uL Eos # (Auto) (0-450) /uL Baso # (Auto) (0-100) /uL RBC Morphology Polychromasia Poikilocytosis Anisocytosis Ovalocytes PT 22.0 H (10.1-12.7) SECONDS INR 1.9 H (0.9-1.3) APTT 35 D (26.4-36.2) SECONDS Sodium (137-145) mmol/L Potassium (3.4-5.1) mmol/L Chloride (98-107) mmol/L Carbon Dioxide (22-32) mmol/L BUN (9-20) mg/dL Creatinine (0.66-1.25) mg/dL Estimated GFR (>60) mL/min BUN/Creatinine Ratio (6-22) Glucose (80-110) mg/dL Lactate (0.7-2.1) mmol/L Calcium (8.4-10.2) mg/dL Magnesium (1.6-2.3) mg/dL Total Bilirubin (0.2-1.3) mg/dL AST (17-59) IU/L ALT (<50) IU/L Alkaline Phosphatase (38-126) U/L Total Creatine Kinase (55-170) U/L CK-MB (CK-2) CK-MB (CK-2) Rel Index Troponin I (0.01-0.034) ng/mL NT-Pro-B Natriuret Pep 1310 H (<450) pg/mL Total Protein (6.3-8.2) g/dL Albumin (3.5-5.0) g/dL Globulin (1.7-4.1) g/dL Albumin/Globulin Ratio (1.0-2.8) Lipase (23-300) U/L Urine Color Yellow Urine Appearance Clear Urine pH 5.0 (4.5-8.0) Ur Specific [place] 1.015 (1.000-1.035) Urine Protein Negative (Negative) Urine Glucose (UA) Negative (Negative) g/dL Urine Ketones Negative (NEGATIVE) Urine Occult Blood Negative (Negative) Urine Nitrate Negative (Negative) Urine Bilirubin Negative (NEGATIVE) Urine Urobilinogen 0.2 (0.2) E.U./dL Ur Leukocyte Esterase Negative (NEGATIVE) Urine RBC None seen (0-5/HPF) Urine WBC 0-1/hpf (0-5/HPF) Ur Squamous Epith Cells 0-1 /hpf (0-5/HPF) Urine Bacteria Occasional (0-1) D (None) Ur Culture Indicated? Cult not indicated SARS-CoV-2 (PCR) (Negative) Blood Type Antibody Screen Crossmatch Discharge Plan Departure Patient Disposition: Admitted As Inpatient Clinical Impression: Acute GI bleeding, Acute blood loss anemia Admit Date/Time: 10/23/21 11:39 Admit Provider: Merritt Armenta
[2021-10-23] MEDS: PANTOPRAZOLE 40 MG VIAL IV ×2 (10:12→20:05)
[2021-10-23 10:18] LABS: Basophils Absolute Auto 100 /uL (0-100); Basophils Percent Auto 0.7 % (0-2); Eosinophils Absolute Auto 0 /uL (0-450); Eosinophils Percent Auto 0.1 % (2-4); Lymphocytes Absolute Auto 1100 /uL (1100-4500); Lymphocytes Percent Auto 8.1 % (25-40); Mean Corpuscular HGB Conc 32.8 % (30-36); Mean Corpuscular Hemoglobin 27.7 PG (26-34); Mean Corpuscular Volume 84.6 fL (80-100); Monocytes Absolute Auto 800 /uL (0-900); Monocytes Percent Auto 6.3 % (3-14); Neutrophils Absolute Auto 11400 /uL (1500-7000); Neutrophils Percent Auto 84.8 % (50-75); Platelet Count 397 X10^3/uL (150-400); Red Blood Cell Count 2.43 X10^6/uL (4.5-5.9); Red Cell Distribution Width 15.7 % (11.6-14.8); White Blood Cell Count 13.4 X10^3/uL (4.5-11.0)
[2021-10-23] MEDS: LIDOCAINE 2% (GLYDO) 6 ML GEL TOP (10:19)
[2021-10-23 10:21] LABS: Hematocrit 20.6 % (41-53); Hemoglobin 6.7 g/dL (13.5-17.5)
[2021-10-23 10:27] LABS: Alanine Aminotransferase 11 IU/L (<50); Albumin 2.9 g/dL (3.5-5.0); Albumin Globulin Ratio 1.1 (1.0-2.8); Alkaline Phosphatase 74 U/L (38-126); Aspartate Aminotransferase 24 IU/L (17-59); BUN Creatinine Ratio 17.6 (6-22); Bilirubin Total 0.6 mg/dL (0.2-1.3); Blood Urea Nitrogen 32 mg/dL (9-20); Carbon Dioxide 23 mmol/L (22-32); Chloride 111 mmol/L (98-107); Creatine Kinase 44 U/L (55-170); Estimated Glomerular Filt Rate 36.1 mL/min (>60); Globulin 2.6 g/dL (1.7-4.1); Glucose 96 mg/dL (80-110); HEMOLYSIS < 15 (0-50); Lipase 135 U/L (23-300); Magnesium 1.5 mg/dL (1.6-2.3); Potassium 3.6 mmol/L (3.4-5.1); Sodium 142 mmol/L (137-145); Total Protein 5.5 g/dL (6.3-8.2)
[2021-10-23 10:28] LABS: Lactate (Lactic Acid) 0.9 mmol/L (0.7-2.1)
--- NOTE | 2021-10-23 10:29 | PC.NURSE ---
temp sensing kramer placed.
[2021-10-23 10:38] LABS: Troponin I 0.034 ng/mL (0.01-0.034)
[2021-10-23 10:41] LABS: COVID19 - ADMIT (NP swab/PCR) Negative (Negative)
[2021-10-23 10:46] LABS: Add Manual Diff / Slide Review SLIDE REVIEW
[2021-10-23 10:47] LABS: Anisocytosis 3+
[2021-10-23 10:49] LABS: Ovalocytes 1+; Polychromasia 2+
[2021-10-23 10:50] LABS: Poikilocytosis 1+
[2021-10-23 10:56] LABS: Appearance Urine UA CLEAR; Bilirubin Urine UA NEGATIVE (NEGATIVE); Color Urine UA YELLOW; Glucose Urine UA NEGATIVE (Negative); Ketones Urine UA NEGATIVE (NEGATIVE); Leukocyte Esterase Urine UA NEGATIVE (NEGATIVE); Nitrite Urine UA NEGATIVE (Negative); Occult Blood Urine UA NEGATIVE (Negative); Protein Urine UA NEGATIVE (Negative); Specific Gravity Urine UA 1.015 (1.000-1.035); Urobilinogen Urine UA 0.2 E.U./dL (0.2)
[2021-10-23 10:59] LABS: NT-proBNP (BNP-Adult 18+) 1310 pg/mL (<450)
[2021-10-23 11:08] LABS: Bacteria Urine Occasional (0-1); RBC Urine None Seen (0-5/HPF); Squamous Epithelial Cell Urine 0-1 /HPF (0-5/HPF); WBC Urine 0-1/HPF (0-5/HPF)
[2021-10-23 11:09] LABS: Culture Indicated Urine Cult Not Indicated
--- NOTE | 2021-10-23 11:32 | PC.NURSE ---
updated by phone, she reinforced to me that pt is a full code we want every breath that God is going to give us.
[2021-10-23 12:35] LABS: INR 1.9 (0.9-1.3)
[2021-10-23 12:38] LABS: PTT Partial Thromboplastin Tim 35 SECONDS (26.4-36.2)
--- NOTE | 2021-10-23 13:01 | PC.NURSE ---
Moved to acute care w/ Blood infusing.
--- NOTE | 2021-10-23 13:15 | PC.NURSE ---
Summary note: Pt arrived to ED via EMS after fall in bathroom. + hit head but no open wounds on head. Noted at scene was large amount of edmundo blood per rectum and loose black stool. No current active bleeding from rectum. Pt is confused, aware of place but not time (could not tell year) nor situation. Poor historian to events. Skin turger is poor and tenting. Cap refill at start of care @ 4 sec. Upon transfer 3 sec. Moving all extremities equally well but c/o generalized discomfort w/o focal pain. Dr. Lim attempted central access but failed. Pt has single 20 g iv right ac that flushes well but unable to draw blood. updated by phone frequently, gave verbal consent for blood administration.
[2021-10-23] MEDS: MAGNESIUM SULFATE 2 GM/50 ML PIGGYBACK IV (14:29)
--- NOTE | 2021-10-23 18:15 | PM.HP.1 ---
History of Present Illness History of Present Illness Date Patient Seen: 10/23/21 Time Patient Seen: 12:00 Chief complaint: Dizzy/GLF Narrative: Mr. Gutierrez is a 80M with PMH CAD, COPD, aortic stenosis, afib on eliquis who presents to the hospital with bright red blood per rectum. He arrives confused. He is unable to give a detailed story. However, he has appaently been in his normal state of health until this morning when he went to the toilet and passed bright red blood. Afterwards he was dizzy upon standing and lost consciousness and fell to the floor. Unclear if he had head strike. Afterwards he had neck and back pain. He was very weak. When EMS arrived they noted a significant amount ~500cc of bright red blood in the toilet. His blood pressure was initially in the 90s systolic. In the ED workup was done, vitals noted he was afebrile, mildly tachycardic in the 90s-100s, blood pressure in the 90s systolic, O2 100% on room air. Labs notable for WBC 13.4, hgb 6.7, plts 397, BUN 32, creatinine 1.82, mag 1.5. Lactate 0.9. Trop 0.034, INR 1.9, BNP 1310. CT C-spine showed no acute process. Head CT showed no acute process. CT torso showed bilateral pulmonary infiltrates. He was given protonix, he was ordered for blood transfusion and admitted for further treatment. Patient History Medical History Cervical vertebral fusion COPD (chronic obstructive pulmonary disease) Gastroesophageal reflux disease Hyperlipidemia Hypertension Surgical History History of cervical discectomy History of left-sided carotid endarterectomy S/P cervical spinal fusion Status post appendectomy Family & Social History Family History Father Gunshot injury Social History: household members spouse Prior Living Arrangements House Safety & Behavioral: Feels Safe in Current Yes Environment Been Physically Hurt or No Threatened By a Person Suicidal Ideation Description None Tobacco & Substance use: Smoking Status Former smoker alcohol intake current alcohol intake frequency holiday/special occasion Substance Use Type does not use Meds Home Medications and Allergies Home Medications Medication Instructions Recorded Confirmed Type hydrochlorothiazide 12.5 mg capsule 12.5 mg PO QDAY #90 cap 07/04/17 10/23/21 Rx albuterol sulfate 90 mcg/actuation 2 puff INHALATION BID PRN 08/07/18 10/23/21 History aerosol inhaler [id number] 1 tab PO QID PRN 08/07/18 10/23/21 History 50 mg-300 mg-40 mg capsule (Fioricet) atorvastatin 40 mg tablet (Lipitor) 40 mg PO DAILY 09/10/18 10/23/21 History meloxicam 15 mg tablet (Mobic) 15 mg PO DAILY 09/10/18 10/23/21 History pantoprazole 20 mg tablet,delayed 20 mg PO DAILY 09/10/18 10/23/21 History release apixaban 5 mg tablet (Eliquis) 5 mg PO BID 10/23/21 10/23/21 History azithromycin 250 mg tablet See Rx Instructions .ROUTE .COMPLEX 10/23/21 10/23/21 History cholecalciferol (vitamin D3) 25 1,000 unit PO DAILY 10/23/21 10/23/21 History mcg (1,000 unit) capsule (Vitamin D3) diltiazem HCl 120 mg 120 mg PO DAILY 10/23/21 10/23/21 History capsule,extended release 24 hr fluticasone 250 mcg-salmeterol 50 1 inh INHALATION BID 10/23/21 10/23/21 History mcg/dose blistr powdr for inhalation gabapentin 600 mg tablet 600 mg PO TID 10/23/21 10/23/21 History lisinopril 20 mg tablet 20 mg PO BID 10/23/21 10/23/21 History losartan 100 mg tablet 100 mg PO DAILY 10/23/21 10/23/21 History ticagrelor 90 mg tablet (Brilinta) 90 mg PO BID 10/23/21 10/23/21 History Allergies Allergy/AdvReac Type Severity Reaction Status Date / Time Beta-Blockers Allergy Unknown Verified 10/23/21 10:41 (Beta-Adrenergic Bloc codeine Allergy Unknown Verified 10/23/21 10:41 Review of Systems Review of Systems Narrative: 14 systems reviewed and negative aside from what is noted in HPI Exam Vital Signs (past 8 hours): - 10/23/21 10:30 10/23/21 10:45 10/23/21 11:00 Temperature 96.1 F L 96.6 F L 96.8 F L Pulse Rate 94 H 93 H 96 H Respiratory Rate 21 19 20 Blood Pressure 102/62 101/68 Pulse Oximetry 93 94 93 10/23/21 11:15 10/23/21 11:30 10/23/21 11:31 Temperature 97.0 F L 97.2 F L 97.2 F L Pulse Rate 109 H 93 H 93 H Respiratory Rate 22 22 24 Blood Pressure 130/53 L Pulse Oximetry 94 94 94 10/23/21 11:45 10/23/21 12:00 10/23/21 12:07 Temperature 97.5 F L 97.7 F 97.9 F Pulse Rate 95 H 100 H 100 H Respiratory Rate 24 24 24 Blood Pressure 103/54 L Pulse Oximetry 96 95 96 10/23/21 12:10 10/23/21 12:15 10/23/21 12:19 Temperature 98.0 F 98.1 F 98.1 F Pulse Rate 98 H 96 H 100 H Respiratory Rate 13 24 22 Blood Pressure 137/59 L 103/54 L Pulse Oximetry 99 96 10/23/21 12:30 10/23/21 12:35 10/23/21 12:45 Temperature 98.1 F 98.2 F 98.2 F Pulse Rate 93 H 96 H Respiratory Rate 23 26 H Blood Pressure 97/50 L 97/50 L Pulse Oximetry 96 10/23/21 14:16 10/23/21 15:05 10/23/21 15:40 Temperature 97.5 F L 97.4 F L Pulse Rate 94 H 93 H Respiratory Rate 12 12 Blood Pressure 122/46 L 123/42 L Pulse Oximetry 99 96 10/23/21 15:56 Temperature 97.2 F L Pulse Rate 90 Respiratory Rate 20 Blood Pressure 110/82 Pulse Oximetry Oxygen Delivery Method Room Air Oxygen Flow Rate 0 Narrative Exam Narrative: GEN: ill appearing, pale HEENT:? Dry mucous membrane, pale conjunctiva NECK:?trachea midline, no jvd CARDIOVASCULAR: Regular rate and rhythm without murmurs RESPIRATORY: Clear bilaterally GASTROINTESTINAL: Abdomen soft, non-tender, nondistended, no organomegaly, normal bowel sounds EXTREMITIES: No edema, moving all extremities SKIN: superficial skin tears and bruising noted BACK: Nontender without deformity, no cva tenderness NEURO: awake and alert, but mumbling and slightly confused Objective Labs Result Diagrams: 10/23/21 10:00 10/23/21 10:00 Labs: Laboratory Results - last 24 hr 10/23/21 10/23/21 10/23/21 09:35 10:00 10:00 WBC 13.4 H RBC 2.43 L Hgb 6.7 L* Hct 20.6 L* MCV 84.6 MCH 27.7 MCHC 32.8 RDW 15.7 H Plt Count 397 Neut % (Auto) 84.8 H Lymph % (Auto) 8.1 L [place] % (Auto) 6.3 Eos % (Auto) 0.1 L Baso % (Auto) 0.7 Neut # (Auto) 93068 H Lymph # (Auto) 1100 [place] # (Auto) 800 Eos # (Auto) 0 Baso # (Auto) 100 RBC Morphology See below Polychromasia 2+ H Poikilocytosis 1+ H Anisocytosis 3+ H Ovalocytes 1+ H PT INR APTT Sodium 142 Potassium 3.6 Chloride 111 H Carbon Dioxide 23 BUN 32 H Creatinine 1.82 H Estimated GFR 36.1 L BUN/Creatinine Ratio 17.6 Glucose 96 Lactate Calcium 9.0 Magnesium 1.5 L Total Bilirubin 0.6 AST 24 ALT 11 Alkaline Phosphatase 74 Total Creatine Kinase CK-MB (CK-2) CK-MB (CK-2) Rel Index Troponin I NT-Pro-B Natriuret Pep Total Protein 5.5 L Albumin 2.9 L Globulin 2.6 Albumin/Globulin Ratio 1.1 Lipase Urine Color Urine Appearance Urine pH Ur Specific [place] Urine Protein Urine Glucose (UA) Urine Ketones Urine Occult Blood Urine Nitrate Urine Bilirubin Urine Urobilinogen Ur Leukocyte Esterase Urine RBC Urine WBC Ur Squamous Epith Cells Urine Bacteria Ur Culture Indicated? SARS-CoV-2 (PCR) Negative Blood Type Antibody Screen Crossmatch 10/23/21 10/23/21 10/23/21 10:00 10:00 10:00 WBC RBC Hgb Hct MCV MCH MCHC RDW Plt Count Neut % (Auto) Lymph % (Auto) [place] % (Auto) Eos % (Auto) Baso % (Auto) Neut # (Auto) Lymph # (Auto) [place] # (Auto) Eos # (Auto) Baso # (Auto) RBC Morphology Polychromasia Poikilocytosis Anisocytosis Ovalocytes PT INR APTT Sodium Potassium Chloride Carbon Dioxide BUN Creatinine Estimated GFR BUN/Creatinine Ratio Glucose Lactate 0.9 Calcium Magnesium Total Bilirubin AST ALT Alkaline Phosphatase Total Creatine Kinase 44 L CK-MB (CK-2) TNP CK-MB (CK-2) Rel Index TNP Troponin I 0.034 NT-Pro-B Natriuret Pep Total Protein Albumin Globulin Albumin/Globulin Ratio Lipase 135 Urine Color Urine Appearance Urine pH Ur Specific [place] Urine Protein Urine Glucose (UA) Urine Ketones Urine Occult Blood Urine Nitrate Urine Bilirubin Urine Urobilinogen Ur Leukocyte Esterase Urine RBC Urine WBC Ur Squamous Epith Cells Urine Bacteria Ur Culture Indicated? SARS-CoV-2 (PCR) Blood Type O Positive Antibody Screen Negative Crossmatch See Detail 10/23/21 10/23/21 10/23/21 10:00 10:00 10:36 WBC RBC Hgb Hct MCV MCH MCHC RDW Plt Count Neut % (Auto) Lymph % (Auto) [place] % (Auto) Eos % (Auto) Baso % (Auto) Neut # (Auto) Lymph # (Auto) [place] # (Auto) Eos # (Auto) Baso # (Auto) RBC Morphology Polychromasia Poikilocytosis Anisocytosis Ovalocytes PT 22.0 H INR 1.9 H APTT 35 D Sodium Potassium Chloride Carbon Dioxide BUN Creatinine Estimated GFR BUN/Creatinine Ratio Glucose Lactate Calcium Magnesium Total Bilirubin AST ALT Alkaline Phosphatase Total Creatine Kinase CK-MB (CK-2) CK-MB (CK-2) Rel Index Troponin I NT-Pro-B Natriuret Pep 1310 H Total Protein Albumin Globulin Albumin/Globulin Ratio Lipase Urine Color Yellow Urine Appearance Clear Urine pH 5.0 Ur Specific [place] 1.015 Urine Protein Negative Urine Glucose (UA) Negative Urine Ketones Negative Urine Occult Blood Negative Urine Nitrate Negative Urine Bilirubin Negative Urine Urobilinogen 0.2 Ur Leukocyte Esterase Negative Urine RBC None seen Urine WBC 0-1/hpf Ur Squamous Epith Cells 0-1 /hpf Urine Bacteria Occasional (0-1) D Ur Culture Indicated? Cult not indicated SARS-CoV-2 (PCR) Blood Type Antibody Screen Crossmatch Assessment & Plan Assessment & Plan narrative: Mr. Bowen is a 80M with PMH CAD, afib, aortic stenosis who presents with bright red blood per rectum. 1. Acute GI bleed -symptomatic with syncope and bright red blood per rectum -initial hemoglobin low in the 6s -blood pressure low in the 90s initially -no history of previous GI bleed -ordered for 2U PRBC -one IV placed, hard stick so ordered for PICC -continue IV PPI BID -npo after midnight -general surgery consult 2. MOLLY -etiology is hypovolemia due to GI bleed -ordered for PRBCs as above -monitor urine output -careful with diuretics -recheck kidney function in the morning 3. Leukocytosis, possible pneumonia -possibly stress response from GI bleed -no infectious symptoms currently -monitor for infection -CT shows patchy infiltrates in lungs -patient was on azithromycin planned through 10/25, presumed zpak for pneumonia, can continue azithro, and add ceftriaxone 4. Hypomagnesemia -replete with mag riders -recheck in AM 5. Aortic stenosis -careful with IV fluid resuscitation -transfuse blood slowly 6. Paroxysmal atrial fibrillation -hold diltiazem -hold apixaban 7. CAD -hold ticagrelor -hol blood pressure medications (losartan, lisinopril) for now given hypotension, 8. COPD without exacerbation -prn albuterol 9. GERD -PPI as above CODE: Full Proxy: Jojo Bowen, I have utilized all available resources to reconcile the patient's home medications. Time Spent With Patient Critical Care time: I spent a total of [] minutes of critical care time on this patient's care today; this time is exclusive of procedural time. Quality MIPS - Admit I confirm the patient?s Advance Care Plan is present, Code status is documented, Surrogate decision maker is in patient?s record [If Yes, STOP here]: Yes
[2021-10-23] MEDS: cefTRIAXone 1,000 MG in SODIUM CHLORIDE 0.9% 100 ML 200 ML IV (19:46)
[2021-10-23] MEDS: AZITHROMYCIN 500 MG in DEXTROSE 5% IN WATER 250 ML IV (19:59)
[2021-10-23 23:18] LABS: Hemoglobin 8.6 g/dL (13.5-17.5)
[2021-10-23 23:39] LABS: Hematocrit 25.5 % (41-53)
[2021-10-24] VITALS (12 sets, daily range): BP systolic 117–157; BP diastolic 58–73; PULSE 80–95; RESP 16–20; TEMP 36.4–37.1; O2SAT 93–98
[2021-10-24 05:26] LABS: Hemoglobin 8.9 g/dL (13.5-17.5); INR 1.6 (0.9-1.3); Mean Corpuscular HGB Conc 34.4 % (30-36); Mean Corpuscular Hemoglobin 29.3 PG (26-34); Mean Corpuscular Volume 85.2 fL (80-100); Platelet Count 347 X10^3/uL (150-400); Prothrombin Time 17.8 SECONDS (10.1-12.7); Red Blood Cell Count 3.05 X10^6/uL (4.5-5.9); Red Cell Distribution Width 16.2 % (11.6-14.8); White Blood Cell Count 10.5 X10^3/uL (4.5-11.0)
[2021-10-24 05:31] LABS: BUN Creatinine Ratio 17.9 (6-22); Blood Urea Nitrogen 27 mg/dL (9-20); Calcium 8.8 mg/dL (8.4-10.2); Carbon Dioxide 27 mmol/L (22-32); Chloride 111 mmol/L (98-107); Estimated Glomerular Filt Rate 44.8 mL/min (>60); Glucose 95 mg/dL (80-110); HEMOLYSIS < 15 (0-50); Magnesium 1.9 mg/dL (1.6-2.3); Potassium 3.5 mmol/L (3.4-5.1); Sodium 143 mmol/L (137-145)
[2021-10-24 05:41] LABS: Add Manual Diff / Slide Review YES
[2021-10-24 05:53] LABS: Neutrophils Absolute Manual 7665 /uL (3000-5900); Total Cells Counted 100
[2021-10-24 05:54] LABS: Anisocytosis 2+
--- NOTE | 2021-10-24 09:28 | P.PN_ITS ---
Subjective Subjective Date Patient Seen: 10/24/21 Time Patient Seen: 08:00 Interval history: This morning he is much less confused. Per staff he did have a bloody bowel movement this morning. He denies adominal pain. No nausea/vomiting. No chest pain, shortness of breath. No dizziness. Exam Vital Signs (past 8 hours): - 10/24/21 02:00 10/24/21 05:24 10/24/21 06:00 Temperature 98 F Pulse Rate 80 Respiratory Rate 16 Blood Pressure 141/62 H Pulse Oximetry 96 95 96 10/24/21 07:08 10/24/21 07:30 Temperature 98.4 F Pulse Rate 90 Respiratory Rate 18 Blood Pressure 157/68 H Pulse Oximetry 96 93 Oxygen Delivery Method Room Air Oxygen Flow Rate 0 Narrative Exam Narrative: GEN: pale HEENT:? Dry mucous membrane, pale conjunctiva CARDIOVASCULAR: Regular rate and rhythm without murmurs RESPIRATORY: Clear bilaterally GASTROINTESTINAL: Abdomen soft, non-tender, nondistended, no organomegaly, normal bowel sounds EXTREMITIES: No edema, moving all extremities SKIN: superficial skin tears and bruising noted BACK: Nontender without deformity, no cva tenderness NEURO: awake and alert Objective Labs Result Diagrams: 10/24/21 05:11 10/24/21 05:11 Labs: Laboratory Results - last 24 hr 10/23/21 10/23/21 10/23/21 09:35 10:00 10:00 WBC 13.4 H RBC 2.43 L Hgb 6.7 L* Hct 20.6 L* MCV 84.6 MCH 27.7 MCHC 32.8 RDW 15.7 H Plt Count 397 Neut % (Auto) 84.8 H Lymph % (Auto) 8.1 L [place] % (Auto) 6.3 Eos % (Auto) 0.1 L Baso % (Auto) 0.7 Neut # (Auto) 32389 H Lymph # (Auto) 1100 [place] # (Auto) 800 Eos # (Auto) 0 Baso # (Auto) 100 Total Counted Seg Neutrophils % Band Neutrophils % Lymphocytes % (Manual) Monocytes % (Manual) Basophils % (Manual) Neutrophils # (Manual) RBC Morphology See below Polychromasia 2+ H Poikilocytosis 1+ H Anisocytosis 3+ H Ovalocytes 1+ H PT INR APTT Sodium 142 Potassium 3.6 Chloride 111 H Carbon Dioxide 23 BUN 32 H Creatinine 1.82 H Estimated GFR 36.1 L BUN/Creatinine Ratio 17.6 Glucose 96 Lactate Calcium 9.0 Magnesium 1.5 L Total Bilirubin 0.6 AST 24 ALT 11 Alkaline Phosphatase 74 Total Creatine Kinase CK-MB (CK-2) CK-MB (CK-2) Rel Index Troponin I NT-Pro-B Natriuret Pep Total Protein 5.5 L Albumin 2.9 L Globulin 2.6 Albumin/Globulin Ratio 1.1 Lipase Urine Color Urine Appearance Urine pH Ur Specific [place] Urine Protein Urine Glucose (UA) Urine Ketones Urine Occult Blood Urine Nitrate Urine Bilirubin Urine Urobilinogen Ur Leukocyte Esterase Urine RBC Urine WBC Ur Squamous Epith Cells Urine Bacteria Ur Culture Indicated? SARS-CoV-2 (PCR) Negative Blood Type Antibody Screen Crossmatch 10/23/21 10/23/21 10/23/21 10:00 10:00 10:00 WBC RBC Hgb Hct MCV MCH MCHC RDW Plt Count Neut % (Auto) Lymph % (Auto) [place] % (Auto) Eos % (Auto) Baso % (Auto) Neut # (Auto) Lymph # (Auto) [place] # (Auto) Eos # (Auto) Baso # (Auto) Total Counted Seg Neutrophils % Band Neutrophils % Lymphocytes % (Manual) Monocytes % (Manual) Basophils % (Manual) Neutrophils # (Manual) RBC Morphology Polychromasia Poikilocytosis Anisocytosis Ovalocytes PT INR APTT Sodium Potassium Chloride Carbon Dioxide BUN Creatinine Estimated GFR BUN/Creatinine Ratio Glucose Lactate 0.9 Calcium Magnesium Total Bilirubin AST ALT Alkaline Phosphatase Total Creatine Kinase 44 L CK-MB (CK-2) TNP CK-MB (CK-2) Rel Index TNP Troponin I 0.034 NT-Pro-B Natriuret Pep Total Protein Albumin Globulin Albumin/Globulin Ratio Lipase 135 Urine Color Urine Appearance Urine pH Ur Specific [place] Urine Protein Urine Glucose (UA) Urine Ketones Urine Occult Blood Urine Nitrate Urine Bilirubin Urine Urobilinogen Ur Leukocyte Esterase Urine RBC Urine WBC Ur Squamous Epith Cells Urine Bacteria Ur Culture Indicated? SARS-CoV-2 (PCR) Blood Type O Positive Antibody Screen Negative Crossmatch See Detail 10/23/21 10/23/21 10/23/21 10:00 10:00 10:36 WBC RBC Hgb Hct MCV MCH MCHC RDW Plt Count Neut % (Auto) Lymph % (Auto) [place] % (Auto) Eos % (Auto) Baso % (Auto) Neut # (Auto) Lymph # (Auto) [place] # (Auto) Eos # (Auto) Baso # (Auto) Total Counted Seg Neutrophils % Band Neutrophils % Lymphocytes % (Manual) Monocytes % (Manual) Basophils % (Manual) Neutrophils # (Manual) RBC Morphology Polychromasia Poikilocytosis Anisocytosis Ovalocytes PT 22.0 H INR 1.9 H APTT 35 D Sodium Potassium Chloride Carbon Dioxide BUN Creatinine Estimated GFR BUN/Creatinine Ratio Glucose Lactate Calcium Magnesium Total Bilirubin AST ALT Alkaline Phosphatase Total Creatine Kinase CK-MB (CK-2) CK-MB (CK-2) Rel Index Troponin I NT-Pro-B Natriuret Pep 1310 H Total Protein Albumin Globulin Albumin/Globulin Ratio Lipase Urine Color Yellow Urine Appearance Clear Urine pH 5.0 Ur Specific [place] 1.015 Urine Protein Negative Urine Glucose (UA) Negative Urine Ketones Negative Urine Occult Blood Negative Urine Nitrate Negative Urine Bilirubin Negative Urine Urobilinogen 0.2 Ur Leukocyte Esterase Negative Urine RBC None seen Urine WBC 0-1/hpf Ur Squamous Epith Cells 0-1 /hpf Urine Bacteria Occasional (0-1) D Ur Culture Indicated? Cult not indicated SARS-CoV-2 (PCR) Blood Type Antibody Screen Crossmatch 10/23/21 10/23/21 10/24/21 23:00 23:00 05:11 WBC 10.5 RBC 3.05 L Hgb 8.6 L 8.9 L Hct 25.5 L 26.0 L MCV 85.2 MCH 29.3 MCHC 34.4 RDW 16.2 H Plt Count 347 Neut % (Auto) Not Reportable Lymph % (Auto) Not Reportable [place] % (Auto) Not Reportable Eos % (Auto) Not Reportable Baso % (Auto) Not Reportable Neut # (Auto) Lymph # (Auto) Not Reportable [place] # (Auto) Not Reportable Eos # (Auto) Baso # (Auto) Not Reportable Total Counted 100 Seg Neutrophils % 71.0 H Band Neutrophils % 2.0 L Lymphocytes % (Manual) 21.0 L Monocytes % (Manual) 5.0 Basophils % (Manual) 1.0 Neutrophils # (Manual) 7665 H RBC Morphology See below Polychromasia Poikilocytosis Anisocytosis 2+ H Ovalocytes PT INR APTT Sodium Potassium Chloride Carbon Dioxide BUN Creatinine Estimated GFR BUN/Creatinine Ratio Glucose Lactate Calcium Magnesium Total Bilirubin AST ALT Alkaline Phosphatase Total Creatine Kinase CK-MB (CK-2) CK-MB (CK-2) Rel Index Troponin I NT-Pro-B Natriuret Pep Total Protein Albumin Globulin Albumin/Globulin Ratio Lipase Urine Color Urine Appearance Urine pH Ur Specific [place] Urine Protein Urine Glucose (UA) Urine Ketones Urine Occult Blood Urine Nitrate Urine Bilirubin Urine Urobilinogen Ur Leukocyte Esterase Urine RBC Urine WBC Ur Squamous Epith Cells Urine Bacteria Ur Culture Indicated? SARS-CoV-2 (PCR) Blood Type Antibody Screen Crossmatch 10/24/21 10/24/21 05:11 05:11 WBC RBC Hgb Hct MCV MCH MCHC RDW Plt Count Neut % (Auto) Lymph % (Auto) [place] % (Auto) Eos % (Auto) Baso % (Auto) Neut # (Auto) Lymph # (Auto) [place] # (Auto) Eos # (Auto) Baso # (Auto) Total Counted Seg Neutrophils % Band Neutrophils % Lymphocytes % (Manual) Monocytes % (Manual) Basophils % (Manual) Neutrophils # (Manual) RBC Morphology Polychromasia Poikilocytosis Anisocytosis Ovalocytes PT 17.8 H INR 1.6 H APTT Sodium 143 Potassium 3.5 Chloride 111 H Carbon Dioxide 27 BUN 27 H Creatinine 1.51 H Estimated GFR 44.8 L BUN/Creatinine Ratio 17.9 Glucose 95 Lactate Calcium 8.8 Magnesium 1.9 Total Bilirubin AST ALT Alkaline Phosphatase Total Creatine Kinase CK-MB (CK-2) CK-MB (CK-2) Rel Index Troponin I NT-Pro-B Natriuret Pep Total Protein Albumin Globulin Albumin/Globulin Ratio Lipase Urine Color Urine Appearance Urine pH Ur Specific [place] Urine Protein Urine Glucose (UA) Urine Ketones Urine Occult Blood Urine Nitrate Urine Bilirubin Urine Urobilinogen Ur Leukocyte Esterase Urine RBC Urine WBC Ur Squamous Epith Cells Urine Bacteria Ur Culture Indicated? SARS-CoV-2 (PCR) Blood Type Antibody Screen Crossmatch [facility] Medical History Cervical vertebral fusion COPD (chronic obstructive pulmonary disease) Gastroesophageal reflux disease Hyperlipidemia Hypertension Surgical History History of cervical discectomy History of left-sided carotid endarterectomy S/P cervical spinal fusion Status post appendectomy Family History Father Gunshot injury Social History household members: spouse Smoking Status: Former smoker alcohol intake: current substance use type: does not use Assessment & Plan Assessment & Plan narrative: 1. Acute GI bleed -symptomatic with syncope and bright red blood per rectum -initial hemoglobin low at 6.7, improved to 8.9 after 2U probc -blood pressure low in the 90s initially, improved to the 150s -no history of previous GI bleed -one IV placed, hard stick so ordered for PICC -continue IV PPI BID -general surgery consult 2. MOLLY -admission creatinine 1.82, improved to 1.51 after transfusion -etiology is hypovolemia due to GI bleed -ordered for PRBCs as above -monitor urine output -careful with diuretics -recheck kidney function in the morning 3. Leukocytosis, possible pneumonia -initially 13.4, improved to 10.5 -possibly stress response from GI bleed -no infectious symptoms currently -monitor for infection -CT shows patchy infiltrates in lungs -patient was on azithromycin planned through 10/25, presumed zpak for pneumonia, can continue azithro, and add ceftriaxone 4. Hypomagnesemia -replete with mag riders -recheck in AM, improved to 1.9 5. Aortic stenosis -careful with IV fluid resuscitation -transfuse blood slowly 6. Paroxysmal atrial fibrillation -hold diltiazem -hold apixaban 7. CAD -hold ticagrelor -hol blood pressure medications (losartan, lisinopril) for now given hypotension, 8. COPD without exacerbation -prn albuterol 9. GERD -PPI as above Time Spent With Patient Critical Care time: I spent a total of [] minutes of critical care time on this patient's care today; this time is exclusive of procedural time.
[2021-10-24] MEDS: POTASSIUM CHLORIDE IN WATER 10 MEQ/100 ML PIGGYBACK 100 MEQ IV ×2 (09:53→12:07)
[2021-10-24] MEDS: PANTOPRAZOLE 40 MG VIAL IV ×2 (09:54→21:03)
--- NOTE | 2021-10-24 10:05 | PT-IP ANOTE ---
Addendum entered and electronically signed by Galina Jensen, PT 10/24/21 14:12: Attempted to meet with pt again in the PM, but pt continued to refuse assessment. Original Note: Met with pt who was confused and stated I won't be here longer than a month anyway. He was a challenging historian and then refused all mobility. When asked if PT could check on him later, pt stated, You probably shouldn't bother.
--- NOTE | 2021-10-24 11:17 | CM.DANOTE ---
Addendum entered by Kate Keane R.N. 10/24/21 15:07: Aliza from [facility] indicated, she may be able to accept patient, but want to know about GI bleed, and if patient has been vaccinated. There was no record of vaccination on state web site. Called patient's spouse, Jojo. She indicated that patient did have his COVID shots, both, not the booster and this was last [place] the [place]. She indicated, she has this information on her phone, can email it. Went ahead and took her email, so hospital can email her back with the details. is hopeful that her will go to skilled. Let her know that he did not work with P.T. today due to pain, and will need to do so before discharge. So far, [facility] is seeing if they may potentially accept patient, and Aliza at [facility] stated, she should be able to accept. Aliza is hoping that his confusion will decrease as well. Addendum entered by Kate Keane R.N. 10/24/21 13:51: It is noted that patient refused P.T, and O.T, as well. He did get up with DESIGN CONSULTANT and ambulated to the bathroom. He is currently on clear liquids, currently sleeping in his room. Patient will need to work with the therapy team if skilled is needed, but unclear that patient will consent to go. Will continue to follow closely. Original Note: DCP: Case received, EMR reviewed. Checked on patient. Was given permission to contact patient's , Jojo Bowen for additional information about patient. Introduced self and role over the phone to spouse. Was able to obtain information regarding patient's baseline activity status at home prior to discharge, as well as some health information. DCP assessment completed with information currently available. Patient is a 80 year old male who admitted to the care of the hospitalist team. PCP: Dr. Stallworth. Payer: confirmed: Medicare/[employer]. Patient came to the hospital via ambulance secondary to a ground level fall. Patient had fallen in the bathroom, blood was noted in the toilet according to notes. Patient does hold current diagnosis of GI bleed. He may be getting a surgical consult for a possible scope. Patient has history of a-fib, he was recently here and transferred to a higher level hospital for cardiac issues. He did go to [facility] after this. Confirmed this with patient's spouse, Jojo. Attempted to meet with patient, he had been sleeping, but spouse had called. Spoke to patient's spouse, Jojo Bowen. Confirmed that patient resides with his spouse in [place]. At his baseline, he uses a FWW. Spouse also has a walker. She indicated, he was just at [facility] last , he was weak, and they gave him some fluids. She indicated, he was doing ok until Sunday, he was tired, was in the bathroom, and then fell. EMS was then called. Discussed possibility of patient going to custodial. Spouse and patient have no children, she would be his primary caregiver upon discharge. She indicated: He has been to [facility], but he didn't like it, not private rooms. Spoke to Tabitha at [facility], confirmed that he had been there. Also confirmed that he has 88 days with his Medicare, he had used 12. March stated, they have a broken pipe because of the cold weather, but should be able to know by tomorrow if they can take patients. Asking assistant surveyor, Nissa, if she can send referrals to both [facility] and [facility], which she will do. Patient will also need to work with the therapy team. P: DCP to continue to follow. Plan is either home with home health, or custodial. He is confirmed inpatient status as of 10/23. Kate Keane RN/Styrene Dehydration Reactor Operator Discharge Planning/Care Management CM Discharge Assessment Start: 10/24/21 10:46 Freq: Status: Active Protocol: Document 10/24/21 10:46 (Rec: 10/24/21 11:03 [id number]) Discharge Planning Assessment Assigned Certified Diabetes Educator Kate Keane RN/Styrene Dehydration Reactor Operator Advance Directives? No History Provided By Patient,Significant Other, Medical Record Prior Living Arrangements House Household Members spouse Type of transporation used prior to Relies on Others admit Independent with ADL's Yes Is patient alert and oriented? Have not yet spoken to patient Needs Assistance With Bathing,Meal Prep,Managing Medications,Home Chores / Shopping Caregiver for Another No DME Already Rented / Owned FWW / Walker Patient/Family Preference [facility] Facility,Home with Home Health Barriers to Discharge Yes Comment also uses FWW, will have to see how patient does with P .T. Discharge Plan Home with Home Health Transportation Arrangement Family or facility Referrals Initiated Other Additional Comment Patient has not yet worked with P.T. will have to look at recommendations and if patient makes inpatient status . Whiteboard Updated in Patient Room with Yes name and ext. # of Certified Diabetes Educator Review Status In Process Next Review Type Continued Stay Review
--- NOTE | 2021-10-24 12:16 | OT.IPNOTE ---
Able to get prior level of care from pt , pt refusing to get up of bed due to pain. NO charge.
--- NOTE | 2021-10-24 12:55 | CM.DPNOTE ---
Sent referral packet to [facility]; [place] [facility] [place] [phone] and emailed Aliza at . Received confirmations on all. Nissa Mukherjee CM Asst.
[2021-10-24] MEDS: cefTRIAXone 1,000 MG in SODIUM CHLORIDE 0.9% 100 ML 200 ML IV (17:45)
[2021-10-24] MEDS: AZITHROMYCIN 500 MG in DEXTROSE 5% IN WATER 250 ML IV (18:28)
[2021-10-25] VITALS (16 sets, daily range): BP systolic 93–151; BP diastolic 34–85; PULSE 82–106; RESP 15–18; TEMP 36.6–37.1; O2SAT 93–96
[2021-10-25 06:59] LABS: Hematocrit 25.9 % (41-53); Hemoglobin 8.6 g/dL (13.5-17.5); Mean Corpuscular HGB Conc 33.1 % (30-36); Mean Corpuscular Hemoglobin 28.8 PG (26-34); Mean Corpuscular Volume 86.9 fL (80-100); Platelet Count 355 X10^3/uL (150-400); Red Blood Cell Count 2.98 X10^6/uL (4.5-5.9); Red Cell Distribution Width 16.7 % (11.6-14.8); White Blood Cell Count 10.2 X10^3/uL (4.5-11.0)
[2021-10-25 07:10] LABS: BUN Creatinine Ratio 16.8 (6-22); Blood Urea Nitrogen 22 mg/dL (9-20); Calcium 8.8 mg/dL (8.4-10.2); Carbon Dioxide 29 mmol/L (22-32); Chloride 110 mmol/L (98-107); Estimated Glomerular Filt Rate 52.8 mL/min (>60); Glucose 107 mg/dL (80-110); HEMOLYSIS < 15 (0-50); Potassium 3.2 mmol/L (3.4-5.1); Sodium 142 mmol/L (137-145)
--- NOTE | 2021-10-25 09:39 | OT.IP.EVAL ---
Current Diagnoses Gastrointestinal hemorrhage, unspecified (10/23/21) Past Medical History (Last Reviewed 10/23/21 @ 18:23 by Merritt Armenta MD) Cervical vertebral fusion COPD (chronic obstructive pulmonary disease) Gastroesophageal reflux disease History of cervical discectomy History of left-sided carotid endarterectomy Hyperlipidemia Hypertension S/P cervical spinal fusion Surgical History (Last Reviewed 10/23/21 @ 18:23 by Merritt Armenta MD) History of cervical discectomy History of left-sided carotid endarterectomy S/P cervical spinal fusion Status post appendectomy Occupational Therapy Inpatient Evaluation/Re-Eval M1 PT/OT-IP Prior Functional Status Start: 10/24/21 09:16 Freq: NEEDED Status: Active Protocol: Document 10/25/21 09:39 [facility] (Rec: 10/25/21 11:59 [facility] [id number]) Medical Review Prior Functional Status Communication Pt states currently having more word finding difficulties . Mobility and Gait Pt states lately since not feeling well has used his FWW. Activities of Daily Living and IADL's Pt states this past week his has had to assist for all his needs due to weakness and not feeling well. Social History Household Members spouse Living Arrangements House Number of Floors (Floors) One Floor Number of Stairs To Enter/Railing? Pt states 2 steps with wide rails to get into his house but then states also has a ramp. Home Environment High Toilet,Walk in Shower Home Equipment Front Wheel Walker,Shower Seat with Backrest,Hand Held Shower Additional Social History Comment Pt states has walking sticks. Pt is an unreliable historian as a bit confused will have to clarify information with his . M2 OT-IP Current Condition Start: 10/25/21 11:38 Freq: Status: Active Protocol: Document 10/25/21 09:39 [facility] (Rec: 10/25/21 11:59 [facility] [id number]) Occupational Therapy Current Condition Current Condition Evaluation Date 10/25/21 Treatment Diagnosis GLF/GI bleed Diagnosis Onset Date 10/25/21 M3 OT- IP Subjective and Pain Start: 10/25/21 11:38 Freq: Status: Active Protocol: Document 10/25/21 09:39 [facility] (Rec: 10/25/21 11:59 [facility] [id number]) OT- Subjective Occupational Therapy Visit Type Type Initial Evaluation Visit Start Time 09:10 Visit Stop Time 09:39 Total Visit Minutes 29 Notes Per nursing aid best to do BP on his legs. Pt states having difficulty to control his phelm in his mouth, nursing notified. Occupational Therapy Visit Comments Patient Comments Pt in with nursing aid doing BP. Patient/Caregiver Goals Pt wanting to get stronger. OT Pain Assessment Pain When Pain Assessed At Rest Pain Present Pain Present Pain Reported Location Sacrum Pain Behaviors Facial Grimacing,Guarding M4 OT- IP ADL's Start: 10/25/21 11:38 Freq: Status: Active Protocol: Document 10/25/21 09:39 [facility] (Rec: 10/25/21 11:59 [facility] [id number]) OT [id number] Comments OT Self-Feeding Comments NOt at meal time. OT ADL-Grooming General Evaluation Grooming Ability Standby Assistance Areas Needing Assistance Retrieving/Set-up of Grooming Items OT ADL-Oral Care General Eval Oral Care Ability Standby Assistance Areas of Assistance Retrieving/Set-Up of Items Comments Oral Care Comments While seated in the recliner. OT ADL-Dressing General Eval Lower Body Dressing Ability Maximum Assistance Comments OT Dressing Comments Pt unable to reach down to vicente/doff his socks at this time and needing assist. OT ADL-Toileting Comments OT Toileting Comments Pt not having to go at this time. OT ADL-Bathing Comments OT Bathing Comments NOt performed. M5 OT- IP IADL's Start: 10/25/21 11:38 Freq: Status: Active Protocol: Document 10/25/21 09:39 [facility] (Rec: 10/25/21 11:59 [facility] [id number]) OT-Instrumental Activities of Daily Living Home Safety Awareness Home Safety Comments Pt is a bit confused and having trouble getting his words out and if going home would benefit from 24/7 assist for all needs. Pt not able to state what to do in case of a fire or if the toilet floods. M6 OT- IP Functional Cognition Start: 10/25/21 11:38 Freq: Status: Active Protocol: Document 10/25/21 09:39 [facility] (Rec: 10/25/21 11:59 [facility] [id number]) Cognitive Factors Limiting Selfcare Function Cognitive Ability Level of Alertness Alert,Confusional State Patient Orientation Name,Month,Situation Attention Span Ability Capable of Focused Attention, Capable of Sustained Attention Ability to Follow Commands Able to Follow One Step Commands with Increased Time, Able to Follow One Step Commands with Repetition Memory Description Short Term Impaired Problem Solving Ability Unable to Identify Errors, Needs Assist to Identify Solutions Cognitive Comments Cognitive Assessment Comments Pt having difficulty to get his words out and having difficulty to understand directions for [facility] at this time. Pt did not know the year or what states we are in. OT- Vision and Hearing OT- Vision Assessment Vision Assessment Comments Pt states suppose to have glasses. M7 OT- IP Mobility and Balance Start: 10/25/21 11:38 Freq: Status: Active Protocol: Document 10/25/21 09:39 [facility] (Rec: 10/25/21 11:59 [facility] [id number]) OT- Bed Mobility Assessment Sit to Supine Sit to Supine Assist Minimal Assistance,1 Person Assistance OT-Transfer Assessment Sit to and From Stand Sit to and from Stand Contact Guard Assistance Transfers Transfer Ability Contact Guard Assistance Technique Transfer Destination Bed,Chair Transfer Technique Stand Step Pivot Devices Transfer Assistive Devices Gait Belt,Front Wheeled Walker Comments Mobility Comments CGA to stand and transfer with CGA and use of FWW. JUAN to assist to get his legs back into bed. Pt tends to tremor and shake after standing for a period of time. pt fatigues very quickly. OT- Gait Assessment Gait Gait Assistance Required: Contact Guard Assist OT- Balance Assessment Sitting Balance and Reactions Static Sitting Balance Ability Good Dynamic Sitting Balance Ability Fair Standing Balance and Reactions Static Standing Balance Ability Fair M8 OT- IP Objective Assessments Start: 10/25/21 11:38 Freq: Status: Active Protocol: Document 10/25/21 09:39 [facility] (Rec: 10/25/21 11:59 [facility] [id number]) OT Strength Comments Strength Comments NOt formally tested as pt bruises easily and IV site in BUE. Pt's at least 3-/5 throughout for BUE strength OT- Coordination Assessment Upper Extremity Finger to Nose Test Within Functional Limits OT-Muscle Tone Assessment Comments Muscle Tone Comments Pt tremors when standing for a peior of time. M9 OT- IP Assessment and Plan Start: 10/25/21 11:38 Freq: Status: Active Protocol: Document 10/25/21 09:39 [facility] (Rec: 10/25/21 11:59 [facility] [id number]) OT Summary Assessment and Plan Potential Rehabilitation Potential Good Analytic Complexity at Evaluation Moderate Summary OT Impairments Pain,Balance,Functional Cognition,Functional Mobility, Grooming,Dressing,Toileting, Bathing,Toilet Transfers Progress Towards Goals Slow Progress due to Pain,Slow Progress due to Medical Issues,Slow Progress due to Activity Tolerance,Slow Progress due to Cognition Assessment Summary Pt MOD complexity and man barriers are decreased activity tolerance, now needing one person assist for all ADL and mobility needs, having difficulty with word finding and problem solving. Pt would benefit from skilled rehab prior to going home. Goals Self-Feeding Goal Independent Grooming Goal Independent Dressing Goal Independent Toileting Goal Standby Assistance Bathing Goal Standby Assistance Toilet Transfer Goal Independent Shower Transfer Goal Independent Days to Meet Goals 20 Frequency of Treatment Frequency Of Treatment Once a Day Treatment Plan OT Treatment Plan ADL Training,Functional Cognition Training,Functional Mobility Discharge Recommendations OT Discharge Recommendations SNF Rehab Transportation Needs at Discharge Wheelchair/Cabulance
[2021-10-25] MEDS: PANTOPRAZOLE 40 MG VIAL IV ×2 (09:45→21:04)
[2021-10-25] MEDS: SODIUM CHLORIDE 0.9% FLUSH 10 ML IV ×2 (09:45→21:04)
[2021-10-25] MEDS: POTASSIUM CHLORIDE 20 MEQ TAB 40 MEQ PO (09:45)
--- NOTE | 2021-10-25 10:09 | PM.PN.1 ---
Subjective Subjective Date Patient Seen: 10/25/21 Time Patient Seen: 08:00 Interval history: Today he had no complaints. He had one brown stool since yesterday, and one stool that looked dark red. He has no abdominal pain, nausea, vomiting. No shortness of breath. No dizziness. Exam Vital Signs (past 8 hours): - 10/25/21 03:36 10/25/21 03:42 10/25/21 06:00 Temperature 98.0 F Pulse Rate 91 H Pulse Rate [Orthostatic Lying] 91 H Pulse Rate [Orthostatic Sitting] 91 H Respiratory Rate 15 Blood Pressure 116/59 L Blood Pressure [Orthostatic Lying] 116/59 L Blood Pressure [Orthostatic Sitting] 93/34 L Pulse Oximetry 95 95 10/25/21 07:50 10/25/21 09:14 Temperature 97.9 F Pulse Rate 91 H Pulse Rate [Orthostatic Lying] 93 H Pulse Rate [Orthostatic Sitting] 106 H Respiratory Rate 18 Blood Pressure 116/69 Blood Pressure [Orthostatic Lying] 131/60 Blood Pressure [Orthostatic Sitting] 151/85 H Pulse Oximetry 95 Oxygen Delivery Method Room Air Oxygen Flow Rate 0 Narrative Exam Narrative: GEN: no acute distress CARDIOVASCULAR: Regular rate and rhythm RESPIRATORY: Clear bilaterally GASTROINTESTINAL: Abdomen soft, non-tender, nondistended, no organomegaly, normal bowel sounds EXTREMITIES: No edema, moving all extremities SKIN: superficial skin tears and bruising noted NEURO: awake and alert Objective Labs Result Diagrams: 10/25/21 06:50 10/25/21 06:50 Labs: Laboratory Results - last 24 hr 10/24/21 10/25/21 10/25/21 13:30 06:50 06:50 WBC 10.2 RBC 2.98 L Hgb 9.0 L 8.6 L Hct 25.9 L MCV 86.9 MCH 28.8 MCHC 33.1 RDW 16.7 H Plt Count 355 Sodium 142 Potassium 3.2 L Chloride 110 H Carbon Dioxide 29 BUN 22 H Creatinine 1.31 H Estimated GFR 52.8 L BUN/Creatinine Ratio 16.8 Glucose 107 Calcium 8.8 PFSH Medical History Cervical vertebral fusion COPD (chronic obstructive pulmonary disease) Gastroesophageal reflux disease Hyperlipidemia Hypertension Surgical History History of cervical discectomy History of left-sided carotid endarterectomy S/P cervical spinal fusion Status post appendectomy Family History Father Gunshot injury Social History household members: spouse Smoking Status: Former smoker alcohol intake: current substance use type: does not use Assessment & Plan Assessment & Plan narrative: 1. Acute GI bleed -symptomatic with syncope and bright red blood per rectum -initial hemoglobin low at 6.7, improved to 8.9 after 2U probc -blood pressure low in the 90s initially, improved to the 150s -no history of previous GI bleed -one IV placed, hard stick so ordered for PICC -continue IV PPI BID -general surgery consult 2. MOLLY -admission creatinine 1.82, improved to 1.31 after transfusion -etiology is hypovolemia due to GI bleed -ordered for PRBCs as above -monitor urine output -careful with diuretics -recheck kidney function in the morning 3. Leukocytosis, possible pneumonia -initially 13.4, improved to 10.5 -possibly stress response from GI bleed -no infectious symptoms currently -monitor for infection -CT shows patchy infiltrates in lungs -patient was on azithromycin planned through 10/25, presumed zpak for pneumonia, can continue azithro, and add ceftriaxone 4. Hypomagnesemia -replete with mag riders -recheck in AM, improved to 1.9 5. Aortic stenosis -careful with IV fluid resuscitation -transfuse blood slowly 6. Paroxysmal atrial fibrillation -hold diltiazem -hold apixaban 7. CAD -hold ticagrelor -hol blood pressure medications (losartan, lisinopril) for now given hypotension, 8. COPD without exacerbation -prn albuterol 9. GERD -PPI as above Time Spent With Patient Critical Care time: I spent a total of [] minutes of critical care time on this patient's care today; this time is exclusive of procedural time.
[2021-10-25] MEDS: dilTIAZem CD 120 MG CAP PO (10:37)
--- NOTE | 2021-10-25 11:53 | PT.IIE ---
Current Diagnoses Gastrointestinal hemorrhage, unspecified (10/23/21) Surgical History (Last Reviewed 10/25/21 @ 15:21 by Jane Gonzales MD) Status post appendectomy Medical History (Last Reviewed 10/25/21 @ 15:21 by Jane Gonzales MD) Cervical vertebral fusion COPD (chronic obstructive pulmonary disease) Gastroesophageal reflux disease Hyperlipidemia Hypertension Physical Therapy Inpatient Evaluation/Re-Eval M1 PT/OT-IP Prior Functional Status Start: 10/24/21 09:16 Freq: NEEDED Status: Active Protocol: Document 10/25/21 11:53 AW (Rec: 10/25/21 13:48 AW [id number]) Medical Review Prior Functional Status Medical History Reviewed Yes Communication Pt responds to questions but nonsensically ~25% of the time . Mobility and Gait Pt reports he ambulated with FWW lately. Activities of Daily Living and IADL's Per OT: Pt states this past week his has had to assist for all his needs due to weakness and not feeling well. Social History Household Members spouse Living Arrangements House Number of Floors (Floors) One Floor Number of Stairs To Enter/Railing? Pt states 2 steps with wide rail to get into his house but then states also has a ramp. Home Environment High Toilet,Walk in Shower Home Equipment Front Wheel Walker,Shower Seat with Backrest,Hand Held Shower Additional Social History Comment Per OT: Pt states has walking sticks. Pt is unrealiable historian as a bit confused will have to clarify infromation with his . M2 PT-IP Current Condition Start: 10/24/21 09:16 Freq: NEEDED Status: Active Protocol: Document 10/25/21 11:53 AW (Rec: 10/25/21 13:48 AW [id number]) Physical Therapy Current Condition Current Condition Evaluation Date 10/25/21 Treatment Diagnosis acute GI bleed, impaired mobility and gait Onset Date 10/23/21 M3 PT-IP Subjective Start: 10/24/21 09:16 Freq: NEEDED Status: Active Protocol: Document 10/25/21 11:53 AW (Rec: 10/25/21 13:48 AW [id number]) Subjective Physical Therapy Visit Type Type Initial Evaluation Visit Start Time 11:37 Visit Stop Time 11:53 Total Visit Minutes 16 Notes Pt got out of bed earlier today for orthostatic BPs. Physical Therapy Visit Comments Patient Comments I'm not getting up again. Patient Goals Pt unable to verbalize goals. Therapy Pain Assessment Pain When Pain Assessed At Rest Pain Present Pain Present Pain Reported Location Sacrum Scale Used not quantified Pain Behaviors Facial Grimacing M4 PT-IP Mobility and Gait Start: 10/24/21 09:16 Freq: NEEDED Status: Active Protocol: Document 10/25/21 11:53 AW (Rec: 10/25/21 13:48 AW [id number]) PT-Bed Mobility Assessment Supine to Sit Supine to Sit Minimal Assistance,1 Person Assistance,Bedrails Sit to Supine Sit to Supine Minimal Assistance,1 Person Assistance PT-Transfer Assessment Comments Mobility Comments Pt was lying in bed as PT arrived. VICE PRESIDENT OF CUSTOMER SERVICE took vitals. BP was 118/50 HR 97 SpO2 96% on room air. He was wary and stated preference to remain in bed but agreed to sit up EOB. With use of bed rails and min assist, pt sat up but was unable to scoot himself forward. He repeatedly refused to get up, perseverating on his experience standing earlier. He described feeling shaky and unable to support himself during the last attempt. PT reassured pt that it would be safe to stand at bedside with assist but pt continued to refuse. He was able to sit long enough to participate in strength and sensation assessment. With min assist, he returned to supine and promptly fell asleep. Bed alarm was armed for safety and call light was left within reach. Gait Assessment Comments Gait Comments Unwilling or unable at this time. PT-Balance Assessment Sitting Balance and Reactions Static Sitting Balance Ability Good Dynamic Sitting Balance Ability Fair M5 PT-IP Objective Assessments Start: 10/24/21 09:16 Freq: NEEDED Status: Active Protocol: Document 10/25/21 11:53 AW (Rec: 10/25/21 14:02 AW [id number]) Orientation Orientation/Cognition Level of Alertness Confusional State Orientation Name,Month,Situation Safety Awareness Decreased Safety Awareness Memory Description Short Term Impaired Comments Pt can not seem to communicate where he is and repeats that he doesn't think he will be here more than 10 minutes. Gross Range of Motion Lower Extremity ROM Assessment Within Functional Limits Strength Lower Extremity Strength Assessment Bilaterally Impaired Hip 3+/5 Knee 4-/5 Ankle 4-/5 Sensation Assessment Comments Sensation Comments Difficult to assess due to pt confusion but pt appears to have intact light touch sensation in BLE. M6 PT-IP Treatment Start: 10/24/21 09:16 Freq: NEEDED Status: Active Protocol: Document 10/25/21 11:53 AW (Rec: 10/25/21 14:02 AW [id number]) Physical Therapy Treatment Education Education Provided Safety M7 PT-IP Assessment and Plan Start: 10/24/21 09:16 Freq: NEEDED Status: Active Protocol: Document 10/25/21 11:53 AW (Rec: 10/25/21 14:02 AW [id number]) PT Summary Assessment and Plan Potential Rehabilitation Potential Fair Status of Condition at Evaluation Evolving Summary Impairments Pain,Strength,Balance,Bed Mobility,Transfers,Gait Assessment Summary Edkristyn is a 80 yo man admitted with acute GI bleed. His H&H as 6.7/20.6 on admission, sandra after transfusion, and is 8.6 /25.9 today. Pt is a difficult historian but per CM notes, pt uses a FWW at baseline and lives with his who is unable to provide meaningful physical assist at home. No other source of social support has been identified. This evaluation was limited due to pt's refusal to get out of bed . Fear of falling appears to animate this refusal. Pt presents with impaired strength and low self-efficacy as well as confusion which are affecting his safe mobility. Pt would benefit from SNF rehab but may ultimately require alternative placement. Goals Bed Mobility Goal Standby Assistance Transfer Goal Standby Assistance,Front Wheeled Walker Gait Goal Standby Assistance,Front Wheel Walker Gait Distance 100 Days to Meet Goals 10 Frequency of Treatment Frequency Of Treatment Once a Day Treatment Plan Physical Therapy Treatment Plan Bed Mobility Training,Transfer Training,Gait Training, Therapeutic Exercise,Balance Retraining,Discharge Planning, Hot or Cold Pack,Neuromuscular Re-ed Other Recommendations and Next Treatment sitting and standing tolerance Focus ; transfers Precautions Other Precautions falls; check orthostatic BP if able Recommendations To Nursing Amount of Assist Needed 1 Person Assist Discharge Recommendations PT Discharge Recommendations SNF Rehab Transportation Needs at Discharge Wheelchair/Cabulance
--- NOTE | 2021-10-25 11:53 | PT.IIE ---
Current Diagnoses Gastrointestinal hemorrhage, unspecified (10/23/21) Surgical History (Last Reviewed 10/23/21 @ 18:23 by Merritt Armenta MD) Status post appendectomy Medical History (Last Reviewed 10/23/21 @ 18:23 by Merritt Armenta MD) Cervical vertebral fusion COPD (chronic obstructive pulmonary disease) Gastroesophageal reflux disease Hyperlipidemia Hypertension Physical Therapy Inpatient Evaluation/Re-Eval M1 PT/OT-IP Prior Functional Status Start: 10/24/21 09:16 Freq: NEEDED Status: Active Protocol: Document 10/25/21 11:53 AW (Rec: 10/25/21 13:48 AW [id number]) Medical Review Prior Functional Status Medical History Reviewed Yes Communication Pt responds to questions but nonsensically ~25% of the time . Mobility and Gait Pt reports he ambulated with FWW lately. Activities of Daily Living and IADL's Per OT: Pt states this past week his has had to assist for all his needs due to weakness and not feeling well. Social History Household Members spouse Living Arrangements House Number of Floors (Floors) One Floor Number of Stairs To Enter/Railing? Pt states 2 steps with wide rail to get into his house but then states also has a ramp. Home Environment High Toilet,Walk in Shower Home Equipment Front Wheel Walker,Shower Seat with Backrest,Hand Held Shower Additional Social History Comment Per OT: Pt states has walking sticks. Pt is unrealiable historian as a bit confused will have to clarify infromation with his . M2 PT-IP Current Condition Start: 10/24/21 09:16 Freq: NEEDED Status: Active Protocol: Document 10/25/21 11:53 AW (Rec: 10/25/21 13:48 AW [id number]) Physical Therapy Current Condition Current Condition Evaluation Date 10/25/21 M3 PT-IP Subjective Start: 10/24/21 09:16 Freq: NEEDED Status: Active Protocol: Document 10/25/21 11:53 AW (Rec: 10/25/21 13:48 AW [id number]) Subjective Physical Therapy Visit Type Type Initial Evaluation Visit Start Time 11:37 Visit Stop Time 11:53 Total Visit Minutes 16 Notes Pt got out of bed earlier today for orthostatic BPs. Physical Therapy Visit Comments Patient Comments I'm not getting up again. Patient Goals Pt unable to verbalize goals. Therapy Pain Assessment Pain When Pain Assessed At Rest Pain Present Pain Present Pain Reported Location Sacrum Scale Used not quantified Pain Behaviors Facial Grimacing M4 PT-IP Mobility and Gait Start: 10/24/21 09:16 Freq: NEEDED Status: Active Protocol: Document 10/25/21 11:53 AW (Rec: 10/25/21 13:48 AW [id number]) PT-Bed Mobility Assessment Supine to Sit Supine to Sit Minimal Assistance,1 Person Assistance,Bedrails Sit to Supine Sit to Supine Minimal Assistance,1 Person Assistance PT-Transfer Assessment Comments Mobility Comments Pt was lying in bed as PT arrived. SAND CONDITIONER took vitals. BP was 118/50 HR 97 SpO2 96% on room air. He was wary and stated preference to remain in bed but agreed to sit up EOB. With use of bed rails and min assist, pt sat up but was unable to scoot himself forward. He repeatedly refused to get up, perseverating on his experience standing earlier. He described feeling shaky and unable to support himself during the last attempt. PT reassured pt that it would be safe to stand at bedside with assist but pt continued to refuse. He was able to sit long enough to participate in strength and sensation assessment. With min assist, he returned to supine and promptly fell asleep. Bed alarm was armed for safety and call light was left within reach. Gait Assessment Comments Gait Comments Unwilling or unable at this time. PT-Balance Assessment Sitting Balance and Reactions Static Sitting Balance Ability Good Dynamic Sitting Balance Ability Fair M5 PT-IP Objective Assessments Start: 10/24/21 09:16 Freq: NEEDED Status: Active Protocol: Document 10/25/21 11:53 AW (Rec: 10/25/21 14:02 AW [id number]) Orientation Orientation/Cognition Level of Alertness Confusional State Orientation Name,Month,Situation Safety Awareness Decreased Safety Awareness Memory Description Short Term Impaired Comments Pt can not seem to communicate where he is and repeats that he doesn't think he will be here more than 10 minutes. Gross Range of Motion Lower Extremity ROM Assessment Within Functional Limits Strength Lower Extremity Strength Assessment Bilaterally Impaired Hip 3+/5 Knee 4-/5 Ankle 4-/5 Sensation Assessment Comments Sensation Comments Difficult to assess due to pt confusion but pt appears to have intact light touch sensation in BLE. M6 PT-IP Treatment Start: 10/24/21 09:16 Freq: NEEDED Status: Active Protocol: Document 10/25/21 11:53 AW (Rec: 10/25/21 14:02 AW [id number]) Physical Therapy Treatment Education Education Provided Safety M7 PT-IP Assessment and Plan Start: 10/24/21 09:16 Freq: NEEDED Status: Active Protocol: Document 10/25/21 11:53 AW (Rec: 10/25/21 14:02 AW [id number]) PT Summary Assessment and Plan Potential Rehabilitation Potential Fair Status of Condition at Evaluation Evolving Summary Impairments Pain,Strength,Balance,Bed Mobility,Transfers,Gait Assessment Summary Edkristyn is a 80 yo man admitted with acute GI bleed. His H&H as 6.7/20.6 on admission, sandra after transfusion, and is 8.6 /25.9 today. Pt is a difficult historian but per CM notes, pt uses a FWW at baseline and lives with his who is unable to provide meaningful physical assist at home. No other source of social support has been identified. This evaluation was limited due to pt's refusal to get out of bed . Fear of falling appears to animate this refusal. Pt presents with impaired strength and low self-efficacy as well as confusion which are affecting his safe mobility. Pt would benefit from SNF rehab but may ultimately require alternative placement. Goals Bed Mobility Goal Standby Assistance Transfer Goal Standby Assistance,Front Wheeled Walker Gait Goal Standby Assistance,Front Wheel Walker Gait Distance 100 Days to Meet Goals 10 Frequency of Treatment Frequency Of Treatment Once a Day Treatment Plan Physical Therapy Treatment Plan Bed Mobility Training,Transfer Training,Gait Training, Therapeutic Exercise,Balance Retraining,Discharge Planning, Hot or Cold Pack,Neuromuscular Re-ed Other Recommendations and Next Treatment sitting and standing tolerance Focus ; transfers Precautions Other Precautions falls; check orthostatic BP if able Recommendations To Nursing Amount of Assist Needed 1 Person Assist Discharge Recommendations PT Discharge Recommendations SNF Rehab Transportation Needs at Discharge Wheelchair/Cabulance
--- NOTE | 2021-10-25 12:05 | PC.NURSE ---
ems Erik from [facility] called requesting pt contact info, he was the medic who brought them in.
--- NOTE | 2021-10-25 13:09 | CM.DPC ---
Addendum entered by Kate Keane R.N. 10/25/21 15:33: Aliza from [facility] called back and confirmed product picker time for tomorrow at 1330. Addendum entered by Kate Keane R.N. 10/25/21 14:40: Patient's labs were drawn today. According to nurse, Olena. results are in, hgb was 8.6.. Called Massiel at [facility] about referral, and her concerns are some of his confusion, and him refusing therapy. Let her know that patient did work with therapy today. Had Nissa fax over nursing notes and recent therapy notes. Spoke to Aliza at [facility]. She was able to speak to patient's , Jojo. She was able to instruct her over the phone how to send a copy of patient's vaccination information from her phone. Aliza indicated, she now has it. Aliza indicated, she should be able to accept patient tomorrow, and will set up transportation today for early afternoon, and will call back with a time. Asked nursing if they can get a COVID swab. PASSR completed. P: DCP to continue to follow. Referrals were sent to [facility], [facility], and [facility]. [facility] can accept tomorrow, and Aliza already has copy of vaccination. She will set up transportation. Original Note: DCP Cont: Discussed patient during team rounds. Hospitalist indicated, patient may not qualify for a scope due to his medical co-morbidities. Patient had been on blood thinners prior, which could have contributed to his bleed. Let hospitalist know, patient would qualify for mcfp by tomorrow, third Medicare midnight. Spoke to Aliza at [facility]. She will contact patient's spouse to see if she can text her the vaccine information. Patient will need this to secure a bed, otherwise, would need to go in isolation. She stated, she could consider patient for tomorrow. As a back up, called Rona at [facility]. Let her also know that patient should be ready for discharge tomorrow. The concern with both facilities is ensuring that he will not need another transfusion. Confirmed with nurse, Olena, that he will have another lab draw at 1300 today. Left a message with Aliza at [facility] about patient having another lab draw today. Asked her in the message if she was able to contact patient's spouse for getting a copy of patient's vaccine information texted to her. Will await response. Will also follow up with [facility] as well. [facility] can't accept patient until possibly to to maintenance issues. P: DCP to continue to work on getting a skilled facility for patient. At this time, [facility] and [facility] is considering. Kate Keane RN/Ceo & Co Founder
[2021-10-25 14:23] LABS: Hemoglobin 8.6 g/dL (13.5-17.5)
--- NOTE | 2021-10-25 15:17 | PM.CN ---
History of Present Illness Consult details Date Patient Seen: 10/25/21 Time Patient Seen: 15:17 Chief complaint: Dizzy/GLF Reason for consult: GI bleeding Requesting provider: Merritt Armenta Narrative: One episode of bright red blood in toilet at home, associated with dizziness and fall. Transfused here with single unit and now stable w/o further bleeding. Chronic anticoagulation for cardiac issues. Moderate aortic stenosis and resolving bilateral pneumonia. Meds Home Medications and Allergies Home Medications Medication Instructions Recorded Confirmed Type hydrochlorothiazide 12.5 mg capsule 12.5 mg PO QDAY #90 cap 07/04/17 10/23/21 Rx albuterol sulfate 90 mcg/actuation 2 puff INHALATION BID PRN 08/07/18 10/23/21 History aerosol inhaler onnhzqlitq-vaiuvlqswwwdc-dlheiiom 1 tab PO QID PRN 08/07/18 10/23/21 History 50 mg-300 mg-40 mg capsule (Fioricet) atorvastatin 40 mg tablet (Lipitor) 40 mg PO DAILY 09/10/18 10/23/21 History meloxicam 15 mg tablet (Mobic) 15 mg PO DAILY 09/10/18 10/23/21 History pantoprazole 20 mg tablet,delayed 20 mg PO DAILY 09/10/18 10/23/21 History release apixaban 5 mg tablet (Eliquis) 5 mg PO BID 10/23/21 10/23/21 History azithromycin 250 mg tablet See Rx Instructions .ROUTE .COMPLEX 10/23/21 10/23/21 History cholecalciferol (vitamin D3) 25 1,000 unit PO DAILY 10/23/21 10/23/21 History mcg (1,000 unit) capsule (Vitamin D3) diltiazem HCl 120 mg 120 mg PO DAILY 10/23/21 10/23/21 History capsule,extended release 24 hr fluticasone 250 mcg-salmeterol 50 1 inh INHALATION BID 10/23/21 10/23/21 History mcg/dose blistr powdr for inhalation gabapentin 600 mg tablet 600 mg PO TID 10/23/21 10/23/21 History lisinopril 20 mg tablet 20 mg PO BID 10/23/21 10/23/21 History losartan 100 mg tablet 100 mg PO DAILY 10/23/21 10/23/21 History ticagrelor 90 mg tablet (Brilinta) 90 mg PO BID 10/23/21 10/23/21 History Allergies Allergy/AdvReac Type Severity Reaction Status Date / Time Beta-Blockers Allergy Unknown Verified 10/23/21 10:41 (Beta-Adrenergic Bloc codeine Allergy Unknown Verified 10/23/21 10:41 Review of Systems Review of Systems Narrative: one small blood tinged stool. No abdominal pain. Exam Vital Signs (past 8 hours): - 10/25/21 07:50 10/25/21 09:00 10/25/21 09:14 Temperature 97.9 F Pulse Rate 91 H Pulse Rate [Orthostatic Lying] 93 H Pulse Rate [Orthostatic Sitting] 106 H Respiratory Rate 18 Blood Pressure 116/69 Blood Pressure [Orthostatic Lying] 131/60 Blood Pressure [Orthostatic Sitting] 151/85 H Pulse Oximetry 95 95 10/25/21 11:54 10/25/21 14:00 10/25/21 14:20 Temperature 97.8 F Pulse Rate 97 H 87 Pulse Rate [Orthostatic Lying] Pulse Rate [Orthostatic Sitting] Respiratory Rate 18 16 Blood Pressure 118/50 L Blood Pressure [Orthostatic Lying] Blood Pressure [Orthostatic Sitting] Pulse Oximetry 96 95 93 10/25/21 15:12 Temperature 97.8 F Pulse Rate 87 Pulse Rate [Orthostatic Lying] Pulse Rate [Orthostatic Sitting] Respiratory Rate 16 Blood Pressure 117/58 L Blood Pressure [Orthostatic Lying] Blood Pressure [Orthostatic Sitting] Pulse Oximetry 95 Oxygen Delivery Method Room Air Oxygen Flow Rate 0 Const General: cooperative, comfortable and frail appearing [facility] Head: normocephalic and atraumatic Mouth: oral mucosae normal Eyes Sclera: sclerae normal Neck Neck: trachea midline Chest Chest: normal inspection of the chest Resp Effort & Inspection: normal respiratory effort and able to speak in complete sentences Cardio Rate: tachycardic Rhythm: abnormal rhythm GI Inspection: normal to inspection Palpation: soft Skin General: atrophy Neuro General: patient alert and patient awake Psych Appearance: grossly normal Judgment: fair Objective Labs Result Diagrams: 10/25/21 13:51 10/25/21 06:50 Labs: Laboratory Results - last 24 hr 10/23/21 10/25/21 10/25/21 10:00 06:50 06:50 WBC 10.2 RBC 2.98 L Hgb 8.6 L Hct 25.9 L MCV 86.9 MCH 28.8 MCHC 33.1 RDW 16.7 H Plt Count 355 Sodium 142 Potassium 3.2 L Chloride 110 H Carbon Dioxide 29 BUN 22 H Creatinine 1.31 H Estimated GFR 52.8 L BUN/Creatinine Ratio 16.8 Glucose 107 Calcium 8.8 Crossmatch See Detail 10/25/21 13:51 WBC RBC Hgb 8.6 L Hct MCV MCH MCHC RDW Plt Count Sodium Potassium Chloride Carbon Dioxide BUN Creatinine Estimated GFR BUN/Creatinine Ratio Glucose Calcium Crossmatch PFSH Medical History Cervical vertebral fusion COPD (chronic obstructive pulmonary disease) Gastroesophageal reflux disease Hyperlipidemia Hypertension Surgical History History of cervical discectomy History of left-sided carotid endarterectomy S/P cervical spinal fusion Status post appendectomy Family History Father Gunshot injury Social History household members: spouse Tobacco & Substance Use Smoking Status: Former smoker alcohol intake: current substance use type: does not use Assessment & Plan Assessment & Plan narrative: Anemia and one episode of bright red blood per rectum. On chronic anticoagulation. High risk for sedation, bowel prep and colonoscopy/EGD. CT scan shows no evidence of mass or PUD. No ischemic enteritis or colitis. Bleeding could be diverticular. Plan: H2 trev or PPI for 6 weeks, get further out from pneumonia and have cardiology clear for procedure. Outpatient EGD and Colonoscopy. If he bleeds again, we may have to be more aggressive. COVID-19 COVID-19 status: Negative Time Spent With Patient Critical Care time: I spent a total of [] minutes of critical care time on this patient's care today; this time is exclusive of procedural time.
--- NOTE | 2021-10-25 16:54 | PC.NURSE ---
Addendum entered by Gloria Alonso R.N. 10/25/21 18:25: SBA to bathroom patient urinated and had stool mixed. Amounts unmeasured. Original Note: Pressley removed at 1030, attempted to void at 1700 and stood at bedside, unable to void. Bladder scanned for 137cc. Encouraged po fluids. Bed alarm on.
[2021-10-26] VITALS (14 sets, daily range): BP systolic 112–148; BP diastolic 40–70; PULSE 52–98; RESP 15–18; TEMP 34.4–37; O2SAT 94–97
[2021-10-26 06:10] LABS: Hematocrit 25.9 % (41-53); Hemoglobin 8.6 g/dL (13.5-17.5); Mean Corpuscular HGB Conc 33.3 % (30-36); Mean Corpuscular Volume 87.2 fL (80-100); Platelet Count 356 X10^3/uL (150-400); Red Blood Cell Count 2.98 X10^6/uL (4.5-5.9); Red Cell Distribution Width 17.2 % (11.6-14.8); White Blood Cell Count 9.7 X10^3/uL (4.5-11.0)
[2021-10-26 06:19] LABS: BUN Creatinine Ratio 13.4 (6-22); Blood Urea Nitrogen 19 mg/dL (9-20); Carbon Dioxide 28 mmol/L (22-32); Chloride 111 mmol/L (98-107); Estimated Glomerular Filt Rate 48.1 mL/min (>60); Glucose 99 mg/dL (80-110); HEMOLYSIS < 15 (0-50); Potassium 3.5 mmol/L (3.4-5.1); Sodium 143 mmol/L (137-145)
[2021-10-26] MEDS: dilTIAZem CD 120 MG CAP PO (09:05)
[2021-10-26] MEDS: PANTOPRAZOLE 40 MG VIAL IV (09:05)
[2021-10-26] MEDS: SODIUM CHLORIDE 0.9% FLUSH 10 ML IV ×2 (09:06)
--- NOTE | 2021-10-26 09:43 | OT.IP.TRT ---
Current Diagnoses Gastrointestinal hemorrhage, unspecified (10/23/21) Occupational Therapy Treatment Note M2 OT-IP Current Condition Start: 10/25/21 11:38 Freq: Status: Active Protocol: Document 10/25/21 09:39 [facility] (Rec: 10/25/21 11:59 [facility] [id number]) Occupational Therapy Current Condition Current Condition Evaluation Date 10/25/21 Treatment Diagnosis GLF/GI bleed Diagnosis Onset Date 10/25/21 M3 OT- IP Subjective and Pain Start: 10/25/21 11:38 Freq: Status: Active Protocol: Document 10/26/21 12:07 [facility] (Rec: 10/26/21 12:21 [facility] [id number]) OT- Subjective Occupational Therapy Visit Type Type Treatment Note Visit Start Time 09:20 Visit Stop Time 09:43 Total Visit Minutes 23 Occupational Therapy Visit Comments Patient Comments Pt wanting to get up to use the bathroom. Patient/Caregiver Goals TO get better. OT Pain Assessment Pain When Pain Assessed At Rest Pain Present Pain Present Pain Reported Location Sacrum Pain Behaviors Holding Area M4 OT- IP ADL's Start: 10/25/21 11:38 Freq: Status: Active Protocol: Document 10/26/21 12:07 [facility] (Rec: 10/26/21 12:21 [facility] [id number]) OT ADL-Grooming Comments OT Grooming Comments NOt performed OT ADL-Oral Care Comments Oral Care Comments Pt refused OT ADL-Dressing General Eval Lower Body Dressing Ability Maximum Assistance Areas Needing Assistance Socks OT ADL-Toileting General Evaluation Toileting Ability Standby Assistance,Moderate Assistance Comments OT Toileting Comments Pt would need assist for brief but not wearing on at this time. Pt able to wipe on his own. OT ADL-Bathing Comments OT Bathing Comments NOt performed. M5 OT- IP IADL's Start: 10/25/21 11:38 Freq: Status: Active Protocol: Document 10/25/21 09:39 [facility] (Rec: 10/25/21 11:59 [facility] [id number]) OT-Instrumental Activities of Daily Living Home Safety Awareness Home Safety Comments Pt is a bit confused and having trouble getting his words out and if going hom3 would benefit from 24/7 asisst for all needs. Pt not able to state what to do in case of a fire or if the toilet floods. M6 OT- IP Functional Cognition Start: 10/25/21 11:38 Freq: Status: Active Protocol: Document 10/26/21 12:07 [facility] (Rec: 10/26/21 12:21 [facility] [id number]) Cognitive Factors Limiting Selfcare Function Cognitive Ability Level of Alertness Alert,Confusional State Patient Orientation Name,Month,Situation Attention Span Ability Capable of Focused Attention, Capable of Sustained Attention Ability to Follow Commands Able to Follow One Step Commands with Increased Time, Able to Follow One Step Commands with Repetition Memory Description Short Term Impaired Problem Solving Ability Unable to Identify Errors, Needs Assist to Identify Solutions Cognitive Comments Cognitive Assessment Comments Pt states last played golf in July however questionable historian. Pt not able to state where he is at and did not know or recognize the golfing terms of par,birdhaseeb, or jamul. Pt is insistent that he is going home. HOwever his also uses a FWW. M7 OT- IP Mobility and Balance Start: 10/25/21 11:38 Freq: Status: Active Protocol: Document 10/26/21 12:07 [facility] (Rec: 10/26/21 12:21 [facility] [id number]) OT- Bed Mobility Assessment Sit to Supine Sit to Supine Assist Standby Assistance OT-Transfer Assessment Sit to and From Stand Sit to and from Stand Contact Guard Assistance Transfers Transfer Ability Contact Guard Assistance Technique Transfer Destination Bed,Toilet Transfer Technique Stand Step Pivot Devices Transfer Assistive Devices Gait Belt,Front Wheeled Walker Comments Mobility Comments Pt a little unsteady on his feet and needing CGA for balance with use of FWW. OT- Balance Assessment Sitting Balance and Reactions Static Sitting Balance Ability Good Dynamic Sitting Balance Ability Fair Standing Balance and Reactions Static Standing Balance Ability Fair M9 OT- IP Assessment and Plan Start: 10/25/21 11:38 Freq: Status: Active Protocol: Document 10/26/21 12:07 [facility] (Rec: 10/26/21 12:21 [facility] [id number]) OT Summary Assessment and Plan Potential Rehabilitation Potential Good Analytic Complexity at Evaluation Moderate Summary OT Impairments Pain,Balance,Functional Cognition,Functional Mobility, Grooming,Dressing,Toileting, Bathing,Toilet Transfers Progress Towards Goals Progressing Toward Goals,Slow Progress due to Activity Tolerance,Slow Progress due to Cognition Assessment Summary Pt still having difficulty with orientation, word finding and problem solving. Pt noted slight improvement with mobility needs and mainly CGA with FWW. Pt will greatly benefit from skilled rehab prior to going home. Goals Self-Feeding Goal Independent Grooming Goal Independent Dressing Goal Independent Toileting Goal Standby Assistance Bathing Goal Standby Assistance Toilet Transfer Goal Independent Shower Transfer Goal Independent Days to Meet Goals 23 Frequency of Treatment Frequency Of Treatment Once a Day Treatment Plan OT Treatment Plan ADL Training,Functional Cognition Training,Functional Mobility Discharge Recommendations OT Discharge Recommendations SNF Rehab Transportation Needs at Discharge Wheelchair/Cabulance
[2021-10-26 10:38] LABS: COVID19 -Nasal RAPID Negative (Negative)
--- NOTE | 2021-10-26 10:44 | CM.DPC ---
Addendum entered by SHRUTHI Lamas 10/26/21 15:52: ADD: Transport arrived about 1430 to transport pt to [facility] and pt now refusing SNF and somewhat confused and KRISTAL, RN, pre sales network engineer all attempt to reason with pt but he states he wants to go home. Pt then agreeable to SNF but call from [facility] admissions Aliza stating she is now not comfortable accepting pt who is not very agreeable to SNF and would have to do bedside assessment but anticipates they would decline pt and Aliza also spoke to Milled Rubber Tender Jessie GIRALDO. Transport left. KRISTAL called pt's spouse and discussed above and spouse was hopeful we could sedate pt prior to transport but now aware that is not an option. SW discussed viewing pt's ability to mobilize independently with ambulation (didn't even need a walker, but a fall risk) and independent bed mobility and spouse agreeable to call her neighbors now to help with shoveling the driveway and entrance to the house and neighbor couple to help transport pt home tomorrow and assist getting him inside. KRISTAL discussed HH and spouse is agreeable but states pt always refuses. KRISTAL discussed PP CG and spouse states he also refuses and SW discussed possible ways to help pt be more agreeable to in-home assist. KRISTAL made initial Sig HH referral based on [facility] Calendar but F2F not completed yet as unclear if pt will be agreeable. KRISTAL updated RN, MD, pre sales network engineer. Plan: SW to follow for plan of d/c to home via spouse and neighbor POV and assist and possible Sig HH. SHRUTHI Lamas Original Note: DCP Discharge SNF Per Surgeon and Hospitalist, pt is medically stable to d/c to SNF today and outpt f/u for colonoscopy and EGD. SW called [facility] admissions and confirmed they can still accept today and have transport set for 1330 and confirmed they do need updated COVID swab. RN agreeable to getting COVID swab this morning and aware of transport time and pt has been somewhat confused today and thinks he is going home. Per [facility] admissions, rehab resident just tested positive for COVID and need confirmation that pt/spouse still agreeable to be accepted at their facility but pt also will have a room to himself after today as his roommate will be discharging. KRISTAL called pt's spouse Jojo and updated on pt being medically stable to d/c to SNF today to [facility] and time of transport and also discussed COVID + resident and spouse still agreeable with d/c to [facility] and provided her with the address and phone number. Spouse states she is still snowed in at their house and will not be able to visit pt prior to d/c but will visit at SNF once snow removed. SW met bedside with pt and updated him on above and he was pleasant and agreeable and aware that he will d/c for rehab prior to safe return home and that spouse is still snowed in. HYUN Azar kindly faxing d/c packet to [facility] for review. KRISTAL updated AUTOMOTIVE WORKER, pre sales network engineer and MD. Plan: Patient to d/c to [facility] SNF today via w/c van at 1330 prior to safe return home with spouse. SHRUTHI Lamas
--- NOTE | 2021-10-26 12:14 | PT.IPTN ---
Current Diagnoses Gastrointestinal hemorrhage, unspecified (10/23/21) Physical Therapy Treatment Note M2 PT-IP Current Condition Start: 10/24/21 09:16 Freq: NEEDED Status: Active Protocol: Document 10/25/21 11:53 AW (Rec: 10/25/21 13:48 AW [id number]) Physical Therapy Current Condition Current Condition Evaluation Date 10/25/21 Treatment Diagnosis acute GI bleed, impaired mobility and gait Onset Date 10/23/21 M3 PT-IP Subjective Start: 10/24/21 09:16 Freq: NEEDED Status: Active Protocol: Document 10/26/21 12:14 DLM (Rec: 10/26/21 12:30 DLM [id number]) Subjective Physical Therapy Visit Type Type Treatment Note Visit Start Time 11:45 Visit Stop Time 12:14 Total Visit Minutes 29 Number of LOGISTICS TECH Visits 0 Physical Therapy Visit Comments Patient Comments He reports he is going home today; waiting for his to arrive, he refuses to get up in the chair Patient Goals go home Therapy Pain Assessment Pain Present Pain Present Denied Pain M4 PT-IP Mobility and Gait Start: 10/24/21 09:16 Freq: NEEDED Status: Active Protocol: Document 10/26/21 12:14 DLM (Rec: 10/26/21 12:30 DLM [id number]) PT-Bed Mobility Assessment Supine to Sit Supine to Sit Minimal Assistance,Moderate Assistance Sit to Supine Sit to Supine Standby Assistance Scooting Scooting to Edge of Bed Maximum Assistance PT-Transfer Assessment Sit to and From Stand Sit to and from Stand Contact Guard Assistance, Minimal Assistance,Use of Upper Extremities Equipment Transfer Assistive Device Gait Belt,Front Wheeled Walker Comments Mobility Comments he stood with the FWW and took a couple of steps but refused to get into the recliner, unable to reason with him, pt returned to bed after sitting up on the edge of the bed. Coordinated with nursing to get orthostatics during this visit. Gait Assessment Gait Gait Assistance Required: Contact Guard Assist Distance (Feet) 2 Assistive Devices Assistive Device Gait Belt,Front Wheeled Walker Comments Gait Comments he refused to ambulate more and got angry when encouraged to do more PT-Balance Assessment Sitting Balance and Reactions Static Sitting Balance Ability Good Dynamic Sitting Balance Ability Good Standing Balance and Reactions Static Standing Balance Ability Good Dynamic Standing Balance Ability Fair Device Used FWW M5 PT-IP Objective Assessments Start: 10/24/21 09:16 Freq: NEEDED Status: Active Protocol: Document 10/26/21 12:14 DLM (Rec: 10/26/21 12:30 DLM [id number]) Orientation Orientation/Cognition Level of Alertness Confusional State Orientation Name Safety Awareness Decreased Safety Awareness Memory Description Short Term Impaired Comments he is very confused, can not tell me where he lives, very focused on his coming in Coordination Assessment Assessment Coordination Comments mild tremors noted sitting edge of bed Muscle Tone Muscle Tone WNL Yes M6 PT-IP Treatment Start: 10/24/21 09:16 Freq: NEEDED Status: Active Protocol: Document 10/26/21 12:14 DLM (Rec: 10/26/21 12:30 DLM [id number]) Physical Therapy Treatment Education Education Provided Safety Other Treatments Other Treatment Performed Sitting up edge of bed M7 PT-IP Assessment and Plan Start: 10/24/21 09:16 Freq: NEEDED Status: Active Protocol: Document 10/26/21 12:14 DLM (Rec: 10/26/21 12:30 DLM [id number]) PT Summary Assessment and Plan Summary Impairments Pain,Strength,Balance, Coordination,Bed Mobility, Transfers,Gait,Activity Tolerance Progress Towards Goals Slow Progress due to Activity Tolerance Assessment Summary Mr Bowen is alert but very confused. Unable to re-orient him at this time. No light- headedness reported this visit . He continues to show a drop in BP from supine to standing (see nursing noted for orthostatic vitals signs this visit). He agreed to sitting edge of bed and standing with the fWW but refused to get up to the recliner for lunch and refused gait. He is perseverating on his coming to take him home. He appears to be moving better than last treatment. His confusion is a barrier to his mobility and therapy participation. Goals Bed Mobility Goal Standby Assistance Transfer Goal Standby Assistance,Front Wheeled Walker Gait Goal Standby Assistance,Front Wheel Walker Gait Distance 100 Days to Meet Goals 10 Frequency of Treatment Frequency Of Treatment Once a Day Treatment Plan Physical Therapy Treatment Plan Bed Mobility Training,Transfer Training,Gait Training, Therapeutic Exercise,Balance Retraining,Discharge Planning, Hot or Cold Pack,Neuromuscular Re-ed Other Recommendations and Next Treatment sitting and standing tolerance Focus ; transfers Precautions Other Precautions falls, check orthostatic BP if able Recommendations To Nursing Amount of Assist Needed 1 Person Assist Discharge Recommendations PT Discharge Recommendations SNF Rehab Transportation Needs at Discharge Wheelchair/Cabulance
--- NOTE | 2021-10-26 13:40 | PC.NURSE ---
MIdline removed. Pt belongings packed up. Reminded Pt again that he was going to rehab. Dr. Armenta and CM also notified Pt he was going to rehab and spouse Jojo has talked with him several times today about him going to rehab. Pt forgetful and states he is going home. Called report to [facility] receiving RODGER Garcia and answered all questions. Pt home meds to be sent with Pt to [facility] and Radha RN is aware they are coming.
--- NOTE | 2021-10-26 15:51 | PM.PN.1 ---
Subjective Subjective Date Patient Seen: 10/26/21 Time Patient Seen: 08:00 Interval history: He has no complaints. No further bleeding. Exam Vital Signs (past 8 hours): - 10/26/21 08:00 10/26/21 08:25 10/26/21 12:00 Temperature 97 F L 94 F L Pulse Rate 84 72 Respiratory Rate 16 16 Blood Pressure 128/65 148/55 H Pulse Oximetry 94 97 94 10/26/21 14:17 Temperature Pulse Rate Respiratory Rate Blood Pressure Pulse Oximetry 95 Oxygen Delivery Method Room Air Oxygen Flow Rate 0 Narrative Exam Narrative: GEN: no acute distress CARDIOVASCULAR: Regular rate and rhythm RESPIRATORY: Clear bilaterally GASTROINTESTINAL: Abdomen soft, non-tender, nondistended, no organomegaly, normal bowel sounds EXTREMITIES: No edema, moving all extremities SKIN: superficial skin tears and bruising noted NEURO: awake and alert Objective Labs Result Diagrams: 10/26/21 05:50 10/26/21 05:50 Labs: Laboratory Results - last 24 hr 10/26/21 10/26/21 10/26/21 05:50 05:50 09:50 WBC 9.7 RBC 2.98 L Hgb 8.6 L Hct 25.9 L MCV 87.2 MCH 29.0 MCHC 33.3 RDW 17.2 H Plt Count 356 Sodium 143 Potassium 3.5 Chloride 111 H Carbon Dioxide 28 BUN 19 Creatinine 1.42 H Estimated GFR 48.1 L BUN/Creatinine Ratio 13.4 Glucose 99 Calcium 9.0 SARS-CoV-2 (PCR) Negative PFSH Medical History Cervical vertebral fusion COPD (chronic obstructive pulmonary disease) Gastroesophageal reflux disease Hyperlipidemia Hypertension Surgical History History of cervical discectomy History of left-sided carotid endarterectomy S/P cervical spinal fusion Status post appendectomy Family History Father Gunshot injury Social History household members: spouse Smoking Status: Former smoker alcohol intake: current substance use type: does not use Assessment & Plan Assessment & Plan narrative: 1. Acute GI bleed -symptomatic with syncope and bright red blood per rectum -initial hemoglobin low at 6.7, improved to 8.9 after 2U probc -blood pressure low in the 90s initially, improved to the 150s -no history of previous GI bleed -one IV placed, hard stick so ordered for PICC -continue IV PPI BID -general surgery consult 2. MOLLY -admission creatinine 1.82, improved to 1.31 after transfusion -etiology is hypovolemia due to GI bleed -ordered for PRBCs as above -monitor urine output -careful with diuretics -recheck kidney function in the morning 3. Leukocytosis, possible pneumonia -initially 13.4, improved to 10.5 -possibly stress response from GI bleed -no infectious symptoms currently -monitor for infection -CT shows patchy infiltrates in lungs -patient was on azithromycin planned through 10/25, presumed zpak for pneumonia, can continue azithro, and add ceftriaxone 4. Hypomagnesemia -replete with mag riders -recheck in AM, improved to 1.9 5. Aortic stenosis -careful with IV fluid resuscitation -transfuse blood slowly 6. Paroxysmal atrial fibrillation -hold diltiazem -hold apixaban 7. CAD -hold ticagrelor -hol blood pressure medications (losartan, lisinopril) for now given hypotension, 8. COPD without exacerbation -prn albuterol 9. GERD -PPI as above Patient is medically stable for discharge today. He has been recommended SNF and is refusing. His declines to pick him up today. Time Spent With Patient Critical Care time: I spent a total of [] minutes of critical care time on this patient's care today; this time is exclusive of procedural time.
[2021-10-27] VITALS: BP 126/60; PULSE 83; RESP 18; TEMP 36.8; O2SAT 94
[2021-10-27 02:00] VITALS: O2SAT 94
[2021-10-27 04:00] VITALS: BP 152/72; PULSE 86; RESP 16; TEMP 36.8; O2SAT 94
[2021-10-27 06:00] VITALS: O2SAT 94
[2021-10-27 08:00] VITALS: BP 143/62; PULSE 94; RESP 14; TEMP 36.4; O2SAT 96
[2021-10-27] MEDS: dilTIAZem CD 120 MG CAP PO (08:30)
--- NOTE | 2021-10-27 10:27 | PC.NURSE ---
Addendum entered by Lakisha Solis R.N. 10/27/21 10:29: Pt's Spouse Jojo has Pt's own home meds with belongings. Original Note: Pt is dressed and ready for discharge home with Spouse. No IV's. Went over d/c instructions with Pt and Spouse, discussed d/c meds, time of last dose, reviewed stroke education. Discussed restart of home meds that had been held per Dr. Armenta instructions and follow up. Both denied further questions and were taken out via w/c by SPORTS ATTORNEY to POV with all belongings.
--- NOTE | 2021-10-27 10:59 | CM.DPC ---
DCP Cont: Original plan was for patient to go to [facility], but he refused. He wants to go home. Met with patient and confirmed this, he stated, my is supposed to come and get me today. P.T. indicated, patient has improved as far as his mobility. Spoke to patient's spouse, Carmen. She stated, she had just picked up patient, and is on her way home. Asked her if she was interested in home health, for hospitalist signed face to face, and she indicated, she's not sure at this, time, would think about it. Patient has refused home health before. If no response from spouse about home health later today, she will have to obtain a new face to face with her primary care provider. P: Patient went home today with spouse. Home Health was not ordered, since spouse wanted to think about it. Kate Keane RN/Charge Preparation Technician
--- NOTE | 2021-10-29 18:41 | P.DS_ITS ---
History of Present Illness History of Present Illness Chief complaint: Dizzy/GLF Narrative: Mr. Gutierrez is a 80M with PMH CAD, COPD, aortic stenosis, afib on eliquis who presents to the hospital with bright red blood per rectum. He arrives confused. He is unable to give a detailed story. However, he has appaently been in his normal state of health until this morning when he went to the toilet and passed bright red blood. Afterwards he was dizzy upon standing and lost consciousness and fell to the floor. Unclear if he had head strike. Afterwards he had neck and back pain. He was very weak. When EMS arrived they noted a significant amount ~500cc of bright red blood in the toilet. His blood pressure was initially in the 90s systolic. In the ED workup was done, vitals noted he was afebrile, mildly tachycardic in the 90s-100s, blood pressure in the 90s systolic, O2 100% on room air. Labs notable for WBC 13.4, hgb 6.7, plts 397, BUN 32, creatinine 1.82, mag 1.5. Lactate 0.9. Trop 0.034, INR 1.9, BNP 1310. CT C-spine showed no acute process. Head CT showed no acute process. CT torso showed bilateral pulmonary infiltrates. He was given protonix, he was ordered for blood transfusion and admitted for further treatment. Discharge Providers Provider Date of admission: 10/23/21 11:39 Discharge Date: 10/27/21 Primary care physician: Glynn Stallworth MD Consults: 10/23/21 18:40 Consult to General Surgery Routine Comment: Consulting Provider: Jane Gonzales Reason for consultation: gi bleed Has provider been notified: Yes 10/23/21 18:46 Consult to Occupational Therapy Evaluate & Treat Comment: Physician Instructions: Evaluate and treat Consult to Physical Therapy Evaluate & Treat Comment: Physician Instructions: Evaluate and Treat 10/24/21 17:51 Consult to General Surgery Routine Comment: Consulting Provider: Jane Gonzales Reason for consultation: gi bleed Has provider been notified: Yes Discharge provider: Merritt Armenta MD Summary Hospital Course Discharge Diagnosis: 1. Acute GI bleed with blood loss anemia 2. MOLLY 3. Pneumonia 4. Aortic stenosis 5. Paroxysmal atrial fibrillation 6. COPD 7. CAD 8. GERD Hospital Course: Mr. Bowen was admitted with a significant GI bleed with red blood per rectum. He was initially hemoglobin of 6.7, and he was transfused with appropriate response in his hemoglobin. His blood pressure was initially low in the systolic 90s and improved to normal. He was ordered for IV PPI BID. He had MOLLY with creatinine 1.82, improved to 1.4 on discharge. He had been treated for a pneumonia prior to coming, and he completed his antibiotic course in the hospital and was asymptomatic. Surgery was consulted. However given his multiple medical comorbidities he was a clear risk to undergo scope and anesthesia. As his bleeding had stopped, surgery advised outpatient scope and to get cardiology clearance prior. He was discharged with six weeks of PPI. He had his eliquis and brillinta held in the hospital. His brillinta was restarted on discharged, and his eliquis should be started in a few days. If he were to bleed again he may need more urgent scope. He was recommended SNF but he declined. His hctz, farhana/arb were held on discharge due to episodes of hypotension and his MOLLY. He should follow closely with his PCP and recheck these labs and restart his medications as indicated. Discharge time: 35 minutes Exam Vital Signs (past 8 hours): Oxygen Delivery Method Room Air Oxygen Flow Rate 0 Narrative Exam Narrative: GEN: no acute distress CARDIOVASCULAR: Regular rate and rhythm RESPIRATORY: Clear bilaterally GASTROINTESTINAL: Abdomen soft, non-tender, nondistended, no organomegaly, normal bowel sounds EXTREMITIES: No edema, moving all extremities SKIN: superficial skin tears and bruising noted NEURO: awake and alert Objective Labs Result Diagrams: 10/26/21 05:50 10/26/21 05:50 [facility] Medical History Cervical vertebral fusion COPD (chronic obstructive pulmonary disease) Gastroesophageal reflux disease Hyperlipidemia Hypertension Surgical History History of cervical discectomy History of left-sided carotid endarterectomy S/P cervical spinal fusion Status post appendectomy Family History Father Gunshot injury Social History household members: spouse Smoking Status: Former smoker alcohol intake: current substance use type: does not use Discharge Plan Discharge Plan Patient Disposition: Home Provider Discharge Comment: Mr. Bowen came to the hospital with GI bleeding. This stopped with holding his blood thinners. He did not get a colonoscopy or endoscopy due to risk of anesthesia with his multiple medical conditions. He can start back on his ticagrelor at discharge. He can start back on his apixaban in 2 days. He had slight kidney dysfunction and low blood pressure which improved with holding his blood pressure medicine. These should be restarted over the next few days if his blood pressure remains stable. He should have his kidney function checked with his PCP within one week. He completed a course of antibiotics for pneumonia. He was recommended to go to [facility] which he declined. He will need outpatient follow up with Dr. Gonzales for an EGD or colonoscopy, but needs referral to cardiology first for clearance due to his cardiac problems. Discharge orders & Medications Prescriptions: New pantoprazole [Protonix] 40 mg tablet,delayed release (DR/EC) 40 mg PO BID Qty: 84 0RF Continued atorvastatin [Lipitor] 40 MG tablet 40 mg PO DAILY 0RF meloxicam [Mobic] 15 MG tablet 15 mg PO DAILY 0RF pantoprazole 20 MG tablet,delayed release (DR/EC) 20 mg PO DAILY 0RF albuterol sulfate 90 mcg/actuation Hfa Aerosol Inhaler 2 puff INHALATION BID PRN (Reason: Wheezing) 0RF Label Comments: bid and prn---patient states uses as rescue inhaler [id number]-[id number] [Fioricet] 50-300-40 mg Capsule 1 tab PO QID PRN (Reason: Migraine Headache) 0RF fluticasone propion-salmeterol 250-50 mcg/dose blister with device 1 inh INHALATION BID 0RF gabapentin 600 mg Tablet 600 mg PO TID 0RF diltiazem HCl 120 mg capsule,extended release 24hr 120 mg PO DAILY 0RF cholecalciferol (vitamin D3) [Vitamin D3] 25 mcg (1,000 unit) Capsule 1,000 unit PO DAILY 0RF Brilinta 90 mg Tablet 90 mg PO BID 0RF Discontinued hydrochlorothiazide 12.5 MG capsule 12.5 mg PO QDAY Qty: 90 1RF azithromycin 250 mg tablet See Rx Instructions .ROUTE .COMPLEX 0RF Label Comments: take 2 tablets by mouth TODAY then take 1 tablet DAILY FOR 4 DAYS Rx Instructions: take two tablets 10/21 then one tablet daily 25, 26, 27,28 lisinopril 20 mg tablet 20 mg PO BID 0RF Label Comments: take 1 tablet by mouth twice a day losartan 100 mg tablet 100 mg PO DAILY 0RF Eliquis 5 mg Tablet 5 mg PO BID 0RF Follow up/Referrals: [facility] Cardiology [Provider Group] (clearance for EGC/colo, has history of aortic stenosis, chf) Glynn Stallworth MD [Primary Care Provider] - Jane Gonzales MD [Physician] - (outpatient EGD/colonoscopy 2-4 weeks) Discharge Health Status Multidrug resistant organism: No MDRO Diet/Activity/Treatments Diet: Diet as Tolerated Visit Report/Discharge Packet Instructions: Gastrointestinal Bleeding Discharge Data Primary Care Provider: Glynn Stlalworth
== END 2021-10-27 10:30 | disposition home or self-care (01) | DRG 377 ==
LOC: ED 11:35 → AC 11:41
PROVIDERS: Nurse Practitioner Family; Admitting Provider Internal Medicine; Emergency Provider Emergency Medicine; PCP Internal Medicine; Referring Provider Emergency Medicine; Visit Provider Internal Medicine
DX: K92.2 Gastrointestinal hemorrhage, unspecified (principal); J18.9 Pneumonia, unspecified organism; D62 Acute posthemorrhagic anemia; N17.9 Acute kidney failure, unspecified; E86.1 Hypovolemia; E83.42 Hypomagnesemia; R41.0 Disorientation, unspecified; I25.10 Atherosclerotic heart disease of native coronary artery without angina pectoris; J44.9 Chronic obstructive pulmonary disease, unspecified; I35.0 Nonrheumatic aortic (valve) stenosis; I48.0 Paroxysmal atrial fibrillation; Z79.01 Long term (current) use of anticoagulants; K21.9 Gastro-esophageal reflux disease without esophagitis; I10 Essential (primary) hypertension; E78.5 Hyperlipidemia, unspecified; I95.9 Hypotension, unspecified; Z87.891 Personal history of nicotine dependence; Z20.822 Contact with and (suspected) exposure to COVID-19
CPT/HCPCS: 36415; 36430; 36569; 36592; 70450; 71260; 72125; 74177; 80048; 80053; 81001; 82550; 83605; 83690; 83735; 83880; 84484; 85007; 85014; 85018; 85025; 85027; 85610; 85730; 86850; 86900; 86901; 87040; 87635; 93005; 94760; 96374; 97162; 97166; 97530; 97535; 99232; 99285; 99291; C9803; P9016; C9113; J0696; J1642; J3475; Q9967

== ENCOUNTER 2021-11-06 08:27 | Emergency (ER) | payer MEDICARE, OTHER, SELFPAY ==
[2021-09-10 03:25] VITALS: PULSE 79; RESP 15; O2SAT 94
[2021-10-23 14:06] VITALS: BMI 24.1
[2021-11-06] VITALS (9 sets, daily range): BP systolic 121–141; BP diastolic 60–65; PULSE 72–85; RESP 18–22; TEMP 36.9; O2SAT 94–97; BMI 22.8
--- NOTE | 2021-11-06 08:32 | ED_ITS ---
HPI - Extremity Problem General Chief complaint: Extremity Injury, Upper Stated complaint: lt. hand/arm swelling Time Seen by Provider: 11/06/21 08:32 Source: patient and old records reviewed Mode of arrival: Ambulatory Limitations: no limitations History of Present Illness HPI Narrative: This is a pleasant 80-year-old male who comes to the emergency department with complaint of swelling of his left upper extremity. Patient states he did notice any changes until this morning. He has swelling of the forearm and into the hand. He does not appreciate swelling on the opposite side. He has some pain the midforearm with movement. He does not recall any specific trauma. Patient did have recent hospitalizations in August resulting in cardiac catheterization and stents placed as well as in September for GI bleed and transfusion. His states he did have a skin tear of the left elbow which appears healed. And there is lesion on his left forearm where he scraped the area and it blood for 3 days and was finally stopped with Band-Aid over it. There is some slight erythema at that site. Patient states it is not painful. He mentions a dog bite but that was in the right hand and his tetanus was upd ated for this several days ago. He has not had any fevers or chills. He denies any chest pain pressure. No shortness of breath. Patient has not appreciate any other rectal bleeding. No nausea or vomiting. Other GI or urinary symptoms. He states he has full range of motion he does not appreciate any weakness. Patient does not recall any additional trauma. He is on Brilinta but no other daily anticoagulants. He has a history of AFib, CHF, and Marly, fairly recent GI bleed a month ago and TIA. He denies any allergies except to codeine and does not tolerate beta-blockers well. Related Data Home Medications Medication Instructions Recorded Confirmed albuterol sulfate 90 mcg/actuation 2 puff INHALATION BID PRN 08/07/18 10/23/21 aerosol inhaler [id number] 1 tab PO QID PRN 08/07/18 10/23/21 50 mg-300 mg-40 mg capsule (Fioricet) atorvastatin 40 mg tablet (Lipitor) 40 mg PO DAILY 09/10/18 10/23/21 meloxicam 15 mg tablet (Mobic) 15 mg PO DAILY 09/10/18 10/23/21 pantoprazole 20 mg tablet,delayed 20 mg PO DAILY 09/10/18 10/23/21 release cholecalciferol (vitamin D3) 25 1,000 unit PO DAILY 10/23/21 10/23/21 mcg (1,000 unit) capsule (Vitamin D3) diltiazem HCl 120 mg 120 mg PO DAILY 10/23/21 10/23/21 capsule,extended release 24 hr fluticasone 250 mcg-salmeterol 50 1 inh INHALATION BID 10/23/21 10/23/21 mcg/dose blistr powdr for inhalation gabapentin 600 mg tablet 600 mg PO TID 10/23/21 10/23/21 ticagrelor 90 mg tablet (Brilinta) 90 mg PO BID 10/23/21 10/23/21 Previous Rx's Medication Instructions Recorded pantoprazole 40 mg tablet,delayed 40 mg PO BID #84 tab 10/27/21 release (Protonix) clindamycin HCl 300 mg capsule 300 mg PO Q6H 10 Days #40 cap 11/06/21 Allergies Allergy/AdvReac Type Severity Reaction Status Date / Time Beta-Blockers Allergy Unknown Verified 10/23/21 10:41 (Beta-Adrenergic Bloc codeine Allergy Unknown Verified 10/23/21 10:41 Review of Systems Review of Systems ROS Unobtainable: All systems reviewed & are unremarkable except as noted in HPI and below Patient History Medical History Cervical vertebral fusion COPD (chronic obstructive pulmonary disease) Gastroesophageal reflux disease Hyperlipidemia Hypertension Surgical History History of cervical discectomy History of left-sided carotid endarterectomy S/P cervical spinal fusion Status post appendectomy Family History Father Gunshot injury Social History household members: spouse Smoking Status: Former smoker alcohol intake: current substance use type: does not use Smoking Status: Former smoker alcohol intake frequency: holidays/special occasions only Substance Use Type: does not use Exam Narrative Exam Narrative: GENERAL: Alert and oriented x three, male in mild distress. HEENT: Head normocephalic, atraumatic, EOMI, pupils reactive, face symmetric, moist mucous membranes NECK: Supple, full range of motion CARDIOVASCULAR: Regular rate and rhythm without murmurs, rubs or gallops. RESPIRATORY: Breath sounds equal bilaterally, no wheezes rales or rhonchi. ABDOMEN: Soft, nontender. Normoactive bowel sounds all 4 quadrants. No guarding or rebound, rigidity, no mass : No CVA tenderness EXTREMITIES: Normal range of motion, no clubbing. Patient does have some mild to moderate edema of the left hand as well as forearm. I do not appreciate significant warmth left in comparison to right but there is an area that is scabbed mid forearm on the posterior that has some slight erythema and darkened pigmentation. Patient has full range of motion. 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 2+ radial pulse. Neurovascularly intact with cap refill less than 2 seconds in all 5 fingers. Patient has several Band-Aids on both arms which were removed. His skin tears appear to be healed over the left elbow do not appear to have any warmth, erythema or drainage. Patient's right elbow does have what appears to be a skin tear after the bandage any the healing but not a cm in size with some pink granulation tissue. NEUROLOGICAL: Cranial nerves II through XII grossly intact. Moving all extremities SKIN: Warm, dry, no petechiae, no rashes or lesions noted other than above. Initial Vital Signs Initial Vital Signs: Vital Signs Temperature 98.4 F 11/06/21 08:47 Pulse Rate 85 11/06/21 08:47 Respiratory Rate 18 11/06/21 08:47 Blood Pressure 141/65 H 11/06/21 08:47 Pulse Oximetry 95 11/06/21 08:47 Course Orders Ordered: Discontinued Medications Bacitracin (Bacitracin Oint 0.9 Gm Pckt) 1 applic TOP NOW ONE Stop: 11/06/21 11:28 Last Admin: 11/06/21 11:34 Dose: 1 applic Documented by: CARA Clindamycin Phosphate (Cleocin) 900 mg in 50 mls @ 50 mls/hr IV NOW ONE Stop: 11/06/21 09:50 Last Infusion: 11/06/21 10:48 Dose: 0 mls/hr Documented by: Admin: 11/06/21 09:18 Dose: 50 mls/hr Documented by: AAMIR Vital Signs Vital signs: Vital Signs - 8 hr 11/06/21 11:13 11/06/21 11:30 Pulse Rate 75 73 Respiratory Rate 20 20 Blood Pressure 134/62 140/64 Pulse Oximetry 96 97 MDM - Extremity (Nontraumatic) Lab Data Result diagrams: 11/06/21 06:06 11/06/21 06:06 Labs: Lab Results 11/06/21 11/06/21 Range/Units 06:06 06:06 WBC 8.5 (4.5-11.0) X10^3/uL RBC 3.28 L (4.5-5.9) X10^6/uL Hgb 9.4 L (13.5-17.5) g/dL Hct 28.6 L (41-53) % MCV 87.2 (80-100) fL MCH 28.7 (26-34) PG MCHC 32.9 (30-36) % RDW 17.0 H (11.6-14.8) % Plt Count 244 (150-400) X10^3/uL Neut % (Auto) 76.3 H (50-75) % Lymph % (Auto) 7.9 L (25-40) % Cotton % (Auto) 7.1 (3-14) % Eos % (Auto) 5.5 H (2-4) % Baso % (Auto) 3.2 H (0-2) % Neut # (Auto) 6500 (1934-3632) /uL Lymph # (Auto) 700 L (0614-5981) /uL Cotton # (Auto) 600 (0-900) /uL Eos # (Auto) 500 H (0-450) /uL Baso # (Auto) 300 H (0-100) /uL Sodium 140 (137-145) mmol/L Potassium 3.4 (3.4-5.1) mmol/L Chloride 110 H (98-107) mmol/L Carbon Dioxide 26 (22-32) mmol/L BUN 13 (9-20) mg/dL Creatinine 1.38 H (0.66-1.25) mg/dL Estimated GFR 49.7 L (>60) mL/min BUN/Creatinine Ratio 9.4 (6-22) Glucose 106 (80-110) mg/dL Calcium 9.2 (8.4-10.2) mg/dL Imaging Data US - DVT: Radiologist's Impression: [address] [address] Ultrasound Report Signed Patient: Flavio Bowen MR#: [id number] : 1940 Acct:[id number] Age/Sex: 80 / M Date of Service: 11/06/21 Loc: ED Accession Number: [id number] ?? Procedure: US periph venous up extrem lt Ordering Provider: Giselle Forte D.O. PROCEDURE:? US PERIPH VENOUS UP EXTREM LT ? INDICATIONS:? SWELLING. ? TECHNIQUE:? Real-time imaging, as well as color and pulse Doppler interrogation, was performed of the left upper extremity deep veins from the inferior neck to the antecubital fossa.? ? COMPARISON:? None. ? FINDINGS:? The internal jugular vein, visualized portions of the subclavian vein, axillary, and brachial veins are free of intraluminal thrombus.? Where physically possible, the veins are normally compressible.? Color and pulse Doppler demonstrate normal intraluminal flow, with expected phasicity and pulsatility.? Additional scanning of the cephalic and basilic veins of the superficial system demonstrate normal compressibility, without thrombus.? Mild nonspecific edema noted within the region of concern within the left wrist and hand.? ? IMPRESSION:? ? No evidence of right upper extremity deep venous thrombosis. ? Mild nonspecific soft tissue edema of the wrist and hand. ? ? Dictated by: David Davey D.O. on 11/06/2021 at 9:26 ? ? Approved by: David Davey D.O. on 11/06/2021 at 9:29?? MDM Narrative Medical decision making narrative: This is a 80-year-old male comes emergency department with complaint of left upper extremity swelling. Labs are reassuring. He appears to have some cellulitis but has a recent hospitalization so did DVT ultrasound of the upper extremity was included. This is DVT ultrasound is negative. Patient was given a dose of IV clindamycin. Labs reviewed with patient. He feels comfortable returning home on p.o. antibiotics with return precautions. His wounds on his left arm or healing appropriately. He has a small wound on his right elbow bandage was changed and wound care directions were discussed. Discharge Plan Departure Patient Disposition: Home Clinical Impression: Cellulitis of arm, left Instructions: DI for Cellulitis -- Adult Activity Restrictions/Additional Instructions: Follow-up in the next week for recheck. You appear to have an infection in your left upper extremity. Take antibiotics until completely gone. Prescription sent to [facility] in [place] For the wound on her right elbow. Wound Care: Keep wound(s) clean and dry. Wash daily with soap and water only. Do not use over the counter products (alcohol or peroxide)on the wounds unless instructed by a physician. You may use a little topical triple antibiotic ointment to the affected area twice daily. If wound condition worsens (increased/expanding redness, developing fluid blisters, or worsening pain), either contact your doctor for an urgent re- assessment , or return to the Emergency Department. Please return for fevers increasing swelling, redness or warmth, new pain, weakness, difficulty with movement or other new or concerning symptoms. Prescriptions: New clindamycin HCl 300 mg capsule 300 mg PO Q6H 10 Days Qty: 40 0RF No Action atorvastatin [Lipitor] 40 MG tablet 40 mg PO DAILY 0RF meloxicam [Mobic] 15 MG tablet 15 mg PO DAILY 0RF pantoprazole 20 MG tablet,delayed release (DR/EC) 20 mg PO DAILY 0RF albuterol sulfate 90 mcg/actuation Hfa Aerosol Inhaler 2 puff INHALATION BID PRN (Reason: Wheezing) 0RF Label Comments: bid and prn---patient states uses as rescue inhaler [id number] [Fioricet] 50-300-40 mg Capsule 1 tab PO QID PRN (Reason: Migraine Headache) 0RF fluticasone propion-salmeterol 250-50 mcg/dose blister with device 1 inh INHALATION BID 0RF gabapentin 600 mg Tablet 600 mg PO TID 0RF diltiazem HCl 120 mg capsule,extended release 24hr 120 mg PO DAILY 0RF cholecalciferol (vitamin D3) [Vitamin D3] 25 mcg (1,000 unit) Capsule 1,000 unit PO DAILY 0RF Brilinta 90 mg Tablet 90 mg PO BID 0RF pantoprazole [Protonix] 40 mg tablet,delayed release (DR/EC) 40 mg PO BID Qty: 84 0RF Referrals: Glynn Stallworth MD [Primary Care Provider] -
--- NOTE | 2021-11-06 08:49 | DI.US.S_ITS ---
PROCEDURE: US PERIPH VENOUS UP EXTREM LT INDICATIONS: SWELLING. TECHNIQUE: Real-time imaging, as well as color and pulse Doppler interrogation, was performed of the left upper extremity deep veins from the inferior neck to the antecubital fossa. COMPARISON: None. FINDINGS: The internal jugular vein, visualized portions of the subclavian vein, axillary, and brachial veins are free of intraluminal thrombus. Where physically possible, the veins are normally compressible. Color and pulse Doppler demonstrate normal intraluminal flow, with expected phasicity and pulsatility. Additional scanning of the cephalic and basilic veins of the superficial system demonstrate normal compressibility, without thrombus. Mild nonspecific edema noted within the region of concern within the left wrist and hand. IMPRESSION: No evidence of right upper extremity deep venous thrombosis. Mild nonspecific soft tissue edema of the wrist and hand. Dictated by: David Davey D.O. on 11/06/2021 at 9:26 Approved by: David Davey D.O. on 11/06/2021 at 9:29
[2021-11-06 09:16] LABS: Add Manual Diff / Slide Review NO; Basophils Absolute Auto 300 /uL (0-100); Basophils Percent Auto 3.2 % (0-2); Eosinophils Absolute Auto 500 /uL (0-450); Eosinophils Percent Auto 5.5 % (2-4); Hematocrit 28.6 % (41-53); Hemoglobin 9.4 g/dL (13.5-17.5); Lymphocytes Absolute Auto 700 /uL (1100-4500); Lymphocytes Percent Auto 7.9 % (25-40); Mean Corpuscular HGB Conc 32.9 % (30-36); Mean Corpuscular Hemoglobin 28.7 PG (26-34); Mean Corpuscular Volume 87.2 fL (80-100); Monocytes Absolute Auto 600 /uL (0-900); Monocytes Percent Auto 7.1 % (3-14); Neutrophils Absolute Auto 6500 /uL (1500-7000); Neutrophils Percent Auto 76.3 % (50-75); Platelet Count 244 X10^3/uL (150-400); Red Blood Cell Count 3.28 X10^6/uL (4.5-5.9); White Blood Cell Count 8.5 X10^3/uL (4.5-11.0)
[2021-11-06] MEDS: CLINDAMYCIN 900 MG/50 ML PIGGYBACK 50 MG IV (09:18)
[2021-11-06 09:37] LABS: BUN Creatinine Ratio 9.4 (6-22); Blood Urea Nitrogen 13 mg/dL (9-20); Calcium 9.2 mg/dL (8.4-10.2); Carbon Dioxide 26 mmol/L (22-32); Chloride 110 mmol/L (98-107); Estimated Glomerular Filt Rate 49.7 mL/min (>60); Glucose 106 mg/dL (80-110); HEMOLYSIS 18 (0-50); Potassium 3.4 mmol/L (3.4-5.1); Sodium 140 mmol/L (137-145)
[2021-11-06] MEDS: BACITRACIN OINT 0.9 GM PCKT 1 APPLIC TOP (11:34)
== END 2021-11-06 12:13 | disposition home or self-care (01) ==
PROVIDERS: Emergency Provider Emergency Medicine; PCP Internal Medicine
DX: L03.114 Cellulitis of left upper limb (principal)
CPT/HCPCS: 36415; 80048; 85025; 87040; 93971; 96365; 99284

== ENCOUNTER → 2021-11-16 12:23 | Outpatient (CLI) | payer MEDICARE, OTHER, SELFPAY ==
[2021-09-10 03:25] VITALS: PULSE 79; RESP 15; O2SAT 94
[2021-10-23 14:06] VITALS: BMI 24.1
[2021-11-16 13:41] LABS: Add Manual Diff / Slide Review NO; Basophils Absolute Auto 200 /uL (0-100); Eosinophils Absolute Auto 500 /uL (0-450); Eosinophils Percent Auto 7.3 % (2-4); Hematocrit 29.9 % (41-53); Hemoglobin 9.6 g/dL (13.5-17.5); Lymphocytes Absolute Auto 1000 /uL (1100-4500); Lymphocytes Percent Auto 13.6 % (25-40); Mean Corpuscular HGB Conc 32.1 % (30-36); Mean Corpuscular Volume 87.4 fL (80-100); Monocytes Absolute Auto 500 /uL (0-900); Neutrophils Absolute Auto 5300 /uL (1500-7000); Neutrophils Percent Auto 70.1 % (50-75); Platelet Count 212 X10^3/uL (150-400); Red Blood Cell Count 3.42 X10^6/uL (4.5-5.9); Red Cell Distribution Width 16.6 % (11.6-14.8); White Blood Cell Count 7.5 X10^3/uL (4.5-11.0)
[2021-11-16 14:05] LABS: INR 1.1 (0.9-1.3); Prothrombin Time 12.1 SECONDS (10.1-12.7)
== END ==
PROVIDERS: PCP Internal Medicine; Referring Provider Internal Medicine Gastroenterology; Visit Provider Internal Medicine Gastroenterology
DX: K62.5 Hemorrhage of anus and rectum (principal); D50.0 Iron deficiency anemia secondary to blood loss (chronic)
CPT/HCPCS: 36415; 85025; 85610

== ENCOUNTER 2021-11-28 21:42 | Inpatient (IN) | payer MEDICARE, OTHER, SELFPAY ==
[2021-09-10 03:25] VITALS: PULSE 79; RESP 15; O2SAT 94
[2021-10-23 14:06] VITALS: BMI 24.1
[2021-11-28] VITALS (7 sets, daily range): BP systolic 114–172; BP diastolic 60–73; PULSE 74–90; RESP 17–25; TEMP 36.3; O2SAT 95–98; BMI 23.1
[2021-11-28 22:53] LABS: Add Manual Diff / Slide Review NO; Basophils Absolute Auto 200 /uL (0-100); Basophils Percent Auto 1.9 % (0-2); Eosinophils Absolute Auto 300 /uL (0-450); Eosinophils Percent Auto 3.2 % (2-4); Hematocrit 26.2 % (41-53); Hemoglobin 8.6 g/dL (13.5-17.5); Lymphocytes Absolute Auto 1100 /uL (1100-4500); Lymphocytes Percent Auto 13.1 % (25-40); Mean Corpuscular HGB Conc 32.9 % (30-36); Mean Corpuscular Hemoglobin 27.6 PG (26-34); Monocytes Absolute Auto 600 /uL (0-900); Monocytes Percent Auto 7.6 % (3-14); Neutrophils Absolute Auto 6000 /uL (1500-7000); Neutrophils Percent Auto 74.2 % (50-75); Platelet Count 289 X10^3/uL (150-400); Red Blood Cell Count 3.12 X10^6/uL (4.5-5.9); White Blood Cell Count 8.1 X10^3/uL (4.5-11.0)
[2021-11-28 22:55] LABS: INR 1.2 (0.9-1.3); Prothrombin Time 13.3 SECONDS (10.1-12.7)
[2021-11-28 23:02] LABS: Alanine Aminotransferase 11 IU/L (<50); Albumin 3.8 g/dL (3.5-5.0); Albumin Globulin Ratio 1.3 (1.0-2.8); Alkaline Phosphatase 88 U/L (38-126); Aspartate Aminotransferase 24 IU/L (17-59); BUN Creatinine Ratio 13.4 (6-22); Bilirubin Total 0.5 mg/dL (0.2-1.3); Blood Urea Nitrogen 20 mg/dL (9-20); Calcium 9.7 mg/dL (8.4-10.2); Carbon Dioxide 28 mmol/L (22-32); Chloride 105 mmol/L (98-107); Estimated Glomerular Filt Rate 45.4 mL/min (>60); Globulin 2.9 g/dL (1.7-4.1); Glucose 119 mg/dL (80-110); HEMOLYSIS < 15 (0-50); Potassium 3.5 mmol/L (3.4-5.1); Sodium 139 mmol/L (137-145); Total Protein 6.7 g/dL (6.3-8.2)
--- NOTE | 2021-11-28 23:22 | DI.CT.S_ITS ---
PROCEDURE: CT ABDOMEN PELVIS W CON INDICATIONS: lower abdomen pain and bleeding after recent colonoscopy TECHNIQUE: After the administration of IV contrast, axial sections were acquired from the lung bases to the pubic symphysis. Coronal and sagittal reformats were performed. For radiation dose reduction, the following was used: automated exposure control, adjustment of mA and/or kV according to patient size. COMPARISON: [facility], CT, CT ABDOMEN PELVIS W CON, 06/13/2019, 11:05. [facility], CT, CT CHEST ABD PEL W CON, 10/23/2021, 8:59. FINDINGS: Image quality: Excellent. Lung bases: Patchy nodular opacities are present within the bases the largest in the left base measuring 2.1 cm. This was present on 10/23/2021 and although persistent, has improved. Heart: No significant findings. ABDOMEN: Liver: Hepatic steatosis is present. Gallbladder: Dependent stones are noted within the gallbladder lumen. No wall thickening. Biliary ducts: Unremarkable. Pancreas: Unremarkable. Spleen: Unremarkable. Adrenal Glands: Unremarkable. Kidneys and Ureters: Kidneys are atrophic without obstruction. Stomach and Bowel: Stomach, small bowel loops, and colon are unremarkable. Colonic diverticular present. Peritoneum: No abnormal intraperitoneal fluid. No free air. Ventral Wall: No hernia. Abdominal Nodes: No retroperitoneal or mesenteric adenopathy by size criteria. Vessels: Aorta demonstrates prominent atherosclerotic change within the abdomen and pelvis, extending into the iliac arteries. PELVIS: Pelvic Organs: Prostate gland is enlarged. Bladder: Unremarkable. Pelvic Nodes: No enlarged lymph nodes. Miscellaneous: Fat containing inguinal hernias are present. Bones: Unremarkable. IMPRESSION: No acute intra-abdominal or pelvic process. Diverticulosis. Improved although persistent appearance bibasilar pulmonary opacities. Recommend continued interval follow-up to document resolution. These likely represent infectious/inflammatory sequela. However, follow-up is recommended to exclude presence of underlying mass. Dictated by: Shraddha Burns M.D. on 11/28/2021 at 23:59 Approved by: Shraddha Burns M.D. on 11/29/2021 at 0:04
--- NOTE | 2021-11-28 23:54 | ED.GIBLEED ---
HPI - GI Bleed General Chief complaint: GI Bleed Stated complaint: bloody stool Time Seen by Provider: 11/28/21 21:44 Source: patient and family Mode of arrival: Ambulatory History of Present Illness HPI Narrative: 81-year-old male with history of AFib, coronary artery disease, CHF, kidney injury and GI bleeding presents with his in the chief complaint of painless bright red bleeding per rectum over the course of the day. He is not dizzy nor weak or lightheaded. He takes no anticoagulants. He denies any fever or chills. He recently had a colonoscopy at an outside hospital. He denies any recent antibiotics. He denies any trauma or injury. Related Data Home Medications Medication Instructions Recorded Confirmed albuterol sulfate 90 mcg/actuation 2 puff INHALATION BID PRN 08/07/18 10/23/21 aerosol inhaler olxyhsxfhl-tpvvkuqjuxevc-jwcidfxn 1 tab PO QID PRN 08/07/18 10/23/21 50 mg-300 mg-40 mg capsule (Fioricet) atorvastatin 40 mg tablet (Lipitor) 40 mg PO DAILY 09/10/18 10/23/21 meloxicam 15 mg tablet (Mobic) 15 mg PO DAILY 09/10/18 10/23/21 pantoprazole 20 mg tablet,delayed 20 mg PO DAILY 09/10/18 10/23/21 release cholecalciferol (vitamin D3) 25 1,000 unit PO DAILY 10/23/21 10/23/21 mcg (1,000 unit) capsule (Vitamin D3) diltiazem HCl 120 mg 120 mg PO DAILY 10/23/21 10/23/21 capsule,extended release 24 hr fluticasone 250 mcg-salmeterol 50 1 inh INHALATION BID 10/23/21 10/23/21 mcg/dose blistr powdr for inhalation gabapentin 600 mg tablet 600 mg PO TID 10/23/21 10/23/21 ticagrelor 90 mg tablet (Brilinta) 90 mg PO BID 10/23/21 10/23/21 Previous Rx's Medication Instructions Recorded pantoprazole 40 mg tablet,delayed 40 mg PO BID #84 tab 10/27/21 release (Protonix) Allergies Allergy/AdvReac Type Severity Reaction Status Date / Time Beta-Blockers Allergy Unknown Verified 10/23/21 10:41 (Beta-Adrenergic Bloc codeine Allergy Unknown Verified 10/23/21 10:41 Review of Systems Review of Systems Narrative: GENERAL: Denies chills, fatigue, malaise, fever, sweats. HEENT: Denies sinus pain, ear pain, sore throat, difficulty swallowing, dizziness. RESPIRATORY: Denies dyspnea, cough, wheezing, hemoptysis, sputum. CARDIOVASCULAR: Denies chest pain, palpitations, orthopnea, edema, GASTROINTESTINAL: See HPI : Denies dysuria, frequency, incontinence, hematuria, urinary retention. MUSCULOSKELETAL: denies weakness, joint pain, or bony pain SKIN: Denies rash, skin lesions, or other NEUROLOGIC: Denies weakness, headache, numbness, change in speech, confusion, seizures, incoordination. PSYCHIATRIC: No concerning psychosocial issues. 12 point review of systems is negative except for those stated above Patient History Medical History Cervical vertebral fusion COPD (chronic obstructive pulmonary disease) Gastroesophageal reflux disease Hyperlipidemia Hypertension Surgical History History of cervical discectomy History of left-sided carotid endarterectomy S/P cervical spinal fusion Status post appendectomy Family History Father Gunshot injury Social History household members: spouse Smoking Status: Former smoker alcohol intake: current substance use type: does not use Smoking Status: Former smoker alcohol intake frequency: a few times a week Alcohol type: beer and wine Substance Use Type: does not use Exam Narrative Exam Narrative: GENERAL: [81] year old patient appears stated age. Well-developed patient, in mild distress. HEAD: Atraumatic. Normocephalic. EYES: Pupils equal round and reactive. Extraocular motions intact. No scleral icterus. No injection or drainage. ENT: Nose without bleeding, purulent drainage. Throat without erythema, tonsillar hypertrophy or exudate. Airway patent. NECK: Trachea midline. Non tender CARDIOVASCULAR: Regular rate and rhythm without murmurs, gallops, or rubs. RESPIRATORY: Clear to auscultation. Breath sounds equal bilaterally. No wheezes, rales, or rhonchi. GASTROINTESTINAL: Abdomen soft, non-tender, nondistended. Increased bowel sounds in all 4 quadrants RECTAL: No pain, fissure, hemorrhoid, scant stringy blood EXTREMITIES: No edema or joint tenderness. BACK: Nontender without deformity or crepitance. No flank tenderness. NEURO: AOx3. SKIN: No rash or erythema of visible areas Initial Vital Signs Initial Vital Signs: Vital Signs Temperature 97.4 F L 11/28/21 21:58 Pulse Rate 90 11/28/21 21:58 Respiratory Rate 17 11/28/21 21:58 Blood Pressure 114/61 11/28/21 21:58 Pulse Oximetry 97 11/28/21 21:58 Course Orders Ordered: Acetaminophen (Acetaminophen 325 Mg Tablet) 650 mg PO Q6HR PRN PRN Reason: Fever/Mild Pain (1-3) Fluconazole (Fluconazole 100 Mg Tablet) 200 mg PO DAILY [facility] Stop: 12/08/21 12:00 Last Admin: 11/29/21 10:02 Dose: 200 mg Documented by: AFEWING Ondansetron HCl (Ondansetron 4 Mg/2 Ml Inj) 4 mg IV Q8HR PRN PRN Reason: Nausea And Vomiting Pantoprazole Sodium (Pantoprazole 40 Mg Vial) 40 mg IV BID [facility] Last Admin: 11/29/21 10:02 Dose: 40 mg Documented by: AFEWING Discontinued Medications Ondansetron HCl (Ondansetron 4 Mg/2 Ml Inj) 4 mg IV NOW ONE Stop: 11/28/21 22:00 Last Admin: 11/29/21 05:55 Dose: Not Given Documented by: ELMO Pantoprazole Sodium (Pantoprazole 40 Mg Vial) 40 mg IV NOW ONE Stop: 11/29/21 02:32 Last Admin: 11/29/21 03:14 Dose: 40 mg Documented by: ELMO Consultations Consultation #1: Discussed with on-call surgery Dr. Corbett, he recommends admission to hospitalist team consultation from them if and when needed, trending H&H, Protonix Vital Signs Vital signs: Vital Signs - 8 hr 11/28/21 21:58 11/28/21 22:09 11/28/21 22:10 Temperature 97.4 F L Pulse Rate 90 86 84 Respiratory Rate 17 24 18 Blood Pressure 114/61 172/73 H Pulse Oximetry 97 97 98 11/28/21 22:30 11/28/21 22:41 11/28/21 23:00 Temperature Pulse Rate 80 80 75 Respiratory Rate 19 25 H 17 Blood Pressure 136/60 145/65 H Pulse Oximetry 95 96 11/28/21 23:30 11/29/21 00:00 11/29/21 00:30 Temperature Pulse Rate 74 70 71 Respiratory Rate 23 15 15 Blood Pressure 132/61 Pulse Oximetry 95 95 96 11/29/21 01:00 11/29/21 01:30 11/29/21 02:00 Temperature Pulse Rate 77 74 67 Respiratory Rate 23 25 H 16 Blood Pressure Pulse Oximetry 96 96 95 11/29/21 02:30 11/29/21 03:00 11/29/21 03:17 Temperature Pulse Rate 70 68 69 Respiratory Rate 17 14 19 Blood Pressure 139/63 Pulse Oximetry 96 95 96 11/29/21 03:30 11/29/21 04:00 11/29/21 04:30 Temperature Pulse Rate 66 66 70 Respiratory Rate 14 15 16 Blood Pressure 136/63 123/57 L 137/61 Pulse Oximetry 96 95 96 11/29/21 05:00 Temperature Pulse Rate 67 Respiratory Rate 16 Blood Pressure 143/65 H Pulse Oximetry 96 MDM - GI Bleed Lab Data Result diagrams: 11/29/21 09:05 11/29/21 09:05 Labs: Lab Results 11/28/21 11/28/21 11/28/21 Range/Units 22:35 22:35 22:35 WBC 8.1 (4.5-11.0) X10^3/uL RBC 3.12 L (4.5-5.9) X10^6/uL Hgb 8.6 L (13.5-17.5) g/dL Hct 26.2 L (41-53) % MCV 84.0 (80-100) fL MCH 27.6 (26-34) PG MCHC 32.9 (30-36) % RDW 15.0 H (11.6-14.8) % Plt Count 289 (150-400) X10^3/uL Neut % (Auto) 74.2 (50-75) % Lymph % (Auto) 13.1 L (25-40) % [place] % (Auto) 7.6 (3-14) % Eos % (Auto) 3.2 (2-4) % Baso % (Auto) 1.9 (0-2) % Neut # (Auto) 6000 (0282-0366) /uL Lymph # (Auto) 1100 (4193-7857) /uL [place] # (Auto) 600 (0-900) /uL Eos # (Auto) 300 (0-450) /uL Baso # (Auto) 200 H (0-100) /uL PT (10.1-12.7) SECONDS INR (0.9-1.3) Sodium 139 (137-145) mmol/L Potassium 3.5 (3.4-5.1) mmol/L Chloride 105 (98-107) mmol/L Carbon Dioxide 28 (22-32) mmol/L BUN 20 (9-20) mg/dL Creatinine 1.49 H (0.66-1.25) mg/dL Estimated GFR 45.4 L (>60) mL/min BUN/Creatinine Ratio 13.4 (6-22) Glucose 119 H (80-110) mg/dL Calcium 9.7 (8.4-10.2) mg/dL Total Bilirubin 0.5 (0.2-1.3) mg/dL AST 24 (17-59) IU/L ALT 11 (<50) IU/L Alkaline Phosphatase 88 (38-126) U/L Total Protein 6.7 (6.3-8.2) g/dL Albumin 3.8 (3.5-5.0) g/dL Globulin 2.9 (1.7-4.1) g/dL Albumin/Globulin Ratio 1.3 (1.0-2.8) Blood Type O Positive Antibody Screen Negative 11/28/21 11/29/21 Range/Units 22:35 02:00 WBC (4.5-11.0) X10^3/uL RBC (4.5-5.9) X10^6/uL Hgb 7.5 L (13.5-17.5) g/dL Hct 23.3 L (41-53) % MCV (80-100) fL MCH (26-34) PG MCHC (30-36) % RDW (11.6-14.8) % Plt Count (150-400) X10^3/uL Neut % (Auto) (50-75) % Lymph % (Auto) (25-40) % [place] % (Auto) (3-14) % Eos % (Auto) (2-4) % Baso % (Auto) (0-2) % Neut # (Auto) (3449-6806) /uL Lymph # (Auto) (3663-9441) /uL [place] # (Auto) (0-900) /uL Eos # (Auto) (0-450) /uL Baso # (Auto) (0-100) /uL PT 13.3 H (10.1-12.7) SECONDS INR 1.2 (0.9-1.3) Sodium (137-145) mmol/L Potassium (3.4-5.1) mmol/L Chloride (98-107) mmol/L Carbon Dioxide (22-32) mmol/L BUN (9-20) mg/dL Creatinine (0.66-1.25) mg/dL Estimated GFR (>60) mL/min BUN/Creatinine Ratio (6-22) Glucose (80-110) mg/dL Calcium (8.4-10.2) mg/dL Total Bilirubin (0.2-1.3) mg/dL AST (17-59) IU/L ALT (<50) IU/L Alkaline Phosphatase (38-126) U/L Total Protein (6.3-8.2) g/dL Albumin (3.5-5.0) g/dL Globulin (1.7-4.1) g/dL Albumin/Globulin Ratio (1.0-2.8) Blood Type Antibody Screen Imaging Data CT scan - abdomen/pelvis: Radiologist's Impression: Launch?[address] [address] [address] Scan Report Signed Patient: Flavio Bowen MR#: [id number] : 1940 Acct:[id number] Age/Sex: 81 / M Date of Service: 11/28/21 Loc: ED Accession Number: [id number] ?? Procedure: CT abdomen pelvis w con Ordering Provider: Jf Lim D.O. PROCEDURE:? CT ABDOMEN PELVIS W CON ? INDICATIONS:? lower abdomen pain and bleeding after recent colonoscopy ? TECHNIQUE:? After the administration of IV contrast, axial sections were acquired from the lung bases to the pubic symphysis.? Coronal and sagittal reformats were performed.? For radiation dose reduction, the following was used:? automated exposure control, adjustment of mA and/or kV according to patient size. ? COMPARISON:? [facility], CT, CT ABDOMEN PELVIS W CON, 06/13/2019, 11:05.? [facility], CT, CT CHEST ABD PEL W CON, 10/23/2021, 8:59. ? FINDINGS:? Image quality:? Excellent.? ? Lung bases:? Patchy nodular opacities are present within the bases the largest in the left base measuring 2.1 cm.? This was present on 10/23/2021 and although persistent, has improved.? Heart:? No significant findings. ? ? ABDOMEN: Liver:? Hepatic steatosis is present. Gallbladder:? Dependent stones are noted within the gallbladder lumen.? No wall thickening. Biliary ducts:? Unremarkable.? ? Pancreas:? Unremarkable.? ? Spleen:? Unremarkable.? ? Adrenal Glands:? Unremarkable.? ? Kidneys and Ureters:? Kidneys are atrophic without obstruction. ? Stomach and Bowel:? Stomach, small bowel loops, and colon are unremarkable.? Colonic diverticular present. Peritoneum:? No abnormal intraperitoneal fluid.? No free air.? ? Ventral Wall: ? No hernia.? Abdominal Nodes:? No retroperitoneal or mesenteric adenopathy by size criteria.? Vessels:? Aorta demonstrates prominent atherosclerotic change within the abdomen and pelvis, extending into the iliac arteries. ? PELVIS: Pelvic Organs:? Prostate gland is enlarged. Bladder:? Unremarkable.? ? Pelvic Nodes: No enlarged lymph nodes.? Miscellaneous:? Fat containing inguinal hernias are present. ? Bones:? Unremarkable.? IMPRESSION:? ? No acute intra-abdominal or pelvic process. ? Diverticulosis. ? Improved although persistent appearance bibasilar pulmonary opacities.? Recommend continued interval follow-up to document resolution.? These likely represent infectious/inflammatory sequela.? However, follow-up is recommended to exclude presence of underlying mass. ? ? Dictated by: Shraddha Burns M.D. on 11/28/2021 at 23:59 ? ? Approved by: Shraddha Burns M.D. on 11/29/2021 at 0:04 ? Discharge Plan Departure Patient Disposition: Admitted as Observation Clinical Impression: Acute lower gastrointestinal bleeding Admit Date/Time: 11/29/21 05:54 Admit Provider: Merritt Armenta
[2021-11-29] VITALS (24 sets, daily range): BP systolic 123–161; BP diastolic 45–67; PULSE 66–91; RESP 14–25; TEMP 36–36.9; O2SAT 95–98; BMI 20.6
[2021-11-29 02:10] LABS: Hematocrit 23.3 % (41-53); Hemoglobin 7.5 g/dL (13.5-17.5)
[2021-11-29] MEDS: PANTOPRAZOLE 40 MG VIAL IV ×3 (03:14→21:17)
--- NOTE | 2021-11-29 06:20 | P.HP_ITS ---
History of Present Illness History of Present Illness Date Patient Seen: 11/29/21 Time Patient Seen: 06:00 Chief complaint: bloody stool Narrative: Mr. Gutierrez is a 80M with PMH CAD, COPD, aortic stenosis, afib who presents to the hospital with bright red blood per rectum. He was recently admitted to the hospital with a similar presentation. He was transfused, and discharged. There was a consideration for scope at that time. However due to medical comorbidities he was though to be high risk. His bleeding stopped in the hospital with stopping his brilinta and eliquis and he was discharged home. He apparently this past did get EGD and colonoscopy. He is not clear of what was found. We were able to get records which showed whitish plague in the esophagus concerning for possible raissa esophagitis which was biopsied. Mild nonerosive gastritis that was biopsied. 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 It is unclear if the patient was taking his anticoagulation. Today he noticed urgency to have a bowel movement and had a large bright red blood per rectum. He had two further bloody stools. He had no abdominal pain. He has no chest pain, shortness of breath, dizziness, lightheadedness. In the ED workup was done, vitals noted he was afebrile, no tachycardia, blood pressure normal, O2 96% on room air. Labs notable for WBC 8.1, hgb 7.5, plts 289, BUN 20, creatinine 1.49. CT abdomen showed persistent bliateral pulmonary opacitities, he had no significant abdominal issues. He was ordered for protonix and he was admitted for further treatment. Patient History Medical History Cervical vertebral fusion COPD (chronic obstructive pulmonary disease) Gastroesophageal reflux disease Hyperlipidemia Hypertension Surgical History History of cervical discectomy History of left-sided carotid endarterectomy S/P cervical spinal fusion Status post appendectomy Family & Social History Family History Father Gunshot injury Social History: household members spouse Safety & Behavioral: Feels Safe in Current Yes Environment Tobacco & Substance use: Smoking Status Former smoker alcohol intake current alcohol intake frequency a few times a week Substance Use Type does not use Meds Home Medications and Allergies Home Medications Medication Instructions Recorded Confirmed Type albuterol sulfate 90 mcg/actuation 2 puff INHALATION BID PRN 08/07/18 10/23/21 History aerosol inhaler mkcgvgycpl-rkldijgrvvhqk-muhknuqj 1 tab PO QID PRN 08/07/18 10/23/21 History 50 mg-300 mg-40 mg capsule (Fioricet) atorvastatin 40 mg tablet (Lipitor) 40 mg PO DAILY 09/10/18 10/23/21 History meloxicam 15 mg tablet (Mobic) 15 mg PO DAILY 09/10/18 10/23/21 History pantoprazole 20 mg tablet,delayed 20 mg PO DAILY 09/10/18 10/23/21 History release cholecalciferol (vitamin D3) 25 1,000 unit PO DAILY 10/23/21 10/23/21 History mcg (1,000 unit) capsule (Vitamin D3) diltiazem HCl 120 mg 120 mg PO DAILY 10/23/21 10/23/21 History capsule,extended release 24 hr fluticasone 250 mcg-salmeterol 50 1 inh INHALATION BID 10/23/21 10/23/21 History mcg/dose blistr powdr for inhalation gabapentin 600 mg tablet 600 mg PO TID 10/23/21 10/23/21 History ticagrelor 90 mg tablet (Brilinta) 90 mg PO BID 10/23/21 10/23/21 History pantoprazole 40 mg tablet,delayed 40 mg PO BID #84 tab 10/27/21 Rx release (Protonix) Allergies Allergy/AdvReac Type Severity Reaction Status Date / Time Beta-Blockers Allergy Unknown Verified 10/23/21 10:41 (Beta-Adrenergic Bloc codeine Allergy Unknown Verified 10/23/21 10:41 Review of Systems Review of Systems Narrative: 14 systems reviewed and negative aside from HPI Exam Vital Signs (past 8 hours): - 11/28/21 22:30 11/28/21 22:41 11/28/21 23:00 Pulse Rate 80 80 75 Respiratory Rate 19 25 H 17 Blood Pressure 136/60 145/65 H Pulse Oximetry 95 96 11/28/21 23:30 11/29/21 00:00 11/29/21 00:30 Pulse Rate 74 70 71 Respiratory Rate 23 15 15 Blood Pressure 132/61 Pulse Oximetry 95 95 96 11/29/21 01:00 11/29/21 01:30 11/29/21 02:00 Pulse Rate 77 74 67 Respiratory Rate 23 25 H 16 Blood Pressure Pulse Oximetry 96 96 95 11/29/21 02:30 11/29/21 03:00 11/29/21 03:17 Pulse Rate 70 68 69 Respiratory Rate 17 14 19 Blood Pressure 139/63 Pulse Oximetry 96 95 96 11/29/21 03:30 11/29/21 04:00 11/29/21 04:30 Pulse Rate 66 66 70 Respiratory Rate 14 15 16 Blood Pressure 136/63 123/57 L 137/61 Pulse Oximetry 96 95 96 11/29/21 05:00 Pulse Rate 67 Respiratory Rate 16 Blood Pressure 143/65 H Pulse Oximetry 96 Oxygen Delivery Method Room Air Narrative Exam Narrative: GEN: no acute distress CARDIOVASCULAR: Regular rate and rhythm RESPIRATORY: Clear bilaterally GASTROINTESTINAL: Abdomen soft, non-tender, nondistended, no organomegaly, normal bowel sounds EXTREMITIES: No edema, moving all extremities SKIN: superficial skin tears and bruising noted NEURO: awake and alert Objective Labs Result Diagrams: 11/29/21 02:00 11/28/21 22:35 Labs: Laboratory Results - last 24 hr 11/28/21 11/28/21 11/28/21 22:35 22:35 22:35 WBC 8.1 RBC 3.12 L Hgb 8.6 L Hct 26.2 L MCV 84.0 MCH 27.6 MCHC 32.9 RDW 15.0 H Plt Count 289 Neut % (Auto) 74.2 Lymph % (Auto) 13.1 L [place] % (Auto) 7.6 Eos % (Auto) 3.2 Baso % (Auto) 1.9 Neut # (Auto) 6000 Lymph # (Auto) 1100 [place] # (Auto) 600 Eos # (Auto) 300 Baso # (Auto) 200 H PT INR Sodium 139 Potassium 3.5 Chloride 105 Carbon Dioxide 28 BUN 20 Creatinine 1.49 H Estimated GFR 45.4 L BUN/Creatinine Ratio 13.4 Glucose 119 H Calcium 9.7 Total Bilirubin 0.5 AST 24 ALT 11 Alkaline Phosphatase 88 Total Protein 6.7 Albumin 3.8 Globulin 2.9 Albumin/Globulin Ratio 1.3 Blood Type O Positive Antibody Screen Negative 11/28/21 11/29/21 22:35 02:00 WBC RBC Hgb 7.5 L Hct 23.3 L MCV MCH MCHC RDW Plt Count Neut % (Auto) Lymph % (Auto) [place] % (Auto) Eos % (Auto) Baso % (Auto) Neut # (Auto) Lymph # (Auto) [place] # (Auto) Eos # (Auto) Baso # (Auto) PT 13.3 H INR 1.2 Sodium Potassium Chloride Carbon Dioxide BUN Creatinine Estimated GFR BUN/Creatinine Ratio Glucose Calcium Total Bilirubin AST ALT Alkaline Phosphatase Total Protein Albumin Globulin Albumin/Globulin Ratio Blood Type Antibody Screen Assessment & Plan Assessment & Plan narrative: Mr. Bowen is a 80M with PMH CAD, afib, aortic stenosis who presents with bright red blood per rectum. 1. Acute GI bleed with blood loss anemia -etiology is not known -per patient had egd/colo a few days ago -scope shows multiple abnormalities including diverticulosis, hemorrhoids, mild gastritis and possible raissa esophagitis -presume most likely etiology is diverticular bleed as has painless bright red bloo -hold anticoagulation, antiplatelet -transfuse for hemoglobin <7 -continue protonix BID IV for now, but suspect this is lower GI bleed 2. Recent acute kidney injury -etiology was hypovolemia due to GI bleed -ordered for PRBCs as above -check BMP -careful with diuretics 3. Possible raissa esophagitis -continue diflucan per note for 14 days -follow up with GI as outpatient for biopsy results 3. Aortic stenosis -careful with IV fluid resuscitation -transfuse blood slowly if needed 4. Paroxysmal atrial fibrillation -hold diltiazem -hold apixaban 5. CAD -hold brillinta -hol blood pressure medications (losartan, lisinopril) for now given bleed 6. COPD without exacerbation -prn albuterol 7. GERD -PPI as above CODE: Full Proxy: Jojo Bowen, I have utilized all available resources to reconcile the patient's home medications. Time Spent With Patient Critical Care time: I spent a total of [] minutes of critical care time on this patient's care today; this time is exclusive of procedural time. Quality MIPS - Admit I confirm the patient?s Advance Care Plan is present, Code status is documented, Surrogate decision maker is in patient?s record [If Yes, STOP here]: Yes
[2021-11-29 06:39] LABS: COVID19 -Nasal RAPID Negative (Negative)
--- NOTE | 2021-11-29 09:34 | PC.NURSE ---
07:22 pt had dark blood clots stool. RN was notified
[2021-11-29] MEDS: FLUCONAZOLE 100 MG TABLET 200 MG PO (10:02)
[2021-11-29 10:16] LABS: Add Manual Diff / Slide Review NO; Basophils Absolute Auto 100 /uL (0-100); Basophils Percent Auto 1.4 % (0-2); Eosinophils Absolute Auto 300 /uL (0-450); Eosinophils Percent Auto 3.3 % (2-4); Hematocrit 24.7 % (41-53); Hemoglobin 8.2 g/dL (13.5-17.5); Lymphocytes Absolute Auto 1200 /uL (1100-4500); Mean Corpuscular HGB Conc 33.2 % (30-36); Mean Corpuscular Volume 84.2 fL (80-100); Monocytes Absolute Auto 700 /uL (0-900); Monocytes Percent Auto 8.5 % (3-14); Neutrophils Absolute Auto 5500 /uL (1500-7000); Neutrophils Percent Auto 71.8 % (50-75); Platelet Count 261 X10^3/uL (150-400); Red Blood Cell Count 2.94 X10^6/uL (4.5-5.9); Red Cell Distribution Width 15.4 % (11.6-14.8); White Blood Cell Count 7.7 X10^3/uL (4.5-11.0)
[2021-11-29 10:22] LABS: BUN Creatinine Ratio 14.8 (6-22); Blood Urea Nitrogen 19 mg/dL (9-20); Calcium 9.7 mg/dL (8.4-10.2); Carbon Dioxide 28 mmol/L (22-32); Chloride 108 mmol/L (98-107); Estimated Glomerular Filt Rate 54.1 mL/min (>60); Glucose 98 mg/dL (80-110); HEMOLYSIS < 15 (0-50); Potassium 3.7 mmol/L (3.4-5.1); Sodium 141 mmol/L (137-145)
--- NOTE | 2021-11-29 10:48 | PC.NURSE ---
10:45 pt still having dark blood clots stool, but this time was moderate.
--- NOTE | 2021-11-29 11:37 | PC.NURSE ---
Addendum entered by William Rogers R.N. 11/29/21 11:48: spoke with by phone. Will call Pharmacy records to assess med list. Original Note: Pt arrived via home at end of noc shift. Pt rouses to name asks and answers questions appropriately. States frequently that the DrKevon said he was going home today. Left message with to inquire about Pt's home meds but have not heard back from her. Pt restful in bed presently and offers no c/o.
--- NOTE | 2021-11-29 16:03 | CM.DANOTE ---
DCP Assessment: patient is an 81 yr old male who was admitted for bloody stool. CM met with patient at the bedside and explained role. Patient was alert and oriented and able to answer questions but unable to determine how clear he is feeling. Patient stated he is independent with ADLs but does use a FWW and his does do all the driving. Patient has no interest in going to a SNF at this time and does not want HH services at home. he would like to DC home with no needs. CM was given permission to call his to discussed DC planning with her. CM called his Jojo at [phone] but was only able to LVM for her. I Medicare and Plan: DC home with no needs is request of the patient. CM department will call the patients to go over DC planning and make sure HH is not needed. Juliette Rush RNrn med surg Discharge Planning/Care Management Discharge Assessment Start: 11/29/21 15:57 Freq: Status: Active Protocol: Document 11/29/21 15:57 HS (Rec: 11/29/21 16:03 HS [id number]) Discharge Planning Assessment Assigned Wrapper Off Juliette Rush RNrn med surg DPOA/Assigned Designee Name Jojo Bowen () Contact Information [phone] Advance Directives? No History Provided By Patient,Significant Other, Medical Record Prior Living Arrangements House Household Members spouse Type of transporation used prior to Relies on Others admit Comment gianfranco does the driving Caregiver for Another No DME Already Rented / Owned FWW / Walker,Cane Patient/Family Preference [facility] Facility Comment CM spoke with patient about SNF and HH but patient does not want to go to any facility and does not want HH. Comment also uses FWW, will have to see how patient does with P .T. Discharge Plan Home Transportation Arrangement Family or facility Referrals Initiated Other Additional Comment Patient has not yet worked with P.T. will have to look at recommendations and if patient makes inpatient status . Whiteboard Updated in Patient Room with Yes name and ext. # of Wrapper Off Review Status In Process Next Review Type Continued Stay Review
[2021-11-30] VITALS (7 sets, daily range): BP systolic 139–153; BP diastolic 44–65; PULSE 84–92; RESP 17–18; TEMP 36.2–36.7; O2SAT 92–97
--- NOTE | 2021-11-30 04:23 | PC.NURSE ---
pt up to the BR at 0420, urine was caught in hat however stool was flushed by pt before this RN could see it. Pt stated it was a very small BM with little blood in it. Pt educated on not flushing any urine or still so it can be assessed by RN, pt verbalized understanding.
[2021-11-30] MEDS: FLUCONAZOLE 100 MG TABLET 200 MG PO (08:58)
[2021-11-30] MEDS: PANTOPRAZOLE 40 MG VIAL IV (08:59)
[2021-11-30 09:09] LABS: BUN Creatinine Ratio 16.2 (6-22); Blood Urea Nitrogen 18 mg/dL (9-20); Calcium 9.7 mg/dL (8.4-10.2); Carbon Dioxide 25 mmol/L (22-32); Chloride 108 mmol/L (98-107); Estimated Glomerular Filt Rate > 60.0 mL/min (>60); Glucose 99 mg/dL (80-110); HEMOLYSIS 25 (0-50); Potassium 4.3 mmol/L (3.4-5.1); Sodium 139 mmol/L (137-145)
[2021-11-30 09:14] LABS: Add Manual Diff / Slide Review NO; Basophils Absolute Auto 100 /uL (0-100); Basophils Percent Auto 1.3 % (0-2); Eosinophils Absolute Auto 400 /uL (0-450); Eosinophils Percent Auto 4.6 % (2-4); Hematocrit 26.7 % (41-53); Hemoglobin 8.6 g/dL (13.5-17.5); Lymphocytes Absolute Auto 1200 /uL (1100-4500); Lymphocytes Percent Auto 14.6 % (25-40); Mean Corpuscular HGB Conc 32.2 % (30-36); Mean Corpuscular Hemoglobin 27.3 PG (26-34); Mean Corpuscular Volume 84.6 fL (80-100); Monocytes Absolute Auto 500 /uL (0-900); Monocytes Percent Auto 6.2 % (3-14); Neutrophils Absolute Auto 6200 /uL (1500-7000); Neutrophils Percent Auto 73.3 % (50-75); Platelet Count 291 X10^3/uL (150-400); Red Blood Cell Count 3.16 X10^6/uL (4.5-5.9); Red Cell Distribution Width 15.1 % (11.6-14.8); White Blood Cell Count 8.5 X10^3/uL (4.5-11.0)
[2021-11-30] MEDS: ACETAMINOPHEN 325 MG TABLET 650 MG PO (14:17)
--- NOTE | 2021-11-30 14:57 | P.PN_ITS ---
Subjective Subjective Interval history: The patient endorses 2-3 bloody BM's yesterday to today. Blood is still bright red. He reports the volume of blood is much less now. The patient's plans on coming in later today. Will also have conversation with patient's recreational therapy aide regarding onging antiplatelet therapy moving forward, in light of recent coronary stenting in August 2021. Exam Vital Signs (past 8 hours): - 11/30/21 08:00 11/30/21 08:29 Temperature 97.2 F L Pulse Rate 92 H Respiratory Rate 17 Blood Pressure 151/65 H Pulse Oximetry 96 92 Oxygen Delivery Method Room Air Oxygen Flow Rate 0 Const Other: GEN: No acute distress CARDIOVASCULAR: Regular rate and rhythm RESPIRATORY: Clear to auscultation bilaterally GASTROINTESTINAL: Abdomen soft, non-tender, nondistended, no organomegaly, normal bowel sounds EXTREMITIES: No edema, moving all extremities SKIN: Superficial skin tears and bruising noted NEURO: Awake and alert Objective Labs Result Diagrams: 11/30/21 08:42 11/30/21 08:42 Labs: Laboratory Results - last 24 hr 11/30/21 11/30/21 08:42 08:42 WBC 8.5 RBC 3.16 L Hgb 8.6 L Hct 26.7 L MCV 84.6 MCH 27.3 MCHC 32.2 RDW 15.1 H Plt Count 291 Neut % (Auto) 73.3 Lymph % (Auto) 14.6 L [place] % (Auto) 6.2 Eos % (Auto) 4.6 H Baso % (Auto) 1.3 Neut # (Auto) 6200 Lymph # (Auto) 1200 [place] # (Auto) 500 Eos # (Auto) 400 Baso # (Auto) 100 Sodium 139 Potassium 4.3 Chloride 108 H Carbon Dioxide 25 BUN 18 Creatinine 1.11 Estimated GFR > 60.0 BUN/Creatinine Ratio 16.2 Glucose 99 Calcium 9.7 PFSH Medical History Cervical vertebral fusion COPD (chronic obstructive pulmonary disease) Gastroesophageal reflux disease Hyperlipidemia Hypertension Surgical History History of cervical discectomy History of left-sided carotid endarterectomy S/P cervical spinal fusion Status post appendectomy Family History Father Gunshot injury Social History household members: spouse Smoking Status: Former smoker alcohol intake: current substance use type: does not use Assessment & Plan Assessment & Plan narrative: Mr. Bowen is a 80M with PMH CAD, a fib, aortic stenosis who presents with bright red blood per rectum. 1. Acute GI bleed with blood loss anemia -recent outpatient colonoscopy on November 24 revealed diverticulosis, internal hemorrhoids, and AVM which was procedurally-corrected -EGD showed candidal esophagitis with mild gastritis -discussed with patient's recreational therapy aide, Dr. Casey, and he recommended holding off antiplatelet agents altogether until a follow-up appointment with him in January-hemoglobin and hemodynamically stable 2. Recent MOLLY, likely pre-renal -etiology was hypovolemia due to GI bleed -ordered for PRBCs as above 3. 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 Aortic stenosis -careful with IV fluid resuscitation -transfuse blood slowly if needed 5. Paroxysmal atrial fibrillation -can resume diltiazem now -hold apixaban 6. CAD -hold brillinta -conversation with patient's recreational therapy aide per problem 1 7. COPD without exacerbation -prn albuterol 8. GERD -PPI as above CODE: Full Proxy: Jojo Bowen, I have utilized all available resources to reconcile the patient's home medications. Time Spent With Patient Critical Care time: I spent a total of [] minutes of critical care time on this patient's care today; this time is exclusive of procedural time. Quality MIPS - Admit I confirm the patient?s Advance Care Plan is present, Code status is documented, Surrogate decision maker is in patient?s record [If Yes, STOP here]: Yes
--- NOTE | 2021-11-30 16:34 | P.DS_ITS ---
History of Present Illness History of Present Illness Chief complaint: bloody stool Narrative: Mr. Gutierrez is a 80M with PMH CAD, COPD, aortic stenosis, afib who presents to the hospital with bright red blood per rectum. He was recently admitted to the hospital with a similar presentation. He was transfused, and discharged. There was a consideration for scope at that time. However, due to medical comorbidities he was though to be high risk. His bleeding stopped in the hospital with stopping his Brilinta and Eliquis and he was discharged home.? He apparently this past did get EGD and colonoscopy. He is not clear of what was found. We were able to get records which showed whitish plague in the esophagus concerning for possible raissa esophagitis which was biopsied. Mild nonerosive gastritis that was biopsied. 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 It is unclear if the patient was taking his anticoagulation. Today he noticed urgency to have a bowel movement and had a large bright red blood per rectum. He had two further bloody stools. He had no abdominal pain. He has no chest pain, shortness of breath, dizziness, lightheadedness. In the ED workup was done, vitals noted he was afebrile, no tachycardia, blood pressure normal, O2 96% on room air. Labs notable for WBC 8.1, hgb 7.5, plts 289, BUN [address], [address] abdomen showed persistent bliateral pulmonary opacitities, he had no significant abdominal issues. He was ordered for protonix and he was admitted for further treatment. Discharge Providers Provider Date of admission: 11/29/21 05:54 Discharge Date: 11/30/21 Primary care physician: Glynn Stallworth MD Discharge provider: Jeanne Frias MD Summary Hospital Course Discharge Diagnosis: 1. Acute GI bleed with blood loss anemia -recent outpatient colonoscopy on November 24 revealed diverticulosis, internal hemorrhoids, and AVM which was procedurally-corrected -EGD showed candidal esophagitis with mild gastritis, patient placed on Diflucan outpatient prior to admission -discussed with patient's weaver dobby loom, Dr. Casey, and he recommended holding off antiplatelet agents altogether until a follow-up appointment with him in January-hemoglobin stable, and hemodynamically stable 2. Recent MOLLY, likely pre-renal -etiology was hypovolemia due to GI bleed -ordered for PRBCs as above 3. Raissa esophagitis, as demonstrated on recent EGD -continue diflucan per note for 14 days -follow up with GI as outpatient for biopsy results 4. Aortic stenosis -careful with IV fluid resuscitation -transfuse blood slowly if needed 5. Paroxysmal atrial fibrillation -can resume diltiazem now -hold apixaban 6. CAD -hold brillinta, and continue to hold outpatient -conversation with patient's weaver dobby loom per problem 1 7. COPD without exacerbation -prn albuterol 8. GERD -PPI as above Exam Vital Signs (past 8 hours): - 11/30/21 12:00 11/30/21 15:44 Pulse Oximetry 95 94 Oxygen Delivery Method Room Air Oxygen Flow Rate 0 Narrative Exam Narrative: GEN: No acute distress CARDIOVASCULAR: Regular rate and rhythm RESPIRATORY: Clear to auscultation bilaterally GASTROINTESTINAL: Abdomen soft, non-tender, nondistended, no organomegaly, normal bowel sounds EXTREMITIES: No edema, moving all extremities SKIN: Superficial skin tears and bruising noted NEURO: Awake and alert Objective Labs Result Diagrams: 11/30/21 08:42 11/30/21 08:42 Labs: Laboratory Results - last 24 hr 11/30/21 11/30/21 08:42 08:42 WBC 8.5 RBC 3.16 L Hgb 8.6 L Hct 26.7 L MCV 84.6 MCH 27.3 MCHC 32.2 RDW 15.1 H Plt Count 291 Neut % (Auto) 73.3 Lymph % (Auto) 14.6 L [place] % (Auto) 6.2 Eos % (Auto) 4.6 H Baso % (Auto) 1.3 Neut # (Auto) 6200 Lymph # (Auto) 1200 [place] # (Auto) 500 Eos # (Auto) 400 Baso # (Auto) 100 Sodium 139 Potassium 4.3 Chloride 108 H Carbon Dioxide 25 BUN 18 Creatinine 1.11 Estimated GFR > 60.0 BUN/Creatinine Ratio 16.2 Glucose 99 Calcium 9.7 PFSH Medical History Cervical vertebral fusion COPD (chronic obstructive pulmonary disease) Gastroesophageal reflux disease Hyperlipidemia Hypertension Surgical History History of cervical discectomy History of left-sided carotid endarterectomy S/P cervical spinal fusion Status post appendectomy Family History Father Gunshot injury Social History household members: spouse Smoking Status: Former smoker alcohol intake: current substance use type: does not use Discharge Assessment & Plan Assessment and Plan Assessment: Mr. Bowen is a 80M with PMH CAD, a fib, aortic stenosis who presents with bright red blood per rectum. He had been on Eliquis in the past, likely for atrial fibrillation, and that was stopped in September 2021 because of a GI bleed. He now has a GI bleed while on Brillinta. Therefore, I spoke with his outpatient weaver dobby loom, Dr. Casey, who recommended that the patient be OFF of all antiplatelet agents until the patient follows-up with him in January 2022. I discussed this with the patient and his , and they agreed, and understand the risks and benefits. I further recommended that they follow-up with his PCP by no later than next week. We extensively discussed the need for him to present to the ER immediately should he develop any CP, SOB, significant volume overload, etc. 1. Acute GI bleed with blood loss anemia -recent outpatient colonoscopy on November 24 revealed diverticulosis, internal hemorrhoids, and AVM which was procedurally-corrected -EGD showed candidal esophagitis with mild gastritis -discussed with patient's weaver dobby loom, Dr. Casey, and he recommended holding off antiplatelet agents altogether until a follow-up appointment with him in January-hemoglobin stable, and hemodynamically stable 2. Recent MOLLY, likely pre-renal -etiology was hypovolemia due to GI bleed -ordered for PRBCs as above 3. Raissa esophagitis, as demonstrated on recent EGD -continue diflucan per note for 14 days -follow up with GI as outpatient for biopsy results 4. Aortic stenosis -careful with IV fluid resuscitation -transfuse blood slowly if needed 5. Paroxysmal atrial fibrillation -can resume diltiazem now -hold apixaban 6. CAD -hold brillinta -conversation with patient's weaver dobby loom per problem 1 7. COPD without exacerbation -prn albuterol 8. GERD -PPI as above Discharge Plan Discharge Plan Patient Disposition: Home Discharge orders & Medications Prescriptions: New fluconazole [Diflucan] 100 mg Tablet 200 mg PO DAILY Qty: 28 0RF Continued atorvastatin [Lipitor] 40 MG tablet 40 mg PO DAILY 0RF albuterol sulfate 90 mcg/actuation Hfa Aerosol Inhaler 2 puff INHALATION BID PRN (Reason: Wheezing) 0RF Label Comments: bid and prn---patient states uses as rescue inhaler [id number] [Fioricet] 50-300-40 mg Capsule 1 tab PO QID PRN (Reason: Migraine Headache) 0RF fluticasone propion-salmeterol 250-50 mcg/dose blister with device 1 inh INHALATION BID 0RF gabapentin 600 mg Tablet 600 mg PO TID 0RF diltiazem HCl 120 mg capsule,extended release 24hr 120 mg PO DAILY 0RF cholecalciferol (vitamin D3) [Vitamin D3] 25 mcg (1,000 unit) Capsule 1,000 unit PO DAILY 0RF pantoprazole [Protonix] 40 mg tablet,delayed release (DR/EC) 40 mg PO BID Qty: 84 0RF Discontinued Brilinta 90 mg Tablet 90 mg PO BID 0RF Follow up/Referrals: Glynn Stallworth MD [Primary Care Provider] - Discharge Data Primary Care Provider: Glynn Stallworth
--- NOTE | 2021-11-30 17:33 | PC.NURSE ---
Pt is A&Ox2 this a.m. VSS, afebrile on RA. cooperative and pleasant but forgetful. Initially he refusing to have blood work done because he states he is going home today. When explained to the patient that the blood work is important as it helps the MD evaluate if the patient is ready to discharge, he then is aggreeable. He continues to tell the staff that he is going home today. Per she manages him at home because he refuses to have any help in the home. She arrives this afternoon and talks with the hospitalist. Pt with minimal bleeding from his rectum today. Appetite is poor but he tolerates is cleared for discharge this afternoon. Discharge instructions and medications reviewed with and patient. She verbalizes understanding of all of his medications, and follow up instructions. He is escorted via wheel chair to private vehicle with his this evening with all of his belongings.
== END 2021-11-30 16:40 | disposition home or self-care (01) | DRG 378 ==
LOC: ED 11-29 02:44 → AC 11-29 08:40
PROVIDERS: Admitting Provider Internal Medicine; Emergency Provider Emergency Medicine; PCP Internal Medicine; Visit Provider Internal Medicine
DX: K92.2 Gastrointestinal hemorrhage, unspecified (principal); D62 Acute posthemorrhagic anemia; B37.81 Candidal esophagitis; N17.9 Acute kidney failure, unspecified; I48.0 Paroxysmal atrial fibrillation; J44.9 Chronic obstructive pulmonary disease, unspecified; K21.9 Gastro-esophageal reflux disease without esophagitis; Z87.891 Personal history of nicotine dependence; Z20.822 Contact with and (suspected) exposure to COVID-19
CPT/HCPCS: 36415; 74177; 80048; 80053; 85014; 85018; 85025; 85610; 86850; 86900; 86901; 87635; 94760; 96374; 99284; C9803; C9113; Q9967

== ENCOUNTER 2021-12-01 13:52 | Inpatient (IN) | payer MEDICARE, OTHER, SELFPAY ==
[2021-09-10 03:25] VITALS: PULSE 79; RESP 15; O2SAT 94
[2021-11-29 07:18] VITALS: BMI 20.6
[2021-12-01] VITALS (16 sets, daily range): BP systolic 97–165; BP diastolic 54–86; PULSE 89–106; RESP 14–41; TEMP 35.9–37.3; O2SAT 83–100
--- NOTE | 2021-12-01 14:14 | ED.GENADULT ---
HPI - General Adult General Chief complaint: Trauma Stated complaint: GI bleed, fall Time Seen by Provider: 12/01/21 14:06 Source: patient and EMS Mode of arrival: EMS Limitations: no limitations History of Present Illness HPI narrative: Patient is a 81-year-old male. Was discharged from this facility yesterday after being admitted for was an apparent GI bleed. He states that since he has been home he has declined in strength. He has continued to have bright red blood per rectum in today was passing clots. No abdominal pain. Has fallen multiple times at home. Today he states that he went to try to go get a drink and he fell. He does have a small bruise above his left eye. His came home from the store and found him on the ground. Patient is complaining of back pain and generalized weakness. No chest pain. No shortness of breath. No abdominal pain. No hip pain. No extremity pain. Related Data Home Medications Medication Instructions Recorded Confirmed albuterol sulfate 90 mcg/actuation 2 puff INHALATION BID PRN 08/07/18 11/29/21 aerosol inhaler ecqqzskkao-omiwushdohawo-mhqlpbau 1 tab PO QID PRN 08/07/18 11/29/21 50 mg-300 mg-40 mg capsule (Fioricet) atorvastatin 40 mg tablet (Lipitor) 40 mg PO DAILY 09/10/18 11/29/21 cholecalciferol (vitamin D3) 25 1,000 unit PO DAILY 10/23/21 11/29/21 mcg (1,000 unit) capsule (Vitamin D3) diltiazem HCl 120 mg 120 mg PO DAILY 10/23/21 11/29/21 capsule,extended release 24 hr fluticasone 250 mcg-salmeterol 50 1 inh INHALATION BID 10/23/21 11/29/21 mcg/dose blistr powdr for inhalation gabapentin 600 mg tablet 600 mg PO TID 10/23/21 11/29/21 Previous Rx's Medication Instructions Recorded pantoprazole 40 mg tablet,delayed 40 mg PO BID #84 tab 10/27/21 release (Protonix) fluconazole 100 mg tablet 200 mg PO DAILY #28 tab 11/30/21 (Diflucan) Allergies Allergy/AdvReac Type Severity Reaction Status Date / Time Beta-Blockers Allergy Unknown Verified 10/23/21 10:41 (Beta-Adrenergic Bloc codeine Allergy Unknown Verified 10/23/21 10:41 Review of Systems Constitutional Constitutional: Reports fatigue, Denies fever(s), Reports frequent falls, Denies headache(s) and Reports lethargy Eyes Eyes: Denies change in vision ENT Ears, Nose, Mouth, and Throat: Denies headache(s) Cardiovascular Cardiovascular: Denies chest pain and Denies dyspnea Respiratory Respiratory: Denies dyspnea Gastrointestinal Gastrointestinal: Denies abdominal pain, Reports hematochezia, Denies nausea and Denies vomiting Genitourinary Genitourinary: Denies dysuria Musculoskeletal Musculoskeletal: Reports back pain Integumentary/Breasts Skin/Breast: Reports system reviewed and no additional complaints, except as documented Neurologic Neurologic: Reports frequent falls and Denies headache(s) Psychiatric Psychiatric: Reports system reviewed and no additional complaints, except as documented Endocrine Endocrine: Reports fatigue Hematologic/Lymphatic On Anticoagulants: No Allergic/Immunologic Allergic/Immunologic: Reports system reviewed and no additional complaints, except as documented Patient History Medical History Cervical vertebral fusion COPD (chronic obstructive pulmonary disease) Gastroesophageal reflux disease Hyperlipidemia Hypertension Surgical History History of cervical discectomy History of left-sided carotid endarterectomy S/P cervical spinal fusion Status post appendectomy Family History Father Gunshot injury Social History household members: spouse Smoking Status: Former smoker alcohol intake: current substance use type: does not use Smoking Status: Former smoker alcohol intake frequency: a few times a week Alcohol type: beer and wine Substance Use Type: does not use Exam Initial Vital Signs Initial Vital Signs: Vital Signs Temperature 96.7 F L 12/01/21 14:16 Pulse Rate 106 H 12/01/21 14:16 Respiratory Rate 24 12/01/21 14:16 Blood Pressure 100/61 12/01/21 14:16 Pulse Oximetry 98 12/01/21 14:16 Const General: cooperative and frail appearing HENMT Head: abrasion (Above left eye) Nose: external nose normal Face and sinus: normal facial exam Mouth: oral mucosae normal Chest Chest: normal inspection of the chest and No crepitus Resp Effort & Inspection: normal respiratory effort Auscultation: clear to auscultation bilaterally Cardio Rate: regular rate Rhythm: regular rhythm GI Inspection: normal to inspection Palpation: soft and No tender Rectal Exam: heme positive stool Back/Spine/Pelvis Cervical Spine: collar present Thoracic/Lumbar Spine: paraspinal tenderness, No thoracic spinal tenderness and No lumbar spinal tenderness Skin Other: Contusion above left eye. Patient also has a contusion just left to midline at the thoracolumbar junction on his back. Patient also has multiple bruises and skin tears Nash on his upper extremities. Neuro General: patient alert, patient awake, patient oriented x3 and moves all extremities Extrem Other: Patient can move all 4 extremities. His pelvis is stable. No tenderness with internal external rotation of the hips. Can flex and extend the knees and ankles. Flexion extended shoulders and elbows and wrist without apparent discomfort. Psych Appearance: grossly normal Scores GCS Brandie coma scale eye opening: Spontaneous [place] coma scale verbal response: Orientated Brandie coma scale motor response: Obey commands [place] coma scale total score: 15 Course Orders Ordered: ED Orders 12/01/21 14:18 CT abdomen pelvis w con Stat CT cervical spine wo con Stat CT head/brain wo con Stat XR chest 1V Stat EKG-12 Lead Stat 12/01/21 14:25 COVID19 - ADMIT ([employer] swab/PCR) Stat 12/01/21 14:28 Complete Blood Count AUTO DIFF Stat Comprehensive Metabolic Panel Stat Lactate (Lactic Acid) Stat Lipase Stat Packed Cells Stat Partial Thromboplastin Time Stat Prothrombin Time INR Stat Troponin & CK Cardiac Panel Stat Type and Screen Stat 12/01/21 17:41 Consult to General Surgery Stat Heparin Sodium (Porcine) (Heparin Flush (Cl/Picc/Mid-Line) 50 Unit/5 Ml Syringe) 50 unit IV PRN PRN PRN Reason: Flush Last Admin: 12/01/21 16:53 Dose: 50 unit Documented by: JAK Sodium Chloride (Normal Saline 0.9%) 1,000 mls @ 100 mls/hr IV CONT JUAN FRANCISCO Last Infusion: 12/01/21 15:30 Dose: 0 mls/hr Documented by: Admin: 12/01/21 15:15 Dose: 100 mls/hr Documented by: CARMEN Vital Signs Vital signs: Vital Signs - 8 hr 12/01/21 14:16 12/01/21 14:27 12/01/21 14:53 Temperature 96.7 F L 96.7 F L Pulse Rate 106 H 105 H 94 H Respiratory Rate 24 22 41 H Blood Pressure 100/61 97/54 L Pulse Oximetry 98 98 83 L 12/01/21 14:54 12/01/21 15:00 12/01/21 15:36 Temperature 97.9 F Pulse Rate 93 H 90 91 H Respiratory Rate 23 17 22 Blood Pressure 165/64 H 137/64 131/60 Pulse Oximetry 100 100 12/01/21 15:51 12/01/21 17:02 12/01/21 17:20 Temperature 97.7 F 97.2 F L 98.5 F Pulse Rate 91 H 90 89 Respiratory Rate 16 18 16 Blood Pressure 121/55 L 144/66 H 143/64 H Pulse Oximetry 98 12/01/21 17:35 Temperature 98.8 F Pulse Rate 89 Respiratory Rate 14 Blood Pressure 144/65 H Pulse Oximetry Medical Decision Making Medical Records Medical records reviewed: Yes I reviewed the patient's medical records. Lab Data Lab results reviewed: Yes I reviewed the patient's lab results. Result diagrams: 12/01/21 14:28 12/01/21 14:28 Labs: Lab Results 12/01/21 12/01/21 12/01/21 Range/Units 14:25 14:28 14:28 WBC 15.1 H D (4.5-11.0) X10^3/uL RBC 2.55 L (4.5-5.9) X10^6/uL Hgb 6.7 L* (13.5-17.5) g/dL Hct 21.3 L (41-53) % MCV 83.7 (80-100) fL MCH 26.2 (26-34) PG MCHC 31.3 (30-36) % RDW 14.9 H (11.6-14.8) % Plt Count 422 H (150-400) X10^3/uL Neut % (Auto) 78.5 H (50-75) % Lymph % (Auto) 15.1 L (25-40) % [place] % (Auto) 4.7 (3-14) % Eos % (Auto) 0.4 L (2-4) % Baso % (Auto) 1.3 (0-2) % Neut # (Auto) 94445 H (1316-8314) /uL Lymph # (Auto) 2300 (3062-0238) /uL [place] # (Auto) 700 (0-900) /uL Eos # (Auto) 100 (0-450) /uL Baso # (Auto) 200 H (0-100) /uL PT 17.0 H (10.1-12.7) SECONDS INR 1.5 H (0.9-1.3) APTT 31 (26.4-36.2) SECONDS Sodium (137-145) mmol/L Potassium (3.4-5.1) mmol/L Chloride (98-107) mmol/L Carbon Dioxide (22-32) mmol/L BUN (9-20) mg/dL Creatinine (0.66-1.25) mg/dL Estimated GFR (>60) mL/min BUN/Creatinine Ratio (6-22) Glucose (80-110) mg/dL Lactate (0.7-2.1) mmol/L Calcium (8.4-10.2) mg/dL Total Bilirubin (0.2-1.3) mg/dL AST (17-59) IU/L ALT (<50) IU/L Alkaline Phosphatase (38-126) U/L Total Creatine Kinase (55-170) U/L CK-MB (CK-2) CK-MB (CK-2) Rel Index Troponin I (0.01-0.034) ng/mL Total Protein (6.3-8.2) g/dL Albumin (3.5-5.0) g/dL Globulin (1.7-4.1) g/dL Albumin/Globulin Ratio (1.0-2.8) Lipase (23-300) U/L SARS-CoV-2 (PCR) Negative (Negative) Blood Type Antibody Screen Crossmatch 12/01/21 12/01/21 12/01/21 Range/Units 14:28 14:28 14:28 WBC (4.5-11.0) X10^3/uL RBC (4.5-5.9) X10^6/uL Hgb (13.5-17.5) g/dL Hct (41-53) % MCV (80-100) fL MCH (26-34) PG MCHC (30-36) % RDW (11.6-14.8) % Plt Count (150-400) X10^3/uL Neut % (Auto) (50-75) % Lymph % (Auto) (25-40) % [place] % (Auto) (3-14) % Eos % (Auto) (2-4) % Baso % (Auto) (0-2) % Neut # (Auto) (0070-8711) /uL Lymph # (Auto) (3912-3052) /uL [place] # (Auto) (0-900) /uL Eos # (Auto) (0-450) /uL Baso # (Auto) (0-100) /uL PT (10.1-12.7) SECONDS INR (0.9-1.3) APTT (26.4-36.2) SECONDS Sodium 139 (137-145) mmol/L Potassium 3.8 (3.4-5.1) mmol/L Chloride 108 H (98-107) mmol/L Carbon Dioxide 22 (22-32) mmol/L BUN 21 H (9-20) mg/dL Creatinine 1.56 H (0.66-1.25) mg/dL Estimated GFR 43.0 L (>60) mL/min BUN/Creatinine Ratio 13.5 (6-22) Glucose 153 H (80-110) mg/dL Lactate 2.6 H (0.7-2.1) mmol/L Calcium 9.6 (8.4-10.2) mg/dL Total Bilirubin 0.6 (0.2-1.3) mg/dL AST 28 (17-59) IU/L ALT 12 (<50) IU/L Alkaline Phosphatase 75 (38-126) U/L Total Creatine Kinase 56 (55-170) U/L CK-MB (CK-2) TNP CK-MB (CK-2) Rel Index TNP Troponin I 0.032 (0.01-0.034) ng/mL Total Protein 6.3 (6.3-8.2) g/dL Albumin 3.7 (3.5-5.0) g/dL Globulin 2.6 (1.7-4.1) g/dL Albumin/Globulin Ratio 1.4 (1.0-2.8) Lipase 108 (23-300) U/L SARS-CoV-2 (PCR) (Negative) Blood Type O Positive Antibody Screen Negative Crossmatch See Detail 12/01/21 Range/Units 17:25 WBC (4.5-11.0) X10^3/uL RBC (4.5-5.9) X10^6/uL Hgb (13.5-17.5) g/dL Hct (41-53) % MCV (80-100) fL MCH (26-34) PG MCHC (30-36) % RDW (11.6-14.8) % Plt Count (150-400) X10^3/uL Neut % (Auto) (50-75) % Lymph % (Auto) (25-40) % [place] % (Auto) (3-14) % Eos % (Auto) (2-4) % Baso % (Auto) (0-2) % Neut # (Auto) (6506-9052) /uL Lymph # (Auto) (7869-2920) /uL [place] # (Auto) (0-900) /uL Eos # (Auto) (0-450) /uL Baso # (Auto) (0-100) /uL PT (10.1-12.7) SECONDS INR (0.9-1.3) APTT (26.4-36.2) SECONDS Sodium (137-145) mmol/L Potassium (3.4-5.1) mmol/L Chloride (98-107) mmol/L Carbon Dioxide (22-32) mmol/L BUN (9-20) mg/dL Creatinine (0.66-1.25) mg/dL Estimated GFR (>60) mL/min BUN/Creatinine Ratio (6-22) Glucose (80-110) mg/dL Lactate 1.1 (0.7-2.1) mmol/L Calcium (8.4-10.2) mg/dL Total Bilirubin (0.2-1.3) mg/dL AST (17-59) IU/L ALT (<50) IU/L Alkaline Phosphatase (38-126) U/L Total Creatine Kinase (55-170) U/L CK-MB (CK-2) CK-MB (CK-2) Rel Index Troponin I (0.01-0.034) ng/mL Total Protein (6.3-8.2) g/dL Albumin (3.5-5.0) g/dL Globulin (1.7-4.1) g/dL Albumin/Globulin Ratio (1.0-2.8) Lipase (23-300) U/L SARS-CoV-2 (PCR) (Negative) Blood Type Antibody Screen Crossmatch Point of Care Testing Glucose POC 150 Point of care testing: Point of Care Testing Glucose POC [address] scan - abdomen/pelvis: Radiologist's Impression: [address] [address] [address] Scan Report Signed Patient: Flavio Bowen MR#: [id number] : 1940 Acct:[id number] Age/Sex: 81 / M Date of Service: 12/01/21 Loc: ED Accession Number: [id number] ?? Procedure: CT abdomen pelvis w con Ordering Provider: Ivan Renteria D.O. PROCEDURE:? CT ABDOMEN PELVIS W CON ? INDICATIONS:? GI bleed and syncope ? TECHNIQUE:? After the administration of intravenous contrast, axial sections acquired from the lung bases to the pubic symphysis.? Coronal and sagittal reformats were performed.? For radiation dose reduction, the following was used:? automated exposure control, adjustment of mA and/or kV according to patient size.? ? COMPARISON:? [facility], CT, CT ABDOMEN PELVIS W CON, 11/28/2021, 23:31. ? FINDINGS:? Image quality:? Excellent.? ? Lung bases:? Multiple nodular opacities are again seen at bilateral lung bases with masslike consolidation in posterior left lung base measures up to 2.1 cm in size unchanged from prior study series 3, image 11. Largest nodular density at right lung base measures 6 mm in size and is unchanged series 3, image 13. No pleural effusion or pneumothorax.? Heart:? Heart size is normal, no pericardial effusion.? Moderate atherosclerotic disease is seen. ? ABDOMEN: Liver:? Unremarkable.? ? Gallbladder:? Small stones are again seen in dependent portion of gallbladder lumen.? No gallbladder wall thickening or pericholecystic fluid. Biliary ducts:? Unremarkable.? ? Pancreas:? Unremarkable.? ? Spleen:? Unremarkable.? ? Adrenal Glands:? Unremarkable.? ? Kidneys and Ureters:? Unremarkable.? ? ? Stomach and Bowel:? There is no bowel obstruction.? No gastric or small bowel wall thickening.? Questionable diffuse colonic wall thickening and edema is seen which may be due to under distension.? Low-grade colitis cannot be excluded.? Sigmoid diverticulosis is again seen and no CT evidence of acute diverticulitis.? No abscess collection.? No mesenteric fat stranding.? Peritoneum:? No abnormal intraperitoneal fluid.? No free air.? ? Ventral Wall: ? No hernias.? Abdominal Nodes:? No retroperitoneal or mesenteric adenopathy by size criteria.? Vessels:? Aorta and inferior vena cava are normal in size.? Moderate atherosclerotic disease throughout abdominal aorta is seen. ? PELVIS: Pelvic Organs:? Mildly enlarged prostate gland is seen with mass effect on floor of urinary bladder. Bladder:? Unremarkable.? ? Pelvic Nodes: No enlarged lymph nodes.? Miscellaneous: No hernias are seen. ? ? ? Bones:? No suspicious bony lesion.? Osteoarthritic changes throughout bony pelvis is seen.? Degenerative disc disease throughout lower thoracic and lumbar spine is also noted.? No acute compression fracture. ? ? IMPRESSION:? 1. Questionable diffuse colonic wall thickening.? This may be due to under distension of the colon loops.? Low-grade colitis cannot be excluded.? Sigmoid diverticulosis without evidence of acute diverticulitis.? No abscess collection.? No free fluid or free air.? No bowel obstruction. 2. Cholelithiasis without CT evidence of acute cholecystitis and is unchanged from prior study.? No gross biliary ductal dilatation. 3. Persistent masslike consolidation seen in bilateral lung bases as described above unchanged in size and appearance from 11/28/2021 study.? Continued CT chest follow-up until resolution is recommended to rule out underlying malignant process. 4. Moderate atherosclerotic disease.? ? Dictated by: Toby Deng M.D. on 12/01/2021 at 15:06 ? ? Approved by: Toby Deng M.D. on 12/01/2021 at 15:11?? CT - cervical spine: Radiologist's Impression: [address] [address] [address] Scan Report Signed Patient: Flavio Bowen MR#: [id number] : 1940 Acct:[id number] Age/Sex: 81 / M Date of Service: 12/01/21 Loc: ED Accession Number: [id number] ?? Procedure: CT cervical spine wo con Ordering Provider: Ivan Renteria D.O. PROCEDURE:? CT CERVICAL SPINE WO CON ? INDICATIONS:? Syncope with neck pain ? TECHNIQUE:? Noncontrast 3 mm thick sections acquired from the skull base to the T4 level.? Sagittal and coronal reformats were then constructed.? For radiation dose reduction, the following was used:? automated exposure control, adjustment of mA and/or kV according to patient size.? ? COMPARISON:? [facility], CT, CT CERVICAL SPINE WO CON, 10/23/2021, 8:59. ? FINDINGS:? Image quality:? Excellent.? ? Bones:? There is been a C4 corpectomy with strut graft and anterior instrumentation extending from C3 through C5.? Is been good graft incorporation.? C5-6 interbody fusion without instrumentation present.? There is reversal the normal cervical lordosis.? Normal craniovertebral relationships.? Disc space narrowing and hypertrophic facet joints noted at C2-3 and C6-7.? Moderate central stenosis and the left foraminal stenosis noted at C6-7 as well. ? Soft tissues:? Prevertebral soft tissues are normal in thickness.? No paravertebral hematomas.? No apical pneumothoraces.? ? ? IMPRESSION:? ? 1. No acute findings.? No fracture or mint traumatic malalignment ? 2. C4 corpectomy with associated anterior plate and screw hardware.? C5-6 interbody fusion without hardware.? Multilevel degenerative changes with reversal normal cervical lordosis, similar prior exam ? Approved by: John Reyes M.D. on 12/01/2021 at 14:19? Chest x-ray: Radiologist's Impression: [address] [address] XRay Report Signed Patient: Flavio Bowen MR#: [id number] : 1940 Acct:[id number] Age/Sex: 81 / M Date of Service: 12/01/21 Loc: ED Accession Number: [id number] ?? Procedure: XR chest 1V Ordering Provider: Ivan Renteria D.O. PROCEDURE:? XR CHEST 1V ? INDICATIONS:? Significant chest pain ? TECHNIQUE:? One view of the chest was acquired.? ? COMPARISON:? [facility], CR, XR CHEST 1V, 09/10/2021, 1:23. ? FINDINGS:? ? Surgical changes and devices:? None.? ? Lungs and pleura:? Lungs are clear.? No pleural effusions or pneumothorax.? Diffuse chronic interstitial changes present. ? Mediastinum:? Mediastinal contours appear normal.? Heart size is normal.? Atherosclerotic vascular calcification noted in the aortic arch. ? Bones and chest wall:? No suspicious bony lesions.? Overlying soft tissues appear unremarkable.? ? IMPRESSION:? No acute cardiopulmonary findings ? ? ? Approved by: John Reyes M.D. on 12/01/2021 at 14:27 CT scan - head: Radiologist's Impression: [address] [address] [address] Scan Report Signed Patient: Flavio Bowen MR#: [id number] : 1940 Acct:[id number] Age/Sex: 81 / M Date of Service: 12/01/21 Loc: ED Accession Number: [id number] ?? Procedure: CT head/brain wo con Ordering Provider: Ivan Renteria D.O. PROCEDURE:? CT HEAD/BRAIN WO CON ? INDICATIONS:? Syncope with head injury ? TECHNIQUE:? Noncontrast 4.5 mm thick angled axial sections acquired from the foramen magnum to the vertex, with coronal and sagittal reformats.? For radiation dose reduction, the following was used:? automated exposure control, adjustment of mA and/or kV according to patient size.? ? COMPARISON:? [facility], CT, CT HEAD/BRAIN WO CON, 10/23/2021, 8:59. ? FINDINGS:? Image quality:? Excellent.? ? CSF spaces:? Basal cisterns are patent.? No extra-axial fluid collections.? Ventricles are normal in size and shape.? ? Brain:? No midline shift.? No intracranial masses or hemorrhage.? Marie-white matter interface is normal.? Moderate cerebral and cerebellar volume loss with multifocal white matter chronic ischemic change noted.? Moderate calcified atherosclerotic plaque noted involving the cavernous portions of both internal carotid arteries.? ? Skull and face:? Calvarium and visualized facial bones are intact, without suspicious lesions.? Bilateral intraocular lens replacements noted. ? Sinuses:? Visualized sinuses and mastoids are clear.? ? IMPRESSION:? ? Atrophy and chronic ischemic change without acute hemorrhage or mass effect. ? ? ? Approved by: John Reyes M.D. on 12/01/2021 at 14:21 ECG Data Attestation: I personally reviewed and interpreted this ECG as follows: Interpretation: Sinus tachycardia Ventricular rate 102 Normal axis Normal QRS QTC [address] T wave changes MDM Narrative Medical decision making narrative: Patient is having clots and bright red blood per rectum. CT scan of his head and cervical spine showed no acute pathology. The cervical collar was removed. Patient is anemic today compared to yesterday. Will transfuse 2 units of packed red blood cells. I did discuss this with the patient. He has had blood transfusions in the past and has no questions regarding this and expressed consent for the transfusion. Discussed case with Dr. Frias with internal medicine who will admit for further evaluation and treatment. Discussed need for admission the patient he expressed understanding agreement as well. Critical Care Time Critical Care Time Critical Care Time: Yes Total Critical Care Time: 35 Attestation: The high probability of a clinically significant, sudden or life threatening deterioration of the cardiovascular system(s) required my full and direct attention, intervention and personal management. The aggregate critical care time was [35] minutes. This time is in addition to time spent performing reported procedures but includes the following: x[] Data Review and interpretation [x] Patient assessment and monitoring of vital signs [x] Documentation [x] Medication orders and management Discharge Plan Departure Patient Disposition: Admitted As Inpatient Clinical Impression: Acute GI bleeding, Anemia, Syncope, Abrasion of skin Admit Date/Time: 12/01/21 17:52 Admit Provider: Jeanne Frias
--- NOTE | 2021-12-01 14:18 | DI.CT.S_ITS ---
PROCEDURE: CT CERVICAL SPINE WO CON INDICATIONS: Syncope with neck pain TECHNIQUE: Noncontrast 3 mm thick sections acquired from the skull base to the T4 level. Sagittal and coronal reformats were then constructed. For radiation dose reduction, the following was used: automated exposure control, adjustment of mA and/or kV according to patient size. COMPARISON: [facility], CT, CT CERVICAL SPINE WO CON, 10/23/2021, 8:59. FINDINGS: Image quality: Excellent. Bones: There is been a C4 corpectomy with strut graft and anterior instrumentation extending from C3 through C5. Is been good graft incorporation. C5-6 interbody fusion without instrumentation present. There is reversal the normal cervical lordosis. Normal craniovertebral relationships. Disc space narrowing and hypertrophic facet joints noted at C2-3 and C6-7. Moderate central stenosis and the left foraminal stenosis noted at C6-7 as well. Soft tissues: Prevertebral soft tissues are normal in thickness. No paravertebral hematomas. No apical pneumothoraces. IMPRESSION: 1. No acute findings. No fracture or mint traumatic malalignment 2. C4 corpectomy with associated anterior plate and screw hardware. C5-6 interbody fusion without hardware. Multilevel degenerative changes with reversal normal cervical lordosis, similar prior exam Approved by: John Reyes M.D. on 12/01/2021 at 14:19
--- NOTE | 2021-12-01 14:18 | DI.RAD.S_ITS ---
PROCEDURE: XR CHEST 1V INDICATIONS: Significant chest pain TECHNIQUE: One view of the chest was acquired. COMPARISON: [facility], , XR CHEST 1V, 09/10/2021, 1:23. FINDINGS: Surgical changes and devices: None. Lungs and pleura: Lungs are clear. No pleural effusions or pneumothorax. Diffuse chronic interstitial changes present. Mediastinum: Mediastinal contours appear normal. Heart size is normal. Atherosclerotic vascular calcification noted in the aortic arch. Bones and chest wall: No suspicious bony lesions. Overlying soft tissues appear unremarkable. IMPRESSION: No acute cardiopulmonary findings Approved by: John Reyes M.D. on 12/01/2021 at 14:27
--- NOTE | 2021-12-01 14:18 | DI.CT.S_ITS ---
PROCEDURE: CT ABDOMEN PELVIS W CON INDICATIONS: GI bleed and syncope TECHNIQUE: After the administration of intravenous contrast, axial sections acquired from the lung bases to the pubic symphysis. Coronal and sagittal reformats were performed. For radiation dose reduction, the following was used: automated exposure control, adjustment of mA and/or kV according to patient size. COMPARISON: [facility], CT, CT ABDOMEN PELVIS W CON, 11/28/2021, 23:31. FINDINGS: Image quality: Excellent. Lung bases: Multiple nodular opacities are again seen at bilateral lung bases with masslike consolidation in posterior left lung base measures up to 2.1 cm in size unchanged from prior study series 3, image 11. Largest nodular density at right lung base measures 6 mm in size and is unchanged series 3, image 13. No pleural effusion or pneumothorax. Heart: Heart size is normal, no pericardial effusion. Moderate atherosclerotic disease is seen. ABDOMEN: Liver: Unremarkable. Gallbladder: Small stones are again seen in dependent portion of gallbladder lumen. No gallbladder wall thickening or pericholecystic fluid. Biliary ducts: Unremarkable. Pancreas: Unremarkable. Spleen: Unremarkable. Adrenal Glands: Unremarkable. Kidneys and Ureters: Unremarkable. Stomach and Bowel: There is no bowel obstruction. No gastric or small bowel wall thickening. Questionable diffuse colonic wall thickening and edema is seen which may be due to under distension. Low-grade colitis cannot be excluded. Sigmoid diverticulosis is again seen and no CT evidence of acute diverticulitis. No abscess collection. No mesenteric fat stranding. Peritoneum: No abnormal intraperitoneal fluid. No free air. Ventral Wall: No hernias. Abdominal Nodes: No retroperitoneal or mesenteric adenopathy by size criteria. Vessels: Aorta and inferior vena cava are normal in size. Moderate atherosclerotic disease throughout abdominal aorta is seen. PELVIS: Pelvic Organs: Mildly enlarged prostate gland is seen with mass effect on floor of urinary bladder. Bladder: Unremarkable. Pelvic Nodes: No enlarged lymph nodes. Miscellaneous: No hernias are seen. Bones: No suspicious bony lesion. Osteoarthritic changes throughout bony pelvis is seen. Degenerative disc disease throughout lower thoracic and lumbar spine is also noted. No acute compression fracture. IMPRESSION: 1. Questionable diffuse colonic wall thickening. This may be due to under distension of the colon loops. Low-grade colitis cannot be excluded. Sigmoid diverticulosis without evidence of acute diverticulitis. No abscess collection. No free fluid or free air. No bowel obstruction. 2. Cholelithiasis without CT evidence of acute cholecystitis and is unchanged from prior study. No gross biliary ductal dilatation. 3. Persistent masslike consolidation seen in bilateral lung bases as described above unchanged in size and appearance from 11/28/[address] chest follow-up until resolution is recommended to rule out underlying malignant process. 4. Moderate atherosclerotic disease. Dictated by: Toby Deng M.D. on 12/01/2021 at 15:06 Approved by: Toby Deng M.D. on 12/01/2021 at 15:11
--- NOTE | 2021-12-01 14:18 | DI.CT.S_ITS ---
PROCEDURE: CT HEAD/BRAIN WO CON INDICATIONS: Syncope with head injury TECHNIQUE: Noncontrast 4.5 mm thick angled axial sections acquired from the foramen magnum to the vertex, with coronal and sagittal reformats. For radiation dose reduction, the following was used: automated exposure control, adjustment of mA and/or kV according to patient size. COMPARISON: [facility], CT, CT HEAD/BRAIN WO CON, 10/23/2021, 8:59. FINDINGS: Image quality: Excellent. CSF spaces: Basal cisterns are patent. No extra-axial fluid collections. Ventricles are normal in size and shape. Brain: No midline shift. No intracranial masses or hemorrhage. Marie-white matter interface is normal. Moderate cerebral and cerebellar volume loss with multifocal white matter chronic ischemic change noted. Moderate calcified atherosclerotic plaque noted involving the cavernous portions of both internal carotid arteries. Skull and face: Calvarium and visualized facial bones are intact, without suspicious lesions. Bilateral intraocular lens replacements noted. Sinuses: Visualized sinuses and mastoids are clear. IMPRESSION: Atrophy and chronic ischemic change without acute hemorrhage or mass effect. Approved by: John Reyes M.D. on 12/01/2021 at 14:21
[2021-12-01 14:45] LABS: Add Manual Diff / Slide Review NO; Basophils Absolute Auto 200 /uL (0-100); Basophils Percent Auto 1.3 % (0-2); Eosinophils Absolute Auto 100 /uL (0-450); Eosinophils Percent Auto 0.4 % (2-4); Hematocrit 21.3 % (41-53); Lymphocytes Absolute Auto 2300 /uL (1100-4500); Lymphocytes Percent Auto 15.1 % (25-40); Mean Corpuscular HGB Conc 31.3 % (30-36); Mean Corpuscular Hemoglobin 26.2 PG (26-34); Mean Corpuscular Volume 83.7 fL (80-100); Monocytes Absolute Auto 700 /uL (0-900); Monocytes Percent Auto 4.7 % (3-14); Neutrophils Absolute Auto 11900 /uL (1500-7000); Neutrophils Percent Auto 78.5 % (50-75); Platelet Count 422 X10^3/uL (150-400); Red Blood Cell Count 2.55 X10^6/uL (4.5-5.9); Red Cell Distribution Width 14.9 % (11.6-14.8); White Blood Cell Count 15.1 X10^3/uL (4.5-11.0)
[2021-12-01 14:47] LABS: Hemoglobin 6.7 g/dL (13.5-17.5); INR 1.5 (0.9-1.3)
[2021-12-01 14:49] LABS: PTT Partial Thromboplastin Tim 31 SECONDS (26.4-36.2)
[2021-12-01 14:51] LABS: Lactate (Lactic Acid) 2.6 mmol/L (0.7-2.1)
[2021-12-01 14:53] LABS: Alanine Aminotransferase 12 IU/L (<50); Albumin 3.7 g/dL (3.5-5.0); Albumin Globulin Ratio 1.4 (1.0-2.8); Alkaline Phosphatase 75 U/L (38-126); Aspartate Aminotransferase 28 IU/L (17-59); BUN Creatinine Ratio 13.5 (6-22); Bilirubin Total 0.6 mg/dL (0.2-1.3); Blood Urea Nitrogen 21 mg/dL (9-20); Calcium 9.6 mg/dL (8.4-10.2); Carbon Dioxide 22 mmol/L (22-32); Chloride 108 mmol/L (98-107); Creatine Kinase 56 U/L (55-170); Globulin 2.6 g/dL (1.7-4.1); Glucose 153 mg/dL (80-110); HEMOLYSIS < 15 (0-50); Lipase 108 U/L (23-300); Potassium 3.8 mmol/L (3.4-5.1); Sodium 139 mmol/L (137-145); Total Protein 6.3 g/dL (6.3-8.2)
[2021-12-01 15:03] LABS: Troponin I 0.032 ng/mL (0.01-0.034)
[2021-12-01] MEDS: SODIUM CHLORIDE 0.9% 1,000 ML 100 ML IV (15:15)
[2021-12-01 15:26] LABS: COVID19 - ADMIT (NP swab/PCR) Negative (Negative)
--- NOTE | 2021-12-01 15:31 | PC.NURSE ---
Second PIV attempt x2 unsuccessful. Called [employer]
--- NOTE | 2021-12-01 15:41 | PC.NURSE ---
C Spine cleared by Dr Renteria and c collar removed.
[2021-12-01 16:35] LABS: Reflexed Lactate in 2 Hours Y
[2021-12-01 17:40] LABS: Lactate 2HR (Lactic Acid Rflx) 1.1 mmol/L (0.7-2.1)
--- NOTE | 2021-12-01 22:11 | P.HP_ITS ---
History of Present Illness History of Present Illness Date Patient Seen: 12/01/21 Time Patient Seen: 20:00 Chief complaint: GI bleed, fall Narrative: Mr. Gutierrez is a 80M with PMH CAD, COPD, aortic stenosis, afib who presents to the hospital with bright red blood per rectum. He was recently admitted to the hospital with twice. He was just discharged yesterday. His first admission he did get transfused, he did not get a scope because of respiratory distress deeme d him high risk. His bleeding stopped in the hospital with stopping his brilinta and eliquis and he was discharged home. He did get an EGD and colon one week ago. Records showed whitish plague in the esophagus concerning for possible raissa esophagitis which was biopsied. Mild nonerosive gastritis that was biopsied. 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 He then presented a few days ago with urgency to have a bowel movement and had a large bright red blood per rectum. He was admitted and monitored. He did not need transfusion and he was discharged home. Today he presents again to the ED as he had recurrence of bright red blood and clots. No abdominal pain. He fell at home. He may have hit his head. His found him on the ground. In the ED workup was done, vitals noted he was afebrile, heart rate in the 100s, systolic blood pressure in the 90s. Labs notable for WBC 15.1, hgb 6.7, plts 422, BUN 21, creatinine 1.56, lactate 1.1. CT showed diffuse colonic wall thickening, there was a persistent masslike consolidation in the bilateral lung bases. He was transfused 2U of blood and admitted for further treatment. Patient History Medical History Cervical vertebral fusion COPD (chronic obstructive pulmonary disease) Gastroesophageal reflux disease Hyperlipidemia Hypertension Surgical History History of cervical discectomy History of left-sided carotid endarterectomy S/P cervical spinal fusion Status post appendectomy Family & Social History Family History Father Gunshot injury Social History: household members spouse Safety & Behavioral: Feels Safe in Current Yes Environment Been Physically Hurt or No Threatened By a Person Suicidal Ideation Description None Suicide Plan Description No Plan Tobacco & Substance use: Smoking Status Former smoker alcohol intake current alcohol intake frequency a few times a week Substance Use Type does not use Meds Home Medications and Allergies Home Medications Medication Instructions Recorded Confirmed Type albuterol sulfate 90 mcg/actuation 2 puff INHALATION BID PRN 08/07/18 12/01/21 History aerosol inhaler [id number] 1 tab PO QID PRN 08/07/18 12/01/21 History 50 mg-300 mg-40 mg capsule (Fioricet) atorvastatin 40 mg tablet (Lipitor) 40 mg PO DAILY 09/10/18 12/01/21 History cholecalciferol (vitamin D3) 25 1,000 unit PO DAILY 10/23/21 12/01/21 History mcg (1,000 unit) capsule (Vitamin D3) diltiazem HCl 120 mg 120 mg PO DAILY 10/23/21 12/01/21 History capsule,extended release 24 hr fluticasone 250 mcg-salmeterol 50 1 inh INHALATION BID 10/23/21 12/01/21 History mcg/dose blistr powdr for inhalation gabapentin 600 mg tablet 600 mg PO TID 10/23/21 12/01/21 History pantoprazole 40 mg tablet,delayed 40 mg PO BID #84 tab 10/27/21 12/01/21 Rx release (Protonix) fluconazole 100 mg tablet 200 mg PO DAILY #28 tab 11/30/21 12/01/21 Rx (Diflucan) Allergies Allergy/AdvReac Type Severity Reaction Status Date / Time Beta-Blockers Allergy Unknown Verified 10/23/21 10:41 (Beta-Adrenergic Bloc codeine Allergy Unknown Verified 10/23/21 10:41 Review of Systems Review of Systems Narrative: 14 systems reviewed and negative aside from HPI Exam Vital Signs (past 8 hours): - 12/01/21 14:16 12/01/21 14:27 12/01/21 14:53 Temperature 96.7 F L 96.7 F L Pulse Rate 106 H 105 H 94 H Respiratory Rate 24 22 41 H Blood Pressure 100/61 97/54 L Pulse Oximetry 98 98 83 L 12/01/21 14:54 12/01/21 15:00 12/01/21 15:36 Temperature 97.9 F Pulse Rate 93 H 90 91 H Respiratory Rate 23 17 22 Blood Pressure 165/64 H 137/64 131/60 Pulse Oximetry 100 100 12/01/21 15:51 12/01/21 17:02 12/01/21 17:20 Temperature 97.7 F 97.2 F L 98.5 F Pulse Rate 91 H 90 89 Respiratory Rate 16 18 16 Blood Pressure 121/55 L 144/66 H 143/64 H Pulse Oximetry 98 12/01/21 17:35 12/01/21 18:00 12/01/21 18:09 Temperature 98.8 F 98.8 F 99.2 F Pulse Rate 89 90 91 H Respiratory Rate 14 20 20 Blood Pressure 144/65 H 131/86 114/78 Pulse Oximetry 98 12/01/21 19:00 12/01/21 19:35 12/01/21 20:33 Temperature 98.8 F 98.8 F Pulse Rate 91 H 90 93 H Respiratory Rate 20 19 20 Blood Pressure 135/71 138/68 162/66 H Pulse Oximetry 97 97 Oxygen Delivery Method Room Air Oxygen Flow Rate 2 Narrative Exam Narrative: GEN: no acute distress HEENT: dry mucous membranes, no JVD CARDIOVASCULAR: Regular rate and rhythm RESPIRATORY: Clear bilaterally GASTROINTESTINAL: Abdomen soft, non-tender, nondistended, no organomegaly, normal bowel sounds EXTREMITIES: No edema, moving all extremities SKIN: superficial skin tears, left arm noted, also lateral to left eye NEURO: awake and alert, mildly confused Objective Labs Result Diagrams: 12/01/21 22:00 12/01/21 14:28 Labs: Laboratory Results - last 24 hr 12/01/21 12/01/21 12/01/21 14:25 14:28 14:28 WBC 15.1 H D RBC 2.55 L Hgb 6.7 L* Hct 21.3 L MCV 83.7 MCH 26.2 MCHC 31.3 RDW 14.9 H Plt Count 422 H Neut % (Auto) 78.5 H Lymph % (Auto) 15.1 L [place] % (Auto) 4.7 Eos % (Auto) 0.4 L Baso % (Auto) 1.3 Neut # (Auto) 88615 H Lymph # (Auto) 2300 [place] # (Auto) 700 Eos # (Auto) 100 Baso # (Auto) 200 H PT 17.0 H INR 1.5 H APTT 31 Sodium Potassium Chloride Carbon Dioxide BUN Creatinine Estimated GFR BUN/Creatinine Ratio Glucose Lactate Calcium Total Bilirubin AST ALT Alkaline Phosphatase Total Creatine Kinase CK-MB (CK-2) CK-MB (CK-2) Rel Index Troponin I Total Protein Albumin Globulin Albumin/Globulin Ratio Lipase SARS-CoV-2 (PCR) Negative Blood Type Antibody Screen Crossmatch 12/01/21 12/01/21 12/01/21 14:28 14:28 14:28 WBC RBC Hgb Hct MCV MCH MCHC RDW Plt Count Neut % (Auto) Lymph % (Auto) [place] % (Auto) Eos % (Auto) Baso % (Auto) Neut # (Auto) Lymph # (Auto) [place] # (Auto) Eos # (Auto) Baso # (Auto) PT INR APTT Sodium 139 Potassium 3.8 Chloride 108 H Carbon Dioxide 22 BUN 21 H Creatinine 1.56 H Estimated GFR 43.0 L BUN/Creatinine Ratio 13.5 Glucose 153 H Lactate 2.6 H Calcium 9.6 Total Bilirubin 0.6 AST 28 ALT 12 Alkaline Phosphatase 75 Total Creatine Kinase 56 CK-MB (CK-2) TNP CK-MB (CK-2) Rel Index TNP Troponin I 0.032 Total Protein 6.3 Albumin 3.7 Globulin 2.6 Albumin/Globulin Ratio 1.4 Lipase 108 SARS-CoV-2 (PCR) Blood Type O Positive Antibody Screen Negative Crossmatch See Detail 12/01/21 17:25 WBC RBC Hgb Hct MCV MCH MCHC RDW Plt Count Neut % (Auto) Lymph % (Auto) [place] % (Auto) Eos % (Auto) Baso % (Auto) Neut # (Auto) Lymph # (Auto) [place] # (Auto) Eos # (Auto) Baso # (Auto) PT INR APTT Sodium Potassium Chloride Carbon Dioxide BUN Creatinine Estimated GFR BUN/Creatinine Ratio Glucose Lactate 1.1 Calcium Total Bilirubin AST ALT Alkaline Phosphatase Total Creatine Kinase CK-MB (CK-2) CK-MB (CK-2) Rel Index Troponin I Total Protein Albumin Globulin Albumin/Globulin Ratio Lipase SARS-CoV-2 (PCR) Blood Type Antibody Screen Crossmatch Assessment & Plan Assessment & Plan narrative: Mr. Bowen is a 80M with PMH CAD, afib, aortic stenosis who presents with bright red blood per rectum. 1. Acute GI bleed with blood loss anemia -etiology is likely diverticulosis vs possible AVM -per patient had egd/colo a few days ago -scope shows multiple abnormalities including diverticulosis, hemorrhoids, mild gastritis and possible raissa esophagitis -hold anticoagulation, antiplatelet -transfuse for hemoglobin <7 -surgery consulted -if has significant bleeding will order stat CT 2. MOLLY -etiology was hypovolemia due to GI bleed -ordered for PRBCs as above -trend creatinine -careful with diuretics 3. Possible raissa esophagitis -continue diflucan per note for 14 days -follow up with GI as outpatient for biopsy results 3. Aortic stenosis -careful with IV fluid resuscitation -transfuse blood slowly if needed 4. Paroxysmal atrial fibrillation -hold diltiazem -hold apixaban 5. CAD -hold brillinta -hol blood pressure medications (losartan, lisinopril) for now given bleed 6. COPD without exacerbation -prn albuterol 7. GERD -PPI as above CODE: Full Proxy: Jojo Bowen, I have utilized all available resources to reconcile the patient's home medications. Time Spent With Patient Critical Care time: I spent a total of [] minutes of critical care time on this patient's care today; this time is exclusive of procedural time. Quality VTE Deep Vein Thrombosis/Pulmonary Embolism Present on Admission: No MIPS - Admit I confirm the patient?s Advance Care Plan is present, Code status is documented, Surrogate decision maker is in patient?s record [If Yes, STOP here]: Yes
[2021-12-01 22:21] LABS: Add Manual Diff / Slide Review NO; Basophils Absolute Auto 100 /uL (0-100); Basophils Percent Auto 1.1 % (0-2); Eosinophils Absolute Auto 0 /uL (0-450); Eosinophils Percent Auto 0.3 % (2-4); Hematocrit 27.9 % (41-53); Hemoglobin 9.2 g/dL (13.5-17.5); Lymphocytes Absolute Auto 1500 /uL (1100-4500); Lymphocytes Percent Auto 12.8 % (25-40); Mean Corpuscular HGB Conc 33.1 % (30-36); Mean Corpuscular Volume 84.6 fL (80-100); Monocytes Absolute Auto 800 /uL (0-900); Monocytes Percent Auto 6.9 % (3-14); Neutrophils Absolute Auto 9100 /uL (1500-7000); Neutrophils Percent Auto 78.9 % (50-75); Platelet Count 267 X10^3/uL (150-400); Red Blood Cell Count 3.29 X10^6/uL (4.5-5.9); Red Cell Distribution Width 14.4 % (11.6-14.8); White Blood Cell Count 11.6 X10^3/uL (4.5-11.0)
[2021-12-02] VITALS (20 sets, daily range): BP systolic 101–161; BP diastolic 42–64; PULSE 79–104; RESP 16–22; TEMP 36.2–37.3; O2SAT 96–99
[2021-12-02 04:43] LABS: Hematocrit 25.2 % (41-53); Hemoglobin 8.3 g/dL (13.5-17.5)
[2021-12-02 04:53] LABS: Alanine Aminotransferase 10 IU/L (<50); Albumin 2.9 g/dL (3.5-5.0); Albumin Globulin Ratio 1.2 (1.0-2.8); Alkaline Phosphatase 57 U/L (38-126); Aspartate Aminotransferase 23 IU/L (17-59); BUN Creatinine Ratio 13.6 (6-22); Bilirubin Total 0.7 mg/dL (0.2-1.3); Blood Urea Nitrogen 21 mg/dL (9-20); Calcium 8.8 mg/dL (8.4-10.2); Carbon Dioxide 18 mmol/L (22-32); Chloride 113 mmol/L (98-107); Estimated Glomerular Filt Rate 43.7 mL/min (>60); Globulin 2.4 g/dL (1.7-4.1); Glucose 90 mg/dL (80-110); HEMOLYSIS < 15 (0-50); Potassium 3.5 mmol/L (3.4-5.1); Sodium 141 mmol/L (137-145); Total Protein 5.3 g/dL (6.3-8.2)
[2021-12-02] MEDS: ONDANSETRON 4 MG/2 ML INJ IV (06:43)
[2021-12-02] MEDS: SODIUM CHLORIDE 0.9% 1,000 ML 1000 ML IV (07:30)
--- NOTE | 2021-12-02 07:44 | PC.NURSE ---
Pt arrived to unit in no cardiovascular or respiratory distress, mild abdominal discomfort. Multiple skin tears over body, redressed with gauze and non-adherent pads. At approx 0405, pt had 1 BM consisting of dark red liquid blood w/ clots. Approx 350 mL. Provider informed, ordered stat H/H and tranfuse 1 unit PRBC. At approx 0640, pt had another BM of dark red liquid w/ clots totaling 325 mL. BP 126/48, HR tachy 100s. Provider informed. Ordered 1 bolus NS and additional unit of PRBCs to transfuse after initial finishes. Report given to Marilee SOARES day shift.
[2021-12-02 07:57] LABS: Lactate (Lactic Acid) 1.2 mmol/L (0.7-2.1)
[2021-12-02] MEDS: FLUCONAZOLE 100 MG TABLET 200 MG PO (10:34)
--- NOTE | 2021-12-02 10:37 | PM.PN.1 ---
Subjective Subjective Date Patient Seen: 12/02/21 Time Patient Seen: 08:00 Interval history: Overnight he had a moderate sized dark bloody stool with clots. This morning he has had two additional dark bloody and clot filled stools. He was dizzy, tachycardic. He was ordered for IV saline bolus and 2U PRBC. He feels slightly better. He has intermittent abdominal fullness. His dizziness is improved. He feels weak. Exam Vital Signs (past 8 hours): - 12/02/21 04:17 12/02/21 05:00 12/02/21 05:07 Temperature 98.0 F 97.4 F L Pulse Rate 97 H 94 H Respiratory Rate 18 18 Blood Pressure 134/63 122/54 L Pulse Oximetry 98 97 12/02/21 05:23 12/02/21 06:52 12/02/21 08:00 Temperature 97.4 F L 98.0 F Pulse Rate 93 H 80 Respiratory Rate 17 16 Blood Pressure 122/62 126/48 L 161/42 H Pulse Oximetry 98 12/02/21 08:28 Temperature 97.6 F Pulse Rate 90 Respiratory Rate 20 Blood Pressure 151/58 H Pulse Oximetry Oxygen Delivery Method Room Air Oxygen Flow Rate 0 Narrative Exam Narrative: GEN: no acute distress HEENT: dry mucous membranes, no JVD CARDIOVASCULAR: Regular rate and rhythm RESPIRATORY: Clear bilaterally GASTROINTESTINAL: Abdomen soft, non-tender, nondistended, no organomegaly, normal bowel sounds EXTREMITIES: No edema, moving all extremities SKIN: superficial skin tears, left arm noted, also lateral to left eye NEURO: awake and alert, mildly confused Objective Labs Result Diagrams: 12/02/21 04:30 12/02/21 04:30 Labs: Laboratory Results - last 24 hr 12/01/21 12/01/21 12/01/21 14:25 14:28 14:28 WBC 15.1 H D RBC 2.55 L Hgb 6.7 L* Hct 21.3 L MCV 83.7 MCH 26.2 MCHC 31.3 RDW 14.9 H Plt Count 422 H Neut % (Auto) 78.5 H Lymph % (Auto) 15.1 L [place] % (Auto) 4.7 Eos % (Auto) 0.4 L Baso % (Auto) 1.3 Neut # (Auto) 37838 H Lymph # (Auto) 2300 [place] # (Auto) 700 Eos # (Auto) 100 Baso # (Auto) 200 H PT 17.0 H INR 1.5 H APTT 31 Sodium Potassium Chloride Carbon Dioxide BUN Creatinine Estimated GFR BUN/Creatinine Ratio Glucose Lactate Calcium Total Bilirubin AST ALT Alkaline Phosphatase Total Creatine Kinase CK-MB (CK-2) CK-MB (CK-2) Rel Index Troponin I Total Protein Albumin Globulin Albumin/Globulin Ratio Lipase SARS-CoV-2 (PCR) Negative Blood Type Antibody Screen Crossmatch 12/01/21 12/01/21 12/01/21 14:28 14:28 14:28 WBC RBC Hgb Hct MCV MCH MCHC RDW Plt Count Neut % (Auto) Lymph % (Auto) [place] % (Auto) Eos % (Auto) Baso % (Auto) Neut # (Auto) Lymph # (Auto) [place] # (Auto) Eos # (Auto) Baso # (Auto) PT INR APTT Sodium 139 Potassium 3.8 Chloride 108 H Carbon Dioxide 22 BUN 21 H Creatinine 1.56 H Estimated GFR 43.0 L BUN/Creatinine Ratio 13.5 Glucose 153 H Lactate 2.6 H Calcium 9.6 Total Bilirubin 0.6 AST 28 ALT 12 Alkaline Phosphatase 75 Total Creatine Kinase 56 CK-MB (CK-2) TNP CK-MB (CK-2) Rel Index TNP Troponin I 0.032 Total Protein 6.3 Albumin 3.7 Globulin 2.6 Albumin/Globulin Ratio 1.4 Lipase 108 SARS-CoV-2 (PCR) Blood Type O Positive Antibody Screen Negative Crossmatch See Detail 12/01/21 12/01/21 12/02/21 17:25 22:00 04:30 WBC 11.6 H RBC 3.29 L Hgb 9.2 L Hct 27.9 L MCV 84.6 MCH 28.0 MCHC 33.1 RDW 14.4 Plt Count 267 Neut % (Auto) 78.9 H Lymph % (Auto) 12.8 L [place] % (Auto) 6.9 Eos % (Auto) 0.3 L Baso % (Auto) 1.1 Neut # (Auto) 9100 H Lymph # (Auto) 1500 [place] # (Auto) 800 Eos # (Auto) 0 Baso # (Auto) 100 PT INR APTT Sodium 141 Potassium 3.5 Chloride 113 H Carbon Dioxide 18 L BUN 21 H Creatinine 1.54 H Estimated GFR 43.7 L BUN/Creatinine Ratio 13.6 Glucose 90 Lactate 1.1 Calcium 8.8 Total Bilirubin 0.7 AST 23 ALT 10 Alkaline Phosphatase 57 Total Creatine Kinase CK-MB (CK-2) CK-MB (CK-2) Rel Index Troponin I Total Protein 5.3 L Albumin 2.9 L Globulin 2.4 Albumin/Globulin Ratio 1.2 Lipase SARS-CoV-2 (PCR) Blood Type Antibody Screen Crossmatch 12/02/21 12/02/21 04:30 07:30 WBC RBC Hgb 8.3 L Hct 25.2 L MCV MCH MCHC RDW Plt Count Neut % (Auto) Lymph % (Auto) [place] % (Auto) Eos % (Auto) Baso % (Auto) Neut # (Auto) Lymph # (Auto) [place] # (Auto) Eos # (Auto) Baso # (Auto) PT INR APTT Sodium Potassium Chloride Carbon Dioxide BUN Creatinine Estimated GFR BUN/Creatinine Ratio Glucose Lactate 1.2 Calcium Total Bilirubin AST ALT Alkaline Phosphatase Total Creatine Kinase CK-MB (CK-2) CK-MB (CK-2) Rel Index Troponin I Total Protein Albumin Globulin Albumin/Globulin Ratio Lipase SARS-CoV-2 (PCR) Blood Type Antibody Screen Crossmatch [facility] Medical History Cervical vertebral fusion COPD (chronic obstructive pulmonary disease) Gastroesophageal reflux disease Hyperlipidemia Hypertension Surgical History History of cervical discectomy History of left-sided carotid endarterectomy S/P cervical spinal fusion Status post appendectomy Family History Father Gunshot injury Social History household members: spouse Smoking Status: Former smoker alcohol intake: current substance use type: does not use Assessment & Plan Assessment & Plan narrative: Mr. Bowen is a 80M with PMH CAD, afib, aortic stenosis who presents with bright red blood per rectum. 1. Acute GI bleed with blood loss anemia -etiology is likely diverticulosis vs possible AVM -per patient had egd/colo a few days ago -scope shows multiple abnormalities including diverticulosis, hemorrhoids, mild gastritis and possible raissa esophagitis -hold anticoagulation, antiplatelet -transfused 2U in ED and hgb from 6.7->9, then had additional dark blood, and clot filled stools since admission, repeat hgb down in 8s, and continued to have bloody stool, so transfused additional 2U on the acute care floor -surgery consulted to see if any role here for possible repeat colonoscopy, will discuss if patient should be transferred to higher level of care and eval with possible tagged red cell scan 2. MOLLY -etiology was hypovolemia due to GI bleed -ordered for PRBCs as above -trend creatinine -careful with diuretics 3. Possible raissa esophagitis -continue diflucan per note for 14 days -follow up with GI as outpatient for biopsy results 3. Aortic stenosis -careful with IV fluid resuscitation -transfuse blood slowly if needed 4. Paroxysmal atrial fibrillation -hold diltiazem -hold apixaban 5. CAD -hold brillinta -hol blood pressure medications (losartan, lisinopril) for now given bleed 6. COPD without exacerbation -prn albuterol 7. GERD -PPI as above CODE: Full Proxy: Jojo Rooneyon, I have utilized all available resources to reconcile the patient's home medications. Time Spent With Patient Critical Care time: I spent a total of [] minutes of critical care time on this patient's care today; this time is exclusive of procedural time. Quality VTE Deep Vein Thrombosis/Pulmonary Embolism Present on Admission: No
--- NOTE | 2021-12-02 11:00 | CM.DANOTE ---
DCP Assessment: Patient is a 81 yr old male who was admitted for GLF and GI Bleed. Patient has been here three times since August and was DC 11/30/21. Patient had GLF at home when his was gone to the store. CM met with patient at the bedside and explained role. Patient was alert and oriented at time of meeting. Patient currently lives with his Jojo in [place]. Patient states he does not want to go to SNF or have HH services at home. He just wants to go home with his and no help. CM asked patient if CM could talk with his . Patient stated CM could talk to his in his room with him but does not want CM calling her at home to talk to her. CM stated understanding and will not call his . CM explained the benefit of HH and SNF but the patient was not interested in either service and stated he does not want them and wants to go home when he is ready. Patients provided the patient with all his needed transportation and according to the patient will drive the patient home at [place] from the hospital when he is medically stable. I: Medicare and for life Plan: DC home with when medically stable does not want SNF or HH services and only wants CM to talk with while she is in the room with him. CM will follow up with PT and OT after they do there assessments. Juliette Rush RNa r specialist Discharge Planning/Care Management CM Discharge Assessment Start: 12/02/21 10:51 Freq: Status: Active Protocol: Document 12/02/21 10:51 HS (Rec: 12/02/21 11:00 HS [id number]) Discharge Planning Assessment Assigned Weatherization Field Technician Juliette Rush RNdiamond setter apprentice DPOA/Assigned Designee Name Jojo Bowen _Wife Contact Information [phone] Advance Directives? No History Provided By Patient,Significant Other, Medical Record Has Patient been admitted in last 30 Yes days? Comment Patient was previously admitted on 09/18, 10/23/21, all for GI bleed and anemia Prior Living Arrangements House Household Members spouse Type of transporation used prior to Relies on Others admit Is patient alert and oriented? Yes Needs Assistance With Meal Prep,Managing Medications ,Home Chores / Shopping Comment Patients does all the home chores , meal prep and grocery shopping and does all the driving Caregiver for Another No DME Already Rented / Owned Cane Comment Patient does not want SNF or HH and is insistant about going home without HH doesnt want anyone in his home Barriers to Discharge Yes Comment also uses [facility], will have to see how patient does with P .T. Discharge Plan Home Transportation Arrangement Family Referrals Initiated Other Additional Comment Patient has not yet worked with P.T. will have to look at recommendations and if patient makes inpatient status . Whiteboard Updated in Patient Room with Yes name and ext. # of Weatherization Field Technician Review Status In Process Next Review Type Continued Stay Review
[2021-12-02] MEDS: POTASSIUM CHLORIDE 20 MEQ TAB PO (12:00)
--- NOTE | 2021-12-02 12:18 | PT-IP ANOTE ---
PT on hold for the am. Pt is receiving transfusion at this time. will f/u
[2021-12-02] MEDS: ACETAMINOPHEN 325 MG TABLET 650 MG PO (13:20)
[2021-12-02] MEDS: DEXTROSE 5%-0.9% NS 1,000 ML 84 ML IV (13:22)
[2021-12-02 14:11] LABS: Hematocrit 29.9 % (41-53)
--- NOTE | 2021-12-02 14:20 | PT-IP ANOTE ---
checked with nurse and pt is finished with transfusion but stated that pt is still pooping out blood. stated that the doctor is planning to do a scope but may not be completed until tomorrow. will hold off PT eval. nurse stated that she told the hospitalist regarding deferring PT eval today and agreed.
[2021-12-02] MEDS: PEG3350/SOD SULF,BICARB,CL/KCL 4,000 ML SOLUTION 2000 ML PO (14:25)
--- NOTE | 2021-12-02 16:39 | PM.CN ---
History of Present Illness Consult details Date Patient Seen: 12/02/21 Chief complaint: GI bleed, fall Narrative: 81-year-old man who is admitted for melena and anemia. He fell prior to admission. He has had a known GI bleed and has been worked up for this over the past several weeks including an upper and lower endoscopy at an outside facility just recently. 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 He has had multiple dark bloody bowel movements since admission and he has received 2 units of blood would. Meds Home Medications and Allergies Home Medications Medication Instructions Recorded Confirmed Type albuterol sulfate 90 mcg/actuation 2 puff INHALATION BID PRN 08/07/18 12/01/21 History aerosol inhaler [id number]-[id number]-[id number] 1 tab PO QID PRN 08/07/18 12/01/21 History 50 mg-300 mg-40 mg capsule (Fioricet) atorvastatin 40 mg tablet (Lipitor) 40 mg PO DAILY 09/10/18 12/01/21 History cholecalciferol (vitamin D3) 25 1,000 unit PO DAILY 10/23/21 12/01/21 History mcg (1,000 unit) capsule (Vitamin D3) diltiazem HCl 120 mg 120 mg PO DAILY 10/23/21 12/01/21 History capsule,extended release 24 hr fluticasone 250 mcg-salmeterol 50 1 inh INHALATION BID 10/23/21 12/01/21 History mcg/dose blistr powdr for inhalation gabapentin 600 mg tablet 600 mg PO TID 10/23/21 12/01/21 History pantoprazole 40 mg tablet,delayed 40 mg PO BID #84 tab 10/27/21 12/01/21 Rx release (Protonix) fluconazole 100 mg tablet 200 mg PO DAILY #28 tab 11/30/21 12/01/21 Rx (Diflucan) Allergies Allergy/AdvReac Type Severity Reaction Status Date / Time Beta-Blockers Allergy Unknown Verified 10/23/21 10:41 (Beta-Adrenergic Bloc codeine Allergy Unknown Verified 10/23/21 10:41 Exam Vital Signs (past 8 hours): - 12/02/21 09:00 12/02/21 10:30 12/02/21 11:25 Temperature 98.5 F Pulse Rate 98 H Respiratory Rate 20 Blood Pressure 121/64 Pulse Oximetry 98 97 98 02/04/22 13:00 Temperature Pulse Rate Respiratory Rate Blood Pressure Pulse Oximetry 98 Oxygen Delivery Method Room Air Oxygen Flow Rate 0 Narrative Exam Narrative: Confused No labored breathing Abdomen soft, nontender Multiple superficial abrasions of the forehead and left arm and hand Objective Labs Result Diagrams: 12/02/21 14:03 12/02/21 04:30 Labs: Laboratory Results - last 24 hr 12/01/21 12/01/21 12/01/21 14:28 17:25 22:00 WBC 11.6 H RBC 3.29 L Hgb 9.2 L Hct 27.9 L MCV 84.6 MCH 28.0 MCHC 33.1 RDW 14.4 Plt Count 267 Neut % (Auto) 78.9 H Lymph % (Auto) 12.8 L Lamb % (Auto) 6.9 Eos % (Auto) 0.3 L Baso % (Auto) 1.1 Neut # (Auto) 9100 H Lymph # (Auto) 1500 Lamb # (Auto) 800 Eos # (Auto) 0 Baso # (Auto) 100 Sodium Potassium Chloride Carbon Dioxide BUN Creatinine Estimated GFR BUN/Creatinine Ratio Glucose Lactate 1.1 Calcium Total Bilirubin AST ALT Alkaline Phosphatase Total Protein Albumin Globulin Albumin/Globulin Ratio Blood Type O Positive Antibody Screen Negative Crossmatch See Detail 12/02/21 12/02/21 12/02/21 04:30 04:30 07:30 WBC RBC Hgb 8.3 L Hct 25.2 L MCV MCH MCHC RDW Plt Count Neut % (Auto) Lymph % (Auto) Lamb % (Auto) Eos % (Auto) Baso % (Auto) Neut # (Auto) Lymph # (Auto) Lamb # (Auto) Eos # (Auto) Baso # (Auto) Sodium 141 Potassium 3.5 Chloride 113 H Carbon Dioxide 18 L BUN 21 H Creatinine 1.54 H Estimated GFR 43.7 L BUN/Creatinine Ratio 13.6 Glucose 90 Lactate 1.2 Calcium 8.8 Total Bilirubin 0.7 AST 23 ALT 10 Alkaline Phosphatase 57 Total Protein 5.3 L Albumin 2.9 L Globulin 2.4 Albumin/Globulin Ratio 1.2 Blood Type Antibody Screen Crossmatch 12/02/21 14:03 WBC RBC Hgb 10.0 L Hct 29.9 L MCV MCH MCHC RDW Plt Count Neut % (Auto) Lymph % (Auto) Lamb % (Auto) Eos % (Auto) Baso % (Auto) Neut # (Auto) Lymph # (Auto) Lamb # (Auto) Eos # (Auto) Baso # (Auto) Sodium Potassium Chloride Carbon Dioxide BUN Creatinine Estimated GFR BUN/Creatinine Ratio Glucose Lactate Calcium Total Bilirubin AST ALT Alkaline Phosphatase Total Protein Albumin Globulin Albumin/Globulin Ratio Blood Type Antibody Screen Crossmatch ON LICENSE OF [facility] Medical History Cervical vertebral fusion COPD (chronic obstructive pulmonary disease) Gastroesophageal reflux disease Hyperlipidemia Hypertension Surgical History History of cervical discectomy History of left-sided carotid endarterectomy S/P cervical spinal fusion Status post appendectomy Family History Father Gunshot injury Social History household members: spouse Tobacco & Substance Use Smoking Status: Former smoker alcohol intake: current substance use type: does not use Assessment & Plan Assessment and plan (1) Acute lower gastrointestinal bleeding: Status: Acute Plan Hold all anticoagulation GoLYTELY prep tonight and plan for upper and lower endoscopy tomorrow. Time Spent With Patient Critical Care time: I spent a total of [] minutes of critical care time on this patient's care today; this time is exclusive of procedural time.
[2021-12-03] VITALS (17 sets, daily range): BP systolic 130–164; BP diastolic 49–64; PULSE 82–104; RESP 10–24; TEMP 36.2–37.1; O2SAT 94–99
[2021-12-03] MEDS: DEXTROSE 5%-0.9% NS 1,000 ML 84 ML IV (01:08)
--- NOTE | 2021-12-03 07:34 | P.PN_ITS ---
Subjective Subjective Interval history: He is seen today to follow-up his whole lower GI bleed. He is going for repeat colonoscopy today if he has been able to tolerate the required amount of Colyte. 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 He appears quite weakend and unable to take care of himself at home, with his somewhat medically compromised , he refuses to consider custodial facility or swing bed but conversations are ongoing. So far he has only been able to drink about 1/4 of the required bowel prep. The hemoglobin dropped from 10.0-8.5-8.2. Exam Vital Signs (past 8 hours): - 12/03/21 01:00 12/03/21 03:01 12/03/21 05:00 Temperature 98.2 F 98.8 F Pulse Rate 100 H 98 H Respiratory Rate 18 18 Blood Pressure 138/56 L 157/53 H Pulse Oximetry 99 94 94 Oxygen Delivery Method Room Air Oxygen Flow Rate 0 Narrative Exam Narrative: He appears quite weak, fully oriented, no apparent distress Multiple bruises on his arms and dressings around his left fingers that are notable for some older bleeding. Heart is regular rate and rhythm without murmur Lungs are clear to auscultation bilaterally Abdomen is soft, bowel sounds positive, nontender, no organomegaly Extremities have no ankle edema Objective Labs Result Diagrams: 12/03/21 07:20 12/03/21 07:14 Labs: Laboratory Results - last 24 hr 12/01/21 12/02/21 12/02/21 14:28 07:30 14:03 Hgb 10.0 L Hct 29.9 L Lactate 1.2 Blood Type O Positive Antibody Screen Negative Crossmatch See Detail [facility] Medical History Cervical vertebral fusion COPD (chronic obstructive pulmonary disease) Gastroesophageal reflux disease Hyperlipidemia Hypertension Surgical History History of cervical discectomy History of left-sided carotid endarterectomy S/P cervical spinal fusion Status post appendectomy Family History Father Gunshot injury Social History household members: spouse Smoking Status: Former smoker alcohol intake: current substance use type: does not use Assessment & Plan Assessment & Plan narrative: Mr. Bowen is a 80M with PMH CAD, afib, aortic stenosis who presented with bright red blood per rectum. 1. Acute GI bleed with blood loss anemia -etiology is likely diverticulosis vs possible AVM -per patient had egd/colo a few days ago in [place] -scope shows multiple abnormalities including diverticulosis, hemorrhoids, mild gastritis and possible raissa esophagitis -holding anticoagulation, antiplatelet -transfused 2U in ED and hgb from 6.7->9, then had additional dark blood, and clot filled stools since admission, repeat hgb down in 8s, and continued to have bloody stool, so transfused additional 2U on the acute care floor on 12/02. Hemoglobin again dropped to 8.2 on 12/03 -surgery was planning a colonoscopy today 12/03 but bowel prep appears inadequate. Next step to be discussed. 2. MOLLY -etiology was hypovolemia due to GI bleed -transfused PRBCs as above -trend creatinine -careful with diuretics 3. Possible raissa esophagitis -continue diflucan per note for 14 days -follow up with GI as outpatient for biopsy results 3. Aortic stenosis -careful with IV fluid resuscitation -transfuse blood slowly 4. Paroxysmal atrial fibrillation -hold diltiazem -hold apixaban 5. CAD -hold brillinta -holding blood pressure medications (losartan, lisinopril) for now given bleed 6. COPD without exacerbation -prn albuterol 7. GERD -PPI as above His placement decision to return home appears quite tenuous. 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 CODE: Full Proxy: Jojo Bowen, Time Spent With Patient Critical Care time: I spent a total of [] minutes of critical care time on this patient's care today; this time is exclusive of procedural time. Quality VTE Deep Vein Thrombosis/Pulmonary Embolism Present on Admission: No
[2021-12-03 07:56] LABS: Hematocrit 25.4 % (41-53); Hemoglobin 8.2 g/dL (13.5-17.5); Mean Corpuscular HGB Conc 32.5 % (30-36); Mean Corpuscular Hemoglobin 28.4 PG (26-34); Mean Corpuscular Volume 87.5 fL (80-100); Platelet Count 265 X10^3/uL (150-400); Red Blood Cell Count 2.91 X10^6/uL (4.5-5.9); Red Cell Distribution Width 14.5 % (11.6-14.8); White Blood Cell Count 15.3 X10^3/uL (4.5-11.0)
[2021-12-03 08:01] LABS: BUN Creatinine Ratio 19.4 (6-22); Blood Urea Nitrogen 24 mg/dL (9-20); Calcium 8.6 mg/dL (8.4-10.2); Carbon Dioxide 21 mmol/L (22-32); Chloride 117 mmol/L (98-107); Estimated Glomerular Filt Rate 56.1 mL/min (>60); Glucose 111 mg/dL (80-110); HEMOLYSIS 43 (0-50); Potassium 4.1 mmol/L (3.4-5.1); Sodium 143 mmol/L (137-145)
[2021-12-03] MEDS: FLUCONAZOLE 100 MG TABLET 200 MG PO (08:46)
[2021-12-03 10:55] LABS: Hemoglobin A1C% w Est Avg Glu 4.8 % (4.0-6.0)
--- NOTE | 2021-12-03 10:59 | PM.PREOP ---
Pre-operative Note COVID-19 COVID-19 status: Negative Result date/Date tested (Pos, Neg/Pending): 12/01/21 Criteria for continued procedure: Expected advancement of disease process and Deterioration of the patient's condition or overall health Interval Note History & Physical reviewed/Exam performed by Physician: Yes Changes to H&P: Yes H&P completed within 30 days and has changed as indicated here:: The patient was not able to complete his GoLYTELY bowel prep. He has continued to pass multiple bloody clots that nursing describes as the same color as his blood transfusions. He wishes to have everything done to preserve his life so we will proceed with an upper and lower endoscopy to try to pinpoint the source of the bleeding. ASA Class (for procedural sedation): III (Emergency)
[2021-12-03] MEDS: LACTATED RINGERS 1,000 ML 100 ML IV (11:42)
--- NOTE | 2021-12-03 12:07 | PT-IP ANOTE ---
PT eval on hold. Pt is scheduled to have colonoscopy/endoscopy today. per nurse, pt is still has blood coming out of rectum.
--- NOTE | 2021-12-03 12:36 | PM.OP.EC ---
Operative Date/Time/Diagnoses Date of procedure: 12/03/21 Time of procedure: 12:36 Pre-op diagnosis: GI bleeding Post-op diagnosis: same Procedure & Clinicians Study performed: Esophagogastroduodenoscopy and colonoscopy Same procedure as scheduled: Yes Indications: GI bleed Surgeon: Abdulkadir Godinez Procedure Notes SCOAP/Timeout: Yes Procedure in detail: Procedure in detail: A timeout was performed. Bite blocked was placed. Patient was positioned in a left lateral decubitus position. Sedation was administered by Dr. Estrada. Once the patient was sedated the endoscope was inserted through the bite block and passed through the esophagus and stomach and into the duodenum. There was no source of GI bleeding in the stomach or duodenum. Photographs taken in the duodenum. There was some mild antritis. There were some scattered fundic gland polyps in the proximal stomach. The scope was retroflexed and no hiatal hernia was seen. The GE junction and the remainder of the esophagus were normal. Findings: No evidence for upper GI bleeding. Next we repositioned the patient for a colonoscopy. A digital rectal exam was performed and was normal other than a high sphincter tone. The colonoscope was inserted and advanced to the cecum. There was significant blood clot throughout the colon. The appendiceal orifice was identified and photographed. The terminal ileum was intubated and there was no blood or clot in the ileum. There was a healing scar in the cecum from his recent colonoscopy with intervention for a bleeding AVM in the cecum. There was no active bleeding at the time of this examination. The remainder of the colon showed significant old blood clot but no other source of active bleeding. Scope was retroflexed in the rectum and no abnormality was seen. Findings: Healing lesion in the cecum from recent interventional colonoscopy without active bleeding. Significant clotted blood throughout the colon EBL: 0 Scope withdrawal time: 9 Sedation minutes: 31 Post-procedure Plan for aftercare: Stop all blood thinners and anti platelet agents
--- NOTE | 2021-12-03 12:41 | SUR.PHASEI ---
Patient to recovery room s/p EGD and colonoscopy with nursing staff and anesthesia staff in stable condition; resting with eyes closed; vss; abdomen soft and non-distended. NSR noted on monitor.
--- NOTE | 2021-12-03 12:52 | SUR.PHASEI ---
Patient responsive and denies pain or nausea; abdomen remains soft. VSS; warm blankets given. To floor with PACU nurse via stretcher.
--- NOTE | 2021-12-03 13:00 | PT.IIE ---
Current Diagnoses Hemorrhage of anus and rectum (12/01/21) Gastrointestinal hemorrhage, unspecified (12/01/21) Surgery Performed Operation Date: 12/03/21 11:00 Actual Procedures p Colonoscopy - Abdulkadir Godinez MD s Esophagogastroduodenoscopy - Abdulkadir Godinez MD Surgical History (Last Reviewed 12/01/21 @ 22:11 by Merritt Armenta MD) Status post appendectomy Medical History (Last Reviewed 12/01/21 @ 22:11 by Merritt Armenta MD) Cervical vertebral fusion COPD (chronic obstructive pulmonary disease) Gastroesophageal reflux disease Hyperlipidemia Hypertension Physical Therapy Inpatient Evaluation/Re-Eval M1 PT/OT-IP Prior Functional Status Start: 12/03/21 14:11 Freq: NEEDED Status: Active Protocol: Document 12/03/21 13:00 AB (Rec: 12/03/21 14:38 AB [email or web address]) Medical Review Prior Functional Status Medical History Reviewed Yes Communication able to make needs known Mobility and Gait per spouse: pt is modified independent with all mobilities and ambulation without AD but occasionally uses a FWW; pt has h/o falls and prefers not to use a FWW spouse stated that pt has been getting weak for the passed year and has 2 falls last year and this year/recently had 2 more falls. spouse stated that she tries to assist pt as much as she can but is limited due to her back issue Social History Household Members spouse Living Arrangements House Number of Floors (Floors) One Floor Number of Stairs To Enter/Railing? 2 steps R rail: per spouse, pt uses R rail and spouse on L side for support Home Environment Standard Height Toilet,Walk in Shower Home Equipment Front Wheel Walker,Shower Seat without Backrest,Hand Held Shower Additional Social History Comment pt lives with spouse but limited with assistance that can be provided due to her back problems ( stated that she has 3 herniated discs); spouse also uses a 4WW M2 PT-IP Current Condition Start: 12/03/21 14:11 Freq: NEEDED Status: Active Protocol: Document 12/03/21 13:00 AB (Rec: 12/03/21 14:38 AB [email or web address]) Physical Therapy Current Condition Current Condition Evaluation Date 12/03/21 Treatment Diagnosis GI bleed; difficulty in walking Onset Date 12/01/21 M3 PT-IP Subjective Start: 12/03/21 14:11 Freq: NEEDED Status: Active Protocol: Document 12/03/21 13:00 AB (Rec: 12/03/21 14:38 AB [email or web address]) Subjective Physical Therapy Visit Type Type Initial Evaluation Visit Start Time 13:00 Visit Stop Time 13:30 Total Visit Minutes 30 Notes pt went for colonoscopy/ endoscopy this morning and just came back. Pt requiring assist to transfer back to bed and PT assisted. OR nurse stated that pt has no active bleeding at this time. Number of SCHOOL RESOURCE OFFICER Visits 0 M4 PT-IP Mobility and Gait Start: 12/03/21 14:11 Freq: NEEDED Status: Active Protocol: Document 12/03/21 13:00 AB (Rec: 12/03/21 14:38 AB [email or web address]) PT-Bed Mobility Assessment Sit to Supine Sit to Supine Standby Assistance PT-Transfer Assessment Sit to and From Stand Sit to and from Stand Minimal Assistance,Moderate Assistance,1 Person Assistance ,Use of Upper Extremities Equipment Transfer Assistive Device Gait Belt,Front Wheeled Walker Orthotic/Prosthetic Devices or Brace: No Transfers Transfer Destination Bed Transfer Technique steps to transfer using FWW Transfer Ability Level of Assist Minimal Assistance,Moderate Assistance,1 Person Assistance ,Use of Upper Extremities Comments Mobility Comments pt completed supine to sit from gurney max A and max cues . able to sit on EOB min A. completed sit to stand min A to mod A and able to take steps to transfer to bed using FWW ~ 2 ft min to mod A. pt completed sit to supine SBA. positioned pt in bed. call light and table placed within reach. spouse in room and provided PLOF and home set up info. Gait Assessment Gait Gait Assistance Required: Minimum Assistance,Moderate Assistance Distance (Feet) 2 Able to Maintain Weight Bearing Status Yes During Gait Assistive Devices Assistive Device Gait Belt,Front Wheeled Walker Orthotic/Prosthetic Devices or Brace: No Gait Deviations General Gait Pattern Decreased Stride Length, Decreased Feet Clearance Factors Limiting Gait Function Factors Limiting Gait Function Decreased Strength,Poor Balance,Poor Safety Awareness Comments Gait Comments able to take steps during transfers. PT-Balance Assessment Sitting Balance and Reactions Static Sitting Balance Ability Fair Dynamic Sitting Balance Ability Fair Standing Balance and Reactions Static Standing Balance Ability Fair Dynamic Standing Balance Ability Poor Device Used FWW M5 PT-IP Objective Assessments Start: 12/03/21 14:11 Freq: NEEDED Status: Active Protocol: Document 12/03/21 13:00 AB (Rec: 12/03/21 14:38 AB [email or web address]) Orientation Orientation/Cognition Level of Alertness Alert Orientation Name,Place,Situation Safety Awareness Decreased Safety Awareness Memory Description Short Term Impaired Muscle Tone Muscle Tone WNL No M6 PT-IP Treatment Start: 12/03/21 14:11 Freq: NEEDED Status: Active Protocol: Document 12/03/21 13:00 AB (Rec: 12/03/21 14:38 AB [email or web address]) Physical Therapy Treatment Education Education Provided Safety M7 PT-IP Assessment and Plan Start: 12/03/21 14:11 Freq: NEEDED Status: Active Protocol: Document 12/03/21 13:00 AB (Rec: 12/03/21 14:38 AB [email or web address]) PT Summary Assessment and Plan Potential Rehabilitation Potential Fair Status of Condition at Evaluation Evolving Summary Impairments Pain,ROM,Strength,Balance, Coordination,Sensation,Tone, Cognition,Bed Mobility, Transfers,Gait,Activity Tolerance Assessment Summary pt requiring min to mod A with mobility using FWW and has decrease activity tolerance. pt lives with spouse but spouse has limitations on how much she can assist pt due to her own medical issues. will require further assessment but at t his time, pt may require SNF rehab. Goals Bed Mobility Goal Standby Assistance Transfer Goal Standby Assistance,Front Wheeled Walker Gait Goal Standby Assistance,Front Wheel Walker Gait Distance 100 Other Goals improve bed mobility, transfers, ambulation using FWW 150 ft mod I up/down 2 steps R rail SBA Days to Meet Goals 10 Frequency of Treatment Frequency Of Treatment Once a Day Treatment Plan Physical Therapy Treatment Plan Bed Mobility Training,Transfer Training,Gait Training, Therapeutic Exercise,Balance Retraining,Discharge Planning, Hot or Cold Pack,Neuromuscular Re-ed,Coordination Retraining ,Manual Therapy Precautions Other Precautions falls Recommendations To Nursing Amount of Assist Needed 1 Person Assist Discharge Recommendations PT Discharge Recommendations Home with Assistance,Home Health,SNF Rehab,Home vs SNF Transportation Needs at Discharge Private Vehicle,Wheelchair/ Cabulance
--- NOTE | 2021-12-03 16:57 | PC.NURSE ---
Patient had one loose stool in the bed that was bloody with 2 medium sized clots. Patient down to colonoscopy and back earlier. He is on a general diet and tolerating food well. O further loose stools. They think that patient may of had an old bleed, per Dr. Godinez patient will still have some bleeding and he feels that this is older blood. in earlier. Patients has dressings to his l.arm and fingers that have some drainage. Eating lunch now.
[2021-12-04] VITALS (16 sets, daily range): BP systolic 132–153; BP diastolic 43–55; PULSE 78–88; RESP 12–18; TEMP 36.4–37.1; O2SAT 92–99
[2021-12-04 07:59] LABS: Mean Corpuscular HGB Conc 33.4 % (30-36); Mean Corpuscular Hemoglobin 29.3 PG (26-34); Mean Corpuscular Volume 87.5 fL (80-100); Platelet Count 239 X10^3/uL (150-400); Red Blood Cell Count 2.18 X10^6/uL (4.5-5.9); Red Cell Distribution Width 14.9 % (11.6-14.8); White Blood Cell Count 9.6 X10^3/uL (4.5-11.0)
[2021-12-04 08:05] LABS: Hemoglobin 6.4 g/dL (13.5-17.5)
--- NOTE | 2021-12-04 10:14 | PC.NURSE ---
Addendum entered by Christina Cohen R.N. 12/04/21 19:09: Resting comfortably and denies pain. Addendum entered by Christina Cohen R.N. 12/04/21 13:53: would like patient to stay one more night to watch his blood levels. He is confused more now then this morning. Resting comfortably. Original Note: Patients first unit of blood hung at 0835, vss and he is tolerating this well. Will given him his medication soon, he is resting now . No active bleeding this morning, and he did not bleed last night. Possible discharge today.
[2021-12-04] MEDS: GABAPENTIN 600 MG TABLET PO ×3 (10:47→20:58)
[2021-12-04] MEDS: PANTOPRAZOLE DR 40 MG TABLET PO ×2 (10:48→20:58)
[2021-12-04] MEDS: FLUCONAZOLE 100 MG TABLET 200 MG PO (10:48)
--- NOTE | 2021-12-04 12:18 | PT-IP ANOTE ---
Nurse present in room with pt getting ready for lunch. Pt to d/c after lunch and nurse states he does not require therapy at this time.
[2021-12-04] MEDS: BUDESONIDE 0.5 MG/2 ML NEB INH ×2 (12:29→20:34)
[2021-12-04] MEDS: ALBUTEROL 2.5 MG/3 ML NEB (ADULT) INH ×3 (12:29→20:34)
--- NOTE | 2021-12-04 13:10 | PM.PN.1 ---
Subjective Subjective Date Patient Seen: 12/04/21 Time Patient Seen: 13:10 Interval history: Hemoglobin dropped again overnight. No further significant hematochezia overnight. Exam Vital Signs (past 8 hours): - 12/04/21 07:25 12/04/21 08:00 12/04/21 08:42 Temperature 98.4 F 97.7 F Pulse Rate 86 88 Respiratory Rate 16 18 Blood Pressure 153/45 H 133/49 L Pulse Oximetry 95 92 12/04/21 11:48 12/04/21 11:50 12/04/21 12:51 Temperature 98.7 F 98.7 F Pulse Rate 85 85 88 Respiratory Rate 12 12 18 Blood Pressure 132/50 L 132/50 L Pulse Oximetry 97 96 Oxygen Delivery Method Room Air Oxygen Flow Rate 0 Narrative Exam Narrative: Confused, at baseline Abdomen soft Objective Labs Result Diagrams: 12/04/21 07:45 12/03/21 07:14 Labs: Laboratory Results - last 24 hr 12/01/21 12/04/21 14:28 07:45 WBC 9.6 RBC 2.18 L Hgb 6.4 L* Hct 19.0 L* MCV 87.5 MCH 29.3 MCHC 33.4 RDW 14.9 H Plt Count 239 Blood Type O Positive Antibody Screen Negative Crossmatch See Detail PFSH Medical History Cervical vertebral fusion COPD (chronic obstructive pulmonary disease) Gastroesophageal reflux disease Hyperlipidemia Hypertension Surgical History History of cervical discectomy History of left-sided carotid endarterectomy S/P cervical spinal fusion Status post appendectomy Family History Father Gunshot injury Social History household members: spouse Smoking Status: Former smoker alcohol intake: current substance use type: does not use Assessment & Plan Assessment and plan (1) Acute GI bleeding: Status: Acute Plan Unclear if hemoglobin drops overnight reflects further bleed bleeding or his residual from prior bleeding that had not fully normalized Recommend continue observation and hemoglobin checks Liquid diet in case needs another colonoscopy Time Spent With Patient Critical Care time: I spent a total of [] minutes of critical care time on this patient's care today; this time is exclusive of procedural time. Quality VTE Deep Vein Thrombosis/Pulmonary Embolism Present on Admission: No
[2021-12-04 13:44] LABS: Hematocrit 22.9 % (41-53); Hemoglobin 7.7 g/dL (13.5-17.5)
--- NOTE | 2021-12-04 17:31 | P.PN_ITS ---
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 EGD showed no source of bleed. Colonoscopy showed old blood in colon and lesion at previous site of AVM treatment in cecum. Patient had drop in hemoglobin on a.m. labs but has not had further hematochezia. He is getting transfused 1 unit PRBC. He is weak and PT recommending SNF but patient is determined to go home after hospital discharge. Exam Vital Signs (past 8 hours): - 12/04/21 11:48 12/04/21 11:50 12/04/21 12:51 Temperature 98.7 F 98.7 F Pulse Rate 85 85 88 Respiratory Rate 12 12 18 Blood Pressure 132/50 L 132/50 L Pulse Oximetry 97 96 12/04/21 15:00 12/04/21 16:23 Temperature 97.6 F Pulse Rate 83 84 Respiratory Rate 16 18 Blood Pressure 133/46 L Pulse Oximetry 99 95 Oxygen Delivery Method Room Air Oxygen Flow Rate 0 Narrative Exam Narrative: General: Alert, NAD Lungs: Clear Abdomen: Soft nontender Neurological: Oriented, nonfocal Objective Labs Result Diagrams: 12/04/21 13:15 12/03/21 07:14 Labs: Laboratory Results - last 24 hr 12/01/21 12/04/21 12/04/21 14:28 07:45 13:15 WBC 9.6 RBC 2.18 L Hgb 6.4 L* 7.7 L Hct 19.0 L* 22.9 L MCV 87.5 MCH 29.3 MCHC 33.4 RDW 14.9 H Plt Count 239 Blood Type O Positive Antibody Screen Negative Crossmatch See Detail [facility] Medical History Cervical vertebral fusion COPD (chronic obstructive pulmonary disease) Gastroesophageal reflux disease Hyperlipidemia Hypertension Surgical History History of cervical discectomy History of left-sided carotid endarterectomy S/P cervical spinal fusion Status post appendectomy Family History Father Gunshot injury Social History household members: spouse Smoking Status: Former smoker alcohol intake: current substance use type: does not use Assessment & Plan Assessment & Plan narrative: 1. 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 Hemoglobin again dropped to 8.2 on 12/03 -hemoglobin dropped to 6.4 on 12/04 and patient transfused 1 unit with hemoglobin of 7.7 following transfusion -repeat counts in a.m. -clear liquid diet -discharge home Sunday if labs stable 2. MOLLY, resolved -etiology was hypovolemia due to GI bleed 3. Possible raissa esophagitis -repeat EGD showed normal esophagus -continue diflucan per note for 14 days total as noted from prior admit -follow up with GI as outpatient for biopsy results 3. Aortic stenosis -careful with IV fluid resuscitation -transfuse blood slowly 4. Paroxysmal atrial fibrillation -hold diltiazem but can restart on discharge -off apixaban 5. CAD -hold brillinta -holding blood pressure medications (losartan, lisinopril) for now given bleed 6. COPD without exacerbation -prn albuterol 7. GERD -PPI b.i.d. Time Spent With Patient Critical Care time: I spent a total of [] minutes of critical care time on this patient's care today; this time is exclusive of procedural time. Quality VTE Deep Vein Thrombosis/Pulmonary Embolism Present on Admission: No
[2021-12-04] MEDS: ATORVASTATIN 20 MG TABLET 40 MG PO (20:58)
--- NOTE | 2021-12-04 22:59 | PC.NURSE ---
pts dressings were changed at 0630 on 12/04 but this RN. At start of this shift, dressing on upper arm was coming off so gauze was removed and an Allevyn was applied over the skin tear. Pt requested that something smaller was used on his fingers so gauze was removed and bandaids were applied. Pt tolerated well and sites are clean and free of signs of infection.
[2021-12-05] VITALS (7 sets, daily range): BP systolic 130–148; BP diastolic 51–54; PULSE 74–81; RESP 16; TEMP 36.3–36.4; O2SAT 93–98
[2021-12-05 06:32] LABS: Hematocrit 22.1 % (41-53); Hemoglobin 7.6 g/dL (13.5-17.5); Mean Corpuscular HGB Conc 34.5 % (30-36); Mean Corpuscular Hemoglobin 29.9 PG (26-34); Mean Corpuscular Volume 86.6 fL (80-100); Platelet Count 245 X10^3/uL (150-400); Red Blood Cell Count 2.55 X10^6/uL (4.5-5.9); Red Cell Distribution Width 14.4 % (11.6-14.8)
[2021-12-05] MEDS: BUDESONIDE 0.5 MG/2 ML NEB INH (08:38)
[2021-12-05] MEDS: ALBUTEROL 2.5 MG/3 ML NEB (ADULT) INH (08:38)
[2021-12-05] MEDS: FLUCONAZOLE 100 MG TABLET 200 MG PO (09:14)
[2021-12-05] MEDS: PANTOPRAZOLE DR 40 MG TABLET PO (09:14)
[2021-12-05] MEDS: GABAPENTIN 600 MG TABLET PO (09:14)
--- NOTE | 2021-12-05 10:15 | PT-IP ANOTE ---
Attempted to see pt at 10:15, pt getting dressed to d/c and pt and state they have no further needs before going home.
--- NOTE | 2021-12-05 11:49 | P.DS_ITS ---
History of Present Illness History of Present Illness Chief complaint: GI bleed, fall Narrative: 80M with PMH CAD, COPD, aortic stenosis, afib who presents to the hospital with bright red blood per rectum. He was recently admitted to the hospital with twice. He was just discharged yesterday. His first admission he did get transfused, he did not get a scope because of respiratory distress deemed him high risk. His bleeding stopped in the hospital with stopping his brilinta and eliquis and he was discharged home. He did get an EGD and colon one week ago. Records showed whitish plague in the esophagus concerning for possible raissa esophagitis which was biopsied. Mild nonerosive gastritis that was biopsied. 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 He then presented a few days ago with urgency to have a bowel movement and had a large bright red blood per rectum. He was admitted and monitored. He did not need transfusion and he was discharged home. Today he presents again to the ED as he had recurrence of bright red blood and clots. No abdominal pain. He fell at home. He may have hit his head. His found him on the ground. Discharge Providers Provider Date of admission: 12/01/21 17:52 Discharge Date: 12/05/21 Primary care physician: Glynn Stallworth MD Consults: 12/01/21 17:41 Consult to General Surgery Stat Comment: Consulting Provider: Juan Corbett Reason for consultation: GI bleed Has provider been notified: Yes 12/01/21 21:35 Consult to Physical Therapy Evaluate & Treat Comment: Physician Instructions: Evaluate and Treat 12/02/21 10:36 Consult to General Surgery Routine Comment: Consulting Provider: Juan Corbett Reason for consultation: recurrent GI bleeding Discharge provider: Jean Carlos Hernandez MD Summary Hospital Course Discharge Diagnosis: 1. Acute blood loss anemia 2. 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 Acute kidney injury, prerenal 4. History of aortic stenosis 5. History of paroxysmal atrial fibrillation 6. Coronary artery disease 7. COPD 8. Possible Raissa esophagitis resolved on current EGD Patient with resolution of presenting medical complaints requiring hospitalization. He is weak and at high fall risk as noted in PT evaluations h owever has declined SNF and once discharged home. 1. 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 Hemoglobin again dropped to 8.2 on 12/03 -on 12/04 hemoglobin dropped to 6.4 and patient transfused 1 unit with hemoglobin of 7.7 following transfusion -hemoglobin 7.6 on discharge day which is stable 2. MOLLY, resolved -etiology was hypovolemia due to GI bleed 3. Possible raissa esophagitis -repeat EGD showed normal esophagus -continue diflucan per note for total 14 days total as noted from prior admit -follow up with GI as outpatient for biopsy results 3. Aortic stenosis -no issues with volume overload in hospital 4. Paroxysmal atrial fibrillation -off apixaban 5. CAD -off brillinta -off blood pressure medications (losartan, lisinopril) iven bleed 6. COPD without exacerbation -prn albuterol 7. GERD -PPI b.i.d. Status at Discharge Overall status at discharge: patient is back to baseline Time Spent with Patient Time spent: Greater than 30 minutes Exam Vital Signs (past 8 hours): - 12/05/21 05:00 12/05/21 05:18 12/05/21 05:24 Temperature 97.5 F L Pulse Rate 81 81 Respiratory Rate 16 16 Blood Pressure 135/54 L Pulse Oximetry 93 93 93 12/05/21 08:41 12/05/21 09:00 Temperature 97.5 F L 97.5 F L Pulse Rate 74 74 Respiratory Rate 16 16 Blood Pressure 148/51 H 148/51 H Pulse Oximetry 98 98 Oxygen Delivery Method Room Air Oxygen Flow Rate 0 Narrative Exam Narrative: Alert, NAD Lungs:? Clear Abdomen: Soft nontender Neurological:? Oriented, nonfocal Objective Labs Result Diagrams: 12/05/21 06:20 12/03/21 07:14 Labs: Laboratory Results - last 24 hr 12/01/21 12/04/21 12/05/21 14:28 13:15 06:20 WBC 9.0 RBC 2.55 L Hgb 7.7 L 7.6 L Hct 22.9 L 22.1 L MCV 86.6 MCH 29.9 MCHC 34.5 RDW 14.4 Plt Count 245 Crossmatch See Detail [facility] Medical History Cervical vertebral fusion COPD (chronic obstructive pulmonary disease) Gastroesophageal reflux disease Hyperlipidemia Hypertension Surgical History History of cervical discectomy History of left-sided carotid endarterectomy S/P cervical spinal fusion Status post appendectomy Family History Father Gunshot injury Social History household members: spouse Smoking Status: Former smoker alcohol intake: current substance use type: does not use Discharge Plan Discharge Plan Patient Disposition: Home Provider Discharge Comment: You were admitted due to recurrent GI bleed, likely from AVM or diverticulosis. Follow up with PCP and GI. Stay off blood thinners for now. Discharge orders & Medications Prescriptions: Continued atorvastatin [Lipitor] 40 MG tablet 40 mg PO DAILY 0RF albuterol sulfate 90 mcg/actuation Hfa Aerosol Inhaler 2 puff INHALATION BID PRN (Reason: Wheezing) 0RF Label Comments: bid and prn---patient states uses as rescue inhaler [id number] [Fioricet] 50-300-40 mg Capsule 1 tab PO QID PRN (Reason: Migraine Headache) 0RF fluticasone propion-salmeterol 250-50 mcg/dose blister with device 1 inh INHALATION BID 0RF gabapentin 600 mg Tablet 600 mg PO TID 0RF diltiazem HCl 120 mg capsule,extended release 24hr 120 mg PO DAILY 0RF cholecalciferol (vitamin D3) [Vitamin D3] 25 mcg (1,000 unit) Capsule 1,000 unit PO DAILY 0RF pantoprazole [Protonix] 40 mg tablet,delayed release (DR/EC) 40 mg PO BID Qty: 84 0RF fluconazole [Diflucan] 100 mg Tablet 200 mg PO DAILY Qty: 28 0RF Medication counseling provided by Pharmacist: Yes Follow up/Referrals: Glynn Stallworth MD [Primary Care Provider] - Diet/Activity/Treatments Diet: Regular Visit Report/Discharge Packet Instructions: Blood Transfusion, How to Prevent Falls, Gastrointestinal Ble eding Discharge Data Primary Care Provider: Glynn Stallworth Quality VTE Deep Vein Thrombosis/Pulmonary Embolism Present on Admission: No
--- NOTE | 2021-12-05 12:22 | PC.NURSE ---
late entry: Patient tolerated clear liquids this morning, denies pain or other complaint and states he is planning to leave this morning and is eager to get going. Patient states he has a walker to use at home. Discharge instructions reviewed with patient and his , they state understanding and have no further questions or concerns at this time. Patient's states she will call to schedule his 2 follow up appointments, she reports she already has a call out to the nurse in his PCP's office. IV removed intact. Patient escorted out via wheelchair to be discharged to home with his .
== END 2021-12-05 11:05 | disposition home or self-care (01) | DRG 299 ==
LOC: ED 17:42 → AC 17:53
PROVIDERS: Anesthesiology; Internal Medicine; Surgery; Admitting Provider Student in an Organized Health Care Education/Training Program; Emergency Provider Emergency Medicine; PCP Internal Medicine; Referring Provider Emergency Medicine; Visit Provider Student in an Organized Health Care Education/Training Program
PROC: 0DJD8ZZ Inspection of Lower Intestinal Tract, Via Natural or Artificial Opening Endoscopic (ICD-10-PCS; CPT 45378; principal; 2021-12-03 11:00)
PROC: 0DJ08ZZ Inspection of Upper Intestinal Tract, Via Natural or Artificial Opening Endoscopic (ICD-10-PCS; CPT 43235; 2021-12-03 11:00)
DX: Q27.33 Arteriovenous malformation of digestive system vessel (principal); K57.31 Diverticulosis of large intestine without perforation or abscess with bleeding; K92.2 Gastrointestinal hemorrhage, unspecified; D62 Acute posthemorrhagic anemia; N17.9 Acute kidney failure, unspecified; B37.81 Candidal esophagitis; K21.9 Gastro-esophageal reflux disease without esophagitis; J44.9 Chronic obstructive pulmonary disease, unspecified; E78.5 Hyperlipidemia, unspecified; I10 Essential (primary) hypertension; S00.83XA Contusion of other part of head, initial encounter; W19.XXXA Unspecified fall, initial encounter; Z87.891 Personal history of nicotine dependence; Z20.822 Contact with and (suspected) exposure to COVID-19; Z91.81 History of falling
CPT/HCPCS: 36415; 36430; 36592; 43235; 45378; 70450; 71045; 72125; 74177; 80048; 80053; 82550; 82962; 83036; 83605; 83690; 84484; 85014; 85018; 85025; 85027; 85610; 85730; 86850; 86900; 86901; 87635; 93005; 94640; 94760; 94762; 97162; 99152; 99153; 99231; 99232; 99285; 99291; C9803; P9016; J1642; J2405; J2704; J7613; Q9967

== ENCOUNTER → 2022-02-03 11:16 | Outpatient (CLI) | payer MEDICARE, OTHER, SELFPAY ==
[2021-09-10 03:25] VITALS: PULSE 79; RESP 15; O2SAT 94
[2022-02-03 11:44] LABS: Add Manual Diff / Slide Review NO; Basophils Absolute Auto 100 /uL (0-100); Basophils Percent Auto 1.3 % (0-2); Eosinophils Absolute Auto 300 /uL (0-450); Eosinophils Percent Auto 3.6 % (2-4); Hematocrit 26.2 % (41-53); Hemoglobin 8.1 g/dL (13.5-17.5); Lymphocytes Absolute Auto 1300 /uL (1100-4500); Lymphocytes Percent Auto 17.6 % (25-40); Mean Corpuscular HGB Conc 30.8 % (30-36); Mean Corpuscular Hemoglobin 20.7 PG (26-34); Monocytes Absolute Auto 700 /uL (0-900); Monocytes Percent Auto 9.5 % (3-14); Neutrophils Absolute Auto 5100 /uL (1500-7000); Platelet Count 299 X10^3/uL (150-400); Red Blood Cell Count 3.91 X10^6/uL (4.5-5.9); Red Cell Distribution Width 19.3 % (11.6-14.8); White Blood Cell Count 7.5 X10^3/uL (4.5-11.0)
[2022-02-03 11:55] LABS: BUN Creatinine Ratio 11.7 (6-22); Blood Urea Nitrogen 14 mg/dL (9-20); Calcium 9.6 mg/dL (8.4-10.2); Carbon Dioxide 30 mmol/L (22-32); Chloride 102 mmol/L (98-107); Cholesterol 103 mg/dL (140-199); Estimated Glomerular Filt Rate 58.3 mL/min (>60); Glucose 114 mg/dL (80-110); HDL Cholesterol 54 mg/dL (40-60); HEMOLYSIS < 15 (0-50); LDL Cholesterol Calculated 31 mg/dL (<100); Potassium 3.6 mmol/L (3.4-5.1); Sodium 139 mmol/L (137-145); Triglycerides 91 mg/dL (35-150)
[2022-02-03 12:08] LABS: Hypochromasia 2+; Microcytosis 2+; Poikilocytosis 1+
== END ==
PROVIDERS: PCP Internal Medicine; Referring Provider Internal Medicine Cardiovascular Disease; Visit Provider Internal Medicine Cardiovascular Disease
DX: I25.10 Atherosclerotic heart disease of native coronary artery without angina pectoris (principal)
CPT/HCPCS: 36415; 80048; 80061; 85025

== ENCOUNTER 2022-02-17 16:38 | Emergency (ER) | payer MEDICARE, OTHER, SELFPAY ==
[2021-09-10 03:25] VITALS: PULSE 79; RESP 15; O2SAT 94
[2022-02-17] VITALS (9 sets, daily range): BP systolic 170–201; BP diastolic 73–84; PULSE 69–74; RESP 20; TEMP 37.4; O2SAT 96–99
--- NOTE | 2022-02-17 16:56 | DI.RAD.S_ITS ---
PROCEDURE: XR CHEST 1V INDICATIONS: Possible stroke TECHNIQUE: One view of the chest was acquired. COMPARISON: Merged With [facility], CT, CT CHEST ABD PEL W CON, 10/23/2021, 8:59. Merged With [facility], CR, XR CHEST 1V, 12/01/2021, 14:32. FINDINGS: Surgical changes and devices: Postoperative change of the left shoulder is seen. Lungs and pleura: Lungs are clear. No pleural effusions or pneumothorax. Mediastinum: Mediastinal contours appear normal. Heart size is normal. Atherosclerotic calcification of the aortic arch is noted. Bones and chest wall: No suspicious bony lesions. Age-appropriate bony degenerative changes are seen. Overlying soft tissues appear unremarkable. IMPRESSION: Portable chest within normal limits for age, with postoperative and degenerative changes seen. Dictated by: Jon Pantoja M.D. on 02/17/2022 at 16:39 Approved by: Jon Pantoja M.D. on 02/17/2022 at 16:40
--- NOTE | 2022-02-17 16:56 | DI.CT.S_ITS ---
PROCEDURE: CT STROKE INDICATIONS: optic nerve swelling TECHNIQUE: Noncontrast 4.5 mm thick angled axial sections acquired from the foramen magnum to the vertex, with coronal reformats. For radiation dose reduction, the following was used: automated exposure control, adjustment of mA and/or kV according to patient size. COMPARISON: [facility], CT, CT STROKE, 11/11/2020, 8:14. FINDINGS: Image quality: Excellent. CSF spaces: Basal cisterns are patent. No extra-axial fluid collections. The ventricles are symmetric in size and shape. Brain: No intracranial bleeds or masses. There is cerebral volume loss for age, with resultant ventricular and sulcal prominence. There are periventricular and deep white matter chronic small vessel ischemic changes. There is intracranial internal carotid artery atherosclerosis. Skull and face: Calvarium and visualized facial bones appear intact, without suspicious lesions. Sinuses: Visualized sinuses and mastoids are clear. IMPRESSION: 1. No acute intracranial abnormality. 2. Cerebral volume loss and small vessel ischemic changes. Findings were discussed with Dr Forte, the emergency department at 17:15 on 02/17/2022 This study fulfills neurological imaging criteria for inclusion or exclusion of acute stroke therapies based on available published neurological guidelines. Dictated by: Levon Mae M.D. on 02/17/2022 at 17:12 Approved by: Levon Mae M.D. on 02/17/2022 at 17:21
--- NOTE | 2022-02-17 17:20 | DI.MRI.S_ITS ---
PROCEDURE: MR HEAD/BRAIN WO/W CON INDICATIONS: papilledema, decreased vision, sent by optho TECHNIQUE: Noncontrast axial T1 spin echo, axial T2 fast spin echo, sagittal and axial FLAIR, coronal T2 fast spin echo, axial gradient echo, axial diffusion and ADC through the brain. After the administration of contrast, axial and coronal 3D VIBE or T1 spin echo with fat saturation through the brain. COMPARISON: None. FINDINGS: Image quality: Excellent. CSF Spaces: Basal cisterns are patent. No extra-axial fluid collections. Ventricles are normal in size and shape. Brain: No midline shift. No intracranial bleeds or masses. No abnormal intracranial enhancement. The brainstem appears normal. Diffusion-weighted images demonstrate no acute ischemic insults. No chronic ischemic insults. Normal intravascular flow voids are present. Punctate subcortical and periventricular T2/FLAIR signal is consistent with microvascular ischemic disease. Skull and face: Calvarial marrow is normal in signal. Orbits appear normal. Sinuses: Sinuses and mastoids appear clear. IMPRESSION: 1. No acute intracranial abnormality. 2. No MRI evidence of papilledema. No intracranial mass. 3. Microvascular ischemic disease. Dictated by: Levon Mae M.D. on 02/17/2022 at 19:03 Approved by: Levon Mae M.D. on 02/17/2022 at 19:15
[2022-02-17 19:18] LABS: Add Manual Diff / Slide Review NO; Basophils Absolute Auto 100 /uL (0-100); Basophils Percent Auto 1.1 % (0-2); Eosinophils Absolute Auto 200 /uL (0-450); Eosinophils Percent Auto 2.9 % (2-4); Hematocrit 27.3 % (41-53); Hemoglobin 8.3 g/dL (13.5-17.5); Lymphocytes Absolute Auto 1500 /uL (1100-4500); Lymphocytes Percent Auto 18.8 % (25-40); Mean Corpuscular HGB Conc 30.6 % (30-36); Mean Corpuscular Volume 65.3 fL (80-100); Monocytes Absolute Auto 700 /uL (0-900); Neutrophils Absolute Auto 5700 /uL (1500-7000); Neutrophils Percent Auto 69.2 % (50-75); Platelet Count 303 X10^3/uL (150-400); Red Blood Cell Count 4.17 X10^6/uL (4.5-5.9); Red Cell Distribution Width 19.2 % (11.6-14.8); White Blood Cell Count 8.2 X10^3/uL (4.5-11.0)
[2022-02-17 19:24] LABS: Alanine Aminotransferase 15 IU/L (<50); Albumin 4.8 g/dL (3.5-5.0); Albumin Globulin Ratio 1.5 (1.0-2.8); Alkaline Phosphatase 97 U/L (38-126); Aspartate Aminotransferase 30 IU/L (17-59); BUN Creatinine Ratio 11.7 (6-22); Bilirubin Total 0.5 mg/dL (0.2-1.3); Blood Urea Nitrogen 15 mg/dL (9-20); Carbon Dioxide 29 mmol/L (22-32); Chloride 104 mmol/L (98-107); Creatine Kinase 106 U/L (55-170); Estimated Glomerular Filt Rate 57 mL/min (>60); Globulin 3.2 g/dL (1.7-4.1); Glucose 94 mg/dL (80-110); HEMOLYSIS < 15 (0-50); Potassium 3.6 mmol/L (3.4-5.1); Sodium 143 mmol/L (137-145)
[2022-02-17 19:27] LABS: C-Reactive Protein Quant < 0.5 mg/dL (<1.0)
[2022-02-17 19:35] LABS: Troponin I 0.019 ng/mL (0.01-0.034)
[2022-02-17 19:37] LABS: Erythrocyte Sedimentation Rate 15 MM/HR (0-15)
[2022-02-17 19:38] LABS: CKMB % Relative Index 2.9 % (1.5-5.0); Creatine Kinase MB 3.12 ng/mL (<2.37)
--- NOTE | 2022-02-17 19:55 | PC.NURSE ---
Sent here from eye doctor. Denies eye pain/discomfort. Reports gradual onset of symptoms over the past two weeks. States Its just red when trying to see out of left eye only.
[2022-02-17] MEDS: PROPARACAINE 0.5% OPHTH SOL 1 DROPS EYE-LEFT (20:03)
--- NOTE | 2022-02-17 20:08 | ED.GENADULT ---
HPI - General Adult General Chief complaint: Eye Problems Stated complaint: Optic Nerve swelling , Physician refer Time Seen by Provider: 02/17/22 17:03 Source: patient and family Mode of arrival: Ambulatory Limitations: no limitations History of Present Illness HPI narrative: Patient is an 81-year-old male who was sent over from the ophthalmology office for evaluation of bilateral papilledema. Patient went to go see the lace roller operator today after having approximately 2 weeks of decreasing vision in his left eye. He states that 2 weeks ago he started noticing some distorted vision in his left eye that began is the day went on. He denied any other associated symptoms to include chest pain or shortness of breath or palpitations or headache or sinus congestion or ear pain or ringing in his ears. No nausea or vomiting. He is not on blood thinners. He has had cataract surgery in his eyes in the past and does wear corrective lenses. It is somewhat difficult for him to explain the vision disturbances that he is having in his left eye. He informed me that the disturbance occur when he is looking at certain angles at distant objects. Does not seem to have the issues when he is looking up close. He does describe these disturbances as a loss of vision and also ?seeing red denies double vision. While at the ophthalmology clinic it was noted that the patient had bilateral papilledema. He was subsequently sent to the emergency department for further evaluation. Related Data Home Medications Medication Instructions Recorded Confirmed albuterol sulfate 90 mcg/actuation 2 puff INHALATION BID PRN 08/07/18 12/28/21 aerosol inhaler [id number]-kehrbymjknqbs-smumkkxd 1 tab PO QID PRN 08/07/18 12/28/21 50 mg-300 mg-40 mg capsule (Fioricet) atorvastatin 40 mg tablet (Lipitor) 40 mg PO DAILY 09/10/18 12/28/21 cholecalciferol (vitamin D3) 25 1,000 unit PO DAILY 10/23/21 12/28/21 mcg (1,000 unit) capsule (Vitamin D3) diltiazem HCl 120 mg 120 mg PO DAILY 10/23/21 12/28/21 capsule,extended release 24 hr fluticasone 250 mcg-salmeterol 50 1 inh INHALATION BID 10/23/21 12/28/21 mcg/dose blistr powdr for inhalation gabapentin 600 mg tablet 600 mg PO TID 10/23/21 12/28/21 Previous Rx's Medication Instructions Recorded pantoprazole 40 mg tablet,delayed 40 mg PO BID #84 tab 10/27/21 release (Protonix) fluconazole 100 mg tablet 200 mg PO DAILY #28 tab 11/30/21 (Diflucan) Allergies Allergy/AdvReac Type Severity Reaction Status Date / Time Beta-Blockers Allergy Unknown Verified 12/28/21 14:26 (Beta-Adrenergic Bloc codeine Allergy Unknown Verified 12/28/21 14:26 Review of Systems Review of Systems ROS Unobtainable: All systems reviewed & are unremarkable except as noted in HPI and below Constitutional Constitutional: Denies fever(s) and Denies headache(s) Eyes Eyes: Reports as per HPI and Reports system reviewed and no additional complaints, except as documented ENT Ears, Nose, Mouth, and Throat: Reports system reviewed and no additional complaints, except as documented, Denies vertigo, Denies dizziness, Denies headache(s), Denies tinnitus and Denies sinus pain Cardiovascular Cardiovascular: Reports as per HPI and Reports system reviewed and no additional complaints, except as documented Respiratory Respiratory: Reports as per HPI and Reports system reviewed and no additional complaints, except as documented Gastrointestinal Gastrointestinal: Reports as per HPI and Reports system reviewed and no additional complaints, except as documented Musculoskeletal Musculoskeletal: Reports system reviewed and no additional complaints, except as documented Integumentary/Breasts Skin/Breast: Reports system reviewed and no additional complaints, except as documented Neurologic Neurologic: Reports system reviewed and no additional complaints, except as documented, Denies vertigo, Denies dizziness and Denies headache(s) Endocrine Endocrine: Reports system reviewed and no additional complaints, except as documented Hematologic/Lymphatic On Anticoagulants: No Allergic/Immunologic Allergic/Immunologic: Reports system reviewed and no additional complaints, except as documented Patient History Medical History Cervical vertebral fusion COPD (chronic obstructive pulmonary disease) Gastroesophageal reflux disease Hyperlipidemia Hypertension Surgical History History of cervical discectomy History of left-sided carotid endarterectomy S/P cervical spinal fusion Status post appendectomy Family History Father Gunshot injury Social History household members: spouse Smoking Status: Former smoker alcohol intake: current substance use type: does not use Smoking Status: Former smoker alcohol intake frequency: a few times a week Alcohol type: beer and wine Substance Use Type: does not use Exam Initial Vital Signs Initial Vital Signs: Vital Signs Temperature 99.4 F 02/17/22 16:41 Pulse Rate 74 02/17/22 16:41 Respiratory Rate 20 02/17/22 16:41 Blood Pressure 170/73 H 02/17/22 16:41 Pulse Oximetry 99 02/17/22 16:41 HENMT Head: normal to inspection and normocephalic Ears: hearing grossly normal bilaterally and TM's normal bilaterally Nose: external nose normal Face and sinus: normal facial exam Eyes Periorbital: periorbital findings normal Conjunctivae: conjunctivae normal Sclera: sclerae normal Pupils: other (Somewhat dilated because of his prior visit but equal and reactive) EOM: EOM intact bilaterally Other: Interocular pressure left eye 15 interocular pressure right eye 14 Resp Effort & Inspection: normal respiratory effort Cardio Rate: regular rate GI Inspection: normal to inspection Skin General: no rashes or lesions noted Neuro General: patient alert, patient awake and patient oriented x3 Cranial Nerves: CN's II-XI intact bilaterally Cognition: normal cognition Speech: speech normal Gait: normal gait Motor: muscle tone normal throughout Extrem General: normal to inspection and capillary refill normal Psych Appearance: grossly normal and well kempt Scores GCS Brandie coma scale eye opening: Spontaneous [place] coma scale verbal response: Orientated Brandie coma scale motor response: Obey commands Brandie coma scale total score: 15 Course Orders Ordered: ED Orders 02/17/22 19:04 CRP [C-Reactive Protein Quant] Stat Complete Blood Count AUTO DIFF Stat Comprehensive Metabolic Panel Stat ESR [Erythrocyte Sedimentation Rate] Stat Troponin & CK Cardiac Panel Stat Discontinued Medications Proparacaine HCl (Proparacaine 0.5% Ophth Madhuri) 1 drops EYE-LEFT NOW ONE Stop: 02/17/22 19:31 Last Admin: 02/17/22 20:03 Dose: 1 drops Documented by: JOSEPH Vital Signs Vital signs: Vital Signs - 8 hr 02/17/22 19:20 02/17/22 19:23 02/17/22 19:30 Pulse Rate 74 74 71 Respiratory Rate Blood Pressure 201/84 H 185/79 H 175/76 H Pulse Oximetry 96 98 98 02/17/22 20:00 02/17/22 20:30 02/17/22 20:31 Pulse Rate 72 70 69 Respiratory Rate 20 Blood Pressure 198/78 H 172/74 H Pulse Oximetry 98 98 97 02/17/22 21:00 02/17/22 21:28 Pulse Rate 69 72 Respiratory Rate 20 Blood Pressure 186/74 H 180/80 H Pulse Oximetry 97 97 Medical Decision Making Lab Data Lab results reviewed: Yes I reviewed the patient's lab results. Result diagrams: 02/17/22 19:04 02/17/22 19:04 Labs: Lab Results 02/17/22 02/17/22 02/17/22 Range/Units 19:04 19:04 19:04 WBC 8.2 (4.5-11.0) X10^3/uL RBC 4.17 L (4.5-5.9) X10^6/uL Hgb 8.3 L (13.5-17.5) g/dL Hct 27.3 L (41-53) % MCV 65.3 L (80-100) fL MCH 20.0 L (26-34) PG MCHC 30.6 (30-36) % RDW 19.2 H (11.6-14.8) % Plt Count 303 (150-400) X10^3/uL Neut % (Auto) 69.2 (50-75) % Lymph % (Auto) 18.8 L (25-40) % Stanly % (Auto) 8.0 (3-14) % Eos % (Auto) 2.9 (2-4) % Baso % (Auto) 1.1 (0-2) % Neut # (Auto) 5700 (8022-4454) /uL Lymph # (Auto) 1500 (5580-5133) /uL Stanly # (Auto) 700 (0-900) /uL Eos # (Auto) 200 (0-450) /uL Baso # (Auto) 100 (0-100) /uL RBC Morphology See below Poikilocytosis 1+ H Microcytosis 2+ H Ovalocytes 1+ H ESR 15 (0-15) MM/HR Sodium 143 (137-145) mmol/L Potassium 3.6 (3.4-5.1) mmol/L Chloride 104 (98-107) mmol/L Carbon Dioxide 29 (22-32) mmol/L BUN 15 (9-20) mg/dL Creatinine 1.28 H (0.66-1.25) mg/dL Estimated GFR 57 L (>60) mL/min BUN/Creatinine Ratio 11.7 (6-22) Glucose 94 (80-110) mg/dL Calcium 10.0 (8.4-10.2) mg/dL Total Bilirubin 0.5 (0.2-1.3) mg/dL AST 30 (17-59) IU/L ALT 15 (<50) IU/L Alkaline Phosphatase 97 (38-126) U/L Total Creatine Kinase 106 (55-170) U/L CK-MB (CK-2) 3.12 H (<2.37) ng/mL CK-MB (CK-2) Rel Index 2.9 (1.5-5.0) % Troponin I 0.019 (0.01-0.034) ng/mL C-Reactive Protein (<1.0) mg/dL Total Protein 8.0 (6.3-8.2) g/dL Albumin 4.8 (3.5-5.0) g/dL Globulin 3.2 (1.7-4.1) g/dL Albumin/Globulin Ratio 1.5 (1.0-2.8) / Range/Units 19:04 WBC (4.5-11.0) X10^3/uL RBC (4.5-5.9) X10^6/uL Hgb (13.5-17.5) g/dL Hct (41-53) % MCV (80-100) fL MCH (26-34) PG MCHC (30-36) % RDW (11.6-14.8) % Plt Count (150-400) X10^3/uL Neut % (Auto) (50-75) % Lymph % (Auto) (25-40) % Stanly % (Auto) (3-14) % Eos % (Auto) (2-4) % Baso % (Auto) (0-2) % Neut # (Auto) (7489-3336) /uL Lymph # (Auto) (5670-3406) /uL Stanly # (Auto) (0-900) /uL Eos # (Auto) (0-450) /uL Baso # (Auto) (0-100) /uL RBC Morphology Poikilocytosis Microcytosis Ovalocytes ESR (0-15) MM/HR Sodium (137-145) mmol/L Potassium (3.4-5.1) mmol/L Chloride (98-107) mmol/L Carbon Dioxide (22-32) mmol/L BUN (9-20) mg/dL Creatinine (0.66-1.25) mg/dL Estimated GFR (>60) mL/min BUN/Creatinine Ratio (6-22) Glucose (80-110) mg/dL Calcium (8.4-10.2) mg/dL Total Bilirubin (0.2-1.3) mg/dL AST (17-59) IU/L ALT (<50) IU/L Alkaline Phosphatase (38-126) U/L Total Creatine Kinase (55-170) U/L CK-MB (CK-2) (<2.37) ng/mL CK-MB (CK-2) Rel Index (1.5-5.0) % Troponin I (0.01-0.034) ng/mL C-Reactive Protein < 0.5 (<1.0) mg/dL Total Protein (6.3-8.2) g/dL Albumin (3.5-5.0) g/dL Globulin (1.7-4.1) g/dL Albumin/Globulin Ratio (1.0-2.8) Imaging Data CT scan - head: Radiologist's Impression: [place] [address] CT Scan Report Signed Patient: Flavio Bowen MR#: [id number] : 1940 Acct:[id number] Age/Sex: 81 / M Date of Service: 02/17/22 Loc: ED Accession Number: [id number] ?? Procedure: CT Stroke Ordering Provider: Giselle Forte D.O. PROCEDURE:? CT STROKE ? INDICATIONS:? optic nerve swelling ? TECHNIQUE:? Noncontrast 4.5 mm thick angled axial sections acquired from the foramen magnum to the vertex, with coronal reformats.? For radiation dose reduction, the following was used:? automated exposure control, adjustment of mA and/or kV according to patient size.? ? COMPARISON:? [facility], CT, CT STROKE, 11/11/2020, 8:14. ? FINDINGS:? Image quality:? Excellent.? ? CSF spaces:? Basal cisterns are patent.? No extra-axial fluid collections.? The ventricles are symmetric in size and shape.? ? Brain:? No intracranial bleeds or masses.? There is cerebral volume loss for age, with resultant ventricular and sulcal prominence.? There are periventricular and deep white matter chronic small vessel ischemic changes.? There is intracranial internal carotid artery atherosclerosis.? ? Skull and face:? Calvarium and visualized facial bones appear intact, without suspicious lesions.? ? Sinuses:? Visualized sinuses and mastoids are clear.? ? IMPRESSION:? 1. No acute intracranial abnormality. 2. Cerebral volume loss and small vessel ischemic changes.? ? Findings were discussed with Dr Forte, the emergency department at 17:15 on 02/17/2022? ? This study fulfills neurological imaging criteria for inclusion or exclusion of acute stroke therapies based on available published neurological guidelines.? ? ? Dictated by: Levon Mae M.D. on 02/17/2022 at 17:12 ? ? Approved by: Levon Mae M.D. on 02/17/2022 at 17:21? Chest x-ray: Radiologist's Impression: [place] [address] XRay Report Signed Patient: Flavio Bowen MR#: [id number] : 1940 Acct:[id number] Age/Sex: 81 / M Date of Service: 02/17/22 Loc: ED Accession Number: [id number] ?? Procedure: XR chest 1V Ordering Provider: Giselle Forte D.O. PROCEDURE:? XR CHEST 1V ? INDICATIONS:? Possible stroke ? TECHNIQUE:? One view of the chest was acquired.? ? COMPARISON:? [facility], CT, CT CHEST ABD PEL W CON, 10/23/2021, 8:59.? [facility], CR, XR CHEST 1V, 12/01/2021, 14:32. ? FINDINGS:? ? Surgical changes and devices:? Postoperative change of the left shoulder is seen. ? Lungs and pleura:? Lungs are clear.? No pleural effusions or pneumothorax.? ? Mediastinum:? Mediastinal contours appear normal.? Heart size is normal.? Atherosclerotic calcification of the aortic arch is noted.? ? Bones and chest wall:? No suspicious bony lesions.? Age-appropriate bony degenerative changes are seen.? Overlying soft tissues appear unremarkable.? IMPRESSION:? Portable chest within normal limits for age, with postoperative and degenerative changes seen. ? ? Dictated by: Jon Pantoja M.D. on 02/17/2022 at 16:39 ? ? Approved by: Jon Pantoja M.D. on 02/17/2022 at 16:40? brain MRI: Radiologist's Impression: [address] [address] Magnetic Resonance Report Signed Patient: Flavio Bowen MR#: [id number] : 1940 Acct:[id number] Age/Sex: 81 / M Date of Service: 02/17/22 Loc: ED Accession Number: [id number] ?? Procedure: MR head/brain wo/w con Ordering Provider: Giselle Forte D.O. PROCEDURE:? MR HEAD/BRAIN WO/W CON ? INDICATIONS:? papilledema, decreased vision, sent by optho ? TECHNIQUE:? Noncontrast axial T1 spin echo, axial T2 fast spin echo, sagittal and axial FLAIR, coronal T2 fast spin echo, axial gradient echo, axial diffusion and ADC through the brain.? After the administration of contrast, axial and coronal 3D VIBE or T1 spin echo with fat saturation through the brain.? ? COMPARISON:? None. ? FINDINGS:? Image quality:? Excellent.? ? CSF Spaces:? Basal cisterns are patent.? No extra-axial fluid collections.? Ventricles are normal in size and shape.? ? Brain:? No midline shift.? No intracranial bleeds or masses.? No abnormal intracranial enhancement.? The brainstem appears normal.? Diffusion-weighted images demonstrate no acute ischemic insults.? No chronic ischemic insults.? Normal intravascular flow voids are present.? Punctate subcortical and periventricular T2/FLAIR signal is consistent with microvascular ischemic disease. ? Skull and face:? Calvarial marrow is normal in signal.? Orbits appear normal.? ? Sinuses:? Sinuses and mastoids appear clear.? ? IMPRESSION:? 1. No acute intracranial abnormality. 2. No MRI evidence of papilledema.? No intracranial mass. 3. Microvascular ischemic disease.? ? ? Dictated by: Levon Mae M.D. on 02/17/2022 at 19:03 ? ? Approved by: Levon Mae M.D. on 02/17/2022 at 19:15? ECG Data Attestation: I personally reviewed and interpreted this ECG as follows: Interpretation: Sinus rhythm Ventricular rate is 74 Normal axis Normal QRS Normal QTC No ST T wave changes MDM Narrative Medical decision making narrative: Head CT and MRI of the brain are unremarkable. There is no papilledema noted on the brain MRI. It is difficult for the patient to describe the disturbances he is having in his left eye although they have been going on for the past 2 weeks but also somewhat worsening. The provider who saw the patient earlier today is unavailable for consultation as it is after hours so Ophthalmology at [facility] was contacted. Had a discussion with the lace roller operator who did discuss the case with Neuro Ophthalmology. They recommended that the patient be transferred for lumbar puncture and ocular MRI. I am unable to obtain an ocular MRI currently out of this department. I did discuss the recommendations with the specialists with the patient. His was at bedside. Patient was alert oriented x3. GCS 15. My pin yet passed the make decisions. After the discussion of about recommendations the patient stated that he did not want to be transferred this evening. Patient states that he would like to be discharged home. He will contact the Ophthalmology Department at the [facility] on Sunday to discuss follow-up next week. We did discuss the possibility of a progression of his symptoms leading to permanent blindness and he expressed understanding of this. His reluctance he to be transferred this evening is because of the our and because of the difficulty with family members being able make the trip from the local area to [place]. He was given return precautions. He expressed understanding and agreement this plan. Discharge Plan Departure Patient Disposition: Home Clinical Impression: Vision disturbance Activity Restrictions/Additional Instructions: After our discussion you opted not to be transferred to [facility] but would rather follow-up as an outpatient. On Sunday please contact the [facility] at [phone]. You can also contact and alternate number of [phone]. Please contact your primary doctor for follow-up. Continue to take all of your medications as directed. Return to the emergency department for any new or worsening symptoms. Prescriptions: No Action atorvastatin [Lipitor] 40 MG tablet 40 mg PO DAILY 0RF albuterol sulfate 90 mcg/actuation Hfa Aerosol Inhaler 2 puff INHALATION BID PRN (Reason: Wheezing) 0RF Label Comments: bid and prn---patient states uses as rescue inhaler [id number]-sdnlpmyytsvjb-desh [Fioricet] 50-300-40 mg Capsule 1 tab PO QID PRN (Reason: Migraine Headache) 0RF fluticasone propion-salmeterol 250-50 mcg/dose blister with device 1 inh INHALATION BID 0RF gabapentin 600 mg Tablet 600 mg PO TID 0RF diltiazem HCl 120 mg capsule,extended release 24hr 120 mg PO DAILY 0RF cholecalciferol (vitamin D3) [Vitamin D3] 25 mcg (1,000 unit) Capsule 1,000 unit PO DAILY 0RF pantoprazole [Protonix] 40 mg tablet,delayed release (DR/EC) 40 mg PO BID Qty: 84 0RF fluconazole [Diflucan] 100 mg Tablet 200 mg PO DAILY Qty: 28 0RF Referrals: Glynn Stallworth MD [Primary Care Provider] -
[2022-02-17 20:21] LABS: Poikilocytosis 1+
[2022-02-17 20:22] LABS: Microcytosis 2+; Ovalocytes 1+
== END 2022-02-17 22:44 | disposition home or self-care (01) ==
PROVIDERS: Emergency Medicine; Emergency Provider Emergency Medicine; PCP Internal Medicine
DX: H53.9 Unspecified visual disturbance (principal); Z87.891 Personal history of nicotine dependence
CPT/HCPCS: 36415; 70450; 70553; 71045; 80053; 82550; 82553; 84484; 85025; 85651; 86140; 93005; 99284; A9579

== ENCOUNTER → 2022-11-08 11:42 | Outpatient (CLI) | payer MEDICARE, OTHER, SELFPAY ==
[2021-09-10 03:25] VITALS: PULSE 79; RESP 15; O2SAT 94
[2022-11-08 14:04] LABS: Add Manual Diff / Slide Review NO; Basophils Absolute Auto 100 /uL (0-100); Basophils Percent Auto 0.6 % (0-2); Eosinophils Absolute Auto 200 /uL (0-450); Eosinophils Percent Auto 2.6 % (2-4); Hematocrit 40.7 % (41-53); Hemoglobin 13.6 g/dL (13.5-17.5); Lymphocytes Absolute Auto 1700 /uL (1100-4500); Lymphocytes Percent Auto 19.4 % (25-40); Mean Corpuscular HGB Conc 33.5 % (30-36); Mean Corpuscular Hemoglobin 28.9 PG (26-34); Mean Corpuscular Volume 86.3 fL (80-100); Monocytes Absolute Auto 700 /uL (0-900); Monocytes Percent Auto 8.2 % (3-14); Neutrophils Absolute Auto 6000 /uL (1500-7000); Neutrophils Percent Auto 69.2 % (50-75); Platelet Count 197 X10^3/uL (150-400); Red Blood Cell Count 4.71 X10^6/uL (4.5-5.9); White Blood Cell Count 8.7 X10^3/uL (4.5-11.0)
[2022-11-08 14:36] LABS: BUN Creatinine Ratio 15.7 (6-22); Blood Urea Nitrogen 16 mg/dL (9-20); Calcium 9.9 mg/dL (8.4-10.2); Carbon Dioxide 27 mmol/L (22-32); Chloride 97 mmol/L (98-107); Cholesterol 120 mg/dL (140-199); Estimated Glomerular Filt Rate > 60 mL/min (>60); Glucose 83 mg/dL (80-110); HDL Cholesterol 49 mg/dL (40-60); HEMOLYSIS < 15 (0-50); LDL Cholesterol Calculated 47 mg/dL (<100); Potassium 3.8 mmol/L (3.4-5.1); Sodium 137 mmol/L (137-145); Triglycerides 120 mg/dL (35-150)
== END ==
PROVIDERS: PCP Internal Medicine; Referring Provider Internal Medicine Cardiovascular Disease; Visit Provider Internal Medicine Cardiovascular Disease
DX: I25.10 Atherosclerotic heart disease of native coronary artery without angina pectoris (principal)
CPT/HCPCS: 36415; 80048; 80061; 85025

== ENCOUNTER → 2022-11-17 11:53 | Outpatient (CLI) | payer MEDICARE, OTHER, SELFPAY ==
[2021-09-10 03:25] VITALS: PULSE 79; RESP 15; O2SAT 94
--- NOTE | 2022-11-17 11:54 | DI.CT.S_ITS ---
PROCEDURE: CT ABDOMEN PELVIS W CON INDICATIONS: abdominal pain TECHNIQUE: After the administration of oral and intravenous contrast, axial sections were acquired from the lung bases to the pubic symphysis. Coronal and sagittal reformats were performed. For radiation dose reduction, the following was used: automated exposure control, adjustment of mA and/or kV according to patient size. COMPARISON:[facility], CT, CT ABDOMEN PELVIS W CON, 12/01/2021, 14:38. FINDINGS: Image quality: Excellent. Lung bases: Lung bases are clear. Masslike areas of consolidation in the lung bases seen on the prior CT have resolved. Heart size is normal. Solid organs: Liver: The liver has no mass or intrahepatic biliary ductal dilatation. The portal vein and hepatic veins are patent. Biliary: The gallbladder has layering stones. No wall thickening or pericholecystic fluid. Pancreas: The pancreas has no mass or ductal dilatation. There is no surrounding inflammation. Spleen: The spleen is enlarged. Adrenals: No hypertrophy or nodules. Kidneys: No obstructive calculus or hydronephrosis. No solid mass. No cystic mass. Peritoneum and bowel: The distal esophagus and stomach are normal. The small bowel has a normal caliber and appearance. The terminal ileum is normal. The large bowel has a normal caliber and appearance. The appendix is normal. No free fluid or air. Nodes and vessels: No retroperitoneal or mesenteric adenopathy by size criteria. The aorta has atherosclerosis with no aneurysmal dilatation. Heavy atherosclerotic calcifications at the distal aorta and proximal iliac arteries are seen with significant stenosis. Miscellaneous: No abdominal wall mass or hernia. PELVIS: Genitourinary: The bladder has no wall thickening or mass. No bladder calcifications. Bones: Multilevel degenerative changes. Severe disc disease at L1-2 and L2-3. No vertebral body compression fractures. IMPRESSION: 1. Diverticulosis without evidence of diverticulitis. 2. Cholelithiasis without evidence of acute cholecystitis. 3. Masslike areas of consolidation in the lung bases have resolved. Dictated by: Levon Mae M.D. on 11/17/2022 at 15:20 Approved by: Levon Mae M.D. on 11/17/2022 at 15:27
== END ==
PROVIDERS: PCP Internal Medicine; Referring Provider Surgery; Visit Provider Surgery
DX: K57.90 Diverticulosis of intestine, part unspecified, without perforation or abscess without bleeding (principal); K80.20 Calculus of gallbladder without cholecystitis without obstruction; I70.0 Atherosclerosis of aorta; M51.36 Other intervertebral disc degeneration, lumbar region; R10.9 Unspecified abdominal pain
CPT/HCPCS: 74177

== ENCOUNTER → 2022-12-01 08:58 | Outpatient (CLI) | payer MEDICARE, OTHER, SELFPAY ==
[2021-09-10 03:25] VITALS: PULSE 79; RESP 15; O2SAT 94
--- NOTE | 2022-12-01 | DI.ECHO.S_ITS ---
[facility] +---------+ : : [address] : : : : [id number] : : : : Phone: [phone]+ Echocardiogram Report + + :Name: RAVI JORDAN Study Date: 12/01/2022 Height: 68 in : :[facility] ReadingLocation: Weight: 152 lb : : Gender: Male BSA: 1.8 m2 : :: 1940 Age: 82 yrs BP: 176/86 mmHg: :Reason For Study: Nonrheumatic Aortic Stenosis : :Ordering Physician: Preet : :Burton Casey Performed By: Tatianna Cardoso : :Referring: PREET CASEY : + + Interpretation Summary 1) Normal left ventricular size, wall motion, and systolic function (EF 55- 60%). 2) Normal right ventricular size and function. 3) There is severe aortic stenosis (valve 0.7cm2, mean gradient 34mmHg, severity ratio 0.21). 4) Compared to the Echo done 11/12/2020, aortic stenosis has progressed from moderate to severe on this study. Procedure: A two-dimensional transthoracic echocardiogram with color flow and Doppler was performed. The study quality was technically adequate. The patient was in sinus rhythm with heart rates between 63-69 bpm during the exam. Left Ventricle: The left ventricle is normal in size. There is mild concentric left ventricular hypertrophy. Proximal septal thickening is noted. The ejection fraction is estimated to be 55-60%. Diastolic parameters suggest a relaxation abnormality of the left ventricle, consistent with probable normal filling pressures. Right Ventricle: The right ventricle is normal in size and function. Atria: The left atrial size is normal. Right atrial size is normal. There is no Doppler evidence for an interatrial shunt. Mitral Valve: The mitral valve leaflets are moderately calcified. There is mild mitral regurgitation. Aortic Valve: The aortic valve is heavily calcified. There is severe aortic stenosis. This is an increase compared to the previous study. There is trace aortic regurgitation. Tricuspid Valve: The tricuspid valve is normal in structure and function. There is a trace or physiologic amount of tricuspid regurgitation. Pulmonary artery pressures cannot be estimated because of the lack of a measurable TR jet velocity. Pulmonic Valve: The pulmonic valve leaflets are thin and pliable; valve motion is normal. There is no pulmonic valvular regurgitation. Great Vessels: The ascending aorta is at the upper limits of normal in size. The IVC is of normal diameter and collapses greater than 50% with a sniff. This suggests a low right atrial pressure of 3 mm Hg. Pericardium/ Pleura There is no pericardial effusion. There is no pleural effusion. MMode/2D Measurements & Calculations LVIDd: 4.1 cm LVOT diam: 2.1 cm LVIDs: 2.9 cm Ao root diam: 3.3 cm FS: 29.3 % asc Aorta Diam: 3.6 cm EPSS: 0.30 cm IVSd: 1.4 cm LVPWd: 1.1 cm LV hernández. diameter/BSA (cm/m^2): 2.3 LV sys. diameter/BSA (cm/m^2): 1.6 LA dimension: 3.4 cm RA long axis: 4.5 cm LA A2 area: 17.6 cm2 RA area: 12.7 cm2 LA A4 area: 15.6 cm2 RA vol: 30.4 ml LA length (vol): 5.4 cm RA : 16.7 ml/m2 LA vol: 43.1 ml LA vol index: 23.7 ml/m2 RVD1 (basal): 3.2 cm LVLs ap4: 5.9 cm LVLd ap2: 7.9 cm TAPSE_phl: 2.7 cm LVLs ap2: 6.0 cm Doppler Measurements & Calculations Ao V2 max: 365.5 cm/sec LVOT Max Mendoza: 85.0 cm/sec Ao V2 mean: 278.5 cm/sec LV V1 max P.9 mmHg Ao max P.0 mmHg LV V1 VTI: 19.7 cm Ao mean P.0 mmHg GILDA(I,D): 0.73 cm2 Ao V2 VTI: 93.2 cm GILDA(V,D): 0.81 cm2 sev ratio: 0.21 GILDA indexed to BSA (cm^2/m^2): 0.40 MV E max mendoza: 90.3 cm/sec TR max mendoza: 202.5 cm/sec MV A max mendoza: 141.0 cm/sec TR max P.7 mmHg MV E/A: 0.64 PA V2 max: 87.3 cm/sec Med Peak E' Mendoza: 6.8 cm/sec PA V2 mean: 58.3 cm/sec E/E' med: 13.3 PA mean P.0 mmHg Lat Peak E' Mendoza: 7.5 cm/sec E/E' lat: 12.1 E/e' average: 12.7 MV dec time: 0.25 sec MVA(VTI): 1.5 cm2 MV V2 mean: 83.1 cm/sec SV(LVOT): 68.2 ml MV mean P.0 mmHg MV V2 VTI: 45.2 cm AV VR_phl: 0.23 MV P1/2t-pr_phl: 74.0 msec GILDA(VTI)/BSA_phl: 0.40 Reading Physician:03:06 PM
== END ==
PROVIDERS: PCP Internal Medicine; Referring Provider Internal Medicine Cardiovascular Disease; Visit Provider Internal Medicine Cardiovascular Disease
DX: I08.0 Rheumatic disorders of both mitral and aortic valves (principal)
CPT/HCPCS: 93306

== ENCOUNTER 2022-12-09 16:40 | Observation (INO) | payer MEDICARE, OTHER, SELFPAY ==
[2021-09-10 03:25] VITALS: PULSE 79; RESP 15; O2SAT 94
[2022-12-09] VITALS (17 sets, daily range): BP systolic 130–167; BP diastolic 59–72; PULSE 75–88; RESP 15–27; TEMP 37–37.3; O2SAT 2–96; BMI 22.0; BMI 21.1
--- NOTE | 2022-12-09 16:52 | DI.RAD.S_ITS ---
PROCEDURE: XR CHEST 1V INDICATIONS: suspected sepsis TECHNIQUE: One view of the chest was acquired. COMPARISON: [facility], CR, XR CHEST 1V, 12/01/2021, 14:32. [facility], CR, XR CHEST 1V, 02/17/2022, 16:48. FINDINGS: Surgical changes and devices: Left shoulder postoperative change is seen. A clip can be seen involving the left lower neck. Lungs and pleura: Lungs are clear. No pleural effusions or pneumothorax. Mediastinum: Mediastinal contours appear normal. Heart size is normal. Atherosclerotic calcification of the aortic arch is noted. Bones and chest wall: No suspicious bony lesions. Age-appropriate bony degenerative changes are seen. Overlying soft tissues appear unremarkable. IMPRESSION: Unremarkable portable chest, without infiltrates. Dictated by: Jon Pantoja M.D. on 12/09/2022 at 16:38 Approved by: oJn Pantoja M.D. on 12/09/2022 at 16:39
[2022-12-09 17:53] LABS: INR 1.2 (0.9-1.3)
[2022-12-09 17:55] LABS: PTT Partial Thromboplastin Tim 30 SECONDS (26-36)
[2022-12-09 17:57] LABS: Add Manual Diff / Slide Review NO; Basophils Absolute Auto 0 /uL (0-100); Basophils Percent Auto 0.5 % (0-2); Eosinophils Absolute Auto 0 /uL (0-450); Eosinophils Percent Auto 0.4 % (2-4); Hematocrit 40.3 % (41-53); Hemoglobin 13.9 g/dL (13.5-17.5); Lymphocytes Absolute Auto 1000 /uL (1100-4500); Lymphocytes Percent Auto 10.9 % (25-40); Mean Corpuscular HGB Conc 34.5 % (30-36); Mean Corpuscular Hemoglobin 28.8 PG (26-34); Mean Corpuscular Volume 83.6 fL (80-100); Monocytes Absolute Auto 700 /uL (0-900); Neutrophils Absolute Auto 7600 /uL (1500-7000); Neutrophils Percent Auto 81.2 % (50-75); Platelet Count 172 X10^3/uL (150-400); Red Blood Cell Count 4.82 X10^6/uL (4.5-5.9); Red Cell Distribution Width 14.5 % (11.6-14.8); White Blood Cell Count 9.3 X10^3/uL (4.5-11.0)
[2022-12-09 18:01] LABS: Alanine Aminotransferase 21 IU/L (<50); Albumin 4.4 g/dL (3.5-5.0); Albumin Globulin Ratio 1.3 (1.0-2.8); Alkaline Phosphatase 105 U/L (38-126); Aspartate Aminotransferase 38 IU/L (17-59); BUN Creatinine Ratio 22.4 (6-22); Bilirubin Total 1.2 mg/dL (0.2-1.3); Blood Urea Nitrogen 26 mg/dL (9-20); Carbon Dioxide 30 mmol/L (22-32); Chloride 97 mmol/L (98-107); Estimated Glomerular Filt Rate > 60 mL/min (>60); Globulin 3.5 g/dL (1.7-4.1); Glucose 95 mg/dL (80-110); HEMOLYSIS 15 (0-50); Lipase 125 U/L (23-300); Potassium 3.4 mmol/L (3.4-5.1); Sodium 139 mmol/L (137-145); Total Protein 7.9 g/dL (6.3-8.2)
[2022-12-09 18:02] LABS: Creatine Kinase 114 U/L (55-170)
[2022-12-09 18:03] LABS: Lactate (Lactic Acid) 1.6 mmol/L (0.7-2.1)
[2022-12-09 18:14] LABS: NT-proBNP (BNP-Adult 18+) 260 pg/mL (<450); Troponin I 0.034 ng/mL (0.01-0.034)
[2022-12-09 18:17] LABS: CKMB % Relative Index 1.1 % (1.5-5.0); Creatine Kinase MB 1.28 ng/mL (<2.37)
[2022-12-09 18:18] LABS: Procalcitonin 0.08 ng/mL (<0.5)
--- NOTE | 2022-12-09 18:35 | PC.NURSE ---
Responded to pt hosea Muhammad, upon assessment pt has call light within reach, spouse at bedside, re-educated pt and souse continuing education dean light use over hosea out for staff, pt verbalizes understanding. Pt asked what the plan is, re-educated pt on plan of care, as recently discussed. Further educated pt on indication for urine sample, pt states I went pee prior to arrival, you won't get a pee from me, encouraged pt to notify staff if he does need to urinate.
[2022-12-09 18:40] LABS: Influenza A - CEPHEID Flu A NEGATIVE (NEGATIVE); Influenza B - CEPHEID Flu B NEGATIVE (NEGATIVE); Respiratory Syncytial Virus Negative (Negative)
[2022-12-09 18:45] LABS: COVID-19 CEPHEID 4-PLEX PCR POSITIVE (Negative)
--- NOTE | 2022-12-09 19:37 | ED_ITS ---
HPI - URI/Sore Throat General Chief Complaint: Upper Respiratory Symptoms Stated Complaint: Can't cough phlegm up, Choking Time Seen by Provider: 12/09/22 19:05 Source: patient and family Mode of arrival: Ambulatory History of Present Illness HPI Narrative: Patient is a 82-year-old male history of COPD on home O2 chronically, hyperlipid emia, coronary artery disease, aortic stenosis, atrial fibrillation presenting today with cough and generalized weakness. He and his have both been ill for the past 4 days or so has gotten a little bit better. But he feels like he is still coughing up phlegm. He is not eating or drinking very much. He generally feels ill. He has no chest pain. No abdominal pain nausea vomiting. He denies any headache he is extremely weak. Related Data Home Medications Medication Instructions Recorded Confirmed albuterol sulfate 90 mcg/actuation 2 puff inhalation BID PRN Wheezing 08/07/18 12/09/22 aerosol inhaler atorvastatin 40 mg tablet (Lipitor) 40 mg PO DAILY 09/10/18 12/09/22 cholecalciferol (vitamin D3) 25 1,000 unit PO DAILY 10/23/21 12/09/22 mcg (1,000 unit) capsule (Vitamin D3) diltiazem HCl 120 mg 120 mg PO DAILY 10/23/21 12/09/22 capsule,extended release 24 hr fluticasone 250 mcg-salmeterol 50 1 inh inhalation BID 10/23/21 12/09/22 mcg/dose blistr powdr for inhalation gabapentin 600 mg tablet 600 mg PO TID 10/23/21 12/09/22 hydrochlorothiazide 12.5 mg tablet 12.5 mg PO DAILY 12/09/22 12/09/22 tiotropium bromide 18 mcg capsule 1 mcg inhalation DAILY 12/09/22 12/09/22 with inhalation device (Spiriva with HandiHaler) Previous Rx's Medication Instructions Recorded pantoprazole 40 mg tablet,delayed 40 mg PO BID #84 tabs 10/27/21 release (Protonix) fluconazole 100 mg tablet 200 mg PO DAILY #28 tabs 11/30/21 (Diflucan) Allergies Allergy/AdvReac Type Severity Reaction Status Date / Time Beta-Blockers Allergy Unknown Verified 12/09/22 16:44 (Beta-Adrenergic Bloc codeine Allergy Unknown Verified 12/09/22 16:44 Review of Systems Review of Systems ROS Unobtainable: All systems reviewed & are unremarkable except as noted in HPI and below Patient History Medical History Cervical vertebral fusion COPD (chronic obstructive pulmonary disease) Gastroesophageal reflux disease Hyperlipidemia Hypertension Surgical History History of cervical discectomy History of left-sided carotid endarterectomy S/P cervical spinal fusion Status post appendectomy Family History Father Gunshot injury Social History household members: spouse Smoking Status: Former smoker alcohol intake: current substance use type: does not use Smoking Status: Former smoker alcohol intake frequency: a few times a week Alcohol type: beer and wine Substance Use Type: does not use Exam Initial Vital Signs Initial Vital Signs: Vital Signs Temperature 98.6 F 12/09/22 16:44 Pulse Rate 88 12/09/22 16:44 Respiratory Rate 24 12/09/22 16:44 Blood Pressure 136/63 12/09/22 16:44 Pulse Oximetry 92 12/09/22 16:44 Oxygen Delivery Method 12/09/22 16:44 GENERAL: Weak in alert 82-year-old male HEENT: Head atraumatic,EOMI, pupils reactive, face symmetric, dry mucous membranes CARDIOVASCULAR: Regular rate and rhythm without murmurs, rubs or gallops. RESPIRATORY: Decreased breath sounds bilaterally no conversational dyspnea no wheezing no ABDOMEN: Soft, nontender. Normoactive bowel sounds all 4 quadrants. No guarding or rebound. EXTREMITIES: Normal range of motion, no clubbing or edema. Neurovascularly intact NEUROLOGICAL: Alert and oriented x4. SKIN: Warm, dry, no laceration, no petechiae, no rashes or lesions. Course Orders Ordered: ED Orders 12/09/22 16:52 XR chest 1V Stat 12/09/22 17:06 EKG-12 Lead Stat 12/09/22 17:19 Covid-19 + FLU A/B + RSV - PCR Stat 12/09/22 17:30 BNP [NT-proBNP (BNP-Adult 18+)] Stat Blood Culture Stat Complete Blood Count AUTO DIFF Stat Comprehensive Metabolic Panel Stat Lactate (Lactic Acid) Stat Lipase Stat Partial Thromboplastin Time Stat Procalcitonin Stat Prothrombin Time INR Stat Troponin & CK Cardiac Panel Stat 12/09/22 19:28 Trop I [Troponin I] Stat Acetaminophen (Acetaminophen 325 Mg Tablet) 650 mg PO Q6H PRN PRN Reason: Fever/Mild Pain (1-3) Albuterol (Albuterol 2.5 Mg/3 Ml Neb (Adult)) 2.5 mg INH [id number] [facility] Atorvastatin Calcium (Atorvastatin 20 Mg Tablet) 40 mg PO DAILY [facility] Budesonide (Budesonide 0.5 Mg/2 Ml Neb) 0.5 mg INH RTBID [facility] Calcium Carbonate (Calcium Carbonate 500 Mg Tab) 1,000 mg PO Q4HR PRN PRN Reason: Dyspepsia Diltiazem HCl (Diltiazem Cd 120 Mg Cap) 120 mg PO DAILY [facility] Enoxaparin Sodium (Enoxaparin 30 Mg/0.3 Ml Syringe) 30 mg SUBCUT DAILY [facility] Gabapentin (Gabapentin 600 Mg Tablet) 600 mg PO TID [facility] Last Admin: 12/09/22 22:33 Dose: 600 mg Documented By: VIKAS Sodium Chloride (Normal Saline 0.9%) 1,000 mls @ 60 mls/hr IV CONT [facility] Last Admin: 12/09/22 22:33 Dose: 60 mls/hr Documented By: VIKAS Ipratropium [place] (Ipratropium 0.5 Mg/2.5 Ml Neb) 0.5 mg INH [id number] [facility] Last Admin: 12/09/22 23:57 Dose: Not Given Documented By: THOMAS Ipratropium [place] (Ipratropium 0.5 Mg/2.5 Ml Neb) 0.5 mg INH RTQ2HR PRN PRN Reason: Shortness Of Breath Naloxone HCl (Naloxone 0.4 Mg/Ml Vial) 0.2 mg IV Q2MIN PRN PRN Reason: Opiate Reversal Ondansetron HCl (Ondansetron 4 Mg/2 Ml Inj) 4 mg IV Q4HR PRN PRN Reason: Nausea And Vomiting Pantoprazole Sodium (Pantoprazole Dr 40 Mg Tablet) 40 mg PO BID [facility] Last Admin: 12/09/22 22:33 Dose: 40 mg Documented By: VIKAS Prednisone (Prednisone 20 Mg Tablet) 40 mg PO DAILY [facility] Stop: 12/13/22 21:39 Last Admin: 12/09/22 22:33 Dose: 40 mg Documented By: VIKAS Sennosides (Sennosides 8.6 Mg Tablet) 17.2 mg PO BEDTIME JUAN FRANCISCO Last Admin: 12/09/22 22:33 Dose: 17.2 mg Documented By: VIKAS Discontinued Medications Albuterol (Albuterol Hfa Mdi 60 Puff/8 Gm Inhaler) 2 puff INH RTQ4HR JUAN FRANCISCO Albuterol (Albuterol 2.5 Mg/3 Ml Neb (Adult)) 2.5 mg INH [id number] JUAN FRANCISCO Albuterol (Albuterol 2.5 Mg/3 Ml Neb (Adult)) 2.5 mg INH RTQ2HR PRN PRN Reason: Shortness Of Breath Albuterol (Albuterol Hfa Mdi 60 Puff/8 Gm Inhaler) 2 puff INH [id number] JUAN FRANCISCO Sodium Chloride (Normal Saline 0.9%) 1,000 mls @ 125 mls/hr IV CONT JUAN FRANCISCO Last Infusion: 12/09/22 22:34 Dose: 0 mls/hr Documented By: Admin: 12/09/22 20:24 Dose: 125 mls/hr Documented By: AT Sodium Chloride (Normal Saline 0.9%) 500 mls @ 60 mls/hr IV CONT JUAN FRANCISCO Last Admin: 12/09/22 22:34 Dose: Not Given Documented By: VIKAS Non-Formulary Medication (Tiotropium [place] [Spiriva With Handihaler]) 1 mcg INHALATION DAILY [facility] Non-Formulary Medication (Fluticasone Propion-Salmeterol) 1 inhalation INHALATION BID JUAN FRANCISCO Ondansetron HCl (Ondansetron 4 Mg/2 Ml Inj) 4 mg IV NOW PRN PRN Reason: Nausea And Vomiting Vital Signs Vital signs: Vital Signs - 8 hr 12/09/22 16:44 12/09/22 17:27 12/09/22 17:30 Temperature 98.6 F Pulse Rate 88 80 82 Respiratory Rate 24 20 24 Blood Pressure 136/63 Pulse Oximetry 92 90 L 90 L Oxygen Delivery Method Room Air Oxygen Flow Rate 12/09/22 17:35 12/09/22 17:35 12/09/22 18:00 Temperature Pulse Rate 80 Respiratory Rate 27 H Blood Pressure 138/62 156/70 H Pulse Oximetry 92 Oxygen Delivery Method Oxygen Flow Rate 12/09/22 18:00 12/09/22 18:30 12/09/22 18:30 Temperature Pulse Rate 80 76 Respiratory Rate 26 H 23 Blood Pressure 149/65 H Pulse Oximetry 91 89 L Oxygen Delivery Method Oxygen Flow Rate 12/09/22 19:00 12/09/22 19:00 12/09/22 19:31 Temperature Pulse Rate 75 Respiratory Rate 15 Blood Pressure 148/67 H Pulse Oximetry 90 L 2 L Oxygen Delivery Method Room Air Nasal Cannula Oxygen Flow Rate 12/09/22 19:30 12/09/22 19:30 12/09/22 20:00 Temperature Pulse Rate 75 Respiratory Rate 21 Blood Pressure 136/63 133/61 Pulse Oximetry 94 Oxygen Delivery Method Nasal Cannula Oxygen Flow Rate 2 12/09/22 20:00 12/09/22 20:30 12/09/22 20:31 Temperature Pulse Rate 80 79 77 Respiratory Rate 26 H 19 20 Blood Pressure Pulse Oximetry 94 94 93 Oxygen Delivery Method Nasal Cannula Oxygen Flow Rate 2 12/09/22 20:31 Temperature Pulse Rate Respiratory Rate Blood Pressure 167/72 H Pulse Oximetry Oxygen Delivery Method Oxygen Flow Rate MDM - URI/Sore Throat Lab Data 12/09/22 17:30 12/09/22 17:30 Labs: Lab Results 12/09/22 12/09/22 12/09/22 Range/Units 17:19 17:30 17:30 WBC 9.3 (4.5-11.0) X10^3/uL RBC 4.82 (4.5-5.9) X10^6/uL Hgb 13.9 (13.5-17.5) g/dL Hct 40.3 L (41-53) % MCV 83.6 (80-100) fL MCH 28.8 (26-34) PG MCHC 34.5 (30-36) % RDW 14.5 (11.6-14.8) % Plt Count 172 (150-400) X10^3/uL Neut % (Auto) 81.2 H (50-75) % Lymph % (Auto) 10.9 L (25-40) % [place] % (Auto) 7.0 (3-14) % Eos % (Auto) 0.4 L (2-4) % Baso % (Auto) 0.5 (0-2) % Neut # (Auto) 7600 H (3589-6149) /uL Lymph # (Auto) 1000 L (7930-5857) /uL [place] # (Auto) 700 (0-900) /uL Eos # (Auto) 0 (0-450) /uL Baso # (Auto) 0 (0-100) /uL PT 14.0 H (10.1-12.7) SECONDS INR 1.2 (0.9-1.3) APTT 30 (26-36) SECONDS Sodium (137-145) mmol/L Potassium (3.4-5.1) mmol/L Chloride (98-107) mmol/L Carbon Dioxide (22-32) mmol/L BUN (9-20) mg/dL Creatinine (0.66-1.25) mg/dL Estimated GFR (>60) mL/min BUN/Creatinine Ratio (6-22) Glucose (80-110) mg/dL Lactate (0.7-2.1) mmol/L Calcium (8.4-10.2) mg/dL Magnesium (1.6-2.3) mg/dL Total Bilirubin (0.2-1.3) mg/dL AST (17-59) IU/L ALT (<50) IU/L Alkaline Phosphatase (38-126) U/L Total Creatine Kinase (55-170) U/L CK-MB (CK-2) (<2.37) ng/mL CK-MB (CK-2) Rel Index (1.5-5.0) % Troponin I (0.01-0.034) ng/mL NT-Pro-B Natriuret Pep (<450) pg/mL Total Protein (6.3-8.2) g/dL Albumin (3.5-5.0) g/dL Globulin (1.7-4.1) g/dL Albumin/Globulin Ratio (1.0-2.8) Lipase (23-300) U/L Procalcitonin (<0.5) ng/mL SARS-CoV-2 (PCR) Positive H (Negative) Influenza A (RT-PCR) Flu a negative (NEGATIVE) Influenza B (RT-PCR) Flu b negative (NEGATIVE) RSV (PCR) Negative (Negative) 12/09/22 12/09/22 12/09/22 Range/Units 17:30 17:30 17:30 WBC (4.5-11.0) X10^3/uL RBC (4.5-5.9) X10^6/uL Hgb (13.5-17.5) g/dL Hct (41-53) % MCV (80-100) fL MCH (26-34) PG MCHC (30-36) % RDW (11.6-14.8) % Plt Count (150-400) X10^3/uL Neut % (Auto) (50-75) % Lymph % (Auto) (25-40) % [place] % (Auto) (3-14) % Eos % (Auto) (2-4) % Baso % (Auto) (0-2) % Neut # (Auto) (7245-7730) /uL Lymph # (Auto) (3792-9510) /uL [place] # (Auto) (0-900) /uL Eos # (Auto) (0-450) /uL Baso # (Auto) (0-100) /uL PT (10.1-12.7) SECONDS INR (0.9-1.3) APTT (26-36) SECONDS Sodium 139 (137-145) mmol/L Potassium 3.4 (3.4-5.1) mmol/L Chloride 97 L (98-107) mmol/L Carbon Dioxide 30 (22-32) mmol/L BUN 26 H (9-20) mg/dL Creatinine 1.16 (0.66-1.25) mg/dL Estimated GFR > 60 (>60) mL/min BUN/Creatinine Ratio 22.4 H (6-22) Glucose 95 (80-110) mg/dL Lactate 1.6 (0.7-2.1) mmol/L Calcium 9.0 (8.4-10.2) mg/dL Magnesium (1.6-2.3) mg/dL Total Bilirubin 1.2 (0.2-1.3) mg/dL AST 38 (17-59) IU/L ALT 21 (<50) IU/L Alkaline Phosphatase 105 (38-126) U/L Total Creatine Kinase 114 (55-170) U/L CK-MB (CK-2) 1.28 (<2.37) ng/mL CK-MB (CK-2) Rel Index 1.1 L (1.5-5.0) % Troponin I 0.034 (0.01-0.034) ng/mL NT-Pro-B Natriuret Pep 260 (<450) pg/mL Total Protein 7.9 (6.3-8.2) g/dL Albumin 4.4 (3.5-5.0) g/dL Globulin 3.5 (1.7-4.1) g/dL Albumin/Globulin Ratio 1.3 (1.0-2.8) Lipase 125 (23-300) U/L Procalcitonin 0.08 (<0.5) ng/mL SARS-CoV-2 (PCR) (Negative) Influenza A (RT-PCR) (NEGATIVE) Influenza B (RT-PCR) (NEGATIVE) RSV (PCR) (Negative) 12/09/22 12/09/22 Range/Units 19:28 19:28 WBC (4.5-11.0) X10^3/uL RBC (4.5-5.9) X10^6/uL Hgb (13.5-17.5) g/dL Hct (41-53) % MCV (80-100) fL MCH (26-34) PG MCHC (30-36) % RDW (11.6-14.8) % Plt Count (150-400) X10^3/uL Neut % (Auto) (50-75) % Lymph % (Auto) (25-40) % [place] % (Auto) (3-14) % Eos % (Auto) (2-4) % Baso % (Auto) (0-2) % Neut # (Auto) (7842-1767) /uL Lymph # (Auto) (8509-7415) /uL [place] # (Auto) (0-900) /uL Eos # (Auto) (0-450) /uL Baso # (Auto) (0-100) /uL PT (10.1-12.7) SECONDS INR (0.9-1.3) APTT (26-36) SECONDS Sodium (137-145) mmol/L Potassium (3.4-5.1) mmol/L Chloride (98-107) mmol/L Carbon Dioxide (22-32) mmol/L BUN (9-20) mg/dL Creatinine (0.66-1.25) mg/dL Estimated GFR (>60) mL/min BUN/Creatinine Ratio (6-22) Glucose (80-110) mg/dL Lactate (0.7-2.1) mmol/L Calcium (8.4-10.2) mg/dL Magnesium 1.8 (1.6-2.3) mg/dL Total Bilirubin (0.2-1.3) mg/dL AST (17-59) IU/L ALT (<50) IU/L Alkaline Phosphatase (38-126) U/L Total Creatine Kinase (55-170) U/L CK-MB (CK-2) (<2.37) ng/mL CK-MB (CK-2) Rel Index (1.5-5.0) % Troponin I 0.041 H (0.01-0.034) ng/mL NT-Pro-B Natriuret Pep (<450) pg/mL Total Protein (6.3-8.2) g/dL Albumin (3.5-5.0) g/dL Globulin (1.7-4.1) g/dL Albumin/Globulin Ratio (1.0-2.8) Lipase (23-300) U/L Procalcitonin (<0.5) ng/mL SARS-CoV-2 (PCR) (Negative) Influenza A (RT-PCR) (NEGATIVE) Influenza B (RT-PCR) (NEGATIVE) RSV (PCR) (Negative) Imaging Data Chest x-ray: Radiologist's Impression: Flavio paula MR#: [id number] : 1940 Acct:[id number] Age/Sex: 82 / M Date of Service: 12/09/22 Loc: ED Accession Number: [id number] ?? Procedure: XR chest 1V Ordering Provider: Giselle Forte D.O. PROCEDURE:? XR CHEST 1V ? INDICATIONS:? suspected sepsis ? TECHNIQUE:? One view of the chest was acquired.? ? COMPARISON:? [facility], , XR CHEST 1V, 12/01/2021, 14:32.? [facility], , XR CHEST 1V, 02/17/2022, 16:48. ? FINDINGS:? ? Surgical changes and devices:? Left shoulder postoperative change is seen.? A clip can be seen involving the left lower neck. ? Lungs and pleura:? Lungs are clear.? No pleural effusions or pneumothorax.? ? Mediastinum:? Mediastinal contours appear normal.? Heart size is normal.? Atherosclerotic calcification of the aortic arch is noted.? ? Bones and chest wall:? No suspicious bony lesions.? Age-appropriate bony degenerative changes are seen.? Overlying soft tissues appear unremarkable.? IMPRESSION:? Unremarkable portable chest, without infiltrates. ? ? Dictated by: Jon Pantoja M.D. on 12/09/2022 at 16:38 ? ? Approved by: Jon Pantoja M.D. on 12/09/2022 at 16:39? ECG Data Interpretation: Sinus rhythm rate 83 LA interval 164 QRS the knee QTC [address] changes no T- wave inversions improved from previous EKGs previous EKG had peaked T-waves in V2 and V3 MDM Narrative Medical decision making narrative: Patient is a 82-year-old male history of chronic COPD atrial fibrillation on home oxygen presenting today with upper respiratory like symptoms. He is found to have COVID. X-ray and blood work are relatively reassuring. Troponin is indeterminate but not positive no EKG changes. He is extremely weak clinically dehydrated not eating or drinking. Blood work shows no leukocytosis lactic acid 1.6 and procalcitonin 0.08. Chest x-ray does not show any pneumonia. He is not really requiring any further oxygen than he normally does. However not doing well at home. He actually had an echocardiogram earlier this month on December 01 which showed a normal EF, he certainly shows no signs of fluid overload. Troponin went from [phone] minimal elevation without ischemic changes or symptoms. He is reluctant but does agree to stay overnight. is sick herself unable to care for him. Zeynep Cerrato ED to see and evaluate patient and accepts patient to observation Discharge Plan Departure Patient Disposition: Admitted as Observation Clinical Impression: COVID-19 Admit Date/Time: 12/09/22 20:59 Admit Provider: Zeynep Cerrato
--- NOTE | 2022-12-09 19:40 | PC.NURSE ---
Pt wears O2 as needed at home, noted to desat and maintain sats at 88%. Applied 2L NC and educated pt.
[2022-12-09 19:56] LABS: Troponin I 0.041 ng/mL (0.01-0.034)
[2022-12-09] MEDS: SODIUM CHLORIDE 0.9% 1,000 ML 125 ML IV (20:24)
[2022-12-09 22:07] LABS: Magnesium 1.8 mg/dL (1.6-2.3)
[2022-12-09] MEDS: predniSONE 20 MG TABLET 40 MG PO (22:33)
[2022-12-09] MEDS: SODIUM CHLORIDE 0.9% 1,000 ML 60 ML IV (22:33)
[2022-12-09] MEDS: GABAPENTIN 600 MG TABLET PO (22:33)
[2022-12-09] MEDS: SENNOSIDES 8.6 MG TABLET 17.2 MG PO (22:33)
[2022-12-09] MEDS: PANTOPRAZOLE DR 40 MG TABLET PO (22:33)
[2022-12-10] VITALS (9 sets, daily range): BP systolic 142–173; BP diastolic 47–76; PULSE 65–76; RESP 16–20; TEMP 35.9–36.6; O2SAT 92–96
--- NOTE | 2022-12-10 01:03 | P.HP_ITS ---
History of Present Illness History of Present Illness Chief complaint: Can't cough phlegm up, Choking Narrative: Flavio Bowen is an 82-year-old male with a history COPD, chronic respiratory failure on home O2/2L essential hypertension, NSTEMI, hx of GI Bleed, CAD with severe aortic stenosis, hyperlipidemia, paroxysmal atrial fibrillation and GERD who presented to the ED with complaints of upper respiratory symptoms and feeling sick for him & his , severe weakness, approximately the past 3-4 days, productive cough, no sore throat, no ear eye discomfort, increased shortness of breath, mild tachypnea, decreased oral intake, denies chest pain, fever, body aches, chills, nausea, vomiting, abdominal pain, diarrhea, constipation, hematuria, hematemesis, melena, rashes, recent injury or trauma.. Patient states he is not vaccinated against COVID, and is unsure if he is received the flu or pneumonia vaccines. On admit 98.6, 148/67, 75, 15, 90% on room air. Patient's CBC CMP are unremarkable with the exception of neutrophils 7600, BUN 26. lactate, BNP, procalcitonin, influenza a/B, RSV are all negative. Initial troponin 0.034, repeat 0.041-likely demand (09/10/2021 troponin 8.910). Chest x-ray is negative, last echo 12/01/[address] Casey EF 55-60%. COVID positive, patient admitted for Obs COVID and weakness. Patient History Medical History Cervical vertebral fusion COPD (chronic obstructive pulmonary disease) Gastroesophageal reflux disease Hyperlipidemia Hypertension Surgical History History of cervical discectomy History of left-sided carotid endarterectomy S/P cervical spinal fusion Status post appendectomy Family & Social History Family History Father Gunshot injury Social History: household members spouse Prior Living Arrangements House Safety & Behavioral: Feels Safe in Current Yes Environment Been Physically Hurt or No Threatened By a Person Tobacco & Substance use: Tobacco type cigarettes Smoking Status Former smoker alcohol intake current alcohol intake frequency a few times a week Substance Use Type does not use Meds Home Medications and Allergies Home Medications Medication Instructions Recorded Confirmed Type albuterol sulfate 90 mcg/actuation 2 puff inhalation BID PRN Wheezing 08/07/18 12/09/22 History aerosol inhaler atorvastatin 40 mg tablet (Lipitor) 40 mg PO DAILY 09/10/18 12/09/22 History cholecalciferol (vitamin D3) 25 1,000 unit PO DAILY 10/23/21 12/09/22 History mcg (1,000 unit) capsule (Vitamin D3) diltiazem HCl 120 mg 120 mg PO DAILY 10/23/21 12/09/22 History capsule,extended release 24 hr fluticasone 250 mcg-salmeterol 50 1 inh inhalation BID 10/23/21 12/09/22 History mcg/dose blistr powdr for inhalation gabapentin 600 mg tablet 600 mg PO TID 10/23/21 12/09/22 History pantoprazole 40 mg tablet,delayed 40 mg PO BID #84 tabs 10/27/21 12/09/22 Rx release (Protonix) fluconazole 100 mg tablet 200 mg PO DAILY #28 tabs 11/30/21 12/09/22 Rx (Diflucan) hydrochlorothiazide 12.5 mg tablet 12.5 mg PO DAILY 12/09/22 12/09/22 History tiotropium bromide 18 mcg capsule 1 mcg inhalation DAILY 12/09/22 12/09/22 History with inhalation device (Spiriva with HandiHaler) Allergies Allergy/AdvReac Type Severity Reaction Status Date / Time Beta-Blockers Allergy Unknown Verified 12/09/22 16:44 (Beta-Adrenergic Bloc codeine Allergy Unknown Verified 12/09/22 16:44 Review of Systems Review of Systems Narrative: All 12 point systems reviewed with the patient and are negative except otherwise documented. Exam Vital Signs (past 8 hours): - 12/09/22 17:27 12/09/22 17:30 12/09/22 17:35 Temperature Pulse Rate 80 82 Respiratory Rate 20 24 Blood Pressure 138/62 Pulse Oximetry 90 L 90 L Oxygen Delivery Method Oxygen Flow Rate Fraction of Inspired Oxygen 12/09/22 17:35 12/09/22 18:00 12/09/22 18:00 Temperature Pulse Rate 80 80 Respiratory Rate 27 H 26 H Blood Pressure 156/70 H Pulse Oximetry 92 91 Oxygen Delivery Method Oxygen Flow Rate Fraction of Inspired Oxygen 12/09/22 18:30 12/09/22 18:30 12/09/22 19:00 Temperature Pulse Rate 76 Respiratory Rate 23 Blood Pressure 149/65 H 148/67 H Pulse Oximetry 89 L Oxygen Delivery Method Oxygen Flow Rate Fraction of Inspired Oxygen 12/09/22 19:00 12/09/22 19:31 12/09/22 19:30 Temperature Pulse Rate 75 Respiratory Rate 15 Blood Pressure 136/63 Pulse Oximetry 90 L 2 L Oxygen Delivery Method Room Air Nasal Cannula Oxygen Flow Rate Fraction of Inspired Oxygen 12/09/22 19:30 12/09/22 20:00 12/09/22 20:00 Temperature Pulse Rate 75 80 Respiratory Rate 21 26 H Blood Pressure 133/61 Pulse Oximetry 94 94 Oxygen Delivery Method Nasal Cannula Nasal Cannula Oxygen Flow Rate 2 2 Fraction of Inspired Oxygen 12/09/22 20:30 12/09/22 20:31 12/09/22 20:31 Temperature Pulse Rate 79 77 Respiratory Rate 19 20 Blood Pressure 167/72 H Pulse Oximetry 94 93 Oxygen Delivery Method Oxygen Flow Rate Fraction of Inspired Oxygen 12/09/22 21:00 12/09/22 21:01 12/09/22 21:01 Temperature Pulse Rate 76 75 Respiratory Rate 23 20 Blood Pressure 138/64 Pulse Oximetry 92 92 Oxygen Delivery Method Oxygen Flow Rate Fraction of Inspired Oxygen 12/09/22 21:30 12/09/22 21:30 12/09/22 21:50 Temperature 99.1 F Pulse Rate 78 80 Respiratory Rate 25 H 17 Blood Pressure 160/65 H 130/59 L Pulse Oximetry 92 96 Oxygen Delivery Method Nasal Cannula Oxygen Flow Rate 2 2 Fraction of Inspired Oxygen 12/09/22 22:06 12/09/22 21:05 Temperature Pulse Rate 81 Respiratory Rate 16 Blood Pressure Pulse Oximetry 93 Oxygen Delivery Method Nasal Cannula Nasal Cannula Oxygen Flow Rate 2 Fraction of Inspired Oxygen 28 Fraction of Inspired Oxygen 28 SaO2/FiO2 Ratio 332 Oxygen Delivery Method Nasal Cannula Oxygen Flow Rate 2 Narrative Exam Narrative: General: Patient is a thin, frail, chronically ill-appearing elderly male, in no distress at this time. HEENT: Normocephalic, atraumatic, extraocular muscles intact, oral pharynx is clear and mucous membranes are dry-appears quite dehydrated. Neck is supple and symmetric, trachea is midline, no adenopathy, no thyroid enlargement, nontender, no masses palpated. Negative for JVD Chest: Breathing on 2L/NC without nasal flaring, retractions, tachypneic or labored Lungs: Auscultation of all lung keller crackles noted in right base. Cardio: regular rate and rhythm with systolic murmur 2/5 Abdomen: Soft nontender, negative for organomegaly, or masses. Bowel sounds are hypoactive present in all 4 quadrants without guarding or rebound, no CVA tenderness. Musculoskeletal: Muscle tone appears appropriate for age, no deformity, crepitus, effusions, cyanosis, clubbing or edema present. Full range of motion intact radial and pedal pulses are normal. Skin: Warm very dry, poor turgor, and intact without rashes, ulcerations or petechiae. Neuro: Alert and orientated x3, but is a poor historian, poor recall, moves all extremities, sensation to touch intact, no gross deficits noted of cranial nerves. Psych: Patient has a well-kept appearance, appropriate affect, mental status attitude thought context and judgment are appropriate for age. Objective Labs 12/09/22 17:30 12/09/22 17:30 Labs: Laboratory Results - last 24 hr 12/09/22 12/09/22 12/09/22 17:19 17:30 17:30 WBC 9.3 RBC 4.82 Hgb 13.9 Hct 40.3 L MCV 83.6 MCH 28.8 MCHC 34.5 RDW 14.5 Plt Count 172 Neut % (Auto) 81.2 H Lymph % (Auto) 10.9 L [place] % (Auto) 7.0 Eos % (Auto) 0.4 L Baso % (Auto) 0.5 Neut # (Auto) 7600 H Lymph # (Auto) 1000 L [place] # (Auto) 700 Eos # (Auto) 0 Baso # (Auto) 0 PT 14.0 H INR 1.2 APTT 30 Sodium Potassium Chloride Carbon Dioxide BUN Creatinine Estimated GFR BUN/Creatinine Ratio Glucose Lactate Calcium Magnesium Total Bilirubin AST ALT Alkaline Phosphatase Total Creatine Kinase CK-MB (CK-2) CK-MB (CK-2) Rel Index Troponin I NT-Pro-B Natriuret Pep Total Protein Albumin Globulin Albumin/Globulin Ratio Lipase Procalcitonin SARS-CoV-2 (PCR) Positive H Influenza A (RT-PCR) Flu a negative Influenza B (RT-PCR) Flu b negative RSV (PCR) Negative 12/09/22 12/09/22 12/09/22 17:30 17:30 17:30 WBC RBC Hgb Hct MCV MCH MCHC RDW Plt Count Neut % (Auto) Lymph % (Auto) [place] % (Auto) Eos % (Auto) Baso % (Auto) Neut # (Auto) Lymph # (Auto) [place] # (Auto) Eos # (Auto) Baso # (Auto) PT INR APTT Sodium 139 Potassium 3.4 Chloride 97 L Carbon Dioxide 30 BUN 26 H Creatinine 1.16 Estimated GFR > 60 BUN/Creatinine Ratio 22.4 H Glucose 95 Lactate 1.6 Calcium 9.0 Magnesium Total Bilirubin 1.2 AST 38 ALT 21 Alkaline Phosphatase 105 Total Creatine Kinase 114 CK-MB (CK-2) 1.28 CK-MB (CK-2) Rel Index 1.1 L Troponin I 0.034 NT-Pro-B Natriuret Pep 260 Total Protein 7.9 Albumin 4.4 Globulin 3.5 Albumin/Globulin Ratio 1.3 Lipase 125 Procalcitonin 0.08 SARS-CoV-2 (PCR) Influenza A (RT-PCR) Influenza B (RT-PCR) RSV (PCR) 12/09/22 12/09/22 19:28 19:28 WBC RBC Hgb Hct MCV MCH MCHC RDW Plt Count Neut % (Auto) Lymph % (Auto) [place] % (Auto) Eos % (Auto) Baso % (Auto) Neut # (Auto) Lymph # (Auto) [place] # (Auto) Eos # (Auto) Baso # (Auto) PT INR APTT Sodium Potassium Chloride Carbon Dioxide BUN Creatinine Estimated GFR BUN/Creatinine Ratio Glucose Lactate Calcium Magnesium 1.8 Total Bilirubin AST ALT Alkaline Phosphatase Total Creatine Kinase CK-MB (CK-2) CK-MB (CK-2) Rel Index Troponin I 0.041 H NT-Pro-B Natriuret Pep Total Protein Albumin Globulin Albumin/Globulin Ratio Lipase Procalcitonin SARS-CoV-2 (PCR) Influenza A (RT-PCR) Influenza B (RT-PCR) RSV (PCR) Assessment & Plan Assessment & Plan narrative: Flavio Bowen is an 82-year-old male with a history COPD, chronic respiratory failure on home O2/2L essential hypertension, NSTEMI, hx of GI Bleed, CAD with severe aortic stenosis, hyperlipidemia, paroxysmal atrial fibrillation and GERD who is admitted for Obs due to severe weakness, myocardial injury with a history of NSTEMI, and chronic respiratory failure with positive COVID. Patient requires just overnight monitoring and evaluation to rule out any other source of infection, and development cardiopulmonary acute process. Patient can likely be discharged tomorrow following PT/OT evaluation, and troponins stable. 1. COVID-19, with severe fatigue/weakness, acute, present on admission- asymptomatic/compensated -non vaccinated-lactate, BNP, procalcitonin, influenza a/B, RSV are all negative. Chest x-ray is negative. -patient's oxygen demand is no greater and appears to be asymptomatic, does not meet treatment criteria. -Supportive care, respiratory consult as needed -continue patient's home oxygen of 2 L nasal cannula -PT/OT evaluation for weakness -patient appears significantly dry no edema or or signs of fluid overload, gentle hydration NS at 60 cc/HR. 2. Myocardial injury, acute, with history of NSTEMI, chronic, present on admission - Initial troponin 0.034, repeat 0.041-likely demand (09/10/2021 troponin 8.910) -Trend, on tele. 3. COPD, without exacerbation, chronic, with chronic respiratory failure home oxygen, chronic, present on admission-stable -patient is on home oxygen 2L/NC no increased oxygen demand -respiratory consult as needed, continue albuterol HFA inhaler, prednisone 40 mg x 4 days, incentive spirometry -ordered sputum & blood culture -continue Spiriva or equivalent 4. Paroxysmal atrial fibrillation, with hypertension, essential, chronic, present on admission-stable -last echo 12/01/[address] Casey EF 55-60%. -EKG NSR, rate 83, without ST or T-wave changes -continue diltiazem 5. CAD, with severe aortic stenosis, chronic, present on admission- stable -continue Lipitor 6. GERD, chronic, present on admission -continue Protonix 7. Malnutrition, mild, acute on chronic, present on admission -as evidence by BMI 21.1 -patient's malnutrition places them at high risk for medical and surgical complications in relation to acute illness/chronic illness. This increases the difficulty in complexity of medical management and increases the chances poor outcomes such as mortality and morbidity as well as impaired wound healing, and immune suppression. -dietary consult ordered to evaluate and implement steps to improve caloric intake and nutrition. CODE: Full Proxy: Jojo Bowen, COVID PCR:POSITIVE COVID vaccination: Unvaccinated DVT/VTE prophylaxis: Lovenox and SCDs Disposition: Patient admitted for overnight observation of elevated troponins severe weakness secondary to positive COVID, expected length of stay less than 2 midnights. I have utilized all available immediate resources to obtain, update, or review the patient's current medications. I confirmed that the patient's advanced care plan is present, Code status is documented and/or surrogate decision maker is listed in the patient's medical record. I have personally reviewed patient's chart notes from PCP, specialists, diagnostic imaging, and laboratory results. Time Spent With Patient Critical Care time: I spent a total of [] minutes of critical care time on this patient's care today; this time is exclusive of procedural time. Quality VTE Deep Vein Thrombosis/Pulmonary Embolism Present on Admission: No
[2022-12-10 05:14] LABS: Add Manual Diff / Slide Review NO; Basophils Absolute Auto 0 /uL (0-100); Basophils Percent Auto 0.3 % (0-2); Eosinophils Absolute Auto 0 /uL (0-450); Hematocrit 35.3 % (41-53); Hemoglobin 12.2 g/dL (13.5-17.5); Lymphocytes Absolute Auto 800 /uL (1100-4500); Lymphocytes Percent Auto 10.2 % (25-40); Mean Corpuscular HGB Conc 34.6 % (30-36); Mean Corpuscular Hemoglobin 28.5 PG (26-34); Mean Corpuscular Volume 82.5 fL (80-100); Monocytes Absolute Auto 100 /uL (0-900); Monocytes Percent Auto 1.7 % (3-14); Neutrophils Absolute Auto 6900 /uL (1500-7000); Neutrophils Percent Auto 87.8 % (50-75); Platelet Count 161 X10^3/uL (150-400); Red Blood Cell Count 4.28 X10^6/uL (4.5-5.9); Red Cell Distribution Width 14.5 % (11.6-14.8); White Blood Cell Count 7.8 X10^3/uL (4.5-11.0)
[2022-12-10 05:24] LABS: INR 1.3 (0.9-1.3); Prothrombin Time 15.5 SECONDS (10.1-12.7)
[2022-12-10 05:27] LABS: BUN Creatinine Ratio 24.2 (6-22); Blood Urea Nitrogen 24 mg/dL (9-20); Calcium 8.3 mg/dL (8.4-10.2); Carbon Dioxide 29 mmol/L (22-32); Chloride 100 mmol/L (98-107); Estimated Glomerular Filt Rate > 60 mL/min (>60); Glucose 123 mg/dL (80-110); HEMOLYSIS < 15 (0-50); Magnesium 1.8 mg/dL (1.6-2.3); Potassium 3.2 mmol/L (3.4-5.1); Sodium 137 mmol/L (137-145)
[2022-12-10 05:38] LABS: Troponin I 0.039 ng/mL (0.01-0.034)
[2022-12-10] MEDS: predniSONE 20 MG TABLET 40 MG PO (08:06)
[2022-12-10] MEDS: ATORVASTATIN 20 MG TABLET 40 MG PO (08:06)
[2022-12-10] MEDS: PANTOPRAZOLE DR 40 MG TABLET PO ×2 (08:06→20:54)
[2022-12-10] MEDS: ENOXAPARIN 40 MG/0.4 ML SYRINGE SUBCUT (08:06)
[2022-12-10] MEDS: GABAPENTIN 600 MG TABLET PO ×3 (08:06→20:54)
[2022-12-10] MEDS: dilTIAZem CD 120 MG CAP PO (08:07)
--- NOTE | 2022-12-10 08:48 | CM.DANOTE ---
Addendum entered by Kate Keane R.N. 12/10/22 12:10: Spoke to Kristen at [facility], and they can see patients within 24 hours. Went ahead and faxed her over the referral, gave her patient's name. Faxed over face sheet, orders, face to face, and H&P, pending P.T and O.T. eval. At discharge, they will just need DC Summary. Addendum entered by Kate Keane R.N. 12/10/22 11:42: Spoke to patient's spouse, Jojo, over the phone. Introduced self and role. She was pleasant on the phone. Indicated, she had her have had COVID for several days, have not felt the same since. She did state that her spouse had COVID vaccination, but no more, it doesn't prevent you from getting it, so what's the point? Confirmed that spouse has walker and cane for home use. Asked her if her spouse may consent to home health, she indicated, he doesn't usually let anyone in the house, but can try, he never has had it before. She gave some history on patient, and mentioned that he has had heart attacks, strokes, and since the stroke, had some trouble stating what he wants to say. Spouse has no preferences upon home health agencies. Can initiate the process and mention to patient. She is planning on picking up patient up when ready, but needs to get her dog to the groomer first. Will start the home health process, and will see which agency can get in sooner. Original Note: DCP: Case received, EMR reviewed and met with patient. Did not fully enter room, spoke to him from doorway secondary to being COVID positive. Was able to obtain information regarding patient's baseline activity level prior to hospitalization. DCP assessment completed with information currently available. Patient is an 82 year old male who admitted yesterday evening to the care of the hospitalist team. PCP: Confirmed: Dr. Glynn Stallworth. Payer: confirmed: Medicare/ for Life. Patient came to the hospital via private vehicle secondary to having cough and generalized weakness. Notes indicate that he and spouse have been ill for the past 4 days, improving, patient coughing up phlegm. Notes also indicate, patient not eating or drinking very much. Patient has history of COPD, and is on home oxygen. Patient holds diagnosis of COVID-19, with severe fatigue/weakness, acute. Notes indicate concerns that spouse can't care for him, will need to be addressed in conversation. Notes also indicate patient was reluctant to be admitted over night. Met with patient briefly in the doorway of his room. He was sitting up having breakfast. Patient alert and oriented, slow to respond to some questions, tremor noted in left hand. Confirmed that he resides with spouse in [place]. He has a cane and walker for home use. Patient indicated, he only drives short distances. Patient is supposed to be working with P.T, and O.T, which are pending. Patient did give permission to contact his spouse, Jojo, for additional questions. P: DCP to continue to follow. Will plan on contacting spouse today. Patient may benefit with home healths services, most likely will not qualify for skilled if OBS, and weakness, but will review. Kate Keane RN/[employer]il Stabilizer Discharge Planning/Care Management Discharge Assessment Start: 12/10/22 08:45 Freq: Status: Active Protocol: Document 12/10/22 08:45 (Rec: 12/10/22 08:47 [id number]) Discharge Planning Assessment Assigned Cabinet Abrasive Sandblaster Kate Keane RN/[employer] St[employer]izer Advance Directives? No History Provided By Patient,Significant Other, Medical Record Prior Living Arrangements House Household Members spouse Type of transporation used prior to Drives own vehicle admit Comment Patient indicated, he only drives short distances. Independent with ADL's Yes Is patient alert and oriented? Yes Needs Assistance With Meal Prep,Home Chores / Shopping Caregiver for Another No DME Already Rented / Owned [facility] / Walker,Cane Patient/Family Preference Home with Home Health Comment Patient will be working with therapy this afternoon Comment also uses [facility], will have to see how patient does with P .T. Discharge Plan Home Transportation Arrangement Family Referrals Initiated Other Additional Comment Patient has not yet worked with P.T. will have to look at recommendations and if patient makes inpatient status . Whiteboard Updated in Patient Room with No name and ext. # of Cabinet Abrasive Sandblaster Comment Patient is COVID positive, did not fully enter room. Review Status In Process Next Review Type Continued Stay Review
[2022-12-10] MEDS: POTASSIUM CHLORIDE 20 MEQ TAB 40 MEQ PO ×2 (12:12→18:19)
[2022-12-10 13:45] LABS: Acinetobacter baumannii Not Detected (Not Detect); Candida albicans Not Detected (Not Detect); Candida glabrata Not Detected (Not Detect); Candida krusei Not Detected (Not Detect); Candida parapsilosis Not Detected (Not Detect); Candida tropicalis Not Detected (Not Detect); E. coli Not Detected (Not Detect); Enterobacter cloacae complex Not Detected (Not Detect); Enterobacteriaceae species Not Detected (Not Detect); Enterococcus species Not Detected (Not Detect); Haemophilus influenzae Not Detected (Not Detect); Listeria monocytogenes Not Detected (Not Detect); Methicillin-resistant gene Detected (Not Detect); Neisseria meningitidis Not Detected (Not Detect); Proteus species Not Detected (Not Detect); Pseudomonas aeruginosa Not Detected (Not Detect); Serratia marcescens Not Detected (Not Detect); Staphylococcus species Detected (Not Detect); Streptococcus agalactiae (Gr B Not Detected (Not Detect); Streptococcus pneumonia Not Detected (Not Detect); Streptococcus pyogenes (Gr A) Not Detected (Not Detect); Streptococcus species Not Detected (Not Detect)
--- NOTE | 2022-12-10 17:00 | P.PN_ITS ---
Subjective Subjective Date Patient Seen: 12/10/22 Interval history: Remains weak and ill. No chest pain, shortness of breath. Exam Vital Signs (past 8 hours): - 12/10/22 12:27 12/10/22 16:10 Temperature 96.8 F L 96.6 F L Pulse Rate 69 70 Respiratory Rate 20 20 Blood Pressure 163/76 H 155/65 H Pulse Oximetry 96 94 Oxygen Flow Rate 2 2 Fraction of Inspired Oxygen 28 SaO2/FiO2 Ratio 339 Oxygen Delivery Method Nasal Cannula Oxygen Flow Rate 2 Narrative Exam Narrative: General: Patient is a thin, frail, chronically ill-appearing elderly male, in no distress at this time. HEENT: Normocephalic, atraumatic, extraocular muscles intact, oral pharynx is clear and mucous membranes are dry-appears quite dehydrated. Neck is supple and symmetric, trachea is midline, no adenopathy, no thyroid enlargement, nontender, no masses palpated. Negative for JVD Chest: Breathing on 2L/NC without nasal flaring, retractions, tachypneic or labored Lungs: Auscultation of all lung keller crackles noted in right base. Cardio: regular rate and rhythm, no m/r/g Abdomen: Soft nontender, negative for organomegaly, or masses. Bowel sounds are hypoactive present in all 4 quadrants without guarding or rebound, no CVA tenderness. Musculoskeletal: Muscle tone appears appropriate for age, no deformity, crepitus, effusions, cyanosis, clubbing or edema present. Full range of motion intact radial and pedal pulses are normal. Skin: Warm very dry, poor turgor, and intact without rashes, ulcerations or petechiae. Neuro: Alert and orientated x3, but is a poor historian, poor recall, moves all extremities, sensation to touch intact, no gross deficits noted of cranial nerves. Psych: Patient has a well-kept appearance, appropriate affect, mental status attitude thought context and judgment are appropriate for age. Objective Labs 12/10/22 04:55 12/10/22 04:55 Labs: Laboratory Results - last 24 hr 12/09/22 12/09/22 12/09/22 17:14 17:19 17:30 WBC 9.3 RBC 4.82 Hgb 13.9 Hct 40.3 L MCV 83.6 MCH 28.8 MCHC 34.5 RDW 14.5 Plt Count 172 Neut % (Auto) 81.2 H Lymph % (Auto) 10.9 L [place] % (Auto) 7.0 Eos % (Auto) 0.4 L Baso % (Auto) 0.5 Neut # (Auto) 7600 H Lymph # (Auto) 1000 L [place] # (Auto) 700 Eos # (Auto) 0 Baso # (Auto) 0 PT INR APTT Sodium Potassium Chloride Carbon Dioxide BUN Creatinine Estimated GFR BUN/Creatinine Ratio Glucose Lactate Calcium Magnesium Total Bilirubin AST ALT Alkaline Phosphatase Total Creatine Kinase CK-MB (CK-2) CK-MB (CK-2) Rel Index Troponin I NT-Pro-B Natriuret Pep Total Protein Albumin Globulin Albumin/Globulin Ratio Lipase Procalcitonin A. baumannii (PCR) Not detected Diane albicans (PCR) Not detected C. glabrata (PCR) Not detected C. krusei (PCR) Not detected C. parapsilosis (PCR) Not detected C. tropicalis (PCR) Not detected SARS-CoV-2 (PCR) Positive H Enterobacteriac sp PCR Not detected E. cloacae complex PCR Not detected Enterococcus sp PCR Not detected E. coli (PCR) Not detected H. influenzae (PCR) Not detected Influenza A (RT-PCR) Flu a negative Influenza B (RT-PCR) Flu b negative Klebsiella oxytoca PCR Not detected Klebsiella pneumoniae Not detected List. monocytogenes PCR Not detected N. meningitidis (PCR) Not detected Proteus species (PCR) Not detected RSV (PCR) Negative Serratia marcescens PCR Not detected Staphylococcus sp PCR Detected H Staph aureus (PCR) Not detected mecA-Methicil Res Gene Detected H Streptococcus sp PCR Not detected Group A Strep (PCR) Not detected Strep agalactiae (PCR) Not detected Strep pneumoniae (PCR) Not detected P. aeruginosa (PCR) Not detected Jefry/B-Vanco Res Genes Not Reportable KPC-Carbap Res Gene PCR Not Reportable 12/09/22 12/09/22 12/09/22 17:30 17:30 17:30 WBC RBC Hgb Hct MCV MCH MCHC RDW Plt Count Neut % (Auto) Lymph % (Auto) [place] % (Auto) Eos % (Auto) Baso % (Auto) Neut # (Auto) Lymph # (Auto) [place] # (Auto) Eos # (Auto) Baso # (Auto) PT 14.0 H INR 1.2 APTT 30 Sodium 139 Potassium 3.4 Chloride 97 L Carbon Dioxide 30 BUN 26 H Creatinine 1.16 Estimated GFR > 60 BUN/Creatinine Ratio 22.4 H Glucose 95 Lactate 1.6 Calcium 9.0 Magnesium Total Bilirubin 1.2 AST 38 ALT 21 Alkaline Phosphatase 105 Total Creatine Kinase CK-MB (CK-2) CK-MB (CK-2) Rel Index Troponin I NT-Pro-B Natriuret Pep Total Protein 7.9 Albumin 4.4 Globulin 3.5 Albumin/Globulin Ratio 1.3 Lipase 125 Procalcitonin 0.08 A. baumannii (PCR) Diane albicans (PCR) C. glabrata (PCR) C. krusei (PCR) C. parapsilosis (PCR) C. tropicalis (PCR) SARS-CoV-2 (PCR) Enterobacteriac sp PCR E. cloacae complex PCR Enterococcus sp PCR E. coli (PCR) H. influenzae (PCR) Influenza A (RT-PCR) Influenza B (RT-PCR) Klebsiella oxytoca PCR Klebsiella pneumoniae List. monocytogenes PCR N. meningitidis (PCR) Proteus species (PCR) RSV (PCR) Serratia marcescens PCR Staphylococcus sp PCR Staph aureus (PCR) mecA-Methicil Res Gene Streptococcus sp PCR Group A Strep (PCR) Strep agalactiae (PCR) Strep pneumoniae (PCR) P. aeruginosa (PCR) Jefry/B-Vanco Res Genes KPC-Carbap Res Gene PCR 12/09/22 12/09/22 12/09/22 17:30 19:28 19:28 WBC RBC Hgb Hct MCV MCH MCHC RDW Plt Count Neut % (Auto) Lymph % (Auto) [place] % (Auto) Eos % (Auto) Baso % (Auto) Neut # (Auto) Lymph # (Auto) [place] # (Auto) Eos # (Auto) Baso # (Auto) PT INR APTT Sodium Potassium Chloride Carbon Dioxide BUN Creatinine Estimated GFR BUN/Creatinine Ratio Glucose Lactate Calcium Magnesium 1.8 Total Bilirubin AST ALT Alkaline Phosphatase Total Creatine Kinase 114 CK-MB (CK-2) 1.28 CK-MB (CK-2) Rel Index 1.1 L Troponin I 0.034 0.041 H NT-Pro-B Natriuret Pep 260 Total Protein Albumin Globulin Albumin/Globulin Ratio Lipase Procalcitonin A. baumannii (PCR) Diane albicans (PCR) C. glabrata (PCR) C. krusei (PCR) C. parapsilosis (PCR) C. tropicalis (PCR) SARS-CoV-2 (PCR) Enterobacteriac sp PCR E. cloacae complex PCR Enterococcus sp PCR E. coli (PCR) H. influenzae (PCR) Influenza A (RT-PCR) Influenza B (RT-PCR) Klebsiella oxytoca PCR Klebsiella pneumoniae List. monocytogenes PCR N. meningitidis (PCR) Proteus species (PCR) RSV (PCR) Serratia marcescens PCR Staphylococcus sp PCR Staph aureus (PCR) mecA-Methicil Res Gene Streptococcus sp PCR Group A Strep (PCR) Strep agalactiae (PCR) Strep pneumoniae (PCR) P. aeruginosa (PCR) Jefry/B-Vanco Res Genes KPC-Carbap Res Gene PCR 12/10/22 12/10/22 12/10/22 04:55 04:55 04:55 WBC 7.8 RBC 4.28 L Hgb 12.2 L Hct 35.3 L MCV 82.5 MCH 28.5 MCHC 34.6 RDW 14.5 Plt Count 161 Neut % (Auto) 87.8 H Lymph % (Auto) 10.2 L [place] % (Auto) 1.7 L Eos % (Auto) 0.0 L Baso % (Auto) 0.3 Neut # (Auto) 6900 Lymph # (Auto) 800 L [place] # (Auto) 100 Eos # (Auto) 0 Baso # (Auto) 0 PT 15.5 H INR 1.3 APTT Sodium 137 Potassium 3.2 L Chloride 100 Carbon Dioxide 29 BUN 24 H Creatinine 0.99 Estimated GFR > 60 BUN/Creatinine Ratio 24.2 H Glucose 123 H Lactate Calcium 8.3 L Magnesium 1.8 Total Bilirubin AST ALT Alkaline Phosphatase Total Creatine Kinase CK-MB (CK-2) CK-MB (CK-2) Rel Index Troponin I 0.039 H NT-Pro-B Natriuret Pep Total Protein Albumin Globulin Albumin/Globulin Ratio Lipase Procalcitonin A. baumannii (PCR) Diane albicans (PCR) C. glabrata (PCR) C. krusei (PCR) C. parapsilosis (PCR) C. tropicalis (PCR) SARS-CoV-2 (PCR) Enterobacteriac sp PCR E. cloacae complex PCR Enterococcus sp PCR E. coli (PCR) H. influenzae (PCR) Influenza A (RT-PCR) Influenza B (RT-PCR) Klebsiella oxytoca PCR Klebsiella pneumoniae List. monocytogenes PCR N. meningitidis (PCR) Proteus species (PCR) RSV (PCR) Serratia marcescens PCR Staphylococcus sp PCR Staph aureus (PCR) mecA-Methicil Res Gene Streptococcus sp PCR Group A Strep (PCR) Strep agalactiae (PCR) Strep pneumoniae (PCR) P. aeruginosa (PCR) Jefry/B-Vanco Res Genes KPC-Carbap Res Gene PCR PFSH Medical History Cervical vertebral fusion COPD (chronic obstructive pulmonary disease) Gastroesophageal reflux disease Hyperlipidemia Hypertension Surgical History History of cervical discectomy History of left-sided carotid endarterectomy S/P cervical spinal fusion Status post appendectomy Family History Father Gunshot injury Social History household members: spouse Smoking Status: Former smoker alcohol intake: current substance use type: does not use Assessment & Plan Assessment & Plan narrative: Flavio Bowen is an 82-year-old male with a history COPD, chronic respiratory failure on home O2/2L essential hypertension, NSTEMI, hx of GI Bleed, CAD with severe aortic stenosis, hyperlipidemia, paroxysmal atrial fibrillation and GERD who is admitted for Obs due to severe weakness, myocardial injury with a history of NSTEMI, and chronic respiratory failure with positive COVID and COPD with exacerbation. 1. COVID-19, with severe fatigue/weakness, acute, present on admission-asymptoma tic/compensated -non vaccinated-lactate, BNP, procalcitonin, influenza a/B, RSV are all negative. Chest x-ray is negative. -patient's oxygen demand is no greater and appears to be asymptomatic, does not meet treatment criteria. -Supportive care, respiratory consult as needed -continue patient's home oxygen of 2 L nasal cannula -PT/OT evaluation for weakness -stop IV fluids today 2. Myocardial injury, acute, with history of NSTEMI, chronic, present on admission - Initial troponin 0.034, repeat 0.041 then downtrended to 0.039. -likely demand (09/10/2021 troponin 8.910) 3. COPD, with exacerbation with chronic respiratory failure home oxygen, chronic, present on admission-stable -patient is on home oxygen 2L/NC no increased oxygen demand -respiratory consult as needed, continue albuterol HFA inhaler, prednisone 40 mg x 4 days, incentive spirometry -ordered sputum & blood culture -continue Spiriva or equivalent 4. Paroxysmal atrial fibrillation, with hypertension, essential, chronic, present on admission-stable -last echo 12/01/[address] Casey EF 55-60%. -EKG NSR, rate 83, without ST or T-wave changes -continue diltiazem 5. CAD, with severe aortic stenosis, chronic, present on admission- stable -continue Lipitor 6. GERD, chronic, present on admission -continue Protonix 7. Malnutrition, mild, acute on chronic, present on admission -as evidence by BMI 21.1 -patient's malnutrition places them at high risk for medical and surgical complications in relation to acute illness/chronic illness. This increases the difficulty in complexity of medical management and increases the chances poor outcomes such as mortality and morbidity as well as impaired wound healing, and immune suppression. -dietary consult ordered to evaluate and implement steps to improve caloric intake and nutrition. CODE: Full Proxy: Jojo Jessi, COVID PCR:POSITIVE COVID vaccination: Unvaccinated DVT/VTE prophylaxis: Lovenox and SCDs Disposition: Observation, possible discharge tomorrow after PT/OT evaluation. Time Spent With Patient Critical Care time: I spent a total of [] minutes of critical care time on this patient's care today; this time is exclusive of procedural time. Quality VTE Deep Vein Thrombosis/Pulmonary Embolism Present on Admission: No
[2022-12-10] MEDS: IPRATROPIUM 0.5 MG/2.5 ML NEB INH ×2 (19:50→22:16)
[2022-12-10] MEDS: BUDESONIDE 0.5 MG/2 ML NEB INH (19:50)
[2022-12-10] MEDS: SENNOSIDES 8.6 MG TABLET 17.2 MG PO (20:54)
[2022-12-11 01:00] VITALS: BP 158/70; PULSE 66; RESP 19; TEMP 36; O2SAT 98
[2022-12-11 04:00] VITALS: BP 147/58; PULSE 64; RESP 18; TEMP 36.1; O2SAT 92
[2022-12-11 05:33] LABS: Add Manual Diff / Slide Review NO; Basophils Absolute Auto 0 /uL (0-100); Basophils Percent Auto 0.3 % (0-2); Eosinophils Absolute Auto 0 /uL (0-450); Hematocrit 38.3 % (41-53); Hemoglobin 13.2 g/dL (13.5-17.5); Lymphocytes Absolute Auto 1700 /uL (1100-4500); Lymphocytes Percent Auto 12.5 % (25-40); Mean Corpuscular HGB Conc 34.4 % (30-36); Mean Corpuscular Hemoglobin 28.4 PG (26-34); Mean Corpuscular Volume 82.5 fL (80-100); Monocytes Absolute Auto 900 /uL (0-900); Neutrophils Absolute Auto 10800 /uL (1500-7000); Neutrophils Percent Auto 80.2 % (50-75); Platelet Count 226 X10^3/uL (150-400); Red Blood Cell Count 4.64 X10^6/uL (4.5-5.9); Red Cell Distribution Width 14.3 % (11.6-14.8); White Blood Cell Count 13.5 X10^3/uL (4.5-11.0)
--- NOTE | 2022-12-11 05:34 | PC.NURSE ---
Patient remains on 2Ln/c at present time. No changes from home oxygen dosage. No changes patient anticipating discharge today.
[2022-12-11 05:44] LABS: BUN Creatinine Ratio 32.3 (6-22); Blood Urea Nitrogen 30 mg/dL (9-20); Calcium 8.8 mg/dL (8.4-10.2); Carbon Dioxide 24 mmol/L (22-32); Chloride 104 mmol/L (98-107); Estimated Glomerular Filt Rate > 60 mL/min (>60); Glucose 118 mg/dL (80-110); HEMOLYSIS < 15 (0-50); Magnesium 2.1 mg/dL (1.6-2.3); Potassium 3.8 mmol/L (3.4-5.1); Sodium 138 mmol/L (137-145)
[2022-12-11] MEDS: BUDESONIDE 0.5 MG/2 ML NEB INH (07:22)
[2022-12-11] MEDS: IPRATROPIUM 0.5 MG/2.5 ML NEB INH (07:22)
[2022-12-11 07:23] VITALS: PULSE 63; RESP 18; O2SAT 94
[2022-12-11 08:35] VITALS: BP 162/77; PULSE 72; RESP 18; TEMP 36.1; O2SAT 95
[2022-12-11] MEDS: ENOXAPARIN 40 MG/0.4 ML SYRINGE SUBCUT (09:45)
[2022-12-11] MEDS: predniSONE 20 MG TABLET 40 MG PO (09:45)
[2022-12-11] MEDS: dilTIAZem CD 120 MG CAP PO (09:46)
[2022-12-11] MEDS: GABAPENTIN 600 MG TABLET PO (09:46)
[2022-12-11] MEDS: PANTOPRAZOLE DR 40 MG TABLET PO (09:46)
[2022-12-11] MEDS: ATORVASTATIN 20 MG TABLET 40 MG PO (09:46)
--- NOTE | 2022-12-11 10:19 | PT.IIE ---
Surgical History (Last Reviewed 12/10/22 @ 01:14 [facility] History of cervical discectomy History of left-sided carotid endarterectomy S/P cervical spinal fusion Status post appendectomy Medical History (Last Reviewed 12/10/22 @ 01:13 by MICHI Lucio) Cervical vertebral fusion COPD (chronic obstructive pulmonary disease) Gastroesophageal reflux disease Hyperlipidemia Hypertension Physical Therapy Inpatient Evaluation/Re-Eval M1 PT/OT-IP Prior Functional Status Start: 12/11/22 08:48 Freq: NEEDED Status: Active Protocol: Document 12/11/22 10:19 AW (Rec: 12/11/22 10:44 AW [id number]) Medical Review Prior Functional Status Medical History Reviewed Yes Communication Per chart, 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 Pt is able to make his needs known but does need extra time for processing. Mobility and Gait Pt states he is modified independent for household and short distance community mobility using SPC or 4WW. He denies falls. Activities of Daily Living and IADL's Pt states he dresses and bathes himself. His will stand by for baths if he is not feeling 100%. Pt reports he drives in town. Prior Functional Level (Other details) PMH includes COPD on 2 L/min O2 at home, a fib, NSTEMI. Social History Household Members spouse Living Arrangements House Number of Floors (Floors) One Floor Number of Stairs To Enter/Railing? 2 MARIEL[address] through garage with single rail Home Environment Standard Height Toilet,Built- In Shower Seat Home Equipment Four Wheel Walker,Straight Cane,Grab Bars Near Toilet Employment Status Retired Additional Social History Comment Pt describes a walk-in tub but is confused and may not understand the question. Pt is retired [employer] and lives in [place] with his spouse, Jojo. Per chart notes, spouse is also COVID (+). Pt states he has helpful neighbors who may be able to provide some assist. M2 PT-IP Current Condition Start: 12/11/22 08:48 Freq: NEEDED Status: Active Protocol: Document 12/11/22 10:19 AW (Rec: 12/11/22 10:44 AW [id number]) Physical Therapy Current Condition Current Condition Evaluation Date 12/11/22 Treatment Diagnosis COVID; COPD exacerbation; generalized weakness; difficulty in walking Onset Date 12/09/22 M3 PT-IP Subjective Start: 12/11/22 08:48 Freq: NEEDED Status: Active Protocol: Document 12/11/22 10:19 AW (Rec: 12/11/22 10:44 AW [id number]) Subjective Physical Therapy Visit Type Type Initial Evaluation Visit Start Time 09:47 Visit Stop Time 10:19 Total Visit Minutes 32 Physical Therapy Visit Comments Patient Comments Pt would like to use the toilet Patient Goals Return home with spouse assist . Therapy Pain Assessment Pain When Pain Assessed During Mobility Pain Present Pain Present Denied Pain M4 PT-IP Mobility and Gait Start: 12/11/22 08:48 Freq: NEEDED Status: Active Protocol: Document 12/11/22 10:19 AW (Rec: 12/11/22 10:44 AW [id number]) PT-Bed Mobility Assessment Supine to Sit Supine to Sit Standby Assistance,Head of Bed Elevated Scooting Scooting to Edge of Bed Standby Assistance PT-Transfer Assessment Sit to and From Stand Sit to and from Stand Standby Assistance,Use of Upper Extremities Equipment Transfer Assistive Device Gait Belt,Front Wheeled Walker Orthotic/Prosthetic Devices or Brace: No Transfers Transfer Destination Chair,Toilet Transfer Technique Stand Step Pivot Transfer Ability Level of Assist Standby Assistance,Contact Guard Assistance Comments Mobility Comments Pt was sitting up in bed as PT arrived. He was on room air and satting 91%. He sat up EOB and stood SBA. He used FWW to walk toward the toilet, transferring with use of grab bars CGA. He completed pericare without assist and stood using grab bar CGA. He used FWW to ambulate to the sink CGA. PT cued pt to push walker up to the sink for best support. He washed his hands, reaching outside his HILLARY with one hand on the countertop SBA. He then ambulated around the room a total of 40 feet with FWW SBA/CGA. He transferred to the chair and was left there with call light and tray table in reach. SpO2 was stable throughout mobility at 89-92% on room air . Informed RN of pt's mobility . Gait Assessment Gait Gait Assistance Required: Standby Assistance,Contact Guard Assist Distance (Feet) 40 Assistive Devices Assistive Device Gait Belt,Front Wheeled Walker Orthotic/Prosthetic Devices or Brace: No Gait Deviations General Gait Pattern Decreased Stride Length, Decreased Feet Clearance, Flexed Trunk Factors Limiting Gait Function Factors Limiting Gait Function Decreased Activity Tolerance, Decreased Strength,Poor Balance,Poor Safety Awareness Comments Gait Comments See mobility comments for details. Stair Climbing Assessment Comments Stair Climbing Comments Not assessed this date due to pt fatigue. PT-Balance Assessment Sitting Balance and Reactions Static Sitting Balance Ability Good Dynamic Sitting Balance Ability Good Standing Balance and Reactions Static Standing Balance Ability Good Dynamic Standing Balance Ability Fair Device Used FWW M5 PT-IP Objective Assessments Start: 12/11/22 08:48 Freq: NEEDED Status: Active Protocol: Document 12/11/22 10:19 AW (Rec: 12/11/22 10:44 AW [id number]) Orientation Orientation/Cognition Level of Alertness Confusional State Orientation Name,Place,Situation Language Function Ability Word Finding Difficulties Safety Awareness Decreased Safety Awareness Comments Word-finding difficulties noted during this encounter may be a result of remote CVA. Gross Range of Motion Upper Extremity ROM Assessment Within Functional Limits Lower Extremity ROM Assessment Within Functional Limits Strength Lower Extremity Strength Assessment Bilaterally Impaired Hip 4-/5 Knee 4/5 Ankle 4/5 Sensation Assessment Sensation Gross Sensation WNL Muscle Tone Muscle Tone WNL Yes M6 PT-IP Treatment Start: 12/11/22 08:48 Freq: NEEDED Status: Active Protocol: Document 12/11/22 10:19 AW (Rec: 12/11/22 10:44 AW [id number]) Physical Therapy Treatment Education Education Provided Safety M7 PT-IP Assessment and Plan Start: 12/11/22 08:48 Freq: NEEDED Status: Active Protocol: Document 12/11/22 10:19 AW (Rec: 12/11/22 10:44 AW [id number]) PT Summary Assessment and Plan Potential Rehabilitation Potential Good Status of Condition at Evaluation Stable Summary Impairments Strength,Balance,Cognition,Bed Mobility,Transfers,Gait, Activity Tolerance Assessment Summary Flavio Cazares is an 82 yo man admitted with COPD exacerbation and COVID. He is modified independent for household and short community distances using SPC vs 4WW at baseline. He is typically independent with ADL's and drives in town. On assessment, pt presents with generalized LE weakness, some confusion, and decreased safety awareness affecting his mobility independence. Pt required no more than SBA/CGA for gait and transfers with FWW. SpO2 was stable 89-92% on room air. If pt's spouse can provide assist , pt will be safe to discharge home once medically stable. Home health PT would be indicated to improve strength and mobility independence. Goals Bed Mobility Goal Independent Transfer Goal Independent,Four Wheeled Walker Gait Goal Independent,Four Wheel Walker Gait Distance 100 Other Goals - up/down 2 steps with unilateral rail Days to Meet Goals 2 Frequency of Treatment Frequency Of Treatment Once a Day Treatment Plan Physical Therapy Treatment Plan Bed Mobility Training,Transfer Training,Gait Training, Therapeutic Exercise,Balance Retraining,Discharge Planning, Neuromuscular Re-ed Other Recommendations and Next Treatment increase gait distance; trial Focus 4WW; assess stairs Precautions Other Precautions COVID Recommendations To Nursing Amount of Assist Needed 1 Person Assist Discharge Recommendations PT Discharge Recommendations Home with Assistance,Home with 24/ Assist Available,Home Health Equipment Needed for Home Before FWW if unsafe with 4WW Discharge Transportation Needs at Discharge Private Vehicle
--- NOTE | 2022-12-11 11:05 | OT.IP.EVAL ---
Past Medical History (Last Reviewed 12/10/22 @ 01:13 [facility] Cervical vertebral fusion COPD (chronic obstructive pulmonary disease) Gastroesophageal reflux disease Hyperlipidemia Hypertension Surgical History (Last Reviewed 12/10/22 @ 01:14 [facility] History of cervical discectomy History of left-sided carotid endarterectomy S/P cervical spinal fusion Status post appendectomy Occupational Therapy Inpatient Evaluation/Re-Eval M1 PT/OT-IP Prior Functional Status Start: 12/11/22 08:48 Freq: NEEDED Status: Active Protocol: Document 12/11/22 11:48 [facility] (Rec: 12/11/22 12:02 [facility] [id number]) Medical Review Prior Functional Status Medical History Reviewed Yes Communication Per chart, 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 Pt is able to make his needs known but does need extra time for processing. Mobility and Gait Pt states he is modified independent for household and short distance community mobility using SPC or 4WW. He denies falls. Pt states that he rides the brakes when using his 4ww. Activities of Daily Living and IADL's Pt states he dresses and bathes himself. His will stand by for baths if he is not feeling 100%. Pt reports he drives in town. Prior Functional Level (Other details) PMH includes COPD on 2 L/min O2 at home, a fib, NSTEMI. Social History Household Members spouse Living Arrangements House Number of Floors (Floors) One Floor Number of Stairs To Enter/Railing? 2 MARIEL[address] through garage with single rail Home Environment Standard Height Toilet,Built- In Shower Seat Home Equipment Four Wheel Walker,Straight Cane,Grab Bars Near Toilet Employment Status Retired Additional Social History Comment Pt describes a walk-in tub but is confused and may not understand the question. Pt is retired [employer] and lives in [place] with his spouse, Jojo. Per chart notes, spouse is also COVID (+). Pt states he has helpful neighbors who may be able to provide some assist. M2 OT-IP Current Condition Start: 12/11/22 11:48 Freq: Status: Active Protocol: Document 12/11/22 11:48 [facility] (Rec: 12/11/22 12:02 [facility] [id number]) Occupational Therapy Current Condition Current Condition Evaluation Date 02/13/23 Treatment Diagnosis COVID+ Diagnosis Onset Date 12/09/22 M3 OT- IP Subjective and Pain Start: 12/11/22 11:48 Freq: Status: Active Protocol: Document 12/11/22 11:48 [facility] (Rec: 12/11/22 12:02 [facility] [id number]) OT- Subjective Occupational Therapy Visit Type Type Initial Evaluation Visit Start Time 11:05 Visit Stop Time 11:46 Total Visit Minutes 41 Occupational Therapy Visit Comments Patient Comments Pt agreed to use the bathroom, but wanting to wait on his to come to get dressed as she is bringing him his shirt and jacket. Patient/Caregiver Goals TO go home. OT Pain Assessment Pain When Pain Assessed At Rest Pain Present Pain Present Denied Pain M4 OT- IP ADL's Start: 12/11/22 11:48 Freq: Status: Active Protocol: Document 12/11/22 11:48 [facility] (Rec: 12/11/22 12:02 [facility] [id number]) OT [id number] Comments OT Self-Feeding Comments NOt at meal time. OT ADL-Grooming General Evaluation Grooming Ability Independent Comments OT Grooming Comments Able to do while standing at the sink. OT ADL-Oral Care General Eval Oral Care Ability Independent OT ADL-Dressing Comments OT Dressing Comments Pt not wanting to perform at this time and just wanting to get back to bed. OT ADL-Toileting General Evaluation Toileting Ability Standby Assistance Comments OT Toileting Comments vc for completeness to wipe OT ADL-Bathing Comments OT Bathing Comments NOt performed. M5 OT- IP IADL's Start: 12/11/22 11:48 Freq: Status: Active Protocol: Document 12/11/22 11:48 [facility] (Rec: 12/11/22 12:02 [facility] [id number]) OT-Instrumental Activities of Daily Living Deficits IADL Deficits Identified Deficits Home Safety Awareness Awareness of Need for Assistance at Home Good Awareness Ability to Problem Solve Emergency Able to Problem Solve Situations Medication Management Medication Management Caregiver Administers Money Management Money Management Caregiver Provides Assistance Meal Preparation Meal Preparation Caregiver Provides Assist Rocket Test Fire Worker Rocket Test Fire Worker Caregiver Provides Assist Driving Driving Caregiver Provides Assist M6 OT- IP Functional Cognition Start: 12/11/22 11:48 Freq: Status: Active Protocol: Document 12/11/22 11:48 [facility] (Rec: 12/11/22 12:02 [facility] [id number]) Cognitive Factors Limiting Selfcare Function Cognitive Ability Level of Alertness Alert Patient Orientation Name,Place,Situation Attention Span Ability Capable of Focused Attention, Capable of Sustained Attention Ability to Follow Commands Able to Follow One Step Commands Cognitive Comments Cognitive Assessment Comments Pt has some word finding trouble and needing reminders for completeness for hygiene. Pt's states his assist him with IADl needs and ADl's as needed.Pt needs increased time to process. OT- Vision and Hearing OT- Hearing Assessment OT- Hearing Assessment WFL OT- Vision Assessment Visual Acuity Glasses All The Time Occular Pursuits Impaired Horizontal Vision Assessment Comments Pt eyes left at times does not scan with right eye. Pt complaining of blurred vision and states is planning of having taken care. M7 OT- IP Mobility and Balance Start: 12/11/22 11:48 Freq: Status: Active Protocol: Document 12/11/22 11:48 [facility] (Rec: 12/11/22 12:02 [facility] [id number]) OT- Bed Mobility Assessment Sit to Supine Sit to Supine Assist Standby Assistance OT-Transfer Assessment Sit to and From Stand Sit to and from Stand Standby Assistance Transfers Transfer Ability Standby Assistance,Contact Guard Assistance Technique Transfer Destination Bed,Toilet Transfer Technique Stand Step Pivot Devices Transfer Assistive Devices None,Gait Belt,4 Wheeled Walker Comments Mobility Comments CGA if pt not using a device otherwise SBA with 4ww and pt tends to ride the brakes when moving with the 4ww. Pt states does so at home. OT- Balance Assessment Sitting Balance and Reactions Static Sitting Balance Ability Normal Dynamic Sitting Balance Ability Good Standing Balance and Reactions Static Standing Balance Ability Good Dynamic Standing Balance Ability Fair M8 OT- IP Objective Assessments Start: 12/11/22 11:48 Freq: Status: Active Protocol: Document 12/11/22 11:48 [facility] (Rec: 12/11/22 12:02 [facility] [id number]) OT Gross Range of Motion Upper Extremity Range of Motion ROM Impairments Decreased at end ROM OT Strength Comments Strength Comments BUE 4/5 OT- Coordination Assessment Upper Extremity Finger to Nose Test Left UE Impaired OT-Muscle Tone Assessment Muscle Tone WNL Yes M9 OT- IP Assessment and Plan Start: 12/11/22 11:48 Freq: Status: Active Protocol: Document 12/11/22 11:48 [facility] (Rec: 12/11/22 12:02 [facility] [id number]) OT Summary Assessment and Plan Potential Rehabilitation Potential Good Analytic Complexity at Evaluation Moderate Summary OT Impairments Range of Motion,Strength, Balance,Functional Mobility, Grooming,Dressing,Toileting, Bathing,Toilet Transfers, Shower Transfers Progress Towards Goals Progressing Toward Goals Assessment Summary Pt MOD complexity and main barriers are steps, decreased activity tolerance and now needing minimal assist for ADl and mobility needs. Pt's called and states prior pt is MOD I with all needs but in the past has been able to assist him when he is weak. Pt looking to go home with assist. Goals Grooming Goal Independent Dressing Goal Independent Toileting Goal Independent Bathing Goal Standby Assistance Toilet Transfer Goal Independent Shower Transfer Goal Independent Days to Meet Goals 7 Frequency of Treatment Frequency Of Treatment Once a Day Treatment Plan OT Treatment Plan ADL Training,Functional Mobility,Patient/Family Education,Discharge Planning Discharge Recommendations OT Discharge Recommendations Home with Assistance Transportation Needs at Discharge Private Vehicle
--- NOTE | 2022-12-11 12:40 | PM.DS.1 ---
History of Present Illness History of Present Illness Date Patient Seen: 12/11/22 Time Patient Seen: 12:40 Chief complaint: Can't cough phlegm up, Choking Narrative: Flavio Bowen is an 82-year-old male with a history COPD, chronic respiratory failure on home O2/2L essential hypertension, NSTEMI, hx of GI Bleed, CAD with severe aortic stenosis, hyperlipidemia, paroxysmal atrial fibrillation and GERD who presented to the ED with complaints of upper respiratory symptoms and feeling sick for him & his , severe weakness, approximately the past 3-4 days, productive cough, no sore throat, no ear eye discomfort, increased shortness of breath, mild tachypnea, decreased oral intake, denies chest pain, fever, body aches, chills, nausea, vomiting, abdominal pain, diarrhea, constipation, hematuria, hematemesis, melena, rashes, recent injury or trauma.. Patient states he is not vaccinated against COVID, and is unsure if he is received the flu or pneumonia vaccines. On admit 98.6, 148/67, 75, 15, 90% on room air. Patient's CBC CMP are unremarkable with the exception of neutrophils 7600, BUN 26. lactate, BNP, procalcitonin, influenza a/B, RSV are all negative. Initial troponin 0.034, repeat 0.041-likely demand (09/10/2021 troponin 8.910). Chest x-ray is negative, last echo 12/01/[address] Casey EF 55-60%. COVID positive, patient admitted for Obs COVID and weakness. Discharge Providers Provider Date of admission: 12/09/22 20:59 Discharge Date: 12/11/22 Primary care physician: Glynn Stallworth MD Consults: 12/09/22 21:35 Consult to Cardio/Pulmonary Rehabilitation Routine Comment: Physician Instructions: Evaluate and treat 12/09/22 21:44 Consult to Dietitian, Adult Routine Comment: Reason For Exam: BMI 22 Consult to Occupational Therapy Evaluate & Treat Comment: Weakness fatigue Physician Instructions: Evaluate and treat Consult to Physical Therapy Evaluate & Treat Comment: weakness Fatigue Physician Instructions: Evaluate and Treat 12/10/22 11:54 Consult to Home Health Routine Comment: Reason For Exam: Home Health RN, P.T, O.T. Discharge provider: Gokul Melgoza DO Summary Hospital Course Discharge Diagnosis: 1. COVID-19, with severe fatigue/weakness, acute, present on admission-asymptomatic/compensated 2. Myocardial injury, acute, with history of NSTEMI, chronic, present on admission) 3. COPD, with exacerbation with chronic respiratory failure home oxygen, chronic, present on admission-stable 4. Paroxysmal atrial fibrillation, with hypertension, essential, chronic, present on admission-stable 5. CAD, with severe aortic stenosis, chronic, present on admission- stable 6. GERD, chronic, present on admission 7. Malnutrition, mild, acute on chronic, present on admission Hospital Course: Flavio Bowen is an 82-year-old male with a history COPD, chronic respiratory failure on home O2/2L essential hypertension, NSTEMI, hx of GI Bleed, CAD with severe aortic stenosis, hyperlipidemia, paroxysmal atrial fibrillation and GERD who is admitted for Obs due to severe weakness, myocardial injury with a history of NSTEMI, and chronic respiratory failure with positive COVID and COPD with exacerbation. Troponins peaked quickly and downtrended, consistent with demand due to COVID 19 infection. He had gradual improvement in his breathing and weakness over the 2 days of his admission and was discharged home when he was feeling well and after PT / OT evaluation on HD#2. He was discharged home at that time. Patient's malnutrition places them at high risk for medical and surgical complications in relation to acute illness/chronic illness.? This increases the difficulty in complexity of medical management and increases the chances poor outcomes such as mortality and morbidity as well as impaired wound healing, and immune suppression. Time Spent with Patient Time spent: Greater than 30 minutes Exam Vital Signs (past 8 hours): - 12/11/22 07:23 12/11/22 08:35 12/11/22 09:46 Temperature 96.9 F L Pulse Rate 63 72 Respiratory Rate 18 18 Blood Pressure 162/77 H Pulse Oximetry 94 95 Oxygen Delivery Method Room Air Room Air Oxygen Flow Rate 0 0 Fraction of Inspired Oxygen 21 Fraction of Inspired Oxygen 21 SaO2/FiO2 Ratio 447 Oxygen Delivery Method Room Air Oxygen Flow Rate 0 Narrative Exam Narrative: General: Patient is a thin, frail, chronically ill-appearing elderly male, in no distress at this time. HEENT: Normocephalic, atraumatic, extraocular muscles intact, oral pharynx is clear and mucous membranes are dry-appears quite dehydrated. Neck is supple and symmetric, trachea is midline, no adenopathy, no thyroid enlargement, nontender, no masses palpated. Negative for JVD Chest: Breathing on 2L/NC without nasal flaring, retractions, tachypneic or labored Lungs: Auscultation of all lung keller crackles noted in right base. Cardio: regular rate and rhythm, no m/r/g Abdomen: Soft nontender, negative for organomegaly, or masses. Bowel sounds are hypoactive present in all 4 quadrants without guarding or rebound, no CVA tenderness. Musculoskeletal: Muscle tone appears appropriate for age, no deformity, crepitus, effusions, cyanosis, clubbing or edema present. Full range of motion intact radial and pedal pulses are normal. Skin: Warm very dry, poor turgor, and intact without rashes, ulcerations or petechiae. Neuro: Alert and orientated x3, but is a poor historian, poor recall, moves all extremities, sensation to touch intact, no gross deficits noted of cranial nerves. Psych: Patient has a well-kept appearance, appropriate affect, mental status attitude thought context and judgment are appropriate for age. Objective Labs 12/11/22 05:23 12/11/22 05:23 Labs: Laboratory Results - last 24 hr 12/09/22 12/11/22 12/11/22 17:14 05:23 05:23 WBC 13.5 H D RBC 4.64 Hgb 13.2 L Hct 38.3 L MCV 82.5 MCH 28.4 MCHC 34.4 RDW 14.3 Plt Count 226 Neut % (Auto) 80.2 H Lymph % (Auto) 12.5 L [place] % (Auto) 7.0 Eos % (Auto) 0.0 L Baso % (Auto) 0.3 Neut # (Auto) 41064 H Lymph # (Auto) 1700 [place] # (Auto) 900 Eos # (Auto) 0 Baso # (Auto) 0 Sodium 138 Potassium 3.8 Chloride 104 Carbon Dioxide 24 BUN 30 H Creatinine 0.93 Estimated GFR > 60 BUN/Creatinine Ratio 32.3 H Glucose 118 H Calcium 8.8 Magnesium 2.1 A. baumannii (PCR) Not detected Diane albicans (PCR) Not detected C. glabrata (PCR) Not detected C. krusei (PCR) Not detected C. parapsilosis (PCR) Not detected C. tropicalis (PCR) Not detected Enterobacteriac sp PCR Not detected E. cloacae complex PCR Not detected Enterococcus sp PCR Not detected E. coli (PCR) Not detected H. influenzae (PCR) Not detected Klebsiella oxytoca PCR Not detected Klebsiella pneumoniae Not detected List. monocytogenes PCR Not detected N. meningitidis (PCR) Not detected Proteus species (PCR) Not detected Serratia marcescens PCR Not detected Staphylococcus sp PCR Detected H Staph aureus (PCR) Not detected mecA-Methicil Res Gene Detected H Streptococcus sp PCR Not detected Group A Strep (PCR) Not detected Strep agalactiae (PCR) Not detected Strep pneumoniae (PCR) Not detected P. aeruginosa (PCR) Not detected Jefry/B-Vanco Res Genes Not Reportable KPC-Carbap Res Gene PCR Not Reportable [facility] Medical History Cervical vertebral fusion COPD (chronic obstructive pulmonary disease) Gastroesophageal reflux disease Hyperlipidemia Hypertension Surgical History History of cervical discectomy History of left-sided carotid endarterectomy S/P cervical spinal fusion Status post appendectomy Family History Father Gunshot injury Social History household members: spouse Smoking Status: Former smoker alcohol intake: current substance use type: does not use Discharge Plan Discharge Plan Patient Disposition: Home Provider Discharge Comment: You were admitted to the hospital with weakness due to COVID, you improved with time and supportive care. You were treated for a mild COPD exacerbation, complete therapy with another two days of prednisone at home (sent to pharmacy). No other changes to home medications are recommended at this time. Discharge orders & Medications Prescriptions: New prednisone 20 mg tablet 40 mg PO DAILY 2 Days Qty: 4 0RF Continued atorvastatin [Lipitor] 40 MG tablet 40 mg PO DAILY hydrochlorothiazide 12.5 mg tablet 12.5 mg PO DAILY Spiriva with HandiHaler 18 mcg capsule, w/inhalation device 1 mcg INHALATION DAILY albuterol sulfate 90 mcg/actuation Hfa Aerosol Inhaler 2 puff INHALATION BID PRN (Reason: Wheezing) Label Comments: bid and prn---patient states uses as rescue inhaler fluticasone propion-salmeterol 250-50 mcg/dose blister with device 1 inh INHALATION BID gabapentin 600 mg Tablet 600 mg PO TID diltiazem HCl 120 mg capsule,extended release 24hr 120 mg PO DAILY cholecalciferol (vitamin D3) [Vitamin D3] 25 mcg (1,000 unit) Capsule 1,000 unit PO DAILY pantoprazole [Protonix] 40 mg tablet,delayed release (DR/EC) 40 mg PO BID Qty: 84 0RF fluconazole [Diflucan] 100 mg Tablet 200 mg PO DAILY Qty: 28 0RF Follow up/Referrals: Glynn Stallworth MD [Primary Care Provider] - Diet/Activity/Treatments Diet: Diet as Tolerated Activity: As tolerated Visit Report/Discharge Packet Instructions: How to Prevent Falls, DI for COVID-19 (Suspected or Confirmed ), How to Care for Someone with COVID-19 Stand Alone Forms: Patient Portal/API, Stroke Signs & Symptoms Discharge Data Primary Care Provider: Glynn Stallworth Attending Provider: Zeynep Cerrato VTE Deep Vein Thrombosis/Pulmonary Embolism Present on Admission: No
--- NOTE | 2022-12-11 13:18 | DIET.CONS2 ---
Dietary Inpatient Consultation Note Admission Date: 12/09/2022 20:59 82y M admitted for covid pna referred to nutrition for low BMI (21.1). Pt in isolation, has had poor POs <25% x2d while hospitalized. Pt has UBW 80kg as of 2018, pt was 59kg one year ago and has regained 4kg since but remains 21% below UBW. Recc pt start ONS therapy for each missed meal until appetite returns. Nutrition Dx: Moderate Acute on Chronic Malnutrition r/t poor appetite aeb pt with covid pna, POs <25% EER x3d, pt 21% below UBW, BMI 21.1 (low for age). Diet: 12/09/22 Breakfast Heart Healthy Diet Diet Modifications: Nutrition Percent Meal Consumed 0% 12/11/22 12:27 Percent Meal Consumed 0% 12/11/22 09:00 Percent Meal Consumed 0% 12/10/22 17:39 Percent Meal Consumed 0% 12/10/22 09:20 Electronically Signed by: Flory Tsai 12/11/22 13:18 Clinical Dietitian [address] [id number]
== END 2022-12-11 13:23 | disposition home or self-care (01) ==
LOC: ED 20:24 → AC 21:00
PROVIDERS: Emergency Medicine; Internal Medicine; Admitting Provider Nurse Practitioner Family; Emergency Provider Emergency Medicine; PCP Internal Medicine; Visit Provider Nurse Practitioner Family
DX: U07.1 COVID-19 (principal); J44.9 Chronic obstructive pulmonary disease, unspecified; Z99.81 Dependence on supplemental oxygen; I48.0 Paroxysmal atrial fibrillation; K21.9 Gastro-esophageal reflux disease without esophagitis; I25.10 Atherosclerotic heart disease of native coronary artery without angina pectoris; E46 Unspecified protein-calorie malnutrition; Z68.21 Body mass index [BMI] 21.0-21.9, adult; I5A Non-ischemic myocardial injury (non-traumatic); I25.2 Old myocardial infarction
CPT/HCPCS: 0241U; 36415; 51798; 71045; 80048; 80053; 82550; 82553; 83605; 83690; 83735; 83880; 84145; 84484; 85025; 85610; 85730; 87040; 87077; 87150; 87186; 93005; 94640; 94760; 96360; 96361; 96372; 97161; 97166; 99285; G0378; A9270; J1650